=== PATIENT | female | born 1950 | race Caucasian/White ===

== ENCOUNTER 2017-07-05 23:06 | Inpatient (IN) | payer MEDICARE ==
[2017-07-05] MEDS ORDERED: Albuterol (2.5 MG) 0.5 % CONC 2.5 MG/0.5 ML NEB.SOLN (ICU and ED only) INH ONE (23:49)
[2017-07-05] MEDS ORDERED: Albuterol 2.5 MG/3 ML NEB.SOL* (0.083%) ONE (23:53)
[2017-07-06 00:17] LABS: PCO2 Arterial 44 mmHg (35-45)
[2017-07-06 00:29] LABS: Hematocrit 34 % (35-47); Hemoglobin 11.2 g/dl (12.0-16.0); Mean Corpuscular HGB Conc 33 g/dl (31-36); Mean Corpuscular Hemoglobin 29 pg (27-31); Mean Corpuscular Volume 88 fL (80-97); Mean Platelet Volume 8 um3 (7.4-10.4); Red Blood Count 3.89 10^6/ul (4.0-5.4); Red Cell Distribution Width 17 % (10.5-15); White Blood Count 14.5 10^3/ul (3.5-10.8)
[2017-07-06 00:39] LABS: ALT 9 U/L (7-52); Albumin 3.8 g/dL (3.2-5.2); Alkaline Phosphatase 83 U/L (34-104); BUN/Creatinine Ratio 15.7 (8-20); Blood Urea Nitrogen 22 mg/dL (6-24); CO2 Carbon Dioxide 27 mmol/L (22-32); Calcium 9.9 mg/dL (8.6-10.3); Chloride 100 mmol/L (101-111); EGFR African American 48.2 (>60); EGFR Non-African American 37.5 (>60); Globulin 3.6 g/dL (2-4); Glucose 243 mg/dL (70-100); Sodium 136 mmol/L (133-145); Total Protein 7.4 g/dL (6.4-8.9)
[2017-07-06 01:00] LABS: Anion Gap 9 mmol/L (2-11)
[2017-07-06] MEDS ORDERED: Albuterol 2.5 MG/3 ML NEB.SOL* (0.083%) INH PRN (03:06)
[2017-07-06] MEDS ORDERED: Ondansetron INJ* 2 MG/ML VIAL IV PRN (03:06)
[2017-07-06] MEDS ORDERED: CMCS: Melatonin (NF) 3 MG TAB PO PRN (03:06)
[2017-07-06] MEDS ORDERED: NS 0.9% 1000 ML* 1,000 ML IV SCH ×2 (03:15→03:56)
--- NOTE | 2017-07-06 03:32 | HP ---
H&P (Free Text) History and Physical: PCP: Charles Choi MD Cardiology: Gabbie Lopez MD Date/Time: 07/06/2017 021 CC: SOB HPI: Mrs Del Real is a 67YO morbidly obese white female HX CHF, AFIB, HTN, HLD, DM2, & COPD who presents with onset ~1 week ago of SOB, cough, & congestion for which she was seet at Urgent Care Friday and prescribed amoxicillin/clavulanate and has taken as prescribed. However, her SOB has persisted and progressed. She now gets SOB with mild exertion. She denies chest pain, N/V, F/C, sweats, palpitations, light-headedness, new/different swelling in the legs, focal W/N/T or other issues. PMedHx CHF AFIB COPD DM2 HTN HLD Ambulatory Orders Diltiazem HCl [Diltiazem HCl ER] 120 mg PO DAILY 11/14/13 Metoprolol Succinate [Metoprolol Succinate ER] 12.5 mg PO DAILY 11/14/13 Rivaroxaban TAB(*) [Xarelto(*)] 20 mg PO DAILY 11/14/13 Sitaglipt/Metform (NF) [Janumet (NF)] 1 tab PO BID 11/14/13 Canagliflozin (NF) [Invokana (NF)] 100 mg PO DAILY 07/06/17 Digoxin [Digitek] 0.125 mg PO DAILY 07/06/17 Exenatide [Bydureon] 2 mg SUBCUT WEEKLY 07/06/17 Furosemide TAB* [Lasix TAB*] 20 mg PO SEE INSTRUCTIONS 07/06/17 glipiZIDE TAB* [Glucotrol TAB*] 5 mg PO BID 07/06/17 Allergies No Known Allergies Allergy (Verified 11/14/13 14:56) PSurgHx tonsillectomy hysterectomy SocHx: quit smoking ~15years ago, 2 beers/day, denies recreational drugs; , lives alone; retired from accounting; full code status FamHx: Mother: in her 80s w/ CAD; passed in her sleep; Father: passed in his 60s 2nd leukemia ROS: as above, otherwise reviewed and all were negative vitals: Vital Signs Temp 38.0 C 07/05/17 23:11 Pulse 91 07/06/17 03:00 Resp 26 07/06/17 03:00 BP 130/71 07/06/17 03:00 Pulse Ox 96 07/06/17 03:00 Intake & Output 07/05/17 07/05/17 07/06/17 11:59 23:59 11:59 Weight 122.47 kg Constitutional: NAD, normally developed, morbidly obese white female HEENM: atraumatic; sclera/conjunctiva: anicteric/clear; hearing: clinically intact; oropharynx: clear, mucosa moist Neck: soft tissue: normal; thyroid: normal Pulmonary: clear to auscultation bilaterally, good aeration, no accessory muscle use CV: RR/RR, normal S1S2, no jugular venous distention, 2+ B DP/PT, no edema Abdominal: soft, non-distended, non-tender, no rebound/guarding/rigidity, normoactive bowel sounds, no hepatosplenomegaly or masses, no costovertebral angle tenderness Musculoskeletal: general: Integumental: L>R LE changes of chronic venous stasis w/o erythema/induration/ warmth Psychiatric orientation: AA&O to PPS affect: calm mood: cooperative eye contact: fair content: good memory: reliable responses: timely insight: fair Testing: Lab Results 07/05/17 07/05/17 07/05/17 Range/Units 23:40 23:40 23:40 WBC 14.5 H (3.5-10.8) 10^3/ul RBC 3.89 L (4.0-5.4) 10^6/ul Hgb 11.2 L (12.0-16.0) g/dl Hct 34 L (35-47) % MCV 88 (80-97) fL MCH 29 (27-31) pg MCHC 33 (31-36) g/dl RDW 17 H (10.5-15) % Plt Count 344 (150-450) 10^3/ul MPV 8 (7.4-10.4) um3 Neut % (Auto) 89.9 H (38-83) % Lymph % (Auto) 5.0 L (25-47) % [place] % (Auto) 3.4 (1-9) % Eos % (Auto) 1.0 (0-6) % Baso % (Auto) 0.7 (0-2) % Absolute Neuts (auto) 13.1 H (1.5-7.7) 10^3/ul Absolute Lymphs (auto) 0.7 L (1.0-4.8) 10^3/ul Absolute Monos (auto) 0.5 (0-0.8) 10^3/ul Absolute Eos (auto) 0.1 (0-0.6) 10^3/ul Absolute Basos (auto) 0.1 (0-0.2) 10^3/ul Absolute Nucleated RBC 0 10^3/ul Nucleated RBC % 0 ABG pH (7.35-7.45) ABG pCO2 (35-45) mmHg ABG pO2 (80-100) mmHg ABG HCO3 (19-31) mmol/L ABG O2 Saturation (95-98) % ABG Base Excess (-2.0-2.0) Sodium 136 (133-145) mmol/L Potassium TNP Chloride 100 L (101-111) mmol/L Carbon Dioxide 27 (22-32) mmol/L Anion Gap 9 (2-11) mmol/L BUN 22 (6-24) mg/dL Creatinine 1.40 H (0.51-0.95) mg/dL Est GFR ( Amer) 48.2 (>60) Est GFR (Non-Af Amer) 37.5 (>60) BUN/Creatinine Ratio 15.7 (8-20) Glucose 243 H (70-100) mg/dL Calcium 9.9 (8.6-10.3) mg/dL Total Bilirubin 0.50 (0.2-1.0) mg/dL AST TNP ALT 9 (7-52) U/L Alkaline Phosphatase 83 (34-104) U/L B-Natriuretic Peptide 76 ( - 100) pg/mL Total Protein 7.4 (6.4-8.9) g/dL Albumin 3.8 (3.2-5.2) g/dL Globulin 3.6 (2-4) g/dL Albumin/Globulin Ratio 1.1 (1-3) 07/06/17 Range/Units 00:06 WBC (3.5-10.8) 10^3/ul RBC (4.0-5.4) 10^6/ul Hgb (12.0-16.0) g/dl Hct (35-47) % MCV (80-97) fL MCH (27-31) pg MCHC (31-36) g/dl RDW (10.5-15) % Plt Count (150-450) 10^3/ul MPV (7.4-10.4) um3 Neut % (Auto) (38-83) % Lymph % (Auto) (25-47) % [place] % (Auto) (1-9) % Eos % (Auto) (0-6) % Baso % (Auto) (0-2) % Absolute Neuts (auto) (1.5-7.7) 10^3/ul Absolute Lymphs (auto) (1.0-4.8) 10^3/ul Absolute Monos (auto) (0-0.8) 10^3/ul Absolute Eos (auto) (0-0.6) 10^3/ul Absolute Basos (auto) (0-0.2) 10^3/ul Absolute Nucleated RBC 10^3/ul Nucleated RBC % ABG pH 7.40 (7.35-7.45) ABG pCO2 44 (35-45) mmHg ABG pO2 68 L (80-100) mmHg ABG HCO3 26.5 (19-31) mmol/L ABG O2 Saturation 96.5 (95-98) % ABG Base Excess 2.1 H (-2.0-2.0) Sodium (133-145) mmol/L Potassium Chloride (101-111) mmol/L Carbon Dioxide (22-32) mmol/L Anion Gap (2-11) mmol/L BUN (6-24) mg/dL Creatinine (0.51-0.95) mg/dL Est GFR ( Amer) (>60) Est GFR (Non-Af Amer) (>60) BUN/Creatinine Ratio (8-20) Glucose (70-100) mg/dL Calcium (8.6-10.3) mg/dL Total Bilirubin (0.2-1.0) mg/dL AST ALT (7-52) U/L Alkaline Phosphatase (34-104) U/L B-Natriuretic Peptide ( - 100) pg/mL Total Protein (6.4-8.9) g/dL Albumin (3.2-5.2) g/dL Globulin (2-4) g/dL Albumin/Globulin Ratio (1-3) ECG, personally reviewed: AFIB rate 106, no ischemia CXR, personally reviewed: small RLL infiltrate vs atelectasis Impression: 67F presenting with increasing SOB and RLL infiltrate s/p PO amoxicillin/clavulanate for sinusitis DIAGNOSIS & PLAN Primary RLL pneumonia : IVFs : IV azithromycin & ceftriaxone : supplemental oxygen : guaifenesin : incentinve spirometry : check S pneumo & Legionella antigens Secondary CHF : continue furosemide AFIB : continue rivaroxaban, metoprolol, diltiazem, & digoxin COPD : albuterol nebs PRN DM2 : check A1c : consistent carb diet : correctional insulin : continue sitagliptin/metformin, canagliflozin, & glipizide : hold exenatide HTN : continue furosemide, metoprolol, & diltiazem HLD : heart healthy diet Admission Rational: observation for initiation of ABX for RLL pneumonia DVTp: rivaroxaban Code Status: full HCP: Ramesh monae [phone]
[2017-07-06] MEDS ORDERED: Azithromycin IV(*) 500 MG in NS 0.9% 250 ML* 250 ML IVPB SCH (04:00)
[2017-07-06 04:32] LABS: Hematocrit 35 % (35-47); Hemoglobin 11.2 g/dl (12.0-16.0); Mean Corpuscular HGB Conc 32 g/dl (31-36); Mean Corpuscular Hemoglobin 28 pg (27-31); Mean Corpuscular Volume 87 fL (80-97); Mean Platelet Volume 8 um3 (7.4-10.4); Red Blood Count 3.97 10^6/ul (4.0-5.4); Red Cell Distribution Width 17 % (10.5-15); White Blood Count 12.9 10^3/ul (3.5-10.8)
[2017-07-06 05:00] LABS: BUN/Creatinine Ratio 17.1 (8-20); Calcium 9.8 mg/dL (8.6-10.3); EGFR Non-African American 43.6 (>60); Potassium 4.3 mmol/L (3.5-5.0)
[2017-07-06] MEDS ORDERED: cefTRIAXone VIAL(*) 1,000 MG in NS 0.9% 50 ML* 50 ML IVPB SCH (05:00)
[2017-07-06] MEDS: Omeprazole CAP* 20 MG PO SCH (05:52)
--- NOTE | 2017-07-06 08:35 | RAD ---
INDICATION: Cough. Bronchitis. COMPARISON: November 15, 2013 TECHNIQUE: PA and lateral dual-energy views were obtained. FINDINGS: Bones/Soft Tissues: There are no acute bony findings. Cardiomediastinal: The cardiomediastinal silhouette is normal. Lungs: There are no acute infiltrates. There are mild chronic interstitial changes. Pleura: There are no pleural effusions. Other: None IMPRESSION: Mild chronic interstitial changes. No acute infiltrates
[2017-07-06] MEDS: Furosemide TAB* 20 MG PO SCH (08:52)
[2017-07-06] MEDS: Digoxin TAB* 0.125 MG PO SCH (08:52)
[2017-07-06] MEDS: glipiZIDE TAB* 5 MG PO SCH ×2 (08:52→17:46)
[2017-07-06] MEDS: Metoprolol Succinate XL TAB* 25 MG PO SCH (08:53)
[2017-07-06] MEDS: guaiFENesin ER TAB 600 MG PO SCH ×2 (08:53→21:16)
[2017-07-06] MEDS: Docusate CAP* 100 MG PO SCH ×2 (08:54→21:17)
[2017-07-06] MEDS: Oseltamivir CAP* 30 MG CAP PO SCH ×2 (08:54→21:15)
[2017-07-06] MEDS: Diltiazem CD CAP* 120 MG PO SCH (08:54)
[2017-07-06] MEDS: Insulin LISPRO* 1 UNITS UNIT SUBCUT SCH ×4 (09:00→21:20)
[2017-07-06] MEDS: CANAGLIFLOZIN 100 MG PO SCH (09:00)
[2017-07-06] MEDS: Rivaroxaban TAB(*) 20 MG TAB PO SCH (12:33)
--- NOTE | 2017-07-06 15:20 | PN ---
Subjective Date of Service: 07/06/17 Interval History: Feels close to baseline cough is minimal no other complaints Objective Active Medications: Acetaminophen (Tylenol Tab*) 650 mg PO Q6H PRN PRN Reason: FEVER/PAIN Albuterol (Ventolin 2.5 Mg/3 Ml Neb.Nadia*) 2.5 mg INH Q2H PRN PRN Reason: SOB/WHEEZING Canagliflozin (Invokana (Nf)) 100 mg PO DAILY [facility] Last Admin: 07/06/17 09:00 Dose: Not Given Digoxin (Lanoxin Tab*) 0.125 mg PO DAILY [facility] Last Admin: 07/06/17 08:52 Dose: 0.125 mg Diltiazem HCl (Cardizem Cd Cap*) 120 mg PO DAILY [facility] Last Admin: 07/06/17 08:54 Dose: 120 mg Docusate Sodium (Colace Cap*) 200 mg PO BID [facility] Last Admin: 07/06/17 08:54 Dose: Not Given Furosemide (Lasix Tab*) 20 mg PO SuMoTuThFr@0900 [facility] Last Admin: 07/06/17 08:52 Dose: 20 mg Glipizide (Glucotrol Tab*) 5 mg PO BID AC [facility] Last Admin: 07/06/17 08:52 Dose: 5 mg Guaifenesin (Mucinex*) 1,200 mg PO BID [facility] Last Admin: 07/06/17 08:53 Dose: 1,200 mg Insulin Human Lispro (Humalog*) 0 units SUBCUT ACHS [facility] PRN Reason: Protocol Last Admin: 07/06/17 12:33 Dose: 3 units Melatonin (Melatonin (Nf)) 3 mg PO BEDTIME PRN; Protocol PRN Reason: Sleep Metoprolol Succinate (Toprol Xl Tab*) 12.5 mg PO DAILY [facility] Last Admin: 07/06/17 08:53 Dose: 12.5 mg Omeprazole (Prilosec Cap*) 20 mg PO DAILY@0600 [facility] Last Admin: 07/06/17 05:52 Dose: 20 mg Ondansetron HCl (Zofran Inj*) 4 mg IV Q6H PRN PRN Reason: NAUSEA Oseltamivir Phosphate (Tamiflu Cap*) 30 mg PO BID [facility] Stop: 07/10/17 21:01 Last Admin: 07/06/17 08:54 Dose: 30 mg Rivaroxaban (Xarelto (*)) 20 mg PO DAILY [facility] Last Admin: 07/06/17 12:33 Dose: 20 mg Vital Signs 07/06/17 07/06/17 07/06/17 02:30 03:00 04:08 Temperature 98.5 F Pulse Rate 96 91 96 Respiratory 19 26 18 Rate Blood Pressure 144/117 130/71 129/66 (mmHg) O2 Sat by Pulse 95 96 96 Oximetry 07/06/17 07/06/17 07:50 08:00 Temperature 98.4 F Pulse Rate 92 Respiratory 17 18 Rate Blood Pressure 122/72 (mmHg) O2 Sat by Pulse 93 Oximetry Oxygen Devices in Use Now: Nasal Cannula - 4L, High Flow Nasal Cannula Appearance: sitting in chair, NAD Eyes: No Scleral Icterus, PERRLA Ears/Nose/Mouth/Throat: Clear Oropharnyx, Mucous Membranes Moist Neck: NL Appearance and Movements; NL JVP, Trachea Midline Respiratory: Symmetrical Chest Expansion and Respiratory Effort, Clear to Auscultation Cardiovascular: NL Sounds; No Murmurs; No JVD, RRR Abdominal: NL Sounds; No Tenderness; No Distention Lymphatic: No Cervical Adenopathy, No Axillary Adenopathy Extremities: No Edema, No Clubbing, Cyanosis Skin: No Rash or Ulcers Neurological: Alert and Oriented x 3 Result Diagrams: 07/06/17 04:16 07/06/17 04:16 Microbiology and Other Data: Microbiology 07/06/17 04:45 Legionella Urinary Antigen - Final Urine Negative Legionella Streptococcus pneumoniae Ag Screen - Final Negative S. pneumo Antigen 07/06/17 03:15 Influenza Types A,B Antigen ([facility]) - Final Nasopharyngeal Specimen received for Influenza A/B Molecular testing Assess/Plan/Problems-Billing Assessment: 67 yo F p/w acute on chronic respiratory failure found with influenza A - Patient Problems (1) Influenza A Comment: Tamiflu (2) Acute respiratory failure with hypoxia Comment: desat to 82% on 3L ambulating to bathroom. Will remain hospitalized and continue to monitor for improvement. I do not think she has a bacterial PNA based on symptoms, clinical exam and CXR (3) Atrial fibrillation Comment: digoxin, cardizem, xarelto (4) Diabetes Comment: glipizide lispro SS (5) DVT prophylaxis Comment: xarelto
[2017-07-06] MEDS ORDERED: Fluconazole 100 MG TAB* TAB PO ONE (15:32)
[2017-07-06] MEDS ORDERED: Rivaroxaban TAB(*) 20 MG TAB PO SCH (17:00)
[2017-07-06] MEDS: Acetaminophen TAB* 325 MG PO PRN (21:16)
[2017-07-07] MEDS: Acetaminophen TAB* 325 MG PO PRN (05:34)
[2017-07-07] MEDS: Omeprazole CAP* 20 MG PO SCH (05:35)
[2017-07-07] MEDS: glipiZIDE TAB* 5 MG PO SCH ×2 (08:32→17:59)
[2017-07-07] MEDS: Oseltamivir CAP* 30 MG CAP PO SCH ×2 (08:32→23:33)
[2017-07-07] MEDS: Rivaroxaban TAB(*) 20 MG TAB PO SCH (08:32)
[2017-07-07] MEDS: Furosemide TAB* 20 MG PO SCH (08:32)
[2017-07-07] MEDS: Diltiazem CD CAP* 120 MG PO SCH (08:33)
[2017-07-07] MEDS: guaiFENesin ER TAB 600 MG PO SCH ×2 (08:33→23:24)
[2017-07-07] MEDS: Metoprolol Succinate XL TAB* 25 MG PO SCH (08:33)
[2017-07-07] MEDS: Docusate CAP* 100 MG PO SCH ×2 (08:33→23:25)
[2017-07-07] MEDS: CANAGLIFLOZIN 100 MG PO SCH (08:34)
[2017-07-07] MEDS: Insulin LISPRO* 1 UNITS UNIT SUBCUT SCH ×4 (08:34→23:25)
[2017-07-07] MEDS: Digoxin TAB* 0.125 MG PO SCH (08:36)
--- NOTE | 2017-07-07 16:22 | PN ---
Subjective Date of Service: 07/07/17 Interval History: cough continues Ambulated to door and became SOB on 3 L oxygen with desat to 85% afebrile No other complaints Objective Active Medications: Acetaminophen (Tylenol Tab*) 650 mg PO Q6H PRN PRN Reason: FEVER/PAIN Last Admin: 07/07/17 05:34 Dose: 650 mg Albuterol (Ventolin 2.5 Mg/3 Ml Neb.Nadia*) 2.5 mg INH Q2H PRN PRN Reason: SOB/WHEEZING Canagliflozin (Invokana (Nf)) 100 mg PO DAILY [facility] Last Admin: 07/07/17 08:34 Dose: Not Given Digoxin (Lanoxin Tab*) 0.125 mg PO DAILY [facility] Last Admin: 07/07/17 08:36 Dose: 0.125 mg Diltiazem HCl (Cardizem Cd Cap*) 120 mg PO DAILY [facility] Last Admin: 07/07/17 08:33 Dose: 120 mg Docusate Sodium (Colace Cap*) 200 mg PO BID [facility] Last Admin: 07/07/17 08:33 Dose: 200 mg Furosemide (Lasix Tab*) 20 mg PO SuMoTuThFr@0900 [facility] Last Admin: 07/07/17 08:32 Dose: 20 mg Glipizide (Glucotrol Tab*) 5 mg PO BID AC [facility] Last Admin: 07/07/17 08:32 Dose: 5 mg Guaifenesin (Mucinex*) 1,200 mg PO BID [facility] Last Admin: 07/07/17 08:33 Dose: 1,200 mg Insulin Human Lispro (Humalog*) 0 units SUBCUT ACHS [facility] PRN Reason: Protocol Last Admin: 07/07/17 12:39 Dose: 3 units Melatonin (Melatonin (Nf)) 3 mg PO BEDTIME PRN; Protocol PRN Reason: Sleep Metoprolol Succinate (Toprol Xl Tab*) 12.5 mg PO DAILY [facility] Last Admin: 07/07/17 08:33 Dose: 12.5 mg Omeprazole (Prilosec Cap*) 20 mg PO DAILY@0600 [facility] Last Admin: 07/07/17 05:35 Dose: 20 mg Ondansetron HCl (Zofran Inj*) 4 mg IV Q6H PRN PRN Reason: NAUSEA Oseltamivir Phosphate (Tamiflu Cap*) 30 mg PO BID [facility] Stop: 07/10/17 21:01 Last Admin: 07/07/17 08:32 Dose: 30 mg Rivaroxaban (Xarelto (*)) 20 mg PO DAILY [facility] Last Admin: 07/07/17 08:32 Dose: 20 mg Vital Signs 07/06/17 07/06/17 07/06/17 19:50 19:52 20:00 Temperature 99.0 F Pulse Rate 92 Respiratory 20 18 Rate Blood Pressure 124/60 (mmHg) O2 Sat by Pulse 96 96 Oximetry 07/06/17 07/07/17 07/07/17 23:39 05:35 07:48 Temperature 97.8 F 98.1 F 97.4 F Pulse Rate 76 74 85 Respiratory 16 20 18 Rate Blood Pressure 119/54 117/67 122/78 (mmHg) O2 Sat by Pulse 97 97 98 Oximetry 07/07/17 07/07/17 07/07/17 07:55 08:36 10:35 Temperature Pulse Rate 82 90 Respiratory 18 16 Rate Blood Pressure (mmHg) O2 Sat by Pulse 97 Oximetry 07/07/17 07/07/17 14:59 15:50 Temperature 98.6 F Pulse Rate 84 Respiratory 18 Rate Blood Pressure 136/68 (mmHg) O2 Sat by Pulse 90 97 Oximetry Oxygen Devices in Use Now: Nasal Cannula Appearance: NAD Eyes: No Scleral Icterus, PERRLA Ears/Nose/Mouth/Throat: Clear Oropharnyx, Mucous Membranes Moist Neck: NL Appearance and Movements; NL JVP, Trachea Midline Respiratory: Symmetrical Chest Expansion and Respiratory Effort, - - rales right base Cardiovascular: RRR Abdominal: NL Sounds; No Tenderness; No Distention, No Hepatosplenomegaly Lymphatic: No Cervical Adenopathy Skin: No Rash or Ulcers Neurological: Alert and Oriented x 3 Result Diagrams: 07/06/17 04:16 07/06/17 04:16 Microbiology and Other Data: Microbiology 07/06/17 04:45 Legionella Urinary Antigen - Final Urine Negative Legionella Streptococcus pneumoniae Ag Screen - Final Negative S. pneumo Antigen 07/06/17 03:15 Influenza Types A,B Antigen ([facility]) - Final Nasopharyngeal Specimen received for Influenza A/B Molecular testing Assess/Plan/Problems-Billing Assessment: 67 yo F p/w acute on chronic respiratory failure found with influenza A - Patient Problems (1) Influenza A Comment: Tamiflu Ambulate Incentive spirometer (2) Acute respiratory failure with hypoxia Comment: desat to 85% on 3L ambulating to bathroom. Will remain hospitalized and continue to monitor for improvement. I do not think she has a bacterial PNA based on symptoms, clinical exam and CXR Continue ambulation and incentive spirometer (3) Atrial fibrillation Comment: digoxin, cardizem, xarelto (4) Diabetes Comment: hba1c 7.7% glipizide lispro SS (5) DVT prophylaxis Comment: mannyto
[2017-07-07] MEDS: Saline NASAL SPRAY 0.65%* BTL BOTH NARES PRN (23:23)
[2017-07-07] MEDS: Amoxicillin/Clavulanate TAB* 875 MG PO SCH (23:26)
[2017-07-08] MEDS: Saline NASAL SPRAY 0.65%* BTL BOTH NARES PRN ×2 (04:41→10:43)
[2017-07-08] MEDS: Omeprazole CAP* 20 MG PO SCH (06:23)
[2017-07-08] MEDS: Rivaroxaban TAB(*) 20 MG TAB PO SCH (08:13)
[2017-07-08] MEDS: Metoprolol Succinate XL TAB* 25 MG PO SCH (08:13)
[2017-07-08] MEDS: Amoxicillin/Clavulanate TAB* 875 MG PO SCH (08:15)
[2017-07-08] MEDS: Docusate CAP* 100 MG PO SCH (08:16)
[2017-07-08] MEDS: guaiFENesin ER TAB 600 MG PO SCH (08:16)
[2017-07-08] MEDS: glipiZIDE TAB* 5 MG PO SCH ×2 (08:16→17:04)
[2017-07-08] MEDS: Oseltamivir CAP* 30 MG CAP PO SCH (08:16)
[2017-07-08] MEDS: Furosemide TAB* 20 MG PO SCH (08:16)
[2017-07-08] MEDS: Diltiazem CD CAP* 120 MG PO SCH (08:16)
[2017-07-08] MEDS: Digoxin TAB* 0.125 MG PO SCH (08:16)
[2017-07-08] MEDS: CANAGLIFLOZIN 100 MG PO SCH (08:17)
[2017-07-08] MEDS: Insulin LISPRO* 1 UNITS UNIT SUBCUT SCH ×3 (08:19→17:04)
[2017-07-08 14:43] VITALS: BP 116/82
--- NOTE | 2017-07-09 07:43 | DS ---
CC: Dr. Choi* DISCHARGE SUMMARY: DATE OF ADMISSION: 07/06/17 DATE OF DISCHARGE: 07/08/17 PRIMARY CARE PHYSICIAN: Dr. Choi. PRIMARY DIAGNOSIS: Hypoxic respiratory failure secondary to influenza A. SECONDARY DIAGNOSES: Include: 1. Chronic obstructive pulmonary disease. 2. Chronic respiratory failure requiring oxygen at night. 3. History of congestive heart failure compensated. 4. Type 2 diabetes. 5. Hypertension. 6. Hyperlipidemia. MEDICATIONS ON DISCHARGE: Include: 1. Glipizide 5 mg twice daily. 2. Lasix 20 mg as needed. 3. Invokana 100 mg daily. 4. Bydureon 2 mg subcutaneously weekly. 5. Digoxin 0.125 mg daily. 6. Metoprolol succinate 12.5 mg daily. 7. Diltiazem 120 mg daily. 8. Janumet one tablet twice daily. 9. Rivaroxaban 20 mg daily. 10. Prednisone 50 mg daily for 5 days. 11. Tamiflu 30 mg twice daily for 5 additional days. IMAGING PERFORMED DURING HOSPITAL STAY: Pertinent microbiology influenza A positive. Pertinent imaging, chest x-ray impression: Mild chronic interstitial changes, no acute infiltrate. HISTORY OF PRESENT ILLNESS AND HOSPITAL COURSE: This is a 67-year-old female with past medical history as outlined in the history of present illness, on the day of admission presented to the hospital about a week of increasing shortness of breath, cough and congestion. She was seen at urgent care and was diagnosed with a sinus infection, started on Augmentin, however not improved. In the emergency room, she was noted to have influenza A with hypoxic respiratory failure, requiring up to 5 L of oxygen. For several days we attempted to ambulate Ms. Del Real and discharge her; however, she was desaturating to low 80s with up to 4 or 5 L. For this reason, she was kept in the hospital and with continued monitoring and treatment. On the day of discharge, she was able to ambulate with 4 L desaturating only to 90% oxygen and saturating well at 2 L at rest. She was advised to maintain 4 L at all times upon discharge. She was also given a 5-day steroid course to hasten her recovery. I did not suspect a infection. Her antibiotics stopped after the day of discharge. She continued to be afebrile with improving respiratory status. At followup please; 1. Evaluate for continued respiratory function improvement and titrate off oxygen as able. This may involve ambulating the patient with oxygen to identify her oxygen needs with ambulation. 2. No other specific labs or vitals that need follow-up. Reason to return to the hospital included, but not limited to recurrent or worsening symptoms including increasing shortness of breath, chest pain, lightheadedness, loss of consciousness, near loss of consciousness, fevers, chills, night sweats inability to obtain or tolerate medications were discussed with the patient, she acknowledged understanding. Greater than 60 minutes was spent in the discharge of this patient, greater than half was spent [id number] with the patient. [id number]/[facility] #: [id number] MARIBEL
== END 2017-07-08 17:20 | disposition home or self-care (01) | DRG 193 ==
LOC: ED 23:06 → MED 07-06 02:12
PROVIDERS: ADMIT Hospitalist; ATTEND Internal Medicine
DX: J10.1 Influenza due to other identified influenza virus with other respiratory manifestations (principal); J96.01 Acute respiratory failure with hypoxia; Z68.42 Body mass index [BMI] 45.0-49.9, adult; J96.10 Chronic respiratory failure, unspecified whether with hypoxia or hypercapnia; I11.0 Hypertensive heart disease with heart failure; I50.9 Heart failure, unspecified; I48.91 Unspecified atrial fibrillation; E66.01 Morbid (severe) obesity due to excess calories; J44.9 Chronic obstructive pulmonary disease, unspecified; E11.9 Type 2 diabetes mellitus without complications; E78.5 Hyperlipidemia, unspecified; Z79.84 Long term (current) use of oral hypoglycemic drugs; Z99.81 Dependence on supplemental oxygen; Z79.899 Other long term (current) drug therapy; Z87.891 Personal history of nicotine dependence; Z82.49 Family history of ischemic heart disease and other diseases of the circulatory system; Z80.6 Family history of leukemia
CPT/HCPCS: 36415; 36600; 71020; 80048; 80053; 82803; 83036; 83880; 85025; 87040; 87070; 87205; 87502; 87899; 93005; 94640; 94760; A9270-GY; J0456; J0696

== ENCOUNTER 2018-10-19 09:10 | Emergency (ER) | payer MEDICARE ==
--- NOTE | 2018-10-19 09:22 | ED ---
Shortness of Breath - HPI Summary HPI Summary: Patient is a 68 y/o F presenting to ED with complaints of SOB for the past few days. Triage nurse Mya reports that the patient was 86% o2 in triage. Patient wears o2 at home at night. These past few days, she states that she has been around 90% o2 sat while sitting, but notes that recently her o2 sat drops to around 80% with exertion. She states that she is somewhat hoarse and has a tickle in her throat with slight cough. No chest pain, tightness, pressure is reported. She notes that she sleeps on "quite a few" pillows but states that this is due to the fact that she watches TV at night. She denies fever, chills, diaphoresis, recent weight gain and BLE edema. Patient is on a water pill x4 times a week. Patient is followed by Dr. Lopez and Dr. Choi. PMHx of COPD , CHF, afib, no Hx of MS. No PSHx of cardiac surgery. No FMHx of blood cots. Patient is a former smoker, noting she quit "years ago". In room, pulse 95, o2 97 on 2L, BP 178/111. Erythema of eyes, sore throat, cough, abdominal pain, vomiting, nausea, dysuria , hematuria, myalgia, rash and dizziness are not reported. On triage, pain is rated 0/10, nothing is noted to aggravate/alleviate Sx. Home medications and allergies are reviewed. - History of Current Complaint Time Seen by Provider: 10/19/18 09:13 Hx Obtained From: Patient Onset/Duration: Lasting Days, Still Present Timing: Constant Current Severity: None Dyspnea At: Exertion Aggrevating Factors: Movement - exertion Alleviating Factors: Nothing Associated Signs & Symptoms: Cough (Nonproductive) - Allergy/Home Medications Allergies/Adverse Reactions: Allergies Allergy/AdvReac Type Severity Reaction Status Date / Time potassium Allergy Rash And Verified 10/19/18 09:18 Itching Home Medications: Home Medications Apixaban* [Eliquis*] 5 mg PO BID 10/19/18 [History Confirmed 10/19/18] Travis/Mag/B Comp/Vit D3/Hrb61 1 tab PO WEEKLY 10/19/18 [History Confirmed 10/19/18 ] Chlorthalidone TAB* [Hygroton TAB*] 25 mg PO DAILY 10/19/18 [History Confirmed 10/19/18] Dapagliflozin 10 mg Tab (Nf) [Farxiga] 10 mg PO DAILY 10/19/18 [History Confirmed 10/19/18] Iron 65 mg PO DAILY 10/19/18 [History Confirmed 10/19/18] Lisinopril TAB* [Prinivil TAB*] 10 mg PO DAILY 10/19/18 [History Confirmed 10/19] Magnesium Oxide [Magnesium] 250 mg PO DAILY 10/19/18 [History Confirmed 10/19/18 ] Metoprolol Succinate XL TAB* [Toprol XL TAB*] 12.5 mg PO DAILY 10/19/18 [ History Confirmed 10/19/18] Simvastatin 10 mg PO DAILY 10/19/18 [History Confirmed 10/19/18] PMH/Surg Hx/FS Hx/Imm Hx Endocrine/Hematology History: Reports: Hx Diabetes Cardiovascular History: Reports: Hx Atrial Fibrillation, Hx Congestive Heart Failure, Hx Hypercholesterolemia, Hx Hypertension Denies: Hx Myocardial Infarction Respiratory History: Reports: Hx Asthma, Hx Chronic Obstructive Pulmonary Disease (COPD), Hx Pneumonia Musculoskeletal History: Reports: Hx Arthritis Sensory History: Reports: Hx Contacts or Glasses, Hx Vision Problem Denies: Hx Eye Injury, Hx Eye Prosthesis, Hx Glaucoma, Hx Legally Blind, Hx Macular Degeneration, Hx Deafness, Hx Hearing Aid, Hx Hearing Problem, Other Sensory Impairments Opthamlomology History: Reports: Hx Contacts or Glasses, Hx Vision Problem Denies: Hx Eye Injury, Hx Eye Prosthesis, Hx Glaucoma, Hx Legally Blind, Hx Macular Degeneration, Other Sensory Impairments - Surgical History Surgery Procedure, Year, and Place: HYSTERECTOMY Hx Anesthesia Reactions: No - Family History Known Family History: Positive: Cardiac Disease Negative: Blood Disorder - no FMHx of blood clots - Social History Alcohol Use: Rare Substance Use Type: Reports: None Smoking Status (MU): Former Smoker Review of Systems Constitutional: Other - PATIENT NOTES TICKLE IN THROAT, HOARSE VOICE, DENIES COLD SX AND RECENT WEIGHT GAIN Negative: Fever, Chills, Skin Diaphoresis Negative: Erythema Negative: Sore Throat Negative: Chest Pain Positive: Shortness Of Breath, Cough Negative: Abdominal Pain, Vomiting, Nausea Negative: dysuria, hematuria Negative: Myalgia, Edema Negative: Rash Neurological: Other - NEGATIVE - DIZZINESS All Other Systems Reviewed And Are Negative: Yes Physical Exam - Summary Physical Exam Summary: Constitutional: Well-developed, Well-nourished, Alert. (-) Distressed Skin: Warm, Dry HENT: Normocephalic; Atraumatic Eyes: Conjunctiva normal Neck: Musculoskeletal ROM normal neck. (-) JVD, (-) Stridor, (-) Tracheal deviation Cardio: Rhythm regular, rate normal, Heart sounds normal; Intact distal pulses; The pedal pulses are 2+ and symmetric. Radial pulses are 2+ and symmetric. (-) Murmur Pulmonary/Chest wall: Effort normal. (-) Respiratory distress, (+) Wheezes at left lower lung, (-) Rales Abd: Soft, (-) epigastric tenderness, (-) Distension, (-) Guarding, (-) Rebound Musculoskeletal: (-) Edema Lymph: (-) Cervical adenopathy Neuro: Alert, Oriented x3 Psych: Mood and affect Normal Triage Information Reviewed: Yes Vital Signs On Initial Exam: Initial Vitals Temp Pulse Resp BP Pulse Ox 98.0 F 106 22 178/111 94 10/19/18 09:15 10/19/18 09:15 10/19/18 09:15 10/19/18 09:15 10/19/18 09:15 Vital Signs Reviewed: Yes Diagnostics - Laboratory Result Diagrams: 10/19/18 09:40 10/19/18 09:40 Lab Statement: Any lab studies that have been ordered have been reviewed, and results considered in the medical decision making process. - Radiology chest x-ray Radiology Interpretation Completed By: Radiologist Summary of Radiographic Findings: CXR IMPRESSION: 1. THERE HAS BEEN INTERVAL DEVELOPMENT OF A 9.2 CM MASS OF THE RIGHT MIDLUNG FIELD. RECOMMEND FURTHER EVALUATION WITH CONTRAST ENHANCED CT OF THE CHEST. 2. CARDIOMEGALY. THIS REPORT WAS REVIEWED BY ED PHYSICIAN. - CT ct chest CT Interpretation Completed By: Radiologist Summary of CT Findings: IMPRESSION: 1. THERE HAS BEEN INTERVAL DEVELOPMENT OF A 7.5 CM MASS OF THE SUPERIOR SEGMENT OF THE. LEFT LOWER LOBE CORRESPONDING TO THE CHEST RADIOGRAPH ABNORMALITY. THE APPEARANCE IS. CONSISTENT WITH NEOPLASM, RECOMMEND CONSIDERATION OF FURTHER EVALUATION WITH TISSUE. SAMPLING. 2. RELATIVE ENLARGEMENT OF THE PULMONARY ARTERY COMPARED TO THE AORTA SUGGESTIVE OF. PULMONARY ARTERIAL HYPERTENSION. 3. ATHEROSCLEROSIS. THIS REPORT WAS REVIEWED BY ED PHYSICIAN. - EKG 0925 Cardiac Rate: Other Rate - afib with rate of 87 BPM EKG Rhythm: Atrial Fibrillation Summary of EKG Findings: EKG showed afib with rate of 87 BPM, TWI V6, no STEMI. Re-Evaluation - Re-Evaluation First Eval Re-Evaluation Time: 11:29 Comment: Informed patient about lung mass findings, CT Chest to be done. Second Eval Re-Evaluation Time: 12:59 Comment: Results of labs and tests were discussed with patient, she will be discharged to home and follow up with PCP within 3 days. Course/Dx - Course Course Of Treatment: Patient is a 68 y/o F presenting to ED with complaints of SOB for the past few days. Triage nurse Mya reports that the patient was 86% o2 in triage. Patient wears o2 at home at night. These past few days, she states that she has been around 90% o2 sat while sitting, but notes that recently her o2 sat drops to around 80% with exertion. She states that she is somewhat hoarse and has a tickle in her throat with slight cough. No chest pain , tightness, pressure is reported. She notes that she sleeps on "quite a few" pillows but states that this is due to the fact that she watches TV at night. She denies fever, chills, diaphoresis, recent weight gain and BLE edema. Patient is on a water pill x4 times a week. Patient is followed by Dr. Lopez and Dr. Choi. PMHx of COPD, CHF, afib, no Hx of MS. No PSHx of cardiac surgery. No FMHx of blood cots. Patient is a former smoker, noting she quit "years ago". In room, pulse 95, o2 97 on 2L, BP 178/111. On physical exam, left lower lobe wheezing is heard. EKG showed afib with rate of 87 BPM, TWI V6 , no STEMI. CXR IMPRESSION: 1. THERE HAS BEEN INTERVAL DEVELOPMENT OF A 9.2 CM MASS OF THE RIGHT MIDLUNG FIELD. RECOMMEND FURTHER EVALUATION WITH CONTRAST ENHANCED CT OF THE CHEST. 2. CARDIOMEGALY. Labs showed WBC 12, Hgb 11.5, RDW 18, absolute neuts 11.7, absolute lymphs 0.7, D-dimer < 200, BUN 26, creatinine 1.36, glucose 189, lactic acid 1.8, AST 10, trop 0.01, BNP 130. UA showed 1+ protein, 1+ blood, 2+ WBC, trace RBC, present squamous epith cells, 3+ bacteria , 3+ glucose. During ED course, patient received deltasone 40 mg PO ONCE and Duoneb [address] CHEST IMPRESSION: 1. THERE HAS BEEN INTERVAL DEVELOPMENT OF A 7.5 CM MASS OF THE SUPERIOR SEGMENT OF THE. LEFT LOWER LOBE CORRESPONDING TO THE CHEST RADIOGRAPH ABNORMALITY. THE APPEARANCE IS. CONSISTENT WITH NEOPLASM, RECOMMEND CONSIDERATION OF FURTHER EVALUATION WITH TISSUE. SAMPLING. 2. RELATIVE ENLARGEMENT OF THE PULMONARY ARTERY COMPARED TO THE AORTA SUGGESTIVE OF. PULMONARY ARTERIAL HYPERTENSION. 3. ATHEROSCLEROSIS. Due to elevated WBC, will prescribe antibiotics. Results of labs and tests were discussed with patient, she will be discharged to home and follow up with PCP within 3 days. Patient was advised to wear her home o2 all the time. - Diagnoses Differential Diagnosis/HQI/PQRI: Positive: CHF, COPD Exacerbation, Pneumonia, Pulmonary Embolism Provider Diagnoses: Lung mass, Hypoxia, Cough Discharge - Sign-Out/Discharge Documenting (check all that apply): Patient Departure - discharge Patient Received Moderate/Deep Sedation with Procedure: No - NO PROCEDURES DONE - Discharge Plan Condition: Stable Disposition: HOME Prescriptions: Albuterol 2.5MG/3ML (0.083%)* [Ventolin 2.5 MG/3 ML NEB.ADIA*] 2.5 mg INH Q4H PRN #60 neb.adia PRN Reason: Shortness Of Breath Levofloxacin TAB* [Levaquin TAB*] 750 mg PO DAILY #7 tab predniSONE TAB* [Deltasone TAB*] 50 mg PO DAILY #4 tab Patient Education Materials: Lung Cancer (DC), Hypoxia (ED), Acute Cough (ED) Referrals: Cristiano Choi MD [Primary Care Provider] - 3 Days Additional Instructions: WEAR YOUR OXYGEN AT HOME ALL THE TIME. RETURN TO EMERGENCY DEPARTMENT WITH ANY NEW OR WORSENING SYMPTOMS. FOLLOW UP WITH PRIMARY CARE PHYSICIAN WITHIN 3 DAYS. - Billing Disposition and Condition Condition: STABLE Disposition: Home - Attestation Statements Document Initiated by Scribe: Yes Documenting Scribe: RICHARD BATISTA Provider For Whom Scribe is Documenting (Include Credential): SRINIVAS SWENSON MD Scribe Attestation: RICHARD Bell , scribed for SRINIVAS SWENSON MD on 10/19/18 at 1849. Scribe Documentation Reviewed: Yes Provider Attestation: The documentation as recorded by the scribe, RICHARD BATISTA accurately reflects the service I personally performed and the decisions made by me, SRINIVAS SWENSON MD Status of Scribe Document: Viewed
[2018-10-19] MEDS ORDERED: Albuterol/Ipratropium NEB.SOL* Albuterol 2.5 MG/Ipratropium 0.5 MG 3 ML INH ONE (09:34)
[2018-10-19] MEDS ORDERED: Albuterol/Ipratropium NEB.SOL* Albuterol 2.5 MG/Ipratropium 0.5 MG 3 ML ONE (09:35)
[2018-10-19 09:52] LABS: ABS Basophils 0.1 10^3/ul (0-0.2); ABS Eosinophils 0.1 10^3/ul (0-0.6); ABS Lymphocytes 0.7 10^3/ul (1.0-4.8); ABS Monocytes 0.3 10^3/ul (0-0.8); ABS Neutrophils 11.7 10^3/ul (1.5-7.7); ABS Nucleated RBC 0 10^3/ul; Eosinophil % 1.1 %; Hematocrit 36 % (35-47); Hemoglobin 11.5 g/dl (12.0-16.0); Lymphocyte % 5.1 %; Mean Corpuscular HGB Conc 32 g/dl (31-36); Mean Corpuscular Hemoglobin 27 pg (27-31); Mean Corpuscular Volume 85 fL (80-97); Mean Platelet Volume 7.5 fL (7.4-10.4); Nucleated Red Blood Cells % 0; Platelet Count 415 10^3/ul (150-450); Red Blood Count 4.21 10^6/ul (4.00-5.40); Red Cell Distribution Width 18 % (10.5-15)
[2018-10-19 10:24] LABS: Albumin 4.1 g/dL (3.2-5.2); Albumin/Globulin Ratio 1.2 (1-3); BUN/Creatinine Ratio 19.1 (8-20); Calcium 9.7 mg/dL (8.6-10.3); EGFR African American 46.8 (>60); EGFR Non-African American 38.7 (>60); Globulin 3.5 g/dL (2-4); Total Bilirubin 0.7 mg/dL (0.2-1.0); Total Protein 7.6 g/dL (6.4-8.9); Troponin I 0.01 ng/mL (<0.04)
[2018-10-19] MEDS ORDERED: predniSONE TAB* 20 MG PO ONE (11:35)
[2018-10-19] MEDS ORDERED: Iodixanol* (CONTRAST) 320 MG/ML 100 ML SDV IV ONE (11:38)
[2018-10-19 11:59] LABS: Urine Appearance Clear; Urine Bacteria 3+ (Absent); Urine Bilirubin Negative (Negative); Urine Blood 1+ (Negative); Urine Color Straw; Urine Glucose 3+(>=500 mg/dL) (Negative); Urine Ketones Negative (Negative); Urine Nitrite Negative (Negative); Urine Protein 1+(30 mg/dL) (Negative); Urine Red Blood Cell Trace(0-2/hpf) (Absent); Urine Specific Gravity 1.013 (1.010-1.030); Urine Squamous Epithelial Cell Present (Absent); Urine Urobilinogen Negative (Negative); Urine White Blood Cell 2+(11-20/hpf) (Absent)
[2018-10-19 13:42] VITALS: BP 133/86
== END 2018-10-19 13:41 | disposition home or self-care (01) ==
LOC: ED 09:10
DX: R91.8 Other nonspecific abnormal finding of lung field (principal); R09.02 Hypoxemia; R05 Cough; R06.02 Shortness of breath; E11.9 Type 2 diabetes mellitus without complications; I48.91 Unspecified atrial fibrillation; I50.9 Heart failure, unspecified; I10 Essential (primary) hypertension; J44.9 Chronic obstructive pulmonary disease, unspecified; Z87.891 Personal history of nicotine dependence
CPT/HCPCS: 36415; 71045; 71260; 80053; 81003; 81015; 83605; 83880; 84484; 85025; 85379; 87040; 87077; 87086; 87186; 93005; 99283; A9270-GY; J7512; Q9967

== ENCOUNTER → 2018-11-04 11:17 | Day surgery (SDC) | payer MEDICARE ==
[~2018-11-04 11:17] MED LIST: Benzocaine/Butamben/Tetracain (CETACAINE - SINGLE USE) 5 gm TOPICAL ONE; Buffered Lidocaine 1% SYRIN* 1 ML/SYRINGE INTRADERM ONE; Dexamethasone IV* 4 MG/ML 1 ML (4 MG) IV SLOW PU ONE; Dexamethasone IV* 4 MG/ML 1 ML (4 MG) ONE; DiMENhydriNATE IV* 50 MG/ML VIAL IV PUSH PRN; Famotidine IV* 10 MG/ML 2 ML (20 mg) IV ONE; Famotidine IV* 10 MG/ML 2 ML (20 mg) ONE; Glycopyrrolate IV* 0.2 MG/ML 1 ML VIAL ONE; KETAMINE HCL* 50 MG/ML 10 ML VIAL ONE; Lactated Ringers 1000 ML Bag* 1,000 ML IV SCH; Levalbuterol 0.63MG/3ML NEB* UNIT OF USE INH ONE; Lidocaine 1% INJ* 10 MG/ML 30 ML SDV ONE; Lidocaine 2% PF * 5 ML VIAL ONE; Lidocaine 2% PF* 10 ML AMP ONE; Midazolam* 1 MG/ML 5 ML VIAL (5 MG) ONE; Naloxone* 0.4 MG/ML 1 ML VIAL IV PRN; Ondansetron ODT TAB* 4 MG ONE; Ondansetron TAB* 4 MG PO ONE; PROCHLORPERAZINE INJ 5 MG/ML 2 ML VIAL IV PRN; PROCHLORPERAZINE INJ 5 MG/ML 2 ML VIAL ONE; Phenylephrine INJ* 10 MG/ML 1 ML VIAL (10 MG) ONE; Propofol* 10 MG/ML 20 ML BTL ONE; fentaNYL* 50 MCG/ML 2 ML VIAL (100 MCG VIAL) IV PRN; fentaNYL* 50 MCG/ML 2 ML VIAL (100 MCG VIAL) ONE
--- NOTE | 2018-11-04 15:12 | PRO ---
BRONCHOSCOPY REPORT: DATE OF PROCEDURE: 11/04/18 PROCEDURE PERFORMED: Bronchoscopy with endobronchial ultrasound-guided fine needle aspiration from mediastinal hilar nodes, lung mass and endobronchial biopsy. PREPROCEDURAL DIAGNOSIS: Lung mass. ANESTHESIA: General anesthesia. ANESTHESIOLOGIST: Dr. Bauer. DESCRIPTION OF PROCEDURE: The patient recently was being treated for pneumonia. CT showed lung mass on the left side. Informed consent was obtained from the patient prior to the procedure after all the risks and benefits were thoroughly explained including the risk of pneumothorax. Appropriate time-out was agreed on by attending staff prior to the procedure. A flexible Olympus bronchoscope was inserted through ET tube for airway inspection. ET tube positioning confirmed to be 2.5 cm above the level of yenny. Bronchoscope was then advanced into the right bronchial tree, which was inspected. Thick white secretions were noted and were suctioned out. Bronchoscope was then advanced into the left bronchial tree, which was inspected. No endobronchial lesions noted. There was evidence of endobronchial lesion, mucus plugging versus endobronchial lesion unclear. Four sets of biopsies were obtained endobronchially of that lesion. Thick secretions were again noted and were suctioned. Bronchoscope was then withdrawn and EBUS bronchoscope was inserted. R10 node was minimally enlarged and was sampled with 2 passes. No lymphatic tissue was seen on rapid on-site evaluation. Station 7 was then accessed also with 2 passes. Rapid on-site evaluation revealed lymphatic tissue with no malignant cells. R4 was accessed with 2 passes. Rapid on-site evaluation revealed lymphatic tissue, no malignant cells. L4 was then accessed with 3 passes. Rapid on-site evaluation revealed lymphatic tissue, no malignant cells were noted. Lung mass was then sampled with 3 passes also. Rapid on-site evaluation revealed malignant cells suggestive of possible squamous. Rest of the specimen was placed in formalin. Washings were also obtained from the left side and were sent to Micro. Bronchoscope was then withdrawn. The patient tolerated the procedure well. The patient was extubated and seen in Recovery in optimal condition. [id number]/[facility] #: [id number] [facility]US[facility]
[2018-11-04 15:45] VITALS: BP 131/72
== END | disposition home or self-care (01) ==
LOC: OR 11:17
PROVIDERS: ATTEND Internal Medicine
DX: C34.92 Malignant neoplasm of unspecified part of left bronchus or lung (principal); I48.91 Unspecified atrial fibrillation; I10 Essential (primary) hypertension; J44.9 Chronic obstructive pulmonary disease, unspecified; E11.9 Type 2 diabetes mellitus without complications; Z79.84 Long term (current) use of oral hypoglycemic drugs; Z79.01 Long term (current) use of anticoagulants; G47.33 Obstructive sleep apnea (adult) (pediatric); Z87.891 Personal history of nicotine dependence
CPT/HCPCS: 81445; 87070; 87073; 87077; 87102; 87116; 87205; 87206; 88172; 88173; 88177; 88305; 88342; 88360; A9270-GY; J0780; J1100; J2001; J2250; J2704; J3010

== ENCOUNTER → 2018-12-23 07:42 | Day surgery (SDC) | payer MEDICARE ==
[~2018-12-23 07:42] MED LIST changes: +Acetaminophen IV 1GM/100ML * 1,000 MG/100 ML VIAL IVPB ONE; -Benzocaine/Butamben/Tetracain (CETACAINE - SINGLE USE) 5 gm TOPICAL ONE; -Dexamethasone IV* 4 MG/ML 1 ML (4 MG) IV SLOW PU ONE; -DiMENhydriNATE IV* 50 MG/ML VIAL IV PUSH PRN; -Glycopyrrolate IV* 0.2 MG/ML 1 ML VIAL ONE; +Ketorolac INJ* 30 MG/ML 1 ML VIAL IV PRN; +Levalbuterol 0.63MG/3ML NEB* UNIT OF USE INH PRN; +Lidocain 1% EPI 1:100,000 * 30 ML MDV ONE; -Lidocaine 2% PF* 10 ML AMP ONE; +Ondansetron INJ* 2 MG/ML VIAL IV PRN; +Ondansetron INJ* 2 MG/ML VIAL ONE; -Ondansetron ODT TAB* 4 MG ONE; -Ondansetron TAB* 4 MG PO ONE; -PROCHLORPERAZINE INJ 5 MG/ML 2 ML VIAL IV PRN; -PROCHLORPERAZINE INJ 5 MG/ML 2 ML VIAL ONE; -Phenylephrine INJ* 10 MG/ML 1 ML VIAL (10 MG) ONE; +ceFAZolin 2 GM PREMIX in ORs 2 GM/50 ML BAG IVPB ONE
--- NOTE | 2018-12-23 10:22 | BRIEFOPN ---
Brief Operative Note - Surgery Procedures: Procedures Pre-OP Diagnoses: lung CA Post-op Diagnosis: same Procedure: Insertion of powerport Surgeon: Michele Asst: none Anethesia: local, MAC EBL: minimal IVF: minimal Specimen: none Drains: none 8Fr single lumen power port via R SCV
[2018-12-23 11:02] VITALS: BP 113/68
--- NOTE | 2018-12-23 12:57 | OP ---
CC: Dr. Aamir Lopez; [facility]; [facility] * DATE OF OPERATION: 12/23/18 - SDS DATE OF : 50 SURGEON: Benito Bautista MD INCIDENT RESPONSE ENGINEER: None. ANESTHESIOLOGIST: Dr. Beard. ANESTHESIA: Local MAC. PRE-OP DIAGNOSIS: Lung cancer. POST-OP DIAGNOSIS: Lung cancer. OPERATIVE PROCEDURE: Placement of PowerPort. ESTIMATED BLOOD LOSS: Minimal blood loss. FLUIDS: No crystalloid fluid given. DRAINS: 8-Sinhala PowerPort tubing inserted via the right subclavian vein. COMPLICATIONS: None. DESCRIPTION OF PROCEDURE: The patient was identified in the preoperative area, marked, consent was signed. She was taken to the operating room, placed on the operating table in the supine position. Gentle sedation was given. The patient 's right upper chest and neck were prepped and draped in standard surgical fashion and time-out was performed. After injection of lidocaine infraclavicularly, the subclavian vein was accessed and a wire inserted under fluoroscopy that ended up in the superior vena cava. Next, an incision inferior to this was carried out, a pocket was made for the Power-Port. The wire was then drawn through this incision and the vein was then dilated under fluoroscopy with the given dilator and split-away catheter. Once this was in, we then placed our 8-Sinhala tubing through and removed the split-away catheter and cut the tubing to size under fluoroscopy; it was approximately 18 cm. We then attached this to the pre-flushed PowerPort and attached the hub and placed this into the pocket, sutured it laterally and medially with a 0 Prolene suture. Wound was then irrigated. The port was accessed. Good aspiration of blood was encountered and it was flushed with heparinized saline. The wound was then irrigated and reapproximated in a standard fashion. The patient tolerated the procedure well, was awoken up, and transferred to PACU in stable condition. No need for x-ray postoperatively. [id number]/[facility] #: [id number] [facility]
== END | disposition home or self-care (01) ==
LOC: OR 07:42
PROVIDERS: ATTEND Surgery
DX: C34.32 Malignant neoplasm of lower lobe, left bronchus or lung (principal); E11.9 Type 2 diabetes mellitus without complications; Z79.84 Long term (current) use of oral hypoglycemic drugs; I48.91 Unspecified atrial fibrillation; Z79.01 Long term (current) use of anticoagulants; J44.9 Chronic obstructive pulmonary disease, unspecified; I10 Essential (primary) hypertension; R09.02 Hypoxemia
CPT/HCPCS: 76000; C1788; J0690; J1100; J1642; J2250; J2405; J2704; J3010

== ENCOUNTER 2019-04-23 15:21 | Inpatient (IN) | payer MEDICARE ==
[2019-04-23] MEDS ORDERED: Dextrose 50% VIAL 50 ml IV PUSH PRN (16:29)
[2019-04-23] MEDS ORDERED: Albuterol 2.5 MG/3 ML NEB.SOL* (0.083%) INH PRN (16:32)
[2019-04-23] MEDS ORDERED: TRIMETH IVPB SCH ×2 (19:00→22:43)
[2019-04-23] MEDS ORDERED: D5W IVPB SCH ×2 (19:00→22:43)
[2019-04-23] MEDS ORDERED: SULFAMETHOXAZOLE IVPB SCH ×2 (19:00→22:43)
[2019-04-23] MEDS: Mometasone/Formoter 100/5 MDI INH SCH (19:37)
[2019-04-23] MEDS: methylPREDNISolone 125 MG* 2 ML VIAL IV SCH (19:46)
[2019-04-23] MEDS: Lisinopril TAB* 10 MG PO SCH (19:47)
[2019-04-23] MEDS: Insulin LISPRO* 1 UNITS UNIT SUBCUT SCH ×2 (19:47→23:14)
[2019-04-23] MEDS: Ferrous Sulfate TAB* 325 MG PO SCH (19:49)
[2019-04-23 20:36] LABS: Urine Appearance Clear; Urine Bacteria Absent (Absent); Urine Bilirubin Negative (Negative); Urine Blood 1+ (Negative); Urine Color Straw; Urine Glucose Negative (Negative); Urine Ketones Trace (Negative); Urine Nitrite Negative (Negative); Urine Protein 2+(100 mg/dL) (Negative); Urine Red Blood Cell 3+(>10/hpf) (Absent); Urine Specific Gravity 1.018 (1.010-1.030); Urine Squamous Epithelial Cell Present (Absent); Urine Urobilinogen Negative (Negative); Urine White Blood Cell 1+(6-10/hpf) (Absent)
[2019-04-23] MEDS: Digoxin TAB* 0.125 MG PO SCH (20:54)
[2019-04-23] MEDS: Enoxaparin(*) 150 MG/ML 1 ML SYRINGE SUBCUT SCH (20:55)
[2019-04-23] MEDS ORDERED: METFORM PO SCH (21:00)
[2019-04-23] MEDS ORDERED: SITAGLIP PO SCH (21:00)
[2019-04-23] MEDS: Nystatin TOP POWDER* 15 GM BTL TOPICAL SCH (23:15)
[2019-04-24] MEDS: TRIMETH IVPB SCH ×3 (04:18→20:02)
[2019-04-24] MEDS: SULFAMETHOXAZOLE IVPB SCH ×3 (04:18→20:02)
[2019-04-24] MEDS: D5W IVPB SCH ×3 (04:18→20:02)
[2019-04-24 04:46] LABS: ABS Monocytes 0.2 10^3/ul (0-0.8); ABS Neutrophils 12.8 10^3/ul (1.5-7.7); Eosinophil % 0.1 %; Hematocrit 26 % (35-47); Hemoglobin 8.2 g/dL (12.0-16.0); Lymphocyte % 0.3 %; Mean Corpuscular HGB Conc 32 g/dL (31-36); Mean Corpuscular Hemoglobin 31 pg (27-31); Mean Corpuscular Volume 96 fL (80-97); Mean Platelet Volume 7.4 fL (7.4-10.4); Platelet Count 197 10^3/uL (150-450); Red Blood Count 2.68 10^6 /uL (3.70-4.87); Red Cell Distribution Width 18 % (10-15); White Blood Count 13.1 10^3/uL (3.5-10.8)
[2019-04-24 04:57] LABS: Albumin/Globulin Ratio 1.2 (1-3); BUN/Creatinine Ratio 21.3 (8-20); Calcium 8.7 mg/dL (8.6-10.3); EGFR African American 86.1 (>60); EGFR Non-African American 71.1 (>60); Globulin 2.5 g/dL (2-4); Potassium 4.4 mmol/L (3.5-5.0); Total Bilirubin 0.6 mg/dL (0.2-1.0); Total Protein 5.5 g/dL (6.4-8.9)
[2019-04-24] MEDS: Mometasone/Formoter 100/5 MDI INH SCH ×2 (07:41→19:16)
[2019-04-24] MEDS: Enoxaparin(*) 150 MG/ML 1 ML SYRINGE SUBCUT SCH ×3 (08:09→21:49)
[2019-04-24] MEDS: Insulin LISPRO* 1 UNITS UNIT SUBCUT SCH ×4 (08:51→21:48)
[2019-04-24] MEDS ORDERED: glyBURIDE TAB* 5 MG PO SCH (09:00)
[2019-04-24] MEDS: Metoprolol Succinate XL TAB* 25 MG PO SCH (09:36)
[2019-04-24] MEDS: Ferrous Sulfate TAB* 325 MG PO SCH (09:37)
[2019-04-24] MEDS: Diltiazem CD CAP* 120 MG PO SCH (09:37)
[2019-04-24] MEDS: Furosemide TAB* 20 MG PO SCH (09:38)
[2019-04-24] MEDS: Diltiazem CD CAP* 180 MG PO SCH (09:39)
[2019-04-24] MEDS: methylPREDNISolone 125 MG* 2 ML VIAL IV SCH (09:50)
[2019-04-24] MEDS: Nystatin TOP POWDER* 15 GM BTL TOPICAL SCH ×2 (09:52→21:51)
[2019-04-24] MEDS: Saline NASAL SPRAY 0.65%* BTL BOTH NARES PRN ×2 (12:57→18:03)
[2019-04-24] MEDS: Lisinopril TAB* 10 MG PO SCH (17:53)
[2019-04-24 21:31] LABS: BUN/Creatinine Ratio 17.7 (8-20); Calcium 8.2 mg/dL (8.6-10.3); EGFR African American 51.9 (>60); EGFR Non-African American 42.9 (>60); Potassium 4.5 mmol/L (3.5-5.0)
--- NOTE | 2019-04-24 21:43 | CONS ---
PULMONARY CONSULTATION REPORT: DATE OF CONSULTATION: 04/24/19 CONSULTATION REQUESTED BY: BRITTANY Cross; Dr. Guido. REASON FOR CONSULTATION: Evaluation of abnormal CT chest. 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 The patient has been having progressively worsening dyspnea and hypoxemia recently. She was recently treated with prednisone during her chemotherapy sessions. She was also treated recently with a 2-week course of Levaquin. She presented for evaluation of worsening shortness of breath, chest pressure, and decreased exercise tolerance. The patient reported significant dyspnea even with minimal exertion. She also has reported significant hypoxemia even with minimal exertion. Denied fevers, cough. Denies weight loss or loss of appetite. Denies hemoptysis. The patient was admitted for further evaluation. The patient had CT scan of the chest performed recently on . I personally reviewed the images and with the patient today - No evidence of pulmonary embolism noted. The patient with improvement in left lung airspace opacity/consolidation compared to the prior scan a couple of weeks ago. The patient with, however, progression of ground-glass opacification on the right side, some with evidence of crazy paving. The patient with no interval change in the left lower lobe mass. She had slight worsening of left- sided pleural effusion. The patient also continues to have mediastinal adenopathy, with no interval change. The patient was initiated on Bactrim and prednisone for suspected PCP pneumonia. She had elevated white count at 13.1 with a left shift. LDH is within normal limits at 126. PAST MEDICAL HISTORY: 1. Recently diagnosed squamous cell cancer, treated with chemotherapy. 2. Atrial fibrillation, on anticoagulation and rate control. 3. Bilateral lower extremity lymphedema. 4. COPD. 5. Diastolic congestive heart failure. 6. Diabetes type 2. 7. Hypertension. 8. Obesity. 9. Osteoarthritis of the knees. 10. Sleep apnea, on oxygen at night. PAST SURGICAL HISTORY: Hysterectomy. MEDICATIONS AT HOME: 1. Acetaminophen. 2. Albuterol. 3. Aspirin. 4. Atorvastatin. 5. Bydureon. 6. Calcium/magnesium. 7. Cartia. 8. Chlorthalidone. 9. Digoxin. 10. Eliquis. 11. Furosemide. 12. Glyburide. 13. Iron. 14. Janumet. 15. Lisinopril. 16. Metoprolol. 17. Symbicort. FAMILY HISTORY: Mother has heart disease. Father of leukemia at age 60. SOCIAL HISTORY: She lives alone at home with her son's support. She is a retired accountant certified public. She is a former smoker with 60 to 80-hdfa-hdxa smoking, stopped in 2002. No alcohol abuse. REVIEW OF SYSTEMS: The patient reports shortness of breath, fatigue. Review of systems otherwise is negative. PHYSICAL EXAM: Vital Signs: Temperature 98.6, pulse 74 beats per minute, respiratory rate 28 per minute, O2 sat 97% on 6 L, blood pressure 102/56. HEENT : Pupils are equal, reactive to light. Mucous membranes are moist. Lungs: Diminished air entry bilaterally. No wheeze. Cardiovascular: S1 and S2 present. Abdomen: Obese, bowel sounds present, nontender, nondistended. Extremities: Normal range of motion, chronic lymphedema changes. Neuro: Alert , awake, oriented x3. No focal deficits. DIAGNOSTIC STUDIES/LAB DATA: WBC count 13.1, hemoglobin 8.2, hematocrit 26, platelet count 197. Sodium 138, potassium 4.4, chloride 102, bicarb 32, BUN 17 , creatinine 0.8. CT of the chest as described above. IMPRESSION AND RECOMMENDATIONS: 69-year-old female with squamous cell cancer, received chemotherapy, recently treated for pneumonia, with ongoing symptoms with worsening shortness of breath and hypoxemic respiratory failure. The patient admitted for suspected Pneumocystis pneumonia. The patient is not able to produce any mucus. CTA showed improvement on the left side; however, with progression in the right lung with airspace opacity with crazy paving. No signs of heart failure at this time. I do not suspect ground-glass opacity secondary to heart failure. She does have chronic lower extremity edema that seems to have been stable. She does not have acute COPD exacerbation. Lymphangitic spread of cancer is also in the differential. However, it will not improve on the left side where her primary cancer is. Toxicity secondary to chemo is also in the differential. However, her creatinine is normal. She does not have elevated eosinophil count. She is started on treatment for presumed Pneumocystis carinii pneumonia. Bronchoscopy could not be performed immediately. She is also started on Solu-Medrol while being treated for Pneumocystis carinii pneumonia. Continue to titrate FiO2 down as tolerated. Thank you for allowing me to participate in the care of your patient. I will follow up with you. [id number]/[facility] #: [id number] [facility]
[2019-04-25] MEDS: TRIMETH IVPB SCH ×3 (04:05→21:14)
[2019-04-25] MEDS: SULFAMETHOXAZOLE IVPB SCH ×3 (04:05→21:14)
[2019-04-25] MEDS: D5W IVPB SCH ×3 (04:05→21:14)
[2019-04-25] MEDS: Mometasone/Formoter 100/5 MDI INH SCH ×2 (07:37→20:40)
[2019-04-25] MEDS: Diltiazem CD CAP* 120 MG PO SCH (09:18)
[2019-04-25] MEDS: Ferrous Sulfate TAB* 325 MG PO SCH (09:18)
[2019-04-25] MEDS: Diltiazem CD CAP* 180 MG PO SCH (09:18)
[2019-04-25] MEDS: methylPREDNISolone 125 MG* 2 ML VIAL IV SCH (09:19)
[2019-04-25] MEDS: Metoprolol Succinate XL TAB* 25 MG PO SCH (09:19)
[2019-04-25] MEDS: Furosemide TAB* 20 MG PO SCH (09:19)
[2019-04-25] MEDS: Enoxaparin(*) 150 MG/ML 1 ML SYRINGE SUBCUT SCH ×2 (09:20→21:13)
[2019-04-25] MEDS: glyBURIDE TAB* 5 MG PO SCH (09:45)
[2019-04-25] MEDS: Insulin LISPRO* 1 UNITS UNIT SUBCUT SCH ×4 (09:45→21:14)
[2019-04-25] MEDS: LORazepam TAB(*) 0.5 MG PO PRN (11:11)
[2019-04-25] MEDS: Nystatin TOP POWDER* 15 GM BTL TOPICAL SCH ×2 (12:24→21:15)
[2019-04-25 13:10] LABS: ABS Eosinophils 0.2 10^3/ul (0-0.6); ABS Lymphocytes 0.1 10^3/ul (1.0-4.8); ABS Monocytes 0.3 10^3/ul (0-0.8); ABS Neutrophils 14.9 10^3/ul (1.5-7.7); Eosinophil % 1.1 %; Hematocrit 25 % (35-47); Hemoglobin 8.1 g/dL (12.0-16.0); Lymphocyte % 0.4 %; Mean Corpuscular HGB Conc 32 g/dL (31-36); Mean Corpuscular Hemoglobin 31 pg (27-31); Mean Corpuscular Volume 95 fL (80-97); Mean Platelet Volume 7.4 fL (7.4-10.4); Platelet Count 231 10^3/uL (150-450); Red Blood Count 2.63 10^6 /uL (3.70-4.87); Red Cell Distribution Width 18 % (10-15); White Blood Count 15.4 10^3/uL (3.5-10.8)
[2019-04-25] MEDS: Lisinopril TAB* 10 MG PO SCH (17:42)
[2019-04-26] MEDS: D5W IVPB SCH ×3 (04:03→21:25)
[2019-04-26] MEDS: TRIMETH IVPB SCH ×3 (04:03→21:25)
[2019-04-26] MEDS: SULFAMETHOXAZOLE IVPB SCH ×3 (04:03→21:25)
[2019-04-26] MEDS: LORazepam TAB(*) 0.5 MG PO PRN (06:04)
[2019-04-26] MEDS: Mometasone/Formoter 100/5 MDI INH SCH ×2 (07:10→19:53)
[2019-04-26] MEDS: Furosemide TAB* 20 MG PO SCH (08:07)
[2019-04-26] MEDS: Diltiazem CD CAP* 180 MG PO SCH (08:07)
[2019-04-26] MEDS: Insulin LISPRO* 1 UNITS UNIT SUBCUT SCH ×4 (08:07→21:54)
[2019-04-26] MEDS: Diltiazem CD CAP* 120 MG PO SCH (08:07)
[2019-04-26] MEDS: methylPREDNISolone 125 MG* 2 ML VIAL IV SCH (08:08)
[2019-04-26] MEDS: Metoprolol Succinate XL TAB* 25 MG PO SCH (08:08)
[2019-04-26] MEDS: Ferrous Sulfate TAB* 325 MG PO SCH (08:10)
[2019-04-26] MEDS: Enoxaparin(*) 150 MG/ML 1 ML SYRINGE SUBCUT SCH ×2 (08:10→21:54)
[2019-04-26] MEDS: glyBURIDE TAB* 5 MG PO SCH ×2 (08:10→18:09)
[2019-04-26] MEDS: Nystatin TOP POWDER* 15 GM BTL TOPICAL SCH ×2 (08:11→21:55)
[2019-04-26] MEDS: Docusate LIQ* 100 MG/10 ML UDC PO SCH (12:22)
[2019-04-26] MEDS: Senna TAB 8.6 mg* TAB PO SCH (12:22)
[2019-04-26] MEDS: Lisinopril TAB* 10 MG PO SCH (18:08)
[2019-04-26] MEDS: Digoxin TAB* 0.125 MG PO SCH (18:37)
[2019-04-27] MEDS: SULFAMETHOXAZOLE IVPB SCH ×4 (05:37→21:42)
[2019-04-27] MEDS: D5W IVPB SCH ×4 (05:37→21:42)
[2019-04-27] MEDS: TRIMETH IVPB SCH ×4 (05:37→21:42)
[2019-04-27] MEDS: LORazepam TAB(*) 0.5 MG PO PRN (05:46)
[2019-04-27] MEDS: Insulin LISPRO* 1 UNITS UNIT SUBCUT SCH ×4 (08:54→20:55)
[2019-04-27] MEDS: Enoxaparin(*) 150 MG/ML 1 ML SYRINGE SUBCUT SCH ×2 (08:56→20:58)
[2019-04-27] MEDS: Diltiazem CD CAP* 180 MG PO SCH (08:57)
[2019-04-27] MEDS: Docusate LIQ* 100 MG/10 ML UDC PO SCH (08:57)
[2019-04-27] MEDS: Senna TAB 8.6 mg* TAB PO SCH (08:57)
[2019-04-27] MEDS: Ferrous Sulfate TAB* 325 MG PO SCH (08:58)
[2019-04-27] MEDS: Furosemide TAB* 20 MG PO SCH (08:58)
[2019-04-27] MEDS: methylPREDNISolone 125 MG* 2 ML VIAL IV SCH (08:59)
[2019-04-27] MEDS: Metoprolol Succinate XL TAB* 25 MG PO SCH (09:00)
[2019-04-27] MEDS: Nystatin TOP POWDER* 15 GM BTL TOPICAL SCH ×2 (09:01→20:59)
[2019-04-27] MEDS: Diltiazem CD CAP* 120 MG PO SCH (09:05)
[2019-04-27] MEDS: Mometasone/Formoter 100/5 MDI INH SCH ×2 (09:06→19:36)
--- NOTE | 2019-04-27 10:19 | PN ---
Progress Note - Progress Note Date of Service: 04/27/19 SOAP: Subjective: []Admitted 04/23/19 with progressive SOB and hypoxia concerning for PCP PNA. Had been on steroids d/t concern for RT induced pneumonitis and recent Levaquin d/t concern for PNA on imaging 03/30. Feels incredibly weak and gets SOB with minimal exertion. Still not coughing a lot. Doesn't feel like she has gotten any better, or any worse. Feels fine at rest, "But I can barely stand." Barnett placed on admission d/t difficulty with transfers. No BM in several days, passing gas and hasn't been eating a lot. Frustrated, "I don't know how much more of this I can take." PMH: A.Fib, Diastolic CHF, HTN, COPD, DM II, Obesity, bilat. LE lymphedema, OA, sleep apnea Medications: Acetaminophen (Tylenol Tab*) 650 mg PO Q4H PRN PRN Reason: mild pain/fever Albuterol (Ventolin 2.5 Mg/3 Ml Neb.Nadia*) 2.5 mg INH Q4H PRN PRN Reason: SHORTNESS OF BREATH Last Admin: 04/24/19 18:10 Dose: 2.5 mg Dextrose (Dextrose 50% Vial 50 Ml*) 25 ml IV PUSH .FOR FS < 60 - SS PRN PRN Reason: FS < 60 Digoxin (Lanoxin Tab*) 0.125 mg PO MoTuWeThFr [facility] Last Admin: 04/26/19 18:37 Dose: 0.125 mg Diltiazem HCl (Cardizem Cd Cap*) 120 mg PO QAM [facility] Last Admin: 04/27/19 09:05 Dose: 120 mg Diltiazem HCl (Cardizem Cd Cap*) 180 mg PO QAM [facility] Last Admin: 04/27/19 08:57 Dose: 180 mg Docusate Sodium (Colace Liq*) 50 mg PO DAILY [facility] Last Admin: 04/27/19 08:57 Dose: 50 mg Enoxaparin Sodium (Lovenox(*)) 120 mg SUBCUT 0900,2100 [facility] Last Admin: 04/27/19 08:56 Dose: 120 mg Ferrous Sulfate (Ferrous Sulfate Tab*) 325 mg PO QAM [facility] Last Admin: 04/27/19 08:58 Dose: 325 mg Furosemide (Lasix Tab*) 20 mg PO DAILY [facility] Last Admin: 04/27/19 08:58 Dose: 20 mg Glyburide (Diabeta Tab*) 10 mg PO BID WITH MEALS [facility] Last Admin: 04/26/19 18:09 Dose: 10 mg Heparin Sodium (Porcine) (Heparin Flush Port (Ivad)) 5 ml FLUSH DAILY [facility]; Protocol Last Admin: 04/26/19 08:09 Dose: 5 ml Trimethoprim/Sulfamethoxazole (500 mg/ Dextrose) 531.25 mls @ 265.625 mls/hr IVPB Q8H [facility] Last Admin: 04/27/19 05:37 Dose: 265.625 mls/hr Insulin Human Lispro (Humalog*) 0 units SUBCUT ACHS [facility]; Protocol Last Admin: 04/27/19 08:54 Dose: Not Given Lisinopril (Prinivil Tab*) 10 mg PO QPM [facility] Last Admin: 04/26/19 18:08 Dose: Not Given Lorazepam (Ativan Tab(*)) 0.5 mg PO Q6H PRN PRN Reason: ANXIETY Last Admin: 04/27/19 05:46 Dose: 0.5 mg Methylprednisolone Sodium Succinate (Solu-Medrol 125mg *) 60 mg IV DAILY [facility] Last Admin: 04/27/19 08:59 Dose: 60 mg Metoprolol Succinate (Toprol Xl Tab*) 12.5 mg PO QAM [facility] Last Admin: 04/27/19 09:00 Dose: 12.5 mg Mometasone Furoate/Formoterol Fumar (Dulera 100/5 Mdi*) 2 puff INH BID [facility] Last Admin: 04/27/19 09:06 Dose: 2 puff Nystatin (Nystatin Top Powder*) 1 applic TOPICAL BID [facility] Last Admin: 04/27/19 09:01 Dose: 1 applic Senna (Senokot 8.6 Mg Tab*) 1 tab PO DAILY [facility] Last Admin: 04/27/19 08:57 Dose: 1 tab Sodium Chloride (Sodium Chloride 0.65% Nasal [place]*) 1 spray BOTH NARES Q4H PRN PRN Reason: dryness Last Admin: 04/24/19 18:03 Dose: 1 spray Objective: [] Vital Signs Temp Pulse Resp BP Pulse Ox 98.2 F 100 16 118/59 97 04/27/19 07:15 09/03/19 09:10 04/27/19 09:10 04/27/19 07:15 04/27/19 09:10 A&Ox3, EOMI, neuro grossly non-focal HRI, A.Fib on tele rate 80s LS dim. bilat. Obese, +BS, abd. soft and on-tender Bilat. Lymphedema, erythema stable Barnett draining clear yellow urine Laboratory Results - last 24 hr 04/26/19 04/26/19 04/26/19 11:43 17:36 21:39 POC Glucose (mg/dL) 155 H 264 H 248 [address] Personal review of [address] from admission 04/23 with RUL patchy infiltrates and persistent left lobe changes consistent with RT, appears to have improvement of pneumonitis @ like infilitrates in JÚNIOR following steroids. Assessment: []69 yo female with stage IIIA squamous cell lung cancer s/p definitive combined modality therapy admitted with progressive SOB and hypoxia concerning for PCP PNA on imiaging with no improvement since admission 04/23 on Bactrim and steroids. I find her clinical picture more concerning for a bacterial infection and have recommended addition of Azithromycin with consideration for bronchoscopy tomorrow. Plan: []1. SOB, hypoxia, and infiltrates RUL: lack of clinical improvement on Bactrim seems to make PCP less likely - Appreciate Pulm. input, agree lymphangetic spread seems unlikely with improvement in JÚNI[place] and new RUL patchy infiltrates, consider bronch tomorrow depending on ID input - No clear evidence of medication induced toxicity d/t distint RUL infiltrate rather than diffuse - Add Azithromycin as above for atypical coverage - Appreciate ID input, recommendations pending 2. Hyperglycemia: 2/2 steroids and known DMII - cont. sliding scale insulin 3. Leukocytosis: likely r/t steroids with no elevation in monos, though could be reactive to infection - addition of Azithromycin as above 4. A.Fib: rate controlled - anticoagulation with Lovenox d/t possible bronch 5. Barnett: appropriate for current acute condition, however plan to remove immediately once starts moving 6. Weakness: deconditioning may be significant - hold off on PT d/t persistent SOB and hypoxia requiring 5 lpm via NC - will require rehab once improving 7. Lung Cancer: therapy on hold d/t acute condition
[2019-04-27] MEDS ORDERED: Azithromycin 500 mg/250 ml NS 500 MG/250 ML BAG IVPB ONE (11:00)
[2019-04-27] MEDS: glyBURIDE TAB* 5 MG PO SCH ×2 (11:00→17:14)
[2019-04-27 12:20] LABS: ABS Eosinophils 0.4 10^3/ul (0-0.6); ABS Lymphocytes 0.1 10^3/ul (1.0-4.8); ABS Monocytes 0.6 10^3/ul (0-0.8); ABS Neutrophils 13.8 10^3/ul (1.5-7.7); Eosinophil % 2.4 %; Hematocrit 25 % (35-47); Hemoglobin 8.3 g/dL (12.0-16.0); Lymphocyte % 0.8 %; Mean Corpuscular HGB Conc 33 g/dL (31-36); Mean Corpuscular Hemoglobin 31 pg (27-31); Mean Corpuscular Volume 94 fL (80-97); Mean Platelet Volume 7.6 fL (7.4-10.4); Nucleated Red Blood Cells % 0.1; Platelet Count 247 10^3/uL (150-450); Red Blood Count 2.67 10^6 /uL (3.70-4.87); Red Cell Distribution Width 19 % (10-15); White Blood Count 14.9 10^3/uL (3.5-10.8)
--- NOTE | 2019-04-27 12:52 | CONS ---
CC: Dr. Gilson Seo* CONSULTATION REPORT: DATE OF ADMISSION: 04/23/19 DATE OF CONSULTATION: 04/27/19 PRIMARY CARE PROVIDER: Dr. Cristiano Choi. PROVIDER REQUESTING CONSULTATION: Dr. Loy Guido. CONSULTING SERVICE: Infectious Disease. PROVIDER: Vielka Lowe NP ATTENDING PROVIDER: Dr. Gilson Seo* (dictated by Vielka Lowe NP). REASON FOR CONSULTATION: Possible Pneumocystis pneumonia. IMPRESSION: 1. Shortness of breath, hypoxia, and right upper lobe infiltrates. The patient has not been improving on Bactrim and steroids for possible Pneumocystis pneumonia. Differential includes: viral pneumonia, post chemo and radiation pneumonitis, aspiration pneumonia, and Pneumocystis pneumonia. No fever or cough. LDH 126 on 04/23/19. Leukocytosis with WBC 15.4. 2. Leukocytosis. Suspect secondary to steroids versus continued infection. 3. Left lung squamous cell cancer, status post chemotherapy and radiation. Last radiation on 02/08/19 and last chemotherapy on 02/01/19. 4. Diabetes mellitus type 2. 5. Diastolic congestive heart failure. 6. Obesity. PLAN/RECOMMENDATIONS: Continue steroids and Bactrim for now to cover possible Pneumocystis pneumonia. Agree with adding Azithromycin for atypical pneumonia coverage. HISTORY OF PRESENT ILLNESS: Ms. Del Real is a 69-year-old female with past medical history significant for left lung squamous cell cancer, receiving chemo and radiation, who last received treatment in January 2019; atrial fibrillation; bilateral lower extremity lymphedema; COPD; diastolic CHF; diabetes mellitus type 2; hypertension; obesity; osteoarthritis; and sleep apnea who has had 2 months of shortness of breath with exertion. She was treated with Levaquin 10 days outpatient, reports having pain in her legs with this, was also found to have hypoxemia. She was treated with prednisone for possible radiation-induced pneumonitis and a 10 day course of Levaquin. She presented for evaluation of continued shortness of breath, chest pressure, and dyspnea with exertion that she reported occurring with even minimal exertion. She denied any fevers, cough , weight loss, loss of appetite, hemoptysis. She had an outpatient CT scan on 04/23/19 showing no pulmonary embolus, no aortic dissection, left lower lobe mass appearing similar to that on previous exam with increasing left pleural effusion, and areas of airspace disease throughout the lung enriquez, worse on the right than the left, consistent with progressive pneumonia. She was admitted to the hospital for further treatment with IV antibiotics. While in the hospital she was seen in consultation by Dr. Nelson for a possible Bronch. She was also initiated on Bactrim and prednisone for suspected Pneumocystis pneumonia. On admission, she was noted to have an elevated white count with left shift and an LDH of 126. She continues to deny fevers, chills, cough, nausea, vomiting, diarrhea, urinary symptoms, or recent travel during her hospitalization. She states that she has shortness of breath, but this seems to be at her baseline, but she has not done anything exertional to know if this worsens her breathing. She does have chronic leg and knee pain at baseline that is at her baseline. PAST MEDICAL HISTORY: 1. Left lung squamous cell cancer, status post chemoradiation. 2. Atrial fibrillation. 3. Bilateral lower extremity lymphedema. 4. COPD. 5. Diastolic CHF. 6. Diabetes mellitus type 2. 7. Hypertension. 8. Obesity. 9. Osteoarthritis. 10. Sleep apnea. PAST SURGICAL HISTORY: Status post hysterectomy. MEDICATIONS: Home Medications: 1. Chlorthalidone 25 mg by mouth every other day. 2. Aspirin 325 mg by mouth daily. 3. Apixaban 5 mg by mouth twice daily. 6. Albuterol 2.5 mg/3mL 2.5 mg inhalation every 4 hours as needed for shortness of breath or wheeze. 7. Digoxin 0.125 mg by mouth daily on Friday through Friday, does not take on Friday and Friday. 8. Symbicort 80/4.5 one puff inhalation twice daily. 9. Atorvastatin 20 mg by mouth daily. 10. Iron 65 mg by mouth every morning. 11. Furosemide 20 mg by mouth 5 days a week, does not take on Friday and Friday. 12. Bydureon 2 mg subcutaneous weekly. 13. Janumet one tablet by mouth twice daily. 14. Metoprolol succinate XL 12.5 mg by mouth daily. 15. Lisinopril 10 mg by mouth every evening. 16. Diltiazem 300 mg by mouth every morning. 17. Glyburide 10 mg by mouth daily. Hospital Medications: 1. Acetaminophen 650 mg by mouth every 4 hours as needed for fever or pain. 2. Albuterol nebulizer 2.5 mg inhalation every 4 hours as needed for shortness of breath or wheeze. 3. Dextrose 25 mL IV push for glucose less than 60 as needed. 4. Digoxin 0.125 mg Friday, Friday, Friday, , Friday. 5. Diltiazem 300 mg by mouth daily. 6. Colace 500 mg by mouth daily. 7. Lovenox 120 mg subcutaneous twice daily. 8. Ferrous sulfate 325 mg by mouth every morning. 9. Furosemide 20 mg by mouth daily. 10. Glyburide 10 mg by mouth twice daily. 11. Heparin 5 mL flush daily. 12. Lispro insulin sliding scale subcutaneous with meals and at bedtime. 13. Lisinopril 10 mg by mouth every evening. 14. Lorazepam 0.5 mg by mouth every 6 hours as needed for anxiety. 15. Solu-Medrol 60 mg IV daily. 16. Metoprolol succinate 12.5 mg by mouth every evening. 17. Dulera 100/5 MDI 2 puffs inhalation twice daily. 18. Nystatin topical twice daily. 19. Senna 1 tablet by mouth daily. 20. Sodium chloride nasal spray 1 spray to both nares every 4 hours as needed for congestion. 21. Bactrim 500 mg IV every 8 hours. ALLERGIES: POTASSIUM and LATEX both cause rash and itching. FAMILY HISTORY: Denies family history of recurrent or resistant infections. Mother with a history of heart disease. Paternal grandfather with a history of diabetes. Father passed at age 60 from leukemia. SOCIAL HISTORY: Denies tobacco, alcohol, recreational drug use. She is a former smoker, quitting in 2002. Prior to that, she had a 60 to [id number] smoking history. REVIEW OF SYSTEMS: I performed a 10-point review of systems. All the pertinent positives and negatives are mentioned in the history of present illness. The remaining review of systems are negative. PHYSICAL EXAM: Vital Signs: Temperature 98.2, heart rate 73, respiratory rate 22, O2 sat 99% on 6 L via nasal cannula, blood pressure 118/59. General Appearance: She is in no acute distress, lying in bed. Head: Normocephalic, atraumatic. Extraocular movements intact. No subconjunctival hemorrhage. Moist mucous membranes. Neck: No lymphadenopathy. Neurological: Alert and oriented x4. Cranial nerves II through XII are grossly intact. Cardiovascular: Regular rate and rhythm. No murmurs, rubs, or gallops heard. Respiratory: Lung sounds are diminished bilateral. No wheeze, rhonchi, or crackles. Abdomen : Bowel sounds present. Abdomen soft, large, nontender, nondistended. Extremities: Chronic lymphedemic changes. Musculoskeletal: No clubbing or cyanosis noted. Exhibits good strength in all extremities. Psychological: Calm and cooperative. Skin: No rashes or abnormalities. Seems she does have dry skin with slight erythema at the bilateral lower extremities with chronic skin changes consistent with chronic lymphedema. DIAGNOSTIC STUDIES/LABORATORY DATA: BMP from 04/24/19: Sodium 132, potassium 4.5, chloride 96, CO2 of 29, BUN 22, creatinine 1.24, glucose 352. CBC from 09/12: White blood cell count 15.4, hemoglobin 8.1, hematocrit 25, platelet count 231. Please see impression and recommendations outlined above, recommendations have been discussed with Kari Mejia NP. Thank you for asking us to see Ms. Del Real in consultation. Case has been discussed with my attending, Dr. Gilson Seo, who agrees with the plan of care. Reviewed by BETZY DESOUZA-Heri 04/28/19 1513 [id number]/[facility] #: [id number] MARIBEL
[2019-04-27] MEDS: Lisinopril TAB* 10 MG PO SCH (17:14)
[2019-04-27] MEDS: Digoxin TAB* 0.125 MG PO SCH (17:38)
[2019-04-27] MEDS ORDERED: Ondansetron INJ* 2 MG/ML VIAL IV PRN (23:03)
[2019-04-28] MEDS: Calcium Carbonate CHEW TAB* 500 MG (TUMS) PO PRN (01:50)
[2019-04-28] MEDS: LORazepam TAB(*) 0.5 MG PO PRN (04:46)
[2019-04-28] MEDS: SULFAMETHOXAZOLE IVPB SCH ×3 (06:16→15:48)
[2019-04-28] MEDS: D5W IVPB SCH ×3 (06:16→15:48)
[2019-04-28] MEDS: TRIMETH IVPB SCH ×3 (06:16→15:48)
[2019-04-28 06:45] LABS: ABS Basophils 0.1 10^3/ul (0-0.2); ABS Eosinophils 0.7 10^3/ul (0-0.6); ABS Lymphocytes 0.3 10^3/ul (1.0-4.8); ABS Monocytes 0.7 10^3/ul (0-0.8); ABS Neutrophils 12.8 10^3/ul (1.5-7.7); Eosinophil % 4.9 %; Hematocrit 27 % (35-47); Hemoglobin 8.6 g/dL (12.0-16.0); Lymphocyte % 1.7 %; Mean Corpuscular HGB Conc 32 g/dL (31-36); Mean Corpuscular Hemoglobin 30 pg (27-31); Mean Corpuscular Volume 94 fL (80-97); Mean Platelet Volume 7.5 fL (7.4-10.4); Nucleated Red Blood Cells % 0.1; Platelet Count 276 10^3/uL (150-450); Red Blood Count 2.82 10^6 /uL (3.70-4.87); Red Cell Distribution Width 19 % (10-15); White Blood Count 14.5 10^3/uL (3.5-10.8)
[2019-04-28 06:58] LABS: Albumin 3.3 g/dL (3.2-5.2); Albumin/Globulin Ratio 1.4 (1-3); BUN/Creatinine Ratio 24.7 (8-20); Calcium 8.2 mg/dL (8.6-10.3); EGFR African American 37.1 (>60); EGFR Non-African American 30.6 (>60); Globulin 2.3 g/dL (2-4); Total Bilirubin 0.2 mg/dL (0.2-1.0); Total Protein 5.6 g/dL (6.4-8.9)
[2019-04-28 06:59] LABS: Potassium 5.3 mmol/L (3.5-5.0)
[2019-04-28] MEDS: Mometasone/Formoter 100/5 MDI INH SCH ×2 (07:24→19:37)
[2019-04-28] MEDS: Insulin LISPRO* 1 UNITS UNIT SUBCUT SCH ×4 (07:25→22:01)
[2019-04-28] MEDS: glyBURIDE TAB* 5 MG PO SCH ×2 (08:19→15:32)
[2019-04-28] MEDS: Nystatin TOP POWDER* 15 GM BTL TOPICAL SCH ×2 (08:22→22:02)
[2019-04-28] MEDS: Diltiazem CD CAP* 180 MG PO SCH (08:24)
[2019-04-28] MEDS: methylPREDNISolone 125 MG* 2 ML VIAL IV SCH (08:24)
[2019-04-28] MEDS: Furosemide TAB* 20 MG PO SCH (08:24)
[2019-04-28] MEDS: Docusate LIQ* 100 MG/10 ML UDC PO SCH (08:24)
[2019-04-28] MEDS: Ferrous Sulfate TAB* 325 MG PO SCH (08:24)
[2019-04-28] MEDS: Senna TAB 8.6 mg* TAB PO SCH (08:24)
[2019-04-28] MEDS: Diltiazem CD CAP* 120 MG PO SCH (08:24)
[2019-04-28] MEDS: Enoxaparin(*) 150 MG/ML 1 ML SYRINGE SUBCUT SCH ×2 (08:24→22:00)
[2019-04-28] MEDS: Metoprolol Succinate XL TAB* 25 MG PO SCH (09:49)
--- NOTE | 2019-04-28 09:53 | PN ---
Progress Note - Progress Note Date of Service: 04/28/19 SOAP: Subjective: []Exhausted this AM and states she didn't sleep at all last night. Tried getting up independently from chair to bed and knocked over bedside table , "I just had to get to bed." Did not fall. Feels like her breathing has improved, "but I'm not walking around." C/o nausea this AM. No emesis. Medications: Acetaminophen (Tylenol Tab*) 650 mg PO Q4H PRN PRN Reason: mild pain/fever Albuterol (Ventolin 2.5 Mg/3 Ml Neb.Nadia*) 2.5 mg INH Q4H PRN PRN Reason: SHORTNESS OF BREATH Last Admin: 04/24/19 18:10 Dose: 2.5 mg Calcium Carbonate (Tums*) 500 mg PO Q4H PRN PRN Reason: ACID REFLUX Last Admin: 04/28/19 01:50 Dose: 500 mg Dextrose (Dextrose 50% Vial 50 Ml*) 25 ml IV PUSH .FOR FS < 60 - SS PRN PRN Reason: FS < 60 Digoxin (Lanoxin Tab*) 0.125 mg PO MoTuWeThFr [facility] Last Admin: 04/27/19 17:38 Dose: 0.125 mg Diltiazem HCl (Cardizem Cd Cap*) 120 mg PO QAM [facility] Last Admin: 04/28/19 08:24 Dose: 120 mg Diltiazem HCl (Cardizem Cd Cap*) 180 mg PO QAM [facility] Last Admin: 04/28/19 08:24 Dose: 180 mg Docusate Sodium (Colace Liq*) 50 mg PO DAILY [facility] Last Admin: 04/28/19 08:24 Dose: 50 mg Enoxaparin Sodium (Lovenox(*)) 120 mg SUBCUT 0900,2100 [facility] Last Admin: 04/28/19 08:24 Dose: 120 mg Ferrous Sulfate (Ferrous Sulfate Tab*) 325 mg PO QAM [facility] Last Admin: 04/28/19 08:24 Dose: 325 mg Furosemide (Lasix Tab*) 20 mg PO DAILY [facility] Last Admin: 04/28/19 08:24 Dose: 20 mg Glyburide (Diabeta Tab*) 10 mg PO BID WITH MEALS [facility] Last Admin: 04/28/19 08:19 Dose: Not Given Heparin Sodium (Porcine) (Heparin Flush Port (Ivad)) 5 ml FLUSH DAILY [facility]; Protocol Last Admin: 04/28/19 08:24 Dose: 5 ml Azithromycin 250 mg/ Sodium (Chloride) 250 mls @ 250 mls/hr IVPB Q24H [facility] Trimethoprim/Sulfamethoxazole (500 mg/ Dextrose) 531.25 mls @ 265.625 mls/hr IVPB Q8H [facility] Last Admin: 04/28/19 06:16 Dose: 265.625 mls/hr Insulin Human Lispro (Humalog*) 0 units SUBCUT ACHS [facility]; Protocol Last Admin: 04/28/19 07:25 Dose: Not Given Lisinopril (Prinivil Tab*) 10 mg PO QPM [facility] Last Admin: 04/27/19 17:14 Dose: Not Given Lorazepam (Ativan Tab(*)) 0.5 mg PO Q6H PRN PRN Reason: ANXIETY Last Admin: 04/28/19 04:46 Dose: 0.5 mg Methylprednisolone Sodium Succinate (Solu-Medrol 125mg *) 60 mg IV DAILY [facility] Last Admin: 04/28/19 08:24 Dose: 60 mg Metoprolol Succinate (Toprol Xl Tab*) 12.5 mg PO QAM [facility] Last Admin: 04/27/19 09:00 Dose: 12.5 mg Mometasone Furoate/Formoterol Fumar (Dulera 100/5 Mdi*) 2 puff INH BID [facility] Last Admin: 04/28/19 07:24 Dose: 2 puff Nystatin (Nystatin Top Powder*) 1 applic TOPICAL BID [facility] Last Admin: 04/28/19 08:22 Dose: 1 applic Ondansetron HCl (Zofran Inj*) 4 mg IV Q6H PRN PRN Reason: NAUSEA/VOMITING Last Admin: 04/28/19 01:49 Dose: 4 mg Senna (Senokot 8.6 Mg Tab*) 1 tab PO DAILY [facility] Last Admin: 04/28/19 08:24 Dose: 1 tab Sodium Chloride (Sodium Chloride 0.65% Nasal [place]*) 1 spray BOTH NARES Q4H PRN PRN Reason: dryness Last Admin: 04/24/19 18:03 Dose: 1 spray Objective: [] Vital Signs Temp Pulse Resp BP Pulse Ox 97.2 F 72 18 98/51 99 04/28/19 07:15 04/28/19 07:25 04/28/19 07:25 04/28/19 07:15 04/28/19 07:25 A&Ox3, EOMI, neuro grossly non-focal HRI, A.fib on tele LS clear bilat. with improved airflow +BS, obese Barnett draining clear. yellow urine Laboratory Results - last 24 hr 04/27/19 04/27/19 04/27/19 07:58 12:09 12:13 WBC 14.9 H RBC 2.67 L Hgb 8.3 L Hct 25 L MCV 94 MCH 31 MCHC 33 RDW 19 H Plt Count 247 MPV 7.6 Neut % (Auto) 92.5 Lymph % (Auto) 0.8 [place] % (Auto) 4.0 Eos % (Auto) 2.4 Baso % (Auto) 0.3 Absolute Neuts (auto) 13.8 H Absolute Lymphs (auto) 0.1 L Absolute Monos (auto) 0.6 Absolute Eos (auto) 0.4 Absolute Basos (auto) 0.0 Absolute Nucleated RBC 0.0 Nucleated RBC % 0.1 Sodium Potassium Chloride Carbon Dioxide Anion Gap BUN Creatinine Est GFR ( Amer) Est GFR (Non-Af Amer) BUN/Creatinine Ratio Glucose POC Glucose (mg/dL) 118 H 68 L Calcium Total Bilirubin AST ALT Alkaline Phosphatase B-Natriuretic Peptide Total Protein Albumin Globulin Albumin/Globulin Ratio 04/27/19 04/27/19 04/27/19 12:13 12:13 13:55 WBC RBC Hgb Hct MCV MCH MCHC RDW Plt Count MPV Neut % (Auto) Lymph % (Auto) [place] % (Auto) Eos % (Auto) Baso % (Auto) Absolute Neuts (auto) Absolute Lymphs (auto) Absolute Monos (auto) Absolute Eos (auto) Absolute Basos (auto) Absolute Nucleated RBC Nucleated RBC % Sodium Potassium Chloride Carbon Dioxide Anion Gap BUN Creatinine Est GFR ( Amer) Est GFR (Non-Af Amer) BUN/Creatinine Ratio Glucose POC Glucose (mg/dL) 72 158 H Calcium Total Bilirubin AST ALT Alkaline Phosphatase B-Natriuretic Peptide 206 H Total Protein Albumin Globulin Albumin/Globulin Ratio 04/27/19 04/27/19 04/28/19 16:52 20:43 06:10 WBC 14.5 H RBC 2.82 L Hgb 8.6 L Hct 27 L MCV 94 MCH 30 MCHC 32 RDW 19 H Plt Count 276 MPV 7.5 Neut % (Auto) 88.1 Lymph % (Auto) 1.7 [place] % (Auto) 4.9 Eos % (Auto) 4.9 Baso % (Auto) 0.4 Absolute Neuts (auto) 12.8 H Absolute Lymphs (auto) 0.3 L Absolute Monos (auto) 0.7 Absolute Eos (auto) 0.7 H Absolute Basos (auto) 0.1 Absolute Nucleated RBC 0.0 Nucleated RBC % 0.1 Sodium Potassium Chloride Carbon Dioxide Anion Gap BUN Creatinine Est GFR ( Amer) Est GFR (Non-Af Amer) BUN/Creatinine Ratio Glucose POC Glucose (mg/dL) 179 H 183 H Calcium Total Bilirubin AST ALT Alkaline Phosphatase B-Natriuretic Peptide Total Protein Albumin Globulin Albumin/Globulin Ratio 04/28/19 04/28/19 06:10 07:14 WBC RBC Hgb Hct MCV MCH MCHC RDW Plt Count MPV Neut % (Auto) Lymph % (Auto) [place] % (Auto) Eos % (Auto) Baso % (Auto) Absolute Neuts (auto) Absolute Lymphs (auto) Absolute Monos (auto) Absolute Eos (auto) Absolute Basos (auto) Absolute Nucleated RBC Nucleated RBC % Sodium 127 L Potassium 5.3 H Chloride 92 L Carbon Dioxide 30 Anion Gap 5 BUN 41 H Creatinine 1.66 H Est GFR ( Amer) 37.1 Est GFR (Non-Af Amer) 30.6 BUN/Creatinine Ratio 24.7 H Glucose 65 L POC Glucose (mg/dL) 98 Calcium 8.2 L Total Bilirubin 0.20 AST 14 ALT 18 Alkaline Phosphatase 52 B-Natriuretic Peptide Total Protein 5.6 L Albumin 3.3 Globulin 2.3 Albumin/Globulin Ratio 1.4 Assessment: []69 yo female with stage IIIA squamous cell lung cancer s/p definitive combined modality therapy admitted with progressive SOB and hypoxia concerning for PCP PNA on imaging initially with minimal improvement on Bactrim and steroids now with Plan: []1. SOB & hypoxia: subjective improvement this AM per pt. - start weaning O2 and work with PT to start ambulating so assess resp. status with exertion - cont. Bactrim, Azithromycin, and Steroids for now - repeat CT Chest without contrast tomorrow, I do not feel she needs a bronchoscopy at this point - mild elevation in BNP, check TTE to eval. EF as factor 2. Hyperglycemia: 2/2 steroids and known DMII - cont. sliding scale insulin 3. Leukocytosis: likely r/t steroids with no elevation in monos, though could be reactive to infection - follow 4. A.Fib: rate controlled - anticoagulation with Lovenox d/t possible bronch 5. Barnett: place to hypoxia with any movement - rise in Cr and increased fatigue today concerning for new UTI - urgent UA/CS, give 1 L NS over 2 hrs. and recheck labs 6. Weakness: de-conditioning may be significant - start PT/OT now, suspect rehab will be most beneficial on d/c 7. Lung Cancer: therapy on hold d/t acute condition Dispo: cont.'d inpt. care for IV abx., suspect need for rehab once more clinically stable
--- NOTE | 2019-04-28 10:53 | PN ---
Progress Note - Progress Note Date of Service: 04/28/19 SOAP: Subjective: CC: Pneumonia HPI: Ms. Del Real is a 69 yo female with PMH significant for obesity, DM2, lung cancer , D CHF, COPD, WANDER, osteoarthritis, HTN, A fib, and bilateral LE lymphedema. Denies fever, chills, shortness of breath at rest, diarrhea. She reports that yesterday she was constipated, but has moved her bowels, Overnight she developed nausea and vomiting and didn't sleep well. She states that she was able to get up to a chair this morning and wasn't short of breath. She has generalized weakness, and is planning on working with physical therapy later today. Objective: Vital Signs - 8 hr 04/28/19 04/28/19 04/28/19 03:24 04:46 07:15 Temperature 97.9 F 97.2 F Pulse Rate 86 69 Respiratory 18 20 18 Rate Blood Pressure 112/66 98/51 (mmHg) O2 Sat by Pulse 99 100 Oximetry 04/28/19 07:25 Temperature Pulse Rate 72 Respiratory 18 Rate Blood Pressure (mmHg) O2 Sat by Pulse 99 Oximetry Physical Exam: General: NAD, laying in bed Neurological: Alert and Oriented x3 HEENT: Moist MM, no thrush Cardiovascular: Heart rate regular, no murmur Respiratory: Lung sounds clear, bilateral ABD: Bowel sounds present; ABD soft, large, and non tender Skin: No rash. Bilateral LE with chronic lymphedema and mild erythema. Laboratory Results - last 24 hr 04/27/19 04/27/19 04/28/19 16:52 20:43 06:10 WBC 14.5 H RBC 2.82 L Hgb 8.6 L Hct 27 L MCV 94 MCH 30 MCHC 32 RDW 19 H Plt Count 276 MPV 7.5 Neut % (Auto) 88.1 Lymph % (Auto) 1.7 [place] % (Auto) 4.9 Eos % (Auto) 4.9 Baso % (Auto) 0.4 Absolute Neuts (auto) 12.8 H Absolute Lymphs (auto) 0.3 L Absolute Monos (auto) 0.7 Absolute Eos (auto) 0.7 H Absolute Basos (auto) 0.1 Absolute Nucleated RBC 0.0 Nucleated RBC % 0.1 04/28/19 04/28/19 06:10 07:14 Sodium 127 L Potassium 5.3 H Chloride 92 L Carbon Dioxide 30 Anion Gap 5 BUN 41 H Creatinine 1.66 H Est GFR ( Amer) 37.1 Est GFR (Non-Af Amer) 30.6 BUN/Creatinine Ratio 24.7 H Glucose 65 L POC Glucose (mg/dL) 98 Calcium 8.2 L Total Bilirubin 0.20 AST 14 ALT 18 Alkaline Phosphatase 52 B-Natriuretic Peptide Total Protein 5.6 L Albumin 3.3 Globulin 2.3 Albumin/Globulin Ratio 1.4 Microbiology 04/23/19 19:43 Urine Culture - Final Urine No Growth (<1,000 CFU/mL) Assessment: 1. Dyspnea and leukocytosis. Suspect this is secondary to right upper lobe PNA. O2 has been weaned from 8 L to 4 L. Afebrile. Leukocytosis is improving. Shortness of breath is improving. 2. Left lung cancer. S/P radiation and chemo, ast treatment in January 2019. 3. Acute on chronic CKD. Elevated creatinine and hyperkalemia. Baseline creatinine is difficult to determine, but appears to be near 1.1 with stage 3 CKD. Is on lisinopril and Bactrim, suspect secondary to medications. Consider holding Lisinopril while on Bactrim, BPs have been soft while in the hospital. 4. DM2. 5. CHF. 6. Morbid obesity. BMI 50.4 Plan: Continue Bactrim and Azithromycin for now. Further recommendations will be based on clinical course.
[2019-04-28] MEDS ORDERED: NS 0.9% 1000 ML** 1,000 ML IV SCH (11:15)
[2019-04-28] MEDS: Azithromycin IV(*) 250 MG in NS 0.9% 250 ML* 250 ML IVPB SCH (11:46)
[2019-04-28 13:54] LABS: Calcium 7.9 mg/dL (8.6-10.3); EGFR African American 35.6 (>60); EGFR Non-African American 29.4 (>60)
[2019-04-28 13:57] LABS: Potassium 5.8 mmol/L (3.5-5.0)
[2019-04-28] MEDS: Lisinopril TAB* 10 MG PO SCH (16:53)
[2019-04-28] MEDS: Digoxin TAB* 0.125 MG PO SCH (17:34)
[2019-04-28] MEDS: NS 0.9% 1000 ML** 1,000 ML IV SCH (17:59)
[2019-04-29] MEDS: NS 0.9% 1000 ML** 1,000 ML IV SCH (04:25)
[2019-04-29 06:11] LABS: ABS Eosinophils 0.1 10^3/ul (0-0.6); ABS Lymphocytes 0.2 10^3/ul (1.0-4.8); ABS Monocytes 0.4 10^3/ul (0-0.8); ABS Neutrophils 9.4 10^3/ul (1.5-7.7); Eosinophil % 0.7 %; Hematocrit 23 % (35-47); Hemoglobin 7.7 g/dL (12.0-16.0); Mean Corpuscular HGB Conc 33 g/dL (31-36); Mean Corpuscular Hemoglobin 31 pg (27-31); Mean Corpuscular Volume 94 fL (80-97); Mean Platelet Volume 7.4 fL (7.4-10.4); Nucleated Red Blood Cells % 0.1; Platelet Count 199 10^3/uL (150-450); Red Blood Count 2.49 10^6 /uL (3.70-4.87); Red Cell Distribution Width 18 % (10-15); White Blood Count 10.2 10^3/uL (3.5-10.8)
[2019-04-29 06:30] LABS: Albumin/Globulin Ratio 1.6 (1-3); BUN/Creatinine Ratio 27.2 (8-20); Calcium 7.9 mg/dL (8.6-10.3); EGFR African American 42.6 (>60); EGFR Non-African American 35.2 (>60); Globulin 1.9 g/dL (2-4); Total Bilirubin 0.3 mg/dL (0.2-1.0); Total Protein 4.9 g/dL (6.4-8.9)
[2019-04-29 06:34] LABS: Potassium 5.7 mmol/L (3.5-5.0)
[2019-04-29] MEDS: Mometasone/Formoter 100/5 MDI INH SCH ×2 (07:14→19:16)
--- NOTE | 2019-04-29 07:27 | PN ---
Progress Note - Progress Note Date of Service: 04/29/19 - Pulm f/u note Note: Pt seen and examined at bedside. Pt reports improvement in SOB. She has not gotten out of bed or ambulated enough to notice any SOB with exertion. She is frustrated that she is lying in bed and that nothing much is happening. She reports numbness in LLE when she stands, and feels that is limiting her from ambulating freely. Denies much cough Active Medications Generic Name Dose Route Start Last Admin Trade Name Freq PRN Reason Stop Dose Admin Acetaminophen 650 mg 04/23/19 16:08 Tylenol Tab* PO Q4H PRN mild pain/fever Albuterol 2.5 mg 04/23/19 16:32 04/24/19 18:10 Ventolin 2.5 Mg/3 Ml Neb.Nadia* INH 2.5 mg Q4H PRN Administration SHORTNESS OF BREATH Calcium Carbonate 500 mg 04/27/19 23:03 04/28/19 01:50 Tums* PO 500 mg Q4H PRN Administration ACID REFLUX Dextrose 25 ml 04/23/19 16:29 Dextrose 50% Vial 50 Ml* IV PUSH .FOR FS < 60 - SS PRN FS < 60 Digoxin 0.125 mg 04/23/19 18:30 04/28/19 17:34 Lanoxin Tab* PO 0.125 mg MoTuWeThFr PAUL Administration Diltiazem HCl 120 mg 04/24/19 09:00 04/28/19 08:24 Cardizem Cd Cap* PO 120 mg QAM PAUL Administration Diltiazem HCl 180 mg 04/24/19 09:00 04/28/19 08:24 Cardizem Cd Cap* PO 180 mg QAM PAUL Administration Docusate Sodium 50 mg 04/26/19 10:00 04/28/19 08:24 Colace Liq* PO 50 mg DAILY PAUL Administration Enoxaparin Sodium 120 mg 04/24/19 09:00 04/28/19 22:00 Lovenox(*) SUBCUT 120 mg 0900,2100 PAUL Administration Ferrous Sulfate 325 mg 04/23/19 19:00 04/28/19 08:24 Ferrous Sulfate Tab* PO 325 mg QAM PAUL Administration Heparin Sodium (Porcine) 5 ml 04/24/19 12:30 04/28/19 08:24 Heparin Flush Port (Ivad) FLUSH 5 ml DAILY PAUL Administration Protocol Azithromycin 250 mg/ Sodium 250 mls @ 250 mls/hr 04/28/19 11:00 04/28/19 11: 46 Chloride IVPB 250 mls/hr Q24H PAUL Administration Sodium Chloride 1,000 mls @ 100 mls/hr 04/28/19 17:15 04/29/19 04:25 Ns 0.9% 1000 Ml IV 100 mls/hr PER RATE PAUL Administration Insulin Human Lispro 0 units 04/23/19 16:30 04/28/19 22:01 Humalog* SUBCUT 4 unit ACHS PAUL Administration Protocol Lorazepam 0.5 mg 04/23/19 19:01 04/28/19 04:46 Ativan Tab(*) PO 0.5 mg Q6H PRN Administration ANXIETY Methylprednisolone Sodium Succinate 60 mg 04/23/19 18:30 04/28/19 08:24 Solu-Medrol 125mg * IV 60 mg DAILY PAUL Administration Metoprolol Succinate 12.5 mg 04/24/19 09:00 04/28/19 09:49 Toprol Xl Tab* PO Not Given QAM PAUL Mometasone Furoate/Formoterol Fumar 2 puff 04/23/19 21:00 04/29/19 07:14 Dulera 100/5 Mdi* INH 2 puff BID PAUL Administration Nystatin 1 applic 04/23/19 21:30 04/28/19 22:02 Nystatin Top Powder* TOPICAL 1 applic BID PAUL Administration Ondansetron HCl 4 mg 04/27/19 23:03 04/28/19 01:49 Zofran Inj* IV 4 mg Q6H PRN Administration NAUSEA/VOMITING Senna 1 tab 04/26/19 10:00 04/28/19 08:24 Senokot 8.6 Mg Tab* PO 1 tab DAILY PAUL Administration Sodium Chloride 1 spray 04/24/19 10:26 04/24/19 18:03 Sodium Chloride 0.65% Nasal [place]* BOTH NARES 1 spray Q4H PRN Administration dryness Vital Signs Temp Pulse Resp BP Pulse Ox 98.1 F 80 20 105/55 93 04/29/19 03:28 04/29/19 07:15 04/29/19 07:15 04/29/19 03:28 04/29/19 07:15 O/E: Morbidly obese f in NAD HEENT: PERRLA, no JVD Lungs: Dimnished air entry at bases, no wheeze CVS: S1, S2+ Abd: Obese, BS+ Ext :Chronic lymphadema changes Neuro: No focal deficits Laboratory Results - last 24 hr 04/28/19 04/28/19 04/28/19 07:14 11:58 13:21 WBC RBC Hgb Hct MCV MCH MCHC RDW Plt Count MPV Neut % (Auto) Lymph % (Auto) [place] % (Auto) Eos % (Auto) Baso % (Auto) Absolute Neuts (auto) Absolute Lymphs (auto) Absolute Monos (auto) Absolute Eos (auto) Absolute Basos (auto) Absolute Nucleated RBC Nucleated RBC % Sodium 124 L Potassium 5.8 H Chloride 91 L Carbon Dioxide 25 Anion Gap 8 BUN 43 H Creatinine 1.72 H Est GFR ( Amer) 35.6 Est GFR (Non-Af Amer) 29.4 BUN/Creatinine Ratio 25.0 H Glucose 109 H POC Glucose (mg/dL) 98 77 Calcium 7.9 L Total Bilirubin AST ALT Alkaline Phosphatase Total Protein Albumin Globulin Albumin/Globulin Ratio 04/28/19 04/28/19 04/29/19 17:12 21:30 05:35 WBC 10.2 RBC 2.49 L Hgb 7.7 L Hct 23 L MCV 94 MCH 31 MCHC 33 RDW 18 H Plt Count 199 MPV 7.4 Neut % (Auto) 92.8 Lymph % (Auto) 2.0 [place] % (Auto) 4.2 Eos % (Auto) 0.7 Baso % (Auto) 0.3 Absolute Neuts (auto) 9.4 H Absolute Lymphs (auto) 0.2 L Absolute Monos (auto) 0.4 Absolute Eos (auto) 0.1 Absolute Basos (auto) 0.0 Absolute Nucleated RBC 0.0 Nucleated RBC % 0.1 Sodium Potassium Chloride Carbon Dioxide Anion Gap BUN Creatinine Est GFR ( Amer) Est GFR (Non-Af Amer) BUN/Creatinine Ratio Glucose POC Glucose (mg/dL) 200 H 215 H Calcium Total Bilirubin AST ALT Alkaline Phosphatase Total Protein Albumin Globulin Albumin/Globulin Ratio 04/29/19 05:35 WBC RBC Hgb Hct MCV MCH MCHC RDW Plt Count MPV Neut % (Auto) Lymph % (Auto) [place] % (Auto) Eos % (Auto) Baso % (Auto) Absolute Neuts (auto) Absolute Lymphs (auto) Absolute Monos (auto) Absolute Eos (auto) Absolute Basos (auto) Absolute Nucleated RBC Nucleated RBC % Sodium 128 L Potassium 5.7 H Chloride 96 L Carbon Dioxide 28 Anion Gap 4 BUN 40 H Creatinine 1.47 H Est GFR ( Amer) 42.6 Est GFR (Non-Af Amer) 35.2 BUN/Creatinine Ratio 27.2 H Glucose 73 POC Glucose (mg/dL) Calcium 7.9 L Total Bilirubin 0.30 AST 11 L ALT 15 Alkaline Phosphatase 43 Total Protein 4.9 L Albumin 3.0 L Globulin 1.9 L Albumin/Globulin Ratio 1.6 I/R: 69 yo female with stage IIIA squamous cell lung cancer s/p definitive combined modality therapy admitted with progressive SOB and hypoxia, found to have air space opacities being treated for PCP PNA Clinically improving FiO2 requirements are improving c/w Bactrim and can start tapering prednisone Plan for rpt CT, might be early now to see significant change PT and possible rehab for few weeks given deconditioned state Suspect component of fluid overload, dose of Lasix to be considered prior to imaging OOB to chair D/c planning
[2019-04-29] MEDS: Insulin LISPRO* 1 UNITS UNIT SUBCUT SCH ×4 (08:48→20:56)
--- NOTE | 2019-04-29 10:08 | PN ---
Progress Note - Progress Note Date of Service: 04/29/19 SOAP: Subjective: []Bactrim held overnight with IV fluids given. Labs today improved. Feels very weak. Refused PT yesterday. O2 needs tapering down. Breathing feels better. Left leg fell asleep recently which is why she c/o numbness and "gave out" with transfer. Medications: Acetaminophen (Tylenol Tab*) 650 mg PO Q4H PRN PRN Reason: mild pain/fever Albuterol (Ventolin 2.5 Mg/3 Ml Neb.Nadia*) 2.5 mg INH Q4H PRN PRN Reason: SHORTNESS OF BREATH Last Admin: 04/24/19 18:10 Dose: 2.5 mg Apixaban (Eliquis*) 5 mg PO BID [facility] Calcium Carbonate (Tums*) 500 mg PO Q4H PRN PRN Reason: ACID REFLUX Last Admin: 04/28/19 01:50 Dose: 500 mg Dextrose (Dextrose 50% Vial 50 Ml*) 25 ml IV PUSH .FOR FS < 60 - SS PRN PRN Reason: FS < 60 Digoxin (Lanoxin Tab*) 0.125 mg PO MoTuWeThFr [facility] Last Admin: 04/28/19 17:34 Dose: 0.125 mg Diltiazem HCl (Cardizem Cd Cap*) 120 mg PO QAM [facility] Last Admin: 04/28/19 08:24 Dose: 120 mg Diltiazem HCl (Cardizem Cd Cap*) 180 mg PO QAM [facility] Last Admin: 04/28/19 08:24 Dose: 180 mg Docusate Sodium (Colace Liq*) 50 mg PO DAILY [facility] Last Admin: 04/28/19 08:24 Dose: 50 mg Ferrous Sulfate (Ferrous Sulfate Tab*) 325 mg PO QAM [facility] Last Admin: 04/28/19 08:24 Dose: 325 mg Heparin Sodium (Porcine) (Heparin Flush Port (Ivad)) 5 ml FLUSH DAILY [facility]; Protocol Last Admin: 04/28/19 08:24 Dose: 5 ml Azithromycin 250 mg/ Sodium (Chloride) 250 mls @ 250 mls/hr IVPB Q24H [facility] Stop: 05/01/19 14:00 Last Admin: 04/28/19 11:46 Dose: 250 mls/hr Sodium Chloride (Ns 0.9% 1000 Ml) 1,000 mls @ 100 mls/hr IV PER RATE [facility] Last Admin: 04/29/19 04:25 Dose: 100 mls/hr Insulin Human Lispro (Humalog*) 0 units SUBCUT ACHS [facility]; Protocol Last Admin: 04/29/19 08:48 Dose: Not Given Lorazepam (Ativan Tab(*)) 0.5 mg PO Q6H PRN PRN Reason: ANXIETY Last Admin: 04/28/19 04:46 Dose: 0.5 mg Metoprolol Succinate (Toprol Xl Tab*) 12.5 mg PO QAM [facility] Last Admin: 04/28/19 09:49 Dose: Not Given Mometasone Furoate/Formoterol Fumar (Dulera 100/5 Mdi*) 2 puff INH BID [facility] Last Admin: 04/29/19 07:14 Dose: 2 puff Nystatin (Nystatin Top Powder*) 1 applic TOPICAL BID [facility] Last Admin: 04/28/19 22:02 Dose: 1 applic Ondansetron HCl (Zofran Inj*) 4 mg IV Q6H PRN PRN Reason: NAUSEA/VOMITING Last Admin: 04/28/19 01:49 Dose: 4 mg Prednisone (Deltasone Tab*) 50 mg PO DAILY [facility] Senna (Senokot 8.6 Mg Tab*) 1 tab PO DAILY [facility] Last Admin: 04/28/19 08:24 Dose: 1 tab Sodium Chloride (Sodium Chloride 0.65% Nasal [place]*) 1 spray BOTH NARES Q4H PRN PRN Reason: dryness Last Admin: 04/24/19 18:03 Dose: 1 spray Objective: [] Vital Signs Temp Pulse Resp BP Pulse Ox 98 F 87 22 91/62 95 04/29/19 07:15 04/29/19 07:15 04/29/19 07:15 04/29/19 07:15 04/29/19 07:15 A&Ox3, EOMI, neuro grossly non-focal HRI, A.Fib on tele, rate controlled LS clear with dim. bases +BS, obese, soft and non-tender Bilat. PVD with 2+ edema Laboratory Results - last 24 hr 04/28/19 04/28/19 04/28/19 11:58 13:21 17:12 WBC RBC Hgb Hct MCV MCH MCHC RDW Plt Count MPV Neut % (Auto) Lymph % (Auto) [place] % (Auto) Eos % (Auto) Baso % (Auto) Absolute Neuts (auto) Absolute Lymphs (auto) Absolute Monos (auto) Absolute Eos (auto) Absolute Basos (auto) Absolute Nucleated RBC Nucleated RBC % Sodium 124 L Potassium 5.8 H Chloride 91 L Carbon Dioxide 25 Anion Gap 8 BUN 43 H Creatinine 1.72 H Est GFR ( Amer) 35.6 Est GFR (Non-Af Amer) 29.4 BUN/Creatinine Ratio 25.0 H Glucose 109 H POC Glucose (mg/dL) 77 200 H Calcium 7.9 L Total Bilirubin AST ALT Alkaline Phosphatase Total Protein Albumin Globulin Albumin/Globulin Ratio 04/28/19 04/29/19 04/29/19 21:30 05:35 05:35 WBC 10.2 RBC 2.49 L Hgb 7.7 L Hct 23 L MCV 94 MCH 31 MCHC 33 RDW 18 H Plt Count 199 MPV 7.4 Neut % (Auto) 92.8 Lymph % (Auto) 2.0 [place] % (Auto) 4.2 Eos % (Auto) 0.7 Baso % (Auto) 0.3 Absolute Neuts (auto) 9.4 H Absolute Lymphs (auto) 0.2 L Absolute Monos (auto) 0.4 Absolute Eos (auto) 0.1 Absolute Basos (auto) 0.0 Absolute Nucleated RBC 0.0 Nucleated RBC % 0.1 Sodium 128 L Potassium 5.7 H Chloride 96 L Carbon Dioxide 28 Anion Gap 4 BUN 40 H Creatinine 1.47 H Est GFR ( Amer) 42.6 Est GFR (Non-Af Amer) 35.2 BUN/Creatinine Ratio 27.2 H Glucose 73 POC Glucose (mg/dL) 215 H Calcium 7.9 L Total Bilirubin 0.30 AST 11 L ALT 15 Alkaline Phosphatase 43 Total Protein 4.9 L Albumin 3.0 L Globulin 1.9 L Albumin/Globulin Ratio 1.6 Assessment: []69 yo female with stage IIIA squamous cell lung cancer s/p definitive combined modality therapy admitted with progressive SOB and hypoxia initially with concern for PCP, however minimal improvement on Bactrim and review of imaging more concerning for a localized RUL pneumonia. Bactrim held last night d /t rising Cr and K+ with improvement in labs this morning and after discussion with ID plan to monitor off Bactrim d/t low suspicion for PCP. Case discussed with Dr. Nelson who is concerned PCP can not be ruled out ( bronch was not done d/t her initial stabilization) and would like to consider PO Bactrim. Plan: []1. SOB and hypoxia: suspect RUL pneumonia with low suspicion for PCP - cased discussed with ID at length: plan to hold Bactrim for next 24 hrs, if any recurrent SOB or hypoxia will resume despite prior elevation of Cr - cont. Azithromycin through 05/01 - start steroid taper, switch from solumedrol 50 mg IV to prednisone 50 mg PO - start increasing activity with PT, enc. leg pumps or standing q1-2 hrs with nursing - cont. O2 tapering 2. Hyperkalemia and ARF: improving today - d/c fluids - repeat labs in AM 3. A.Fib: resume eliquis and stop Lovenox - no need for bronch d/t improvement - recent EF 60% 4. Deconditioning: start increasing OOB activity - will need rehab on d/c
--- NOTE | 2019-04-29 10:22 | PN ---
Progress Note - Progress Note Date of Service: 04/29/19 SOAP: Subjective: cc: pneumonia HPI: 69 year old woman with hx lung cancer, xrt, chemotherapy now with shortness of breath and cough; overall feeling better. Decreased appetite, no abd pain or diarrhea. O2 requirement decreasing. Less short of breath walking around the room. Objective: Vital Signs Temp 36.6 C 04/29/19 07:15 Pulse 87 04/29/19 07:15 Resp 22 04/29/19 07:15 BP 91/62 04/29/19 07:15 Pulse Ox 95 04/29/19 07:15 Intake & Output 04/28/19 04/29/19 04/29/19 18:59 06:59 18:59 Intake Total 2253 2472 100 Output Total 575 300 Balance 1678 2172 100 Intake: IV Fluids 1005 1991 NS 1005 1991 IVPB 868 Antibiotic 818 Bactrim 50 Oral 380 480 100 Output: Urine 300 [place] 575 Other: Estimated Void Medium # Bowel Movements 0 0 # Voids 1 Gen:awake, no distress HEENT: no thrush Heart:RRR no murmur Lungs:decr BS BL, no wheeze Abd:+BS NTND soft Skin: no rash, forearm echymoses Laboratory Results - last 24 hr 04/28/19 04/28/19 04/28/19 11:58 13:21 17:12 WBC RBC Hgb Hct MCV MCH MCHC RDW Plt Count MPV Neut % (Auto) Lymph % (Auto) [place] % (Auto) Eos % (Auto) Baso % (Auto) Absolute Neuts (auto) Absolute Lymphs (auto) Absolute Monos (auto) Absolute Eos (auto) Absolute Basos (auto) Absolute Nucleated RBC Nucleated RBC % Sodium 124 L Potassium 5.8 H Chloride 91 L Carbon Dioxide 25 Anion Gap 8 BUN 43 H Creatinine 1.72 H Est GFR ( Amer) 35.6 Est GFR (Non-Af Amer) 29.4 BUN/Creatinine Ratio 25.0 H Glucose 109 H POC Glucose (mg/dL) 77 200 H Calcium 7.9 L Total Bilirubin AST ALT Alkaline Phosphatase Total Protein Albumin Globulin Albumin/Globulin Ratio 04/28/19 04/29/19 04/29/19 21:30 05:35 05:35 WBC 10.2 RBC 2.49 L Hgb 7.7 L Hct 23 L MCV 94 MCH 31 MCHC 33 RDW 18 H Plt Count 199 MPV 7.4 Neut % (Auto) 92.8 Lymph % (Auto) 2.0 [place] % (Auto) 4.2 Eos % (Auto) 0.7 Baso % (Auto) 0.3 Absolute Neuts (auto) 9.4 H Absolute Lymphs (auto) 0.2 L Absolute Monos (auto) 0.4 Absolute Eos (auto) 0.1 Absolute Basos (auto) 0.0 Absolute Nucleated RBC 0.0 Nucleated RBC % 0.1 Sodium 128 L Potassium 5.7 H Chloride 96 L Carbon Dioxide 28 Anion Gap 4 BUN 40 H Creatinine 1.47 H Est GFR ( Amer) 42.6 Est GFR (Non-Af Amer) 35.2 BUN/Creatinine Ratio 27.2 H Glucose 73 POC Glucose (mg/dL) 215 H Calcium 7.9 L Total Bilirubin 0.30 AST 11 L ALT 15 Alkaline Phosphatase 43 Total Protein 4.9 L Albumin 3.0 L Globulin 1.9 L Albumin/Globulin Ratio 1.6 04/29/19 07:30 WBC RBC Hgb Hct MCV MCH MCHC RDW Plt Count MPV Neut % (Auto) Lymph % (Auto) [place] % (Auto) Eos % (Auto) Baso % (Auto) Absolute Neuts (auto) Absolute Lymphs (auto) Absolute Monos (auto) Absolute Eos (auto) Absolute Basos (auto) Absolute Nucleated RBC Nucleated RBC % Sodium Potassium Chloride Carbon Dioxide Anion Gap BUN Creatinine Est GFR ( Amer) Est GFR (Non-Af Amer) BUN/Creatinine Ratio Glucose POC Glucose (mg/dL) 68 L Calcium Total Bilirubin AST ALT Alkaline Phosphatase Total Protein Albumin Globulin Albumin/Globulin Ratio Assessment: 1. Right sided pneumonia, improving; as it is a focal infiltrate I think it is unlikely she has Pneumocystis, more likely typical community acquired organisms , antibiotics day 7 2. Lung cancer, recent XRT and chemotherapy 3. morbid obesity 4. hyperkalemia due to bactrim and lisinopril 5. COPD 6. Diabetes Plan: 1. DC bactrim, continue azithromycin for 2 more days 35 minutes floor time >50% face to face in counseling regarding our plans for antibiotics and corticosteroids Discussed with Kari Mejia NP
[2019-04-29] MEDS: Azithromycin IV(*) 250 MG in NS 0.9% 250 ML* 250 ML IVPB SCH (10:41)
[2019-04-29] MEDS: Metoprolol Succinate XL TAB* 25 MG PO SCH (10:43)
[2019-04-29] MEDS: Docusate LIQ* 100 MG/10 ML UDC PO SCH (10:44)
[2019-04-29] MEDS: Diltiazem CD CAP* 180 MG PO SCH (10:45)
[2019-04-29] MEDS: Ferrous Sulfate TAB* 325 MG PO SCH (10:46)
[2019-04-29] MEDS: predniSONE TAB* 50 MG PO SCH (10:46)
[2019-04-29] MEDS: Senna TAB 8.6 mg* TAB PO SCH (10:46)
[2019-04-29] MEDS: Diltiazem CD CAP* 120 MG PO SCH (10:46)
[2019-04-29] MEDS: Apixaban* 5 MG TAB PO SCH ×2 (10:46→20:56)
[2019-04-29] MEDS: methylPREDNISolone 125 MG* 2 ML VIAL IV SCH (11:39)
[2019-04-29] MEDS: Enoxaparin(*) 150 MG/ML 1 ML SYRINGE SUBCUT SCH (11:39)
[2019-04-29] MEDS: Nystatin TOP POWDER* 15 GM BTL TOPICAL SCH ×2 (13:06→20:57)
[2019-04-29] MEDS: Digoxin TAB* 0.125 MG PO SCH (18:25)
[2019-04-30 06:11] LABS: ABS Eosinophils 0.2 10^3/ul (0-0.6); ABS Lymphocytes 0.4 10^3/ul (1.0-4.8); ABS Monocytes 0.6 10^3/ul (0-0.8); ABS Neutrophils 9.9 10^3/ul (1.5-7.7); Hematocrit 25 % (35-47); Hemoglobin 8.1 g/dL (12.0-16.0); Lymphocyte % 3.6 %; Mean Corpuscular HGB Conc 33 g/dL (31-36); Mean Corpuscular Hemoglobin 31 pg (27-31); Mean Corpuscular Volume 94 fL (80-97); Mean Platelet Volume 7.1 fL (7.4-10.4); Nucleated Red Blood Cells % 0.3; Platelet Count 251 10^3/uL (150-450); Red Blood Count 2.63 10^6 /uL (3.70-4.87); Red Cell Distribution Width 19 % (10-15); White Blood Count 11.1 10^3/uL (3.5-10.8)
[2019-04-30 06:21] LABS: Albumin 3.1 g/dL (3.2-5.2); Albumin/Globulin Ratio 1.6 (1-3); BUN/Creatinine Ratio 25.8 (8-20); Calcium 8.3 mg/dL (8.6-10.3); EGFR African American 48.3 (>60); EGFR Non-African American 39.9 (>60); Magnesium 2.1 mg/dL (1.9-2.7); Potassium 5.7 mmol/L (3.5-5.0); Total Bilirubin 0.4 mg/dL (0.2-1.0); Total Protein 5.1 g/dL (6.4-8.9)
[2019-04-30] MEDS: Mometasone/Formoter 100/5 MDI INH SCH ×2 (07:58→19:21)
[2019-04-30] MEDS: Docusate LIQ* 100 MG/10 ML UDC PO SCH (08:54)
[2019-04-30] MEDS: Metoprolol Succinate XL TAB* 25 MG PO SCH (08:54)
[2019-04-30] MEDS: Diltiazem CD CAP* 180 MG PO SCH (08:55)
[2019-04-30] MEDS: predniSONE TAB* 50 MG PO SCH (08:56)
[2019-04-30] MEDS: Diltiazem CD CAP* 120 MG PO SCH (08:56)
[2019-04-30] MEDS: Ferrous Sulfate TAB* 325 MG PO SCH (08:56)
[2019-04-30] MEDS: Apixaban* 5 MG TAB PO SCH ×2 (08:56→21:19)
[2019-04-30] MEDS: Senna TAB 8.6 mg* TAB PO SCH (08:56)
[2019-04-30] MEDS: Insulin LISPRO* 1 UNITS UNIT SUBCUT SCH ×4 (08:57→21:18)
--- NOTE | 2019-04-30 09:19 | PN ---
Progress Note - Progress Note Date of Service: 04/30/19 SOAP: Subjective: CC: Pneumonia HPI: Ms. Del Real is a 69 yo female with PMH significant for obesity, DM2, lung cancer , D CHF, COPD, WANDER, osteoarthritis, HTN, A fib, and bilateral LE lymphedema. Denies fever, chills, shortness of breath at rest, nausea, vomiting, or diarrhea. She reports decreased oxygen levels this AM when she got up to the chair, but didn't really feel SOB during that time. She continues to have generalized weakness. Objective: Vital Signs - 8 hr 04/30/19 04/30/19 04/30/19 03:16 07:15 07:59 Temperature 97.5 F 98.1 F Pulse Rate 68 85 85 Respiratory 20 20 20 Rate Blood Pressure 135/58 115/56 (mmHg) O2 Sat by Pulse 94 94 94 Oximetry Physical Exam: General: NAD, sitting up in a chair Neurological: Alert and Oriented x4 HEENT: Moist MM, no thrush Cardiovascular: Heart rate regular. Bilateral LE lymphedema Respiratory: Lung sounds clear bilateral, diminished in the bases Abdominal: Bowel sounds present; ABD soft, large, and non tender Skin: No rash. Bilateral LE chronic skin changes consistent with lymphedema Laboratory Results - last 24 hr 04/30/19 04/30/19 04/30/19 05:25 05:25 07:51 WBC 11.1 H RBC 2.63 L Hgb 8.1 L Hct 25 L MCV 94 MCH 31 MCHC 33 RDW 19 H Plt Count 251 MPV 7.1 L Neut % (Auto) 88.6 Lymph % (Auto) 3.6 [place] % (Auto) 5.5 Eos % (Auto) 2.0 Baso % (Auto) 0.3 Absolute Neuts (auto) 9.9 H Absolute Lymphs (auto) 0.4 L Absolute Monos (auto) 0.6 Absolute Eos (auto) 0.2 Absolute Basos (auto) 0.0 Absolute Nucleated RBC 0.0 Nucleated RBC % 0.3 Sodium 131 L Potassium 5.7 H Chloride 99 L Carbon Dioxide 29 Anion Gap 3 BUN 34 H Creatinine 1.32 H Est GFR ( Amer) 48.3 Est GFR (Non-Af Amer) 39.9 BUN/Creatinine Ratio 25.8 H Glucose 88 POC Glucose (mg/dL) 121 H Calcium 8.3 L Magnesium 2.1 Total Bilirubin 0.40 AST 11 L ALT 16 Alkaline Phosphatase 44 Total Protein 5.1 L Albumin 3.1 L Globulin 2.0 Albumin/Globulin Ratio 1.6 Microbiology 04/28/19 11:55 Urine Culture - Final Urine No Growth (<1,000 CFU/mL) 04/23/19 19:43 Urine Culture - Final Urine No Growth (<1,000 CFU/mL) Assessment: 1. Right upper lobe community acquired PNA. Received 5 days of IV Bactrim for possible pneumocystis PNA, there is a focal infiltrate seen on CT scan and this is not consistent with typical pneumocystis and felt to most likely be secondary to CAP. O2 continues to slowly be titrated down. Afebrile. Leukocytosis continues to improve. Shortness of breath is improving. 2. Left lung cancer. S/P radiation and chemo, last treatment in January 2019. 3. Acute on chronic CKD. Baseline creatinine is difficult to determine. Creatinine is trending down. 4. Hyperkalemia. Continues to have elevated K. Suspect secondary to the combination of Bactrim and Lisinopril she had been on. Recommend treating this, as it has been elevated for a few days now. 5. DM2. 6. CHF. 7. Morbid obesity. BMI 50.4 Plan: Continue Azithromycin and discontinue after 7 days of ABX, day 02/28.
[2019-04-30] MEDS ORDERED: Patiromer POWDER* 8.4 GM PAK PO ONE (10:45)
--- NOTE | 2019-04-30 11:07 | PN ---
Progress Note - Progress Note Date of Service: 04/30/19 SOAP: Subjective: [She had a "rough night", just couldn't get comfortable in bed. Doing ok from a respiratory perspective. No cough.] Objective: [ Vital Signs: Temp Pulse Resp BP Pulse Ox 98.1 F 85 18 115/56 94 04/30/19 07:15 04/30/19 07:59 04/30/19 08:00 04/30/19 07:15 04/30/19 07:59 Acetaminophen (Tylenol Tab*) 650 mg PO Q4H PRN PRN Reason: mild pain/fever Albuterol (Ventolin 2.5 Mg/3 Ml Neb.Nadia*) 2.5 mg INH Q4H PRN PRN Reason: SHORTNESS OF BREATH Last Admin: 04/24/19 18:10 Dose: 2.5 mg Apixaban (Eliquis*) 5 mg PO BID [facility] Last Admin: 04/30/19 08:56 Dose: 5 mg Calcium Carbonate (Tums*) 500 mg PO Q4H PRN PRN Reason: ACID REFLUX Last Admin: 04/28/19 01:50 Dose: 500 mg Dextrose (Dextrose 50% Vial 50 Ml*) 25 ml IV PUSH .FOR FS < 60 - SS PRN PRN Reason: FS < 60 Digoxin (Lanoxin Tab*) 0.125 mg PO MoTuWeThFr [facility] Last Admin: 04/29/19 18:25 Dose: 0.125 mg Diltiazem HCl (Cardizem Cd Cap*) 120 mg PO QAM [facility] Last Admin: 04/30/19 08:56 Dose: 120 mg Diltiazem HCl (Cardizem Cd Cap*) 180 mg PO QAM [facility] Last Admin: 04/30/19 08:55 Dose: 180 mg Docusate Sodium (Colace Liq*) 50 mg PO DAILY [facility] Last Admin: 04/30/19 08:54 Dose: 50 mg Ferrous Sulfate (Ferrous Sulfate Tab*) 325 mg PO QAM [facility] Last Admin: 04/30/19 08:56 Dose: 325 mg Heparin Sodium (Porcine) (Heparin Flush Port (Ivad)) 5 ml FLUSH DAILY [facility]; Protocol Last Admin: 04/30/19 09:14 Dose: Not Given Azithromycin 250 mg/ Sodium (Chloride) 250 mls @ 250 mls/hr IVPB Q24H [facility] Stop: 05/01/19 14:00 Last Admin: 04/29/19 10:41 Dose: 250 mls/hr Insulin Human Lispro (Humalog*) 0 units SUBCUT ACHS [facility]; Protocol Last Admin: 04/30/19 08:57 Dose: Not Given Lorazepam (Ativan Tab(*)) 0.5 mg PO Q6H PRN PRN Reason: ANXIETY Last Admin: 04/28/19 04:46 Dose: 0.5 mg Metoprolol Succinate (Toprol Xl Tab*) 12.5 mg PO QAM [facility] Last Admin: 04/30/19 08:54 Dose: 12.5 mg Mometasone Furoate/Formoterol Fumar (Dulera 100/5 Mdi*) 2 puff INH BID [facility] Last Admin: 04/30/19 07:58 Dose: 2 puff Nystatin (Nystatin Top Powder*) 1 applic TOPICAL BID [facility] Last Admin: 04/29/19 20:57 Dose: 1 applic Ondansetron HCl (Zofran Inj*) 4 mg IV Q6H PRN PRN Reason: NAUSEA/VOMITING Last Admin: 04/28/19 01:49 Dose: 4 mg Prednisone (Deltasone Tab*) 50 mg PO DAILY [facility] Last Admin: 04/30/19 08:56 Dose: 50 mg Senna (Senokot 8.6 Mg Tab*) 1 tab PO DAILY [facility] Last Admin: 04/30/19 08:56 Dose: 1 tab Sodium Chloride (Sodium Chloride 0.65% Nasal [place]*) 1 spray BOTH NARES Q4H PRN PRN Reason: dryness Last Admin: 04/24/19 18:03 Dose: 1 spray Laboratory Results - last 24 hr 04/29/19 04/29/19 04/29/19 12:26 16:58 20:31 WBC RBC Hgb Hct MCV MCH MCHC RDW Plt Count MPV Neut % (Auto) Lymph % (Auto) [place] % (Auto) Eos % (Auto) Baso % (Auto) Absolute Neuts (auto) Absolute Lymphs (auto) Absolute Monos (auto) Absolute Eos (auto) Absolute Basos (auto) Absolute Nucleated RBC Nucleated RBC % Sodium Potassium Chloride Carbon Dioxide Anion Gap BUN Creatinine Est GFR ( Amer) Est GFR (Non-Af Amer) BUN/Creatinine Ratio Glucose POC Glucose (mg/dL) 88 252 H 250 H Calcium Magnesium Total Bilirubin AST ALT Alkaline Phosphatase Total Protein Albumin Globulin Albumin/Globulin Ratio 04/30/19 04/30/19 04/30/19 05:25 05:25 07:51 WBC 11.1 H RBC 2.63 L Hgb 8.1 L Hct 25 L MCV 94 MCH 31 MCHC 33 RDW 19 H Plt Count 251 MPV 7.1 L Neut % (Auto) 88.6 Lymph % (Auto) 3.6 [place] % (Auto) 5.5 Eos % (Auto) 2.0 Baso % (Auto) 0.3 Absolute Neuts (auto) 9.9 H Absolute Lymphs (auto) 0.4 L Absolute Monos (auto) 0.6 Absolute Eos (auto) 0.2 Absolute Basos (auto) 0.0 Absolute Nucleated RBC 0.0 Nucleated RBC % 0.3 Sodium 131 L Potassium 5.7 H Chloride 99 L Carbon Dioxide 29 Anion Gap 3 BUN 34 H Creatinine 1.32 H Est GFR ( Amer) 48.3 Est GFR (Non-Af Amer) 39.9 BUN/Creatinine Ratio 25.8 H Glucose 88 POC Glucose (mg/dL) 121 H Calcium 8.3 L Magnesium 2.1 Total Bilirubin 0.40 AST 11 L ALT 16 Alkaline Phosphatase 44 Total Protein 5.1 L Albumin 3.1 L Globulin 2.0 Albumin/Globulin Ratio 1.6 Exam: Gen: Chronically ill appearing 69 yo female in NAD HEENT: MMM CV: RRR, no m/r/g Resp: crackle appreciated in JÚNIOR, posterior field Abd: soft, obese Ext: chronic venous stasis changes, nothing acute] [Assessment: []69 yo female with stage IIIA squamous cell lung cancer s/p definitive combined modality therapy admitted with progressive SOB and hypoxia initially with concern for PCP, however minimal improvement on Bactrim and review of imaging more concerning for a localized RUL pneumonia. Bactrim has now been stopped d/t rising Cr and K+. Pulmonology and ID differ on their level of concern for this acute illness representing PCP v CAP. Will plan to monitor off of Bactrim at this moment due to DELORES/hyperkalemia. Slowly improving clinically Plan: []1. SOB and hypoxia: PCP v CAP - Bactrim dc'd 04/29 - cont. Azithromycin through 05/01 - cont prednisone 50 mg daily, will taper slowly - titrate O2 to maintain O2 >92% - repeat CT tomorrow as a baseline comparison if symptoms again become worse 2. Hyperkalemia and ARF: - likely related to Bactrim/ACEI - both of which have been stopped - Cr improved today - give potassium binder today (patorimeter) - check renal/bladder US to ensure no hydronephrosis/retention 3. A.Fib: - cont eliquis - recent EF 60% 4. NSCLC - completed combined modality chemoRT - received one cycle of consolidating immunotherapy - on hold for now, will resume following dc from rehab Dispo: requires JUANA, CM/SW involved
[2019-04-30] MEDS: Azithromycin IV(*) 250 MG in NS 0.9% 250 ML* 250 ML IVPB SCH (11:13)
[2019-04-30] MEDS: Nystatin TOP POWDER* 15 GM BTL TOPICAL SCH ×2 (13:25→21:21)
[2019-04-30] MEDS: Acetaminophen TAB* 325 MG PO PRN (13:50)
[2019-04-30] MEDS: Digoxin TAB* 0.125 MG PO SCH (17:41)
[2019-04-30] MEDS: Calcium Carbonate CHEW TAB* 500 MG (TUMS) PO PRN (17:42)
[2019-05-01] MEDS: Calcium Carbonate CHEW TAB* 500 MG (TUMS) PO PRN ×4 (03:57→21:35)
[2019-05-01] MEDS: Acetaminophen TAB* 325 MG PO PRN (04:53)
[2019-05-01 05:22] LABS: Hematocrit 24 % (35-47); Hemoglobin 7.8 g/dL (12.0-16.0); Mean Corpuscular HGB Conc 33 g/dL (31-36); Mean Corpuscular Hemoglobin 31 pg (27-31); Mean Corpuscular Volume 95 fL (80-97); Mean Platelet Volume 6.7 fL (7.4-10.4); Platelet Count 270 10^3/uL (150-450); Red Blood Count 2.49 10^6 /uL (3.70-4.87); Red Cell Distribution Width 18 % (10-15); White Blood Count 14.8 10^3/uL (3.5-10.8)
[2019-05-01 05:38] LABS: BUN/Creatinine Ratio 24.4 (8-20); Calcium 8.7 mg/dL (8.6-10.3); EGFR African American 48.7 (>60); EGFR Non-African American 40.3 (>60)
[2019-05-01 05:39] LABS: Potassium 5.5 mmol/L (3.5-5.0)
[2019-05-01] MEDS: Docusate LIQ* 100 MG/10 ML UDC PO SCH (08:24)
[2019-05-01] MEDS: Ferrous Sulfate TAB* 325 MG PO SCH (08:25)
[2019-05-01] MEDS: Metoprolol Succinate XL TAB* 25 MG PO SCH (08:25)
[2019-05-01] MEDS: Apixaban* 5 MG TAB PO SCH ×2 (08:25→21:31)
[2019-05-01] MEDS: Senna TAB 8.6 mg* TAB PO SCH (08:25)
[2019-05-01] MEDS: predniSONE TAB* 50 MG PO SCH (08:25)
[2019-05-01] MEDS: Diltiazem CD CAP* 180 MG PO SCH (08:26)
[2019-05-01] MEDS: Diltiazem CD CAP* 120 MG PO SCH (08:26)
[2019-05-01] MEDS: Insulin LISPRO* 1 UNITS UNIT SUBCUT SCH ×4 (08:31→21:31)
[2019-05-01] MEDS: Mometasone/Formoter 100/5 MDI INH SCH ×2 (08:42→19:13)
[2019-05-01] MEDS: Nystatin TOP POWDER* 15 GM BTL TOPICAL SCH ×2 (09:19→21:31)
--- NOTE | 2019-05-01 10:48 | PN ---
Progress Note - Progress Note Date of Service: 05/01/19 SOAP: Subjective: [Doing ok today. Respiratory symptoms are stable. Feels very fatigued and weak though. She thought she "pulled something" in her abd the night before last and it was quite uncomfortable yesterday afternoon and overnight last night. Slightly better this am. Some diarrhea yesterday.] Objective: [ Vital Signs: Temp Pulse Resp BP Pulse Ox 97.2 F 81 16 135/65 100 05/01/19 03:15 05/01/19 08:43 05/01/19 08:43 05/01/19 03:15 05/01/19 08:43 Acetaminophen (Tylenol Tab*) 650 mg PO Q4H PRN PRN Reason: mild pain/fever Last Admin: 05/01/19 04:53 Dose: 650 mg Albuterol (Ventolin 2.5 Mg/3 Ml Neb.Nadia*) 2.5 mg INH Q4H PRN PRN Reason: SHORTNESS OF BREATH Last Admin: 04/24/19 18:10 Dose: 2.5 mg Apixaban (Eliquis*) 5 mg PO BID [facility] Last Admin: 05/01/19 08:25 Dose: 5 mg Calcium Carbonate (Tums*) 500 mg PO Q4H PRN PRN Reason: ACID REFLUX Last Admin: 05/01/19 08:37 Dose: 500 mg Dextrose (Dextrose 50% Vial 50 Ml*) 25 ml IV PUSH .FOR FS < 60 - SS PRN PRN Reason: FS < 60 Digoxin (Lanoxin Tab*) 0.125 mg PO MoTuWeThFr [facility] Last Admin: 04/30/19 17:41 Dose: 0.125 mg Diltiazem HCl (Cardizem Cd Cap*) 120 mg PO QAM [facility] Last Admin: 05/01/19 08:26 Dose: 120 mg Diltiazem HCl (Cardizem Cd Cap*) 180 mg PO QAM [facility] Last Admin: 05/01/19 08:26 Dose: 180 mg Docusate Sodium (Colace Liq*) 50 mg PO DAILY [facility] Last Admin: 05/01/19 08:24 Dose: 50 mg Ferrous Sulfate (Ferrous Sulfate Tab*) 325 mg PO QAM [facility] Last Admin: 05/01/19 08:25 Dose: 325 mg Heparin Sodium (Porcine) (Heparin Flush Port (Ivad)) 5 ml FLUSH DAILY [facility]; Protocol Last Admin: 05/01/19 08:30 Dose: 5 ml Azithromycin 250 mg/ Sodium (Chloride) 250 mls @ 250 mls/hr IVPB Q24H [facility] Stop: 05/01/19 14:00 Last Admin: 04/30/19 11:13 Dose: 250 mls/hr Insulin Human Lispro (Humalog*) 0 units SUBCUT ACHS [facility]; Protocol Last Admin: 05/01/19 08:31 Dose: Not Given Lorazepam (Ativan Tab(*)) 0.5 mg PO Q6H PRN PRN Reason: ANXIETY Last Admin: 04/28/19 04:46 Dose: 0.5 mg Metoprolol Succinate (Toprol Xl Tab*) 12.5 mg PO QAM [facility] Last Admin: 05/01/19 08:25 Dose: 12.5 mg Mometasone Furoate/Formoterol Fumar (Dulera 100/5 Mdi*) 2 puff INH BID [facility] Last Admin: 05/01/19 08:42 Dose: 2 puff Nystatin (Nystatin Top Powder*) 1 applic TOPICAL BID [facility] Last Admin: 05/01/19 09:19 Dose: 1 applic Ondansetron HCl (Zofran Inj*) 4 mg IV Q6H PRN PRN Reason: NAUSEA/VOMITING Last Admin: 04/28/19 01:49 Dose: 4 mg Patiromer (Veltassa Powder*) 8.4 gm PO DAILY [facility] Stop: 05/01/19 11:01 Prednisone (Deltasone Tab*) 50 mg PO DAILY [facility] Last Admin: 05/01/19 08:25 Dose: 50 mg Senna (Senokot 8.6 Mg Tab*) 1 tab PO DAILY [facility] Last Admin: 05/01/19 08:25 Dose: 1 tab Sodium Chloride (Sodium Chloride 0.65% Nasal [place]*) 1 spray BOTH NARES Q4H PRN PRN Reason: dryness Last Admin: 04/24/19 18:03 Dose: 1 spray Laboratory Results - last 24 hr 04/30/19 04/30/19 04/30/19 13:18 16:51 20:56 WBC RBC Hgb Hct MCV MCH MCHC RDW Plt Count MPV Sodium Potassium Chloride Carbon Dioxide Anion Gap BUN Creatinine Est GFR ( Amer) Est GFR (Non-Af Amer) BUN/Creatinine Ratio Glucose POC Glucose (mg/dL) 275 H 269 H 245 H Calcium 05/01/19 05/01/19 05/01/19 05:15 05:15 07:21 WBC 14.8 H RBC 2.49 L Hgb 7.8 L Hct 24 L MCV 95 MCH 31 MCHC 33 RDW 18 H Plt Count 270 MPV 6.7 L Sodium 134 L Potassium 5.5 H Chloride 102 Carbon Dioxide 29 Anion Gap 3 BUN 32 H Creatinine 1.31 H Est GFR ( Amer) 48.7 Est GFR (Non-Af Amer) 40.3 BUN/Creatinine Ratio 24.4 H Glucose 102 H POC Glucose (mg/dL) 125 H Calcium 8.7 Exam: Gen: Chronically ill appearing 69 yo female in NAD HEENT: MMM CV: RRR, no m/r/g Resp: somewhat diminished in L lung base, otherwise CTA Abd: soft, obese, slightly hyperactive BS diffusely with TTP in LLQ Ext: chronic venous stasis changes, nothing acute] [Assessment: []69 yo female with stage IIIA squamous cell lung cancer s/p definitive combined modality therapy admitted with progressive SOB and hypoxia initially with concern for PCP, however minimal improvement on Bactrim and review of imaging more concerning for a localized RUL pneumonia. Bactrim has now been stopped d/t rising Cr and K+. Pulmonology and ID differ on their level of concern for this acute illness representing PCP v CAP. Will plan to monitor off of Bactrim at this moment due to DELORES/hyperkalemia. Slowly improving clinically. CT scan repeated today which shows marked improvement in RUL infiltrate with a persistent/slightly larger L pleural effusion which is likely peripneumonic. Plan: []1. PCP v CAP - Bactrim dc'd 04/29 after 7 days of therapy - cont. Azithromycin through today, then stop - cont prednisone 50 mg daily, will taper slowly - titrate O2 to maintain O2 >92% - repeat CT today shows marked improvement in infiltrate with a persistent, but relatively small L pleural effusion - recommended she use her incentive spirometer frequently 2. Hyperkalemia and ARF: - likely related to Bactrim/ACEI - both of which have been stopped - Cr stable to improved - K slightly improved today - repeat potassium binder today (patiromer) - renal/bladder US benign 3. Abd pain - TTP in the LLQ, afebrile - seems gas like - if no improvement tomorrow then will get CT A/P to eval further 4. A.Fib: - cont eliquis - recent EF 60% 5. NSCLC - completed combined modality chemoRT - received one cycle of consolidating immunotherapy - on hold for now, will resume following dc from rehab Dispo: requires JUANA, CM/SW involved, bed offer for [facility] Friday
[2019-05-01] MEDS ORDERED: Patiromer POWDER* 8.4 GM PAK PO ONE (11:00)
[2019-05-01] MEDS: Azithromycin IV(*) 250 MG in NS 0.9% 250 ML* 250 ML IVPB SCH (11:30)
[2019-05-02] MEDS: Calcium Carbonate CHEW TAB* 500 MG (TUMS) PO PRN ×2 (03:12→06:34)
[2019-05-02 05:40] LABS: ABS Basophils 0.1 10^3/ul (0-0.2); ABS Eosinophils 0.1 10^3/ul (0-0.6); ABS Lymphocytes 0.6 10^3/ul (1.0-4.8); ABS Monocytes 0.7 10^3/ul (0-0.8); ABS Neutrophils 12.4 10^3/ul (1.5-7.7); ABS Nucleated RBC 0.1 10^3/ul; Hematocrit 21 % (35-47); Hemoglobin 6.6 g/dL (12.0-16.0); Lymphocyte % 4.1 %; Mean Corpuscular HGB Conc 32 g/dL (31-36); Mean Corpuscular Hemoglobin 31 pg (27-31); Mean Corpuscular Volume 95 fL (80-97); Mean Platelet Volume 6.5 fL (7.4-10.4); Nucleated Red Blood Cells % 0.4; Platelet Count 242 10^3/uL (150-450); Red Blood Count 2.16 10^6 /uL (3.70-4.87); Red Cell Distribution Width 19 % (10-15); White Blood Count 13.9 10^3/uL (3.5-10.8)
[2019-05-02 05:54] LABS: BUN/Creatinine Ratio 22.5 (8-20); Calcium 8.7 mg/dL (8.6-10.3); EGFR African American 53.9 (>60); EGFR Non-African American 44.5 (>60)
[2019-05-02 05:57] LABS: Potassium 5.2 mmol/L (3.5-5.0)
[2019-05-02] MEDS: Acetaminophen TAB* 325 MG PO PRN (06:34)
[2019-05-02] MEDS ORDERED: Polyethylene Glycol 3350* 17 GM PACKET PO PRN (08:02)
[2019-05-02] MEDS: Mometasone/Formoter 100/5 MDI INH SCH ×2 (08:07→19:22)
[2019-05-02] MEDS ORDERED: Iodixanol* (CONTRAST) 320 MG/ML 100 ML SDV IV ONE (08:12)
[2019-05-02] MEDS: Docusate LIQ* 100 MG/10 ML UDC PO SCH (09:13)
[2019-05-02] MEDS: Diltiazem CD CAP* 180 MG PO SCH (09:15)
[2019-05-02] MEDS: Senna TAB 8.6 mg* TAB PO SCH (09:15)
[2019-05-02] MEDS: Metoprolol Succinate XL TAB* 25 MG PO SCH (09:15)
[2019-05-02] MEDS: Diltiazem CD CAP* 120 MG PO SCH (09:15)
[2019-05-02] MEDS: Ferrous Sulfate TAB* 325 MG PO SCH (09:15)
[2019-05-02] MEDS: predniSONE TAB* 50 MG PO SCH (09:15)
[2019-05-02] MEDS: Apixaban* 5 MG TAB PO SCH (09:16)
[2019-05-02] MEDS: Insulin LISPRO* 1 UNITS UNIT SUBCUT SCH ×4 (09:17→21:47)
[2019-05-02] MEDS: Nystatin TOP POWDER* 15 GM BTL TOPICAL SCH ×2 (09:22→21:49)
--- NOTE | 2019-05-02 10:29 | PN ---
Subjective Date of Service: 05/02/19 Interval History: Ms. Del Real reports that she is generally doing well although she continues to have pain in her right lower abdomen after straining to roll over in bed 3-4 days ago. She is also concerned because she has not had a bowel movement in three days and feels gassy. She denies other complaint including chest pain, SOB. Objective Active Medications: Acetaminophen (Tylenol Tab*) 650 mg PO Q4H PRN Albuterol (Ventolin 2.5 Mg/3 Ml Neb.Nadia*) 2.5 mg INH Q4H PRN Apixaban (Eliquis*) 5 mg PO BID [facility] Calcium Carbonate (Tums*) 500 mg PO Q4H PRN Dextrose (Dextrose 50% Vial 50 Ml*) 25 ml IV PUSH .FOR FS < 60 - SS PRN Digoxin (Lanoxin Tab*) 0.125 mg PO MoTuWeThFr [facility] Diltiazem HCl (Cardizem Cd Cap*) 120 mg PO QAM [facility] Diltiazem HCl (Cardizem Cd Cap*) 180 mg PO QAM [facility] Docusate Sodium (Colace Liq*) 50 mg PO DAILY [facility] Ferrous Sulfate (Ferrous Sulfate Tab*) 325 mg PO QAM [facility] Heparin Sodium (Porcine) (Heparin Flush Port (Ivad)) 5 ml FLUSH DAILY [facility]; Protocol Insulin Human Lispro (Humalog*) 0 units SUBCUT ACHS [facility]; Protocol Lorazepam (Ativan Tab(*)) 0.5 mg PO Q6H PRN Metoprolol Succinate (Toprol Xl Tab*) 12.5 mg PO QAM [facility] Mometasone Furoate/Formoterol Fumar (Dulera 100/5 Mdi*) 2 puff INH BID [facility] Nystatin (Nystatin Top Powder*) 1 applic TOPICAL BID [facility] Ondansetron HCl (Zofran Inj*) 4 mg IV Q6H PRN Polyethylene Glycol/Electrolytes (Miralax*) 17 gm PO DAILY [facility]N Prednisone (Deltasone Tab*) 50 mg PO DAILY [facility] Senna (Senokot 8.6 Mg Tab*) 1 tab PO DAILY [facility] Sodium Chloride (Sodium Chloride 0.65% Nasal [place]*) 1 spray BOTH NARES Q4H PRN Vital Signs: Temp Pulse Resp BP Pulse Ox 97.3 F 61 18 111/64 98 05/02/19 07:15 05/02/19 08:10 05/02/19 08:10 05/02/19 07:15 05/02/19 08:10 Oxygen Devices in Use Now: Nasal Cannula Appearance: Female sitting up in bed in NAD Eyes: No Scleral Icterus Ears/Nose/Mouth/Throat: Mucous Membranes Moist Respiratory: Symmetrical Chest Expansion and Respiratory Effort, Clear to Auscultation Cardiovascular: NL Sounds; No Murmurs; No JVD, No Edema - Abdominal: - - Soft, tenderness to palpation in the right lower quadrant Extremities: No Edema Skin: No Rash or Ulcers Neurological: Alert and Oriented x 3, NL Muscle Strength and Tone Nutrition: Taking PO's Result Diagrams: 05/02/19 05:27 05/02/19 05:27 Microbiology and Other Data: . Assess/Plan/Problems-Billing Assessment: Ms. Del Real is a 69 yo F with a PMH of squamous cell lung cancer on chemotherapy , afib, DM, COPD, diastolic CHF who was admitted on 04/23/19 with worsening hypoxia and pulmonary infiltrates with concern for pneumocysistis pneumonia. - Patient Problems (1) Acute respiratory failure with hypoxia Comment: - Improving, now on 2 L NC (2) Pneumonia Comment: - Improving - Suspected pneumocysitis pneumonia vs post chemo & radiation vs viral pneumonia vs CAP - ID and pulm consults appreciated - No real improvement on bactrim, stopped due to rising cr and K, completed course of azithromycin - CT from 05/01/19 shows marked improvement - Continue prednisone (3) Anemia Comment: - Slowly falling down, Hgb down to 6.6 - Found to have intramuscular hematoma at sign of abdominal strain noted 3-4 days ago - Plan for one unit PRBC, stop eliquis - Oncology updated (4) Abdominal pain Comment: - CT abd with finding of intramuscular hematoma as per above - Hold eliquis, give one unit of PRBC (5) Acute kidney failure Comment: - Creatinine stable - with hyperkalemia, K down to 5.2 after patiromer yesterday (6) Atrial fibrillation Comment: - Continue digoxin, cardizem, metoprolol - Hold apixiban (7) Diabetes Comment: - BGs 100-220s - Continue lispro SSI coverage - Hold glyburide and janumet (8) Lung cancer Comment: - Continue to follow with oncology (9) DVT prophylaxis Comment: - SCDs. (10) Full code status Comment: Status and Disposition: Inpatient, anticipate discharge to home when medically stable
[2019-05-02 17:12] LABS: Hematocrit 25 % (35-47)
[2019-05-03 05:05] LABS: ABS Basophils 0.1 10^3/ul (0-0.2); ABS Eosinophils 0.1 10^3/ul (0-0.6); ABS Lymphocytes 0.6 10^3/ul (1.0-4.8); ABS Monocytes 0.6 10^3/ul (0-0.8); ABS Nucleated RBC 0.2 10^3/ul; Eosinophil % 0.9 %; Hematocrit 23 % (35-47); Hemoglobin 7.7 g/dL (12.0-16.0); Lymphocyte % 4.7 %; Mean Corpuscular HGB Conc 33 g/dL (31-36); Mean Corpuscular Hemoglobin 32 pg (27-31); Mean Corpuscular Volume 95 fL (80-97); Mean Platelet Volume 6.5 fL (7.4-10.4); Nucleated Red Blood Cells % 1.1; Platelet Count 249 10^3/uL (150-450); Red Blood Count 2.44 10^6 /uL (3.70-4.87); Red Cell Distribution Width 18 % (10-15); White Blood Count 13.6 10^3/uL (3.5-10.8)
[2019-05-03 05:21] LABS: BUN/Creatinine Ratio 23.9 (8-20); Calcium 8.5 mg/dL (8.6-10.3); EGFR African American 60.2 (>60); EGFR Non-African American 49.8 (>60); Potassium 4.7 mmol/L (3.5-5.0)
[2019-05-03] MEDS: Mometasone/Formoter 100/5 MDI INH SCH (07:24)
[2019-05-03] MEDS: Insulin LISPRO* 1 UNITS UNIT SUBCUT SCH ×2 (08:29→12:21)
--- NOTE | 2019-05-03 09:43 | PN ---
Progress Note - Progress Note Date of Service: 05/03/19 SOAP: Subjective: []Feeling well today, no abdominal pain. Breathing better then had been for several months. Had had slow progression of hypoxia. Feel better now then had felt since therapy. Normal bowl movements. No in pain. Planning discharge to [facility]. Acetaminophen (Tylenol Tab*) 650 mg PO Q4H PRN PRN Reason: mild pain/fever Last Admin: 05/02/19 06:34 Dose: 650 mg Albuterol (Ventolin 2.5 Mg/3 Ml Neb.Nadia*) 2.5 mg INH Q4H PRN PRN Reason: SHORTNESS OF BREATH Last Admin: 04/24/19 18:10 Dose: 2.5 mg Calcium Carbonate (Tums*) 500 mg PO Q4H PRN PRN Reason: ACID REFLUX Last Admin: 05/02/19 06:34 Dose: 500 mg Dextrose (Dextrose 50% Vial 50 Ml*) 25 ml IV PUSH .FOR FS < 60 - SS PRN PRN Reason: FS < 60 Digoxin (Lanoxin Tab*) 0.125 mg PO MoTuWeThFr [facility] Last Admin: 04/30/19 17:41 Dose: 0.125 mg Diltiazem HCl (Cardizem Cd Cap*) 120 mg PO QAM [facility] Last Admin: 05/02/19 09:15 Dose: 120 mg Diltiazem HCl (Cardizem Cd Cap*) 180 mg PO QAM [facility] Last Admin: 05/02/19 09:15 Dose: 180 mg Docusate Sodium (Colace Liq*) 50 mg PO DAILY [facility] Last Admin: 05/02/19 09:13 Dose: 50 mg Ferrous Sulfate (Ferrous Sulfate Tab*) 325 mg PO QAM [facility] Last Admin: 05/02/19 09:15 Dose: 325 mg Heparin Sodium (Porcine) (Heparin Flush Port (Ivad)) 5 ml FLUSH DAILY [facility]; Protocol Last Admin: 05/03/19 04:50 Dose: 5 ml Insulin Human Lispro (Humalog*) 0 units SUBCUT ACHS [facility]; Protocol Last Admin: 05/03/19 08:29 Dose: Not Given Lorazepam (Ativan Tab(*)) 0.5 mg PO Q6H PRN PRN Reason: ANXIETY Last Admin: 04/28/19 04:46 Dose: 0.5 mg Metoprolol Succinate (Toprol Xl Tab*) 12.5 mg PO QAM [facility] Last Admin: 05/02/19 09:15 Dose: 12.5 mg Mometasone Furoate/Formoterol Fumar (Dulera 100/5 Mdi*) 2 puff INH BID [facility] Last Admin: 05/03/19 07:24 Dose: 2 puff Nystatin (Nystatin Top Powder*) 1 applic TOPICAL BID [facility] Last Admin: 05/02/19 21:49 Dose: 1 applic Ondansetron HCl (Zofran Inj*) 4 mg IV Q6H PRN PRN Reason: NAUSEA/VOMITING Last Admin: 04/28/19 01:49 Dose: 4 mg Polyethylene Glycol/Electrolytes (Miralax*) 17 gm PO DAILY PRN PRN Reason: CONSTIPATION Last Admin: 05/02/19 10:06 Dose: 17 gm Prednisone (Deltasone Tab*) 50 mg PO DAILY [facility] Last Admin: 05/02/19 09:15 Dose: 50 mg Senna (Senokot 8.6 Mg Tab*) 1 tab PO DAILY [facility] Last Admin: 05/02/19 09:15 Dose: 1 tab Sodium Chloride (Sodium Chloride 0.65% Nasal [place]*) 1 spray BOTH NARES Q4H PRN PRN Reason: dryness Last Admin: 04/24/19 18:03 Dose: 1 spray Objective: [] Vital Signs Temp Pulse Resp BP Pulse Ox 97.6 F 95 16 106/77 100 05/03/19 07:34 05/03/19 07:34 05/03/19 08:35 05/03/19 07:34 05/03/19 07:34 Exam: Gen: Chronically ill appearing 69 yo female in NAD HEENT: MMM, pale CV: Irregular, 70s Resp: somewhat diminished in L lung base, otherwise CTA Abd: soft, obese, +BS and non tender Ext: chronic venous stasis changes, nothing acute] [Assessment: []69 yo female with stage IIIA squamous cell lung cancer s/p definitive combined modality therapy admitted with progressive SOB and hypoxia with history concern for PCP. CT showed RUL pneumonia and resolution of prior LLL infiltrate. Bactrim x 7 days, stopped d/t rising Cr and K+. Paleontology and ID differ on their level of concern for this acute illness representing PCP v CAP, Rx Azithromycin to cover atypicals. Improved subjectively and by CT scan. Course over weekend complicated by spontaneous RTP hematoma. Plan: []1. PCP v CAP. Remains unclear, improvement for either/both antibiotics. - Bactrim dc'd 04/29 after 7 days of therapy - Azithromycin completed - Now off Oxygen - Taper Prednisone by 10 mg q 4 days. - Call for recurrent SOB 2. Hyperkalemia and ARF. Now improved. - re-check one week. 3. Hematoma - Stable today, hold eliquis. - Re-start on follow up if stable. 4. A.Fib: - cont dig, metoprolol - recent EF 60% 5. NSCLC - completed combined modality chemoRT - received one cycle of consolidating immunotherapy - on hold for now, will resume following dc from rehab 7. Anemia - Check B12 and MMA now - B12 IM before discharge - Re-check Iron on follow up - Hold PO iron today for constipation. 6. Disp. [facility] today.
[2019-05-03] MEDS: Docusate LIQ* 100 MG/10 ML UDC PO SCH (10:03)
[2019-05-03] MEDS: Diltiazem CD CAP* 180 MG PO SCH (10:04)
[2019-05-03] MEDS: predniSONE TAB* 50 MG PO SCH (10:04)
[2019-05-03] MEDS: Metoprolol Succinate XL TAB* 25 MG PO SCH (10:04)
[2019-05-03] MEDS: Senna TAB 8.6 mg* TAB PO SCH (10:04)
[2019-05-03] MEDS: Diltiazem CD CAP* 120 MG PO SCH (10:04)
[2019-05-03] MEDS: Nystatin TOP POWDER* 15 GM BTL TOPICAL SCH (10:04)
[2019-05-03] MEDS: Ferrous Sulfate TAB* 325 MG PO SCH (10:04)
[2019-05-03] MEDS ORDERED: Cyanocobalamin INJ * 1,000 MCG/ML VIAL 1 ML VIAL IM ONE (10:11)
--- NOTE | 2019-05-03 10:16 | PN ---
Progress Note - Progress Note Date of Service: 05/03/19 SOAP: Subjective: CC: Pneumonia HPI: Ms. Del Real is a 69 yo female with PMH significant for obesity, DM2, lung cancer , D CHF, COPD, WANDER, osteoarthritis, HTN, A fib, and bilateral LE lymphedema. Denies fever, chills, shortness of breath, nausea, vomiting, or diarrhea. She reports decreased oxygen levels this AM when she walked into the [place], but didn' t have SOB during that time and her oxygen level quickly recovered without rest. She continues to have generalized weakness. Reports an occasional cough. The ABD pain that she was having last week has resolved. She reports that overall she is feeling much better then last week. Objective: Vital Signs - 8 hr 05/03/19 05/03/19 05/03/19 03:15 07:34 08:35 Temperature 98.0 F 97.6 F Pulse Rate 89 95 Respiratory 18 24 16 Rate Blood Pressure 131/76 106/77 (mmHg) O2 Sat by Pulse 99 100 Oximetry Physical Exam: General: NAD, sitting up in a chair Neurological: Alert and Oriented x4 HEENT: Moist MM, no thrush Cardiovascular: Heart rate regular Respirator: Lung sound clear, diminished in left base Abdominal: Bowel sounds present; ABD soft, non tender and large Skin: No rash Laboratory Results - last 24 hr 05/02/19 05/02/19 05/03/19 16:29 21:33 04:50 Sodium 134 L Potassium 4.7 Chloride 103 Carbon Dioxide 29 Anion Gap 2 BUN 26 H Creatinine 1.09 H Est GFR ( Amer) 60.2 Est GFR (Non-Af Amer) 49.8 BUN/Creatinine Ratio 23.9 H Glucose 106 H POC Glucose (mg/dL) 350 H 275 H Calcium 8.5 L 05/03/19 05/03/19 04:50 08:20 WBC 13.6 H RBC 2.44 L Hgb 7.7 L Hct 23 L MCV 95 MCH 32 H MCHC 33 RDW 18 H Plt Count 249 MPV 6.5 L Neut % (Auto) 88.6 Lymph % (Auto) 4.7 [place] % (Auto) 4.8 Eos % (Auto) 0.9 Baso % (Auto) 1.0 Absolute Neuts (auto) 12.0 H Absolute Lymphs (auto) 0.6 L Absolute Monos (auto) 0.6 Absolute Eos (auto) 0.1 Absolute Basos (auto) 0.1 Absolute Nucleated RBC 0.2 Nucleated RBC % 1.1 POC Glucose (mg/dL) 124 H Microbiology 05/02/19 13:45 Stool Occult Blood ([facility]) - Final Stool 04/28/19 11:55 Urine Culture - Final Urine No Growth (<1,000 CFU/mL) 04/23/19 19:43 Urine Culture - Final Urine No Growth (<1,000 CFU/mL) Assessment: 1. Right upper lobe community acquired PNA. Received 5 days of IV Bactrim for possible pneumocystis PNA, there is a focal infiltrate seen on CT scan and this is not consistent with typical pneumocystis and felt to most likely be secondary to CAP. Has been weaned off O2 for a day. Afebrile. Leukocytosis continues to improve. Shortness of breath has resolved. Completed course of azithromycin on Friday. 2. Left lung cancer. S/P radiation and chemo, last treatment in January 2019. 3. Acute on chronic CKD. Baseline creatinine is difficult to determine. Creatinine continues to trend down. 4. Hyperkalemia. Resolved 5. Anemia. Received 1 unit PRBCs. 6. DM2. 7. Morbid obesity. BMI 50.4 Plan: Completed course of Azithromycin.
--- NOTE | 2019-05-03 11:51 | DS ---
DISCHARGE SUMMARY: DATE OF ADMISSION: 04/23/19 DATE OF DISCHARGE: 05/03/19 DISCHARGE DIAGNOSES: 1. Pneumonia, community-acquired versus Pneumocystis pneumonia. 2. Retroperitoneal hematoma. 3. Chronic obstructive pulmonary disease. 4. Diabetes. 5. Lung cancer. 6. Acute renal failure. HOSPITAL COURSE: A 69-year-old female with sudden onset of progressive shortness of breath after treatment for her early stage non-small cell lung cancer, chemotherapy and radiation. On presentation, she had a CT scan showing a right upper lobe infiltrate, new from prior studies, left lobe infiltrate that had been seen previously resolved. Given her history, there was a suspicion for PCP pneumonia, she placed on high-dose Bactrim. She received it for 7 days before developing acute renal failure and Bactrim was stopped. The evaluation with ID and felt infiltrate most consistent with community-acquired pneumonia, treated with a course of azithromycin. By 05/02/19, symptoms markedly improved and CT scan showed resolution of her prior infiltrate. Course was subsequently complicated by a retroperitoneal hematoma, likely caused from supratherapeutic levels of Eliquis during period of the renal failure. Eliquis was held and her hemoglobin has been stable over the past few days. She also has an underlying anemia that had been attributed to iron deficiency and low B12. She has been on supplements for both prior to the hospitalization. Today, breathing is much better, energy is improved, strength is improved. Plan will be discharge to [facility] with followup on 05/12/19 in clinic. 1. Discharge with physical therapy to [facility]. Lung cancer therapy on hold until she is able to go home. 2. Hematoma. We will hold Eliquis and recheck CBC on 05/12/19. 3. AFib. Continued rate control. 4. Acute renal failure, followup recheck on the 05/12/19. 5. Shortness of breath. Completed antibiotics. Taper prednisone 10 mg q.4 days until done. DISCHARGE MEDICATIONS: 1. Ventolin 2.5/3 mL q.4 p.r.n. 2. Symbicort 80/4.5 b.i.d. 3. Digoxin 0.125 mg daily. 4. Diltiazem 300 mg p.o. q.a.m. 5. Metoprolol-XL 12.5 mg p.o. q.a.m. 6. Aspirin 325 a day. 7. Lisinopril 20 mg a day. 8. Calcium D3 one tab p.o. daily. 9. Chlorthalidone 25 mg daily. 10. Bydureon pen 2 mg/0.65 mL weekly. 11. Lasix 20 mg daily. 12. Glyburide 5 mg daily. 13. Lisinopril 10 mg daily. 14. Prednisone 40 mg p.o. daily for 4 days and taper by mg q.4 days. 15. Senna 1 per day. 16. Vitamin B12 of 1000 mcg p.o. daily. FOLLOWUP: Follow up on the 05/12/19. We do have a B12 and methylmalonic acid that are pending from today. [id number]/[facility] #: [id number] [facility]ITALJed
[2019-05-03 16:46] VITALS: BP 120/59
--- NOTE | 2019-05-31 08:52 | DS ---
- Discharge Summary ADDENDUM DISCHARGE SUMMARY 05/03/19 CONDITION STABLE.
== END 2019-05-03 17:00 | DRG 193 ==
LOC: MED 17:21
PROVIDERS: ADMIT Internal Medicine Hematology & Oncology; ATTEND Internal Medicine Hematology & Oncology
PROC: 30233N1 Transfusion of Nonautologous Red Blood Cells into Peripheral Vein, Percutaneous Approach (ICD-10-PCS; principal; 2019-04-27)
DX: J18.1 Lobar pneumonia, unspecified organism (principal); J96.01 Acute respiratory failure with hypoxia; K66.1 Hemoperitoneum; C34.32 Malignant neoplasm of lower lobe, left bronchus or lung; J44.0 Chronic obstructive pulmonary disease with (acute) lower respiratory infection; Z68.43 Body mass index [BMI] 50.0-59.9, adult; N17.9 Acute kidney failure, unspecified; E87.1 Hypo-osmolality and hyponatremia; I50.32 Chronic diastolic (congestive) heart failure; I13.0 Hypertensive heart and chronic kidney disease with heart failure and stage 1 through stage 4 chronic kidney disease, or unspecified chronic kidney disease; I48.91 Unspecified atrial fibrillation; N18.9 Chronic kidney disease, unspecified; E66.01 Morbid (severe) obesity due to excess calories; E11.22 Type 2 diabetes mellitus with diabetic chronic kidney disease; G47.33 Obstructive sleep apnea (adult) (pediatric); I89.0 Lymphedema, not elsewhere classified; M17.0 Bilateral primary osteoarthritis of knee; E11.65 Type 2 diabetes mellitus with hyperglycemia; T38.0X5A Adverse effect of glucocorticoids and synthetic analogues, initial encounter; R79.1 Abnormal coagulation profile; D50.9 Iron deficiency anemia, unspecified; E87.5 Hyperkalemia; Z87.891 Personal history of nicotine dependence; Z90.710 Acquired absence of both cervix and uterus; Y92.9 Unspecified place or not applicable; Z79.82 Long term (current) use of aspirin; Z79.84 Long term (current) use of oral hypoglycemic drugs
CPT/HCPCS: 36415; 36591; 71250; 71275; 74177; 76770; 80048; 80053; 81003; 81015; 82272; 82607; 83615; 83735; 83880; 83921; 85014; 85018; 85025; 85027; 86850; 86900; 86901; 86922; 87086; 94640; 99215; 99222; 99232; 99233; 99239; A9270-GY; G0463; G8978-GP-CJ; G8978-GP-CK; G8979-GP-CI; G8987-GO-CL; G8988-GO-CI; J0456; J1642; J1650; J2405; J2930; J3420; J7512; P9040; Q9967

== ENCOUNTER 2019-05-24 02:43 | Inpatient (IN) | payer MEDICARE ==
--- OUTSIDE RECORDS SUMMARY | 2019-05-24 02:55 | XMS REPORT | Continuity of Care Document ---
:1950 External Reference #:[id number] Author Name Taz Osborne Care Team Providers Name Role Phone Cristiano Choi MD - Family Medicine Care Team Information Tracer Lathe Set Up Operator Nikita Keen MD - Hematology Care Team Information Tracer Lathe Set Up Operator [phone] Problems Active Problems Provider Date Atrial fibrillation Aamir Lopez M.D. Onset: 09/16/2013 Left heart failure Aamir Lopez M.D. Onset: 09/16/2013 Dyspnea Aamir Lopez M.D. Onset: 09/16/2013 Type 2 diabetes mellitus Aamir Lopez M.D. Onset: 09/16/2013 Congestive heart failure BRITTANY Diaz Onset: 11/25/2013 Malignant essential hypertension BRITTANY Diaz Onset: 12/30/2013 Palpitations BRITTANY Diaz Onset: 12/30/2013 Essential hypertension Aamir Lopez M.D. Onset: 2014 Obstructive sleep apnea syndrome Aamir Lopez M.D. Onset: 06/01/2014 Anemia Aamir Lopez M.D. Onset: 06/01/2014 Chronic atrial fibrillation BRITTANY Diaz Onset: 01/24/2016 Social History Type Date Description Comments Sex Unknown Tobacco Use Start: Unknown End: Former Cigarette Smoker Unknown Smoking Status Reviewed: 12/03/18 Former Cigarette Smoker ETOH Use Denies alcohol use Tobacco Use Start: Unknown End: Patient is a former smoker Unknown Recreational Drug Use Denies Drug Use Exercise Type/Frequency Exercises sporadically Allergies, Adverse Reactions, Alerts Active Allergies Reaction Severity Comments Date Potassium Chloride rash Moderate 11/25/2013 Inactive Allergies NKDA 09/10/2013 Medications Active Medications SIG Qnty Indications Ordering Date Provider Iron otc 1 PO qd. I48.2 Aamir Carine 10/09/2017 40mg Tablets Ayush Lopez Atorvastatin Calcium take 1 tablet 90tabs Aamir Carine 10/09/2017 20mg each evening Ayush Lopez Tablets Eliquis 1 by mouth twice 180tabs Aamir Carine 06/16/2017 5mg Tablets a day Ayush Lopez Digoxin 1 by mouth 5 90tabs Hayley Landeros, 09/23/2016 125mcg Tablets days a week N.P. Chlorthalidone 1/2 tab by mouth 30tabs Hayley Landeros, 12/21/2015 25mg 4x/week N.P. Tablets Furosemide 1 tablet 5 times [facility] 20mg Tablets a week. Ayush Lopez Cartia XT take 1 tab by 90caps Aamir Carine 12/30/2013 300mg Caps ER mouth daily Ayush Lopez 24HR Metoprolol Succinate 1/2 by mouth 45tabs Aamir Carine 09/27/2013 ER every day Ayush Lopez 25mg Tablets ER 24HR Janumet XR 1 po bid 60tabs Other Ordering 09/01/2013 50-1000mg Provider Tablets ER 24HR Oxygen 2 l nc at hs 1units Unknown Misc Albuterol Sulfate 1 vial q 4hrs Unknown prn for wheezing (2.5mg/3ML) 0.083% (rare use) Nebulizer Glyburide 1 tablet daily Unknown 5mg Lisinopril 1/2 by mouth I10 Unknown 20mg Tablets every day Bydureon inject 2 mg sc Unknown 2mg Pen weekly Symbicort 2 puff twice a Unknown 80-4.5mcg/Act day Aerosol Yetrrfv-Mzc-Egin 1 Tab by mouth Unknown Tablet daily Farxiga 1 by mouth every Unknown 10mg Tablets day Medications Administered in Office Medication SIG Qnty Indications Ordering Provider Date Inj, Regadenoson, 0.1 MG Jose D. Brand, M.D. 09/16/2013 Injection Technetium TC 99M Tetrofosmin, Jose Sultana M.D. 09/16/2013 Per Unit Dose Up To 40 Millicuries Injection Immunizations Description No Information Available Vital Signs Date Vital Result Comment 05/05/2019 9:01am Heart Rate 76 /min BP Systolic 132 mmHg BP Diastolic 85 mmHg Respiratory Rate 20 /min Body Temperature 98.9 F Pain Level 0 O2 % BldC Oximetry 95 % 12/03/2018 10:02am Height 61 inches 5'1" Weight 255.00 lb Heart Rate 62 /min BP Systolic 118 mmHg BP Diastolic 80 mmHg Respiratory Rate 18 /min Body Temperature 97.4 F BMI (Body Mass Index) 48.2 kg/m2 Results Test Date Facility Test Result H/L Range Note Order [facility] E[facility]ocardiogram <pending> [address] [facility] [address] [place] [address] [phone] Comp Metabolic [facility] Sodium 135 mmol/L Normal 135-145 Panel [address] [place], [place] [id number] [phone] Potassium 4.5 mmol/L Normal 3.5-5.0 Chloride 102 mmol/L Normal 101-111 Co2 Carbon Dioxide 22 mmol/L Normal 22-32 Anion Gap 11 mmol/L Normal 2-11 Glucose 174 mg/dL High 70-100 Blood Urea Nitrogen 41 mg/dL High 6-24 Creatinine 1.62 mg/dL High 0.51-0.95 BUN/Creatinine Ratio 25.3 High 8-20 Calcium 8.8 mg/dL Normal 8.6-10.3 Total Protein 6.3 g/dL Low 6.4-8.9 Albumin 3.6 g/dL Normal 3.2-5.2 Globulin 2.7 g/dL Normal 2-4 Albumin/Globulin Ratio 1.3 Normal 1-3 Total Bilirubin 0.40 mg/dL Normal 0.2-1.0 Alkaline Phosphatase 53 U/L Normal 34-104 Alt 17 U/L Normal 7-52 Ast 12 U/L Low 13-39 Egfr Non- 31.5 >60 Egfr 38.1 >60 1 CBC Auto 02/03/2019 [facility] White Blood 4.0 10^3/uL Normal 3.5-10.[address] [place] [address] [phone] Red Blood Count 3.33 10^6/uL Low 3.70-4.87 Hemoglobin 9.7 g/dL Low 12.0-16.0 Hematocrit 30 % Low 35-47 Mean Corpuscular Volume 89 fL Normal 80-97 Mean Corpuscular Hemoglobin 29 pg Normal 27-31 Mean Corpuscular HGB Conc 33 g/dL Normal 31-36 Red Cell Distribution Width 24 % High 10-15 Platelet Count 151 10^3/uL Normal 150-450 Mean Platelet Volume 7.7 fL Normal 7.4-10.4 Abs Neutrophils 3.7 10^3/uL Normal 1.5-7.7 Abs Lymphocytes 0.1 10^3/uL Low 1.0-4.8 Abs Monocytes 0.1 10^3/uL Normal 0-0.8 Abs Eosinophils 0.1 10^3/uL Normal 0-0.6 Abs Basophils 0.0 10^3/uL Normal 0-0.2 Abs Nucleated RBC 0.0 10^3/uL Granulocyte % 92.7 % Lymphocyte % 1.6 % Monocyte % 2.2 % Eosinophil % 3.2 % Basophil % 0.3 % Nucleated Red Blood Cells % 0.1 Comp Metabolic 02/01/2019 [facility] Sodium 135 mmol/L Normal 135-[address] [place] [address] [phone] Potassium 4.1 mmol/L Normal 3.5-5.0 Chloride 101 mmol/L Normal 101-111 Co2 Carbon Dioxide 25 mmol/L Normal 22-32 Anion Gap 9 mmol/L Normal 2-11 Glucose 92 mg/dL Normal 70-100 Blood Urea Nitrogen 26 mg/dL High 6-24 Creatinine 1.70 mg/dL High 0.51-0.95 BUN/Creatinine Ratio 15.3 Normal 8-20 Calcium 8.8 mg/dL Normal 8.6-10.3 Total Protein 5.7 g/dL Low 6.4-8.9 Albumin 3.3 g/dL Normal 3.2-5.2 Globulin 2.4 g/dL Normal 2-4 Albumin/Globulin Ratio 1.4 Normal 1-3 Total Bilirubin 0.40 mg/dL Normal 0.2-1.0 Alkaline Phosphatase 45 U/L Normal 34-104 Alt 9 U/L Normal 7-52 Ast 9 U/L Low 13-39 Egfr Non- 29.8 >60 Egfr 36.1 >60 2 CBC Auto 02/01/2019 [facility] White Blood 4.1 10^3/uL Normal 3.5-10.[address] [place] [address] [phone] Red Blood Count 3.24 10^6/uL Low 3.70-4.87 Hemoglobin 9.3 g/dL Low 12.0-16.0 Hematocrit 29 % Low 35-47 Mean Corpuscular Volume 89 fL Normal 80-97 Mean Corpuscular Hemoglobin 29 pg Normal 27-31 Mean Corpuscular HGB Conc 32 g/dL Normal 31-36 Red Cell Distribution Width 21 % High 10-15 Platelet Count 126 10^3/uL Low 150-450 Mean Platelet Volume 7.3 fL Low 7.4-10.4 Abs Neutrophils 3.8 10^3/uL Normal 1.5-7.7 Abs Lymphocytes 0.1 10^3/uL Low 1.0-4.8 Abs Monocytes 0.1 10^3/uL Normal 0-0.8 Abs Eosinophils 0.1 10^3/uL Normal 0-0.6 Abs Basophils 0.1 10^3/uL Normal 0-0.2 Abs Nucleated RBC 0.0 10^3/uL Granulocyte % 92.4 % Lymphocyte % 1.4 % Monocyte % 3.3 % Eosinophil % 1.5 % Basophil % 1.4 % Nucleated Red Blood Cells % 0.0 Iron & Iron Binding 01/25/2019 [facility] Iron 70 g/dL Normal 50-[address] [place] [address] [phone] Unsaturated Iron Binding < 320 g/dL Total Iron Binding Capacity 335 g/dL Normal 250-450 Transferrin 239 mg/dL Normal 203-362 % Iron Saturation 21 % Normal 15-55 CBC Auto 01/25/2019 [facility] White Blood 6.8 10^3/uL Normal 3.5-10.[address] [place] [address] [phone] Red Blood Count 3.63 10^6/uL Low 3.70-4.87 Hemoglobin 10.4 g/dL Low 12.0-16.0 Hematocrit 32 % Low 35-47 Mean Corpuscular Volume 87 fL Normal 80-97 Mean Corpuscular Hemoglobin 29 pg Normal 27-31 Mean Corpuscular HGB Conc 33 g/dL Normal 31-36 Red Cell Distribution Width 20 % High 10.5-15 Platelet Count 160 10^3/uL Normal 150-450 Mean Platelet Volume 6.9 fL Low 7.4-10.4 Abs Neutrophils 6.3 10^3/uL Normal 1.5-7.7 Abs Lymphocytes 0.2 10^3/uL Low 1.0-4.8 Abs Monocytes 0.2 10^3/uL Normal 0-0.8 Abs Eosinophils 0.0 10^3/uL Normal 0-0.6 Abs Basophils 0.1 10^3/uL Normal 0-0.2 Abs Nucleated RBC 0.0 10^3/uL Granulocyte % 92.0 % Lymphocyte % 3.6 % Monocyte % 2.9 % Eosinophil % 0.7 % Basophil % 0.8 % Nucleated Red Blood Cells % 0.0 Comp Metabolic 01/25/2019 [facility] Sodium 140 mmol/L Normal 135-145 Panel [address] [place] [address] [phone] Potassium 3.7 mmol/L Normal 3.5-5.0 Chloride 103 mmol/L Normal 101-111 Co2 Carbon Dioxide 30 mmol/L Normal 22-32 Anion Gap 7 mmol/L Normal 2-11 Glucose 127 mg/dL High 70-100 Blood Urea Nitrogen 22 mg/dL Normal 6-24 Creatinine 1.12 mg/dL High 0.51-0.95 BUN/Creatinine Ratio 19.6 Normal 8-20 Calcium 9.4 mg/dL Normal 8.6-10.3 Total Protein 6.2 g/dL Low 6.4-8.9 Albumin 3.5 g/dL Normal 3.2-5.2 Globulin 2.7 g/dL Normal 2-4 Albumin/Globulin Ratio 1.3 Normal 1-3 Total Bilirubin 0.40 mg/dL Normal 0.2-1.0 Alkaline Phosphatase 49 U/L Normal 34-104 Alt 9 U/L Normal 7-52 Ast 9 U/L Low 13-39 Egfr Non- 48.2 >60 Egfr 58.4 >60 3 Laboratory test 01/19/2019 [facility] Vitamin B12 98 pg/mL Low 180-914 4 finding [address] [place] [address] [phone] Iron & Iron 01/19/2019 [facility] Iron 46 g/dL Low 50-212 Binding Capacity [address] [place] [address] [phone] Unsaturated Iron Binding < 343 g/dL Total Iron Binding Capacity 358 g/dL Normal 250-450 Transferrin 256 mg/dL Normal 203-362 % Iron Saturation 13 % Low 15-55 CBC Auto 01/19/2019 [facility] White Blood 6.6 10^3/uL Normal 3.5-10.8 Diff [address] [facility] [place] [address] [phone] Red Blood Count 3.87 10^6/uL Normal 3.70-4.87 Hemoglobin 10.9 g/dL Low 12.0-16.0 Hematocrit 34 % Low 35-47 Mean Corpuscular Volume 87 fL Normal 80-97 Mean Corpuscular Hemoglobin 28 pg Normal 27-31 Mean Corpuscular HGB Conc 33 g/dL Normal 31-36 Red Cell Distribution Width 19 % High 10.5-15 Platelet Count 250 10^3/uL Normal 150-450 Mean Platelet Volume 6.9 fL Low 7.4-10.4 Abs Neutrophils 5.7 10^3/uL Normal 1.5-7.7 Abs Lymphocytes 0.3 10^3/uL Low 1.0-4.8 Abs Monocytes 0.4 10^3/uL Normal 0-0.8 Abs Eosinophils 0.1 10^3/uL Normal 0-0.6 Abs Basophils 0.1 10^3/uL Normal 0-0.2 Abs Nucleated RBC 0.0 10^3/uL Granulocyte % 87.1 % Lymphocyte % 5.0 % Monocyte % 5.6 % Eosinophil % 1.2 % Basophil % 1.1 % Nucleated Red Blood Cells % 0.0 Comp Metabolic 01/19/2019 [facility] Sodium 139 mmol/L Normal 135-145 Panel [address] [place] [address] [phone] Potassium 3.9 mmol/L Normal 3.5-5.0 Chloride 103 mmol/L Normal 101-111 Co2 Carbon Dioxide 29 mmol/L Normal 22-32 Anion Gap 7 mmol/L Normal 2-11 Glucose 89 mg/dL Normal 70-100 Blood Urea Nitrogen 23 mg/dL Normal 6-24 Creatinine 1.10 mg/dL High 0.51-0.95 BUN/Creatinine Ratio 20.9 High 8-20 Calcium 9.3 mg/dL Normal 8.6-10.3 Total Protein 6.9 g/dL Normal 6.4-8.9 Albumin 3.8 g/dL Normal 3.2-5.2 Globulin 3.1 g/dL Normal 2-4 Albumin/Globulin Ratio 1.2 Normal 1-3 Total Bilirubin 0.40 mg/dL Normal 0.2-1.0 Alkaline Phosphatase 59 U/L Normal 34-104 Alt 11 U/L Normal 7-52 Ast 12 U/L Low 13-39 Egfr Non- 49.2 >60 Egfr 59.6 >60 5 Retic Count 01/19/2019 [facility] Retic Count 1.6 % High 0.5- 1.[address] [place] [address] [phone] Corrected Retic Count 1.2 % Normal 0.5-1.5 Maturation Factor Retic 1.5 Retic Index 0.80 Mean Retic Volume 134.8 Immature Retic Fraction 0.47 RBC Retic Count 3.87 10^6/uL Normal 3.70-4.87 Hematocrit for Retic CNT 34 % Low 35-47 CBC Auto 01/11/2019 [facility] White Blood 6.8 10^3/uL Normal 3.5-10.[address] [place] [address] [phone] Red Blood Count 3.73 10^6/uL Normal 3.70-4.87 Hemoglobin 10.2 g/dL Low 12.0-16.0 Hematocrit 32 % Low 35-47 Mean Corpuscular Volume 86 fL Normal 80-97 Mean Corpuscular Hemoglobin 28 pg Normal 27-31 Mean Corpuscular HGB Conc 32 g/dL Normal 31-36 Red Cell Distribution Width 18 % High 10.5-15 Platelet Count 257 10^3/uL Normal 150-450 Mean Platelet Volume 7.7 fL Normal 7.4-10.4 Abs Neutrophils 6.0 10^3/uL Normal 1.5-7.7 Abs Lymphocytes 0.3 10^3/uL Low 1.0-4.8 Abs Monocytes 0.3 10^3/uL Normal 0-0.8 Abs Eosinophils 0.1 10^3/uL Normal 0-0.6 Abs Basophils 0.1 10^3/uL Normal 0-0.2 Abs Nucleated RBC 0.0 10^3/uL Granulocyte % 87.6 % Lymphocyte % 4.8 % Monocyte % 4.7 % Eosinophil % 1.9 % Basophil % 1.0 % Nucleated Red Blood Cells % 0.0 Comp Metabolic 01/11/2019 [facility] Sodium 137 mmol/L Normal 135-145 Panel [address] [place] [address] [phone] Potassium 3.5 mmol/L Normal 3.5-5.0 Chloride 100 mmol/L Low 101-111 Co2 Carbon Dioxide 29 mmol/L Normal 22-32 Anion Gap 8 mmol/L Normal 2-11 Glucose 122 mg/dL High 70-100 Blood Urea Nitrogen 23 mg/dL Normal 6-24 Creatinine 1.13 mg/dL High 0.51-0.95 BUN/Creatinine Ratio 20.4 High 8-20 Calcium 9.6 mg/dL Normal 8.6-10.3 Total Protein 6.3 g/dL Low 6.4-8.9 Albumin 3.5 g/dL Normal 3.2-5.2 Globulin 2.8 g/dL Normal 2-4 Albumin/Globulin Ratio 1.3 Normal 1-3 Total Bilirubin 0.60 mg/dL Normal 0.2-1.0 Alkaline Phosphatase 52 U/L Normal 34-104 Alt 9 U/L Normal 7-52 Ast 11 U/L Low 13-39 Egfr Non- 47.7 >60 Egfr 57.8 >60 6 Retic Count 2019 [facility] Retic Count 1.6 % High 0.5- 1.5 [address] [place] [address] [phone] Corrected Retic Count 1.2 % Normal 0.5-1.5 Maturation Factor Retic 1.5 Retic Index 0.80 Mean Retic Volume 127.4 Immature Retic Fraction 0.37 RBC Retic Count 3.95 10^6/uL Normal 3.70-4.87 Hematocrit for Retic CNT 34 % Low 35-47 Iron & Iron Binding 2019 [facility] Iron 45 g/dL Low 50-212 Capacity [address] [place] [address] [phone] Unsaturated Iron Binding < 363 g/dL Total Iron Binding Capacity 378 g/dL Normal 250-450 Transferrin 270 mg/dL Normal 203-362 % Iron Saturation 12 % Low 15-55 Laboratory test 2019 [facility] Ferritin 91.7 ng/mL Normal 11-[address] [place] [address] [phone] Vitamin B12 Binding Capacity 2276 pg/mL 800-2600 7 Comp Metabolic 01/04/2019 [facility] Sodium 140 mmol/L Normal 135-[address] [place] [address] [phone] Potassium 4.0 mmol/L Normal 3.5-5.0 Chloride 102 mmol/L Normal 101-111 Co2 Carbon Dioxide 30 mmol/L Normal 22-32 Anion Gap 8 mmol/L Normal 2-11 Glucose 140 mg/dL High 70-100 Blood Urea Nitrogen 33 mg/dL High 6-24 Creatinine 1.22 mg/dL High 0.51-0.95 BUN/Creatinine Ratio 27.0 High 8-20 Calcium 10.2 mg/dL Normal 8.6-10.3 Total Protein 6.5 g/dL Normal 6.4-8.9 Albumin 3.5 g/dL Normal 3.2-5.2 Globulin 3.0 g/dL Normal 2-4 Albumin/Globulin Ratio 1.2 Normal 1-3 Total Bilirubin 0.40 mg/dL Normal 0.2-1.0 Alkaline Phosphatase 53 U/L Normal 34-104 Alt 9 U/L Normal 7-52 Ast 11 U/L Low 13-39 Egfr Non- 43.8 >60 Egfr 53.0 >60 8 CBC Auto 01/04/2019 [facility] White Blood 9.8 10^3/uL Normal 3.5-10.[address] [place] [address] [phone] Red Blood Count 3.84 10^6/uL Normal 3.70-4.87 Hemoglobin 10.5 g/dL Low 12.0-16.0 Hematocrit 33 % Low 35-47 Mean Corpuscular Volume 85 fL Normal 80-97 Mean Corpuscular Hemoglobin 27 pg Normal 27-31 Mean Corpuscular HGB Conc 32 g/dL Normal 31-36 Red Cell Distribution Width 18 % High 10.5-15 Platelet Count 322 10^3/uL Normal 150-450 Mean Platelet Volume 7.6 fL Normal 7.4-10.4 Abs Neutrophils 8.6 10^3/uL High 1.5-7.7 Abs Lymphocytes 0.5 10^3/uL Low 1.0-4.8 Abs Monocytes 0.3 10^3/uL Normal 0-0.8 Abs Eosinophils 0.2 10^3/uL Normal 0-0.6 Abs Basophils 0.1 10^3/uL Normal 0-0.2 Abs Nucleated RBC 0.0 10^3/uL Granulocyte % 88.1 % Lymphocyte % 5.5 % Monocyte % 3.3 % Eosinophil % 2.0 % Basophil % 1.1 % Nucleated Red Blood Cells % 0.0 CBC Auto 12/28/2018 [facility] White Blood 14.3 10^3/uL High 3.5-10.[address] [place] [address] [phone] Red Blood Count 4.34 10^6/uL Normal 3.70-4.87 Hemoglobin 11.7 g/dL Low 12.0-16.0 Hematocrit 37 % Normal 35-47 Mean Corpuscular Volume 85 fL Normal 80-97 Mean Corpuscular Hemoglobin 27 pg Normal 27-31 Mean Corpuscular HGB Conc 32 g/dL Normal 31-36 Red Cell Distribution Width 18 % High 10.5-15 Platelet Count 402 10^3/uL Normal 150-450 Mean Platelet Volume 7.5 fL Normal 7.4-10.4 Abs Neutrophils 12.6 10^3/uL High 1.5-7.7 Abs Lymphocytes 1.0 10^3/uL Normal 1.0-4.8 Abs Monocytes 0.5 10^3/uL Normal 0-0.8 Abs Eosinophils 0.1 10^3/uL Normal 0-0.6 Abs Basophils 0.1 10^3/uL Normal 0-0.2 Abs Nucleated RBC 0.0 10^3/uL Granulocyte % 88.0 % Lymphocyte % 6.9 % Monocyte % 3.6 % Eosinophil % 1.0 % Basophil % 0.5 % Nucleated Red Blood Cells % 0.0 Comp Metabolic 12/28/2018 [facility] Sodium 138 mmol/L Normal 135-[address] [place] [address] [phone] Potassium 3.8 mmol/L Normal 3.5-5.0 Chloride 99 mmol/L Low 101-111 Co2 Carbon Dioxide 28 mmol/L Normal 22-32 Anion Gap 11 mmol/L Normal 2-11 Glucose 176 mg/dL High 70-100 Blood Urea Nitrogen 21 mg/dL Normal 6-24 Creatinine 1.05 mg/dL High 0.51-0.95 BUN/Creatinine Ratio 20.0 Normal 8-20 Calcium 10.5 mg/dL High 8.6-10.3 Total Protein 7.2 g/dL Normal 6.4-8.9 Albumin 3.9 g/dL Normal 3.2-5.2 Globulin 3.3 g/dL Normal 2-4 Albumin/Globulin Ratio 1.2 Normal 1-3 Total Bilirubin 0.50 mg/dL Normal 0.2-1.0 Alkaline Phosphatase 63 U/L Normal 34-104 Alt 7 U/L Normal 7-52 Ast 9 U/L Low 13-39 Egfr Non- 52.1 >60 Egfr 63.1 >60 9 Liver 12/28/2018 [facility] Direct 0.10 Normal 0.03-0.[address] Bilirubin mg/[place] [address] [phone] Indirect Bilirubin 0.4 mg/dL Normal 0.3-1.0 Laboratory test 12/23/2018 [facility] Point of Care 179 mg/dL High 70-100 [address] [place] [address] [phone] Laboratory test 12/16/2018 [facility] Creatine 41 U/L Normal 10-[address] Kinase(CK) [place] [address] [phone] Digoxin 0.7 ng/ml Low 0.8-2.0 CBC Auto 12/16/2018 [facility] White Blood 11.7 10^3/uL High 3.5-10.[address] [place] [address] [phone] Red Blood Count 4.18 10^6/uL Normal 3.70-4.87 Hemoglobin 11.4 g/dL Low 12.0-16.0 Hematocrit 36 % Normal 33-41 Mean Corpuscular Volume 85 fL Normal 80-97 Mean Corpuscular Hemoglobin 27 pg Normal 27-31 Mean Corpuscular HGB Conc 32 g/dL Normal 31-36 Red Cell Distribution Width 18 % High 10.5-15 Platelet Count 379 10^3/uL Normal 150-450 Mean Platelet Volume 7.9 fL Normal 7.4-10.4 Abs Neutrophils 10.1 10^3/uL High 1.5-7.7 Abs Lymphocytes 0.9 10^3/uL Low 1.0-4.8 Abs Monocytes 0.4 10^3/uL Normal 0-0.8 Abs Eosinophils 0.2 10^3/uL Normal 0-0.6 Abs Basophils 0.1 10^3/uL Normal 0-0.2 Abs Nucleated RBC 0 10^3/uL Granulocyte % 86.3 % Lymphocyte % 7.6 % Monocyte % 3.6 % Eosinophil % 1.6 % Basophil % 0.9 % Nucleated Red Blood Cells % 0.1 Comp Metabolic 12/16/2018 [facility] Sodium 140 mmol/L Normal 135-145 Panel [address] [place] [address] [phone] Potassium 4.7 mmol/L Normal 3.5-5.0 Chloride 100 mmol/L Low 101-111 Co2 Carbon Dioxide 30 mmol/L Normal 22-32 Anion Gap 10 mmol/L Normal 2-11 Glucose 170 mg/dL High 70-100 Blood Urea Nitrogen 18 mg/dL Normal 6-24 Creatinine 1.15 mg/dL High 0.51-0.95 BUN/Creatinine Ratio 15.7 Normal 8-20 Calcium 9.8 mg/dL Normal 8.6-10.3 Total Protein 6.8 g/dL Normal 6.4-8.9 Albumin 3.8 g/dL Normal 3.2-5.2 Globulin 3.0 g/dL Normal 2-4 Albumin/Globulin Ratio 1.3 Normal 1-3 Total Bilirubin 0.50 mg/dL Normal 0.2-1.0 Alkaline Phosphatase 69 U/L Normal 34-104 Alt 7 U/L Normal 7-52 Ast 10 U/L Low 13-39 Egfr Non- 46.9 >60 Egfr 56.8 >60 11 Lipid Profile 12/16/2018 [facility] Triglycerides 189 mg/dL 12 (Trig/Chol/HDL) [address] [place] [address] [phone] Cholesterol 119 mg/dL 13 HDL Cholesterol 44.7 mg/dL 14 LDL Cholesterol 37 mg/dL 15 Laboratory test 11/17/2018 [facility] Point of Care 153 mg/dL High 70-100 [address] Glucose [place] [id number] [phone] 1 Because ethnic data is not always readily available, this report includes an eGFR for both -Americans and non- Americans. The National Kidney Disease Education Program (NKDEP) does not endorse the use of the MDRD equation for patients that are not between the ages of 18 and 70, are , have extremes of body size, muscle mass, or nutritional status, or are non- or non-. According to the National Kidney Foundation, irrespective of diagnosis, the stage of the disease is based on the level of kidney function: Stage Description GFR(mL/min/1.73 m(2)) 1 Kidney damage with normal or decreased GFR 90 2 Kidney damage with mild decrease in GFR 60-89 3 Moderate decrease in GFR 30-59 4 Severe decrease in GFR 15-29 5 Kidney failure <15 (or dialysis) 2 Because ethnic data is not always readily available, this report includes an eGFR for both -Americans and non- Americans. The National Kidney Disease Education Program (NKDEP) does not endorse the use of the MDRD equation for patients that are not between the ages of 18 and 70, are , have extremes of body size, muscle mass, or nutritional status, or are non- or non-. According to the National Kidney Foundation, irrespective of diagnosis, the stage of the disease is based on the level of kidney function: Stage Description GFR(mL/min/1.73 m(2)) 1 Kidney damage with normal or decreased GFR 90 2 Kidney damage with mild decrease in GFR 60-89 3 Moderate decrease in GFR 30-59 4 Severe decrease in GFR 15-29 5 Kidney failure <15 (or dialysis) 3 Because ethnic data is not always readily available, this report includes an eGFR for both -Americans and non- Americans. The National Kidney Disease Education Program (NKDEP) does not endorse the use of the MDRD equation for patients that are not between the ages of 18 and 70, are , have extremes of body size, muscle mass, or nutritional status, or are non- or non-. According to the National Kidney Foundation, irrespective of diagnosis, the stage of the disease is based on the level of kidney function: Stage Description GFR(mL/min/1.73 m(2)) 1 Kidney damage with normal or decreased GFR 90 2 Kidney damage with mild decrease in GFR 60-89 3 Moderate decrease in GFR 30-59 4 Severe decrease in GFR 15-29 5 Kidney failure <15 (or dialysis) 4 Normal Range 180 to 914 Indeterminate Range 145 to 180 Deficient Range <145 5 Because ethnic data is not always readily available, this report includes an eGFR for both -Americans and non- Americans. The National Kidney Disease Education Program (NKDEP) does not endorse the use of the MDRD equation for patients that are not between the ages of 18 and 70, are , have extremes of body size, muscle mass, or nutritional status, or are non- or non-. According to the National Kidney Foundation, irrespective of diagnosis, the stage of the disease is based on the level of kidney function: Stage Description GFR(mL/min/1.73 m(2)) 1 Kidney damage with normal or decreased GFR 90 2 Kidney damage with mild decrease in GFR 60-89 3 Moderate decrease in GFR 30-59 4 Severe decrease in GFR 15-29 5 Kidney failure <15 (or dialysis) 6 Because ethnic data is not always readily available, this report includes an eGFR for both -Americans and non- Americans. The National Kidney Disease Education Program (NKDEP) does not endorse the use of the MDRD equation for patients that are not between the ages of 18 and 70, are , have extremes of body size, muscle mass, or nutritional status, or are non- or non-. According to the National Kidney Foundation, irrespective of diagnosis, the stage of the disease is based on the level of kidney function: Stage Description GFR(mL/min/1.73 m(2)) 1 Kidney damage with normal or decreased GFR 90 2 Kidney damage with mild decrease in GFR 60-89 3 Moderate decrease in GFR 30-59 4 Severe decrease in GFR 15-29 5 Kidney failure <15 (or dialysis) 7 INTERPRETIVE INFORMATION: Vitamin B12 Binding Capacity This assay measures the unsaturated binding capacity of serum for Vitamin B12. Performed by [employer], [address] [place] [address] [email or web address], Orlando Agarwal MD - Lab. Director Test Performed by: [facility] [address] [place] [address] 8 Because ethnic data is not always readily available, this report includes an eGFR for both -Americans and non- Americans. The National Kidney Disease Education Program (NKDEP) does not endorse the use of the MDRD equation for patients that are not between the ages of 18 and 70, are , have extremes of body size, muscle mass, or nutritional status, or are non- or non-. According to the National Kidney Foundation, irrespective of diagnosis, the stage of the disease is based on the level of kidney function: Stage Description GFR(mL/min/1.73 m(2)) 1 Kidney damage with normal or decreased GFR 90 2 Kidney damage with mild decrease in GFR 60-89 3 Moderate decrease in GFR 30-59 4 Severe decrease in GFR 15-29 5 Kidney failure <15 (or dialysis) 9 Because ethnic data is not always readily available, this report includes an eGFR for both -Americans and non- Americans. The National Kidney Disease Education Program (NKDEP) does not endorse the use of the MDRD equation for patients that are not between the ages of 18 and 70, are , have extremes of body size, muscle mass, or nutritional status, or are non- or non-. According to the National Kidney Foundation, irrespective of diagnosis, the stage of the disease is based on the level of kidney function: Stage Description GFR(mL/min/1.73 m(2)) 1 Kidney damage with normal or decreased GFR 90 2 Kidney damage with mild decrease in GFR 60-89 3 Moderate decrease in GFR 30-59 4 Severe decrease in GFR 15-29 5 Kidney failure <15 (or dialysis) 10 Human Resources Coordinator: [id number] 11 Because ethnic data is not always readily available, this report includes an eGFR for both -Americans and non- Americans. The National Kidney Disease Education Program (NKDEP) does not endorse the use of the MDRD equation for patients that are not between the ages of 18 and 70, are , have extremes of body size, muscle mass, or nutritional status, or are non- or non-. According to the National Kidney Foundation, irrespective of diagnosis, the stage of the disease is based on the level of kidney function: Stage Description GFR(mL/min/1.73 m(2)) 1 Kidney damage with normal or decreased GFR 90 2 Kidney damage with mild decrease in GFR 60-89 3 Moderate decrease in GFR 30-59 4 Severe decrease in GFR 15-29 5 Kidney failure <15 (or dialysis) 12 Desirable: <150 Borderline High: 150-199 High: 200-499 Very High: >500 13 Desirable: <200 Borderline High: 200-239 High: >239 14 Low: <40 Desirable: 40-60 High: >60 15 Desirable: <100 Near Optimal: 100-129 Borderline High: 130-159 High: 160-189 Very High: >189 16 Human Resources Coordinator: [id number] Procedures Date Code Description Status 04/16/2019 42971 ECHO Transthoracic, Real-Time 2D With Doppler And Color Completed Flow 04/16/2019 51829 ECHO Transthoracic, Real-Time 2D With Doppler And Color Completed Flow 12/23/2018 14809 Fluoroscopic Guidance For Cent Completed 12/23/2018 68908 Insertion Tunneled Cent Venous Cathr W Subcut Port 5 Yrs Completed Or Oldr 12/09/2018 40051 Diffusing Capacity Completed 12/09/2018 32251 Plethysmography Determination Lung Volumes & Per Airway Completed Resist 12/09/2018 16379 Spirometry Incl Graphic Record Completed Medical Devices Description No Information Available Encounters Type Date Location Provider Dx Diagnosis Office Visit 05/02/2019 [facility] Kathryn Rinaldi, J96.01 Acute respiratory 9:54a Assoc,pc N.P. failure with Hospitalists hypoxia J18.9 Pneumonia, unspecified organism D64.9 Anemia, unspecified E11.9 Type 2 diabetes mellitus without complications Office Visit 04/30/2019 [facility] Vielka Avalos J18.1 Lobar pneumonia, 12:49p For Infectious Lowe, WEB SITE ADMINISTRATOR unspecified Diseases organism C34.90 Malignant neoplasm of unsp part of unsp bronchus or lung E87.5 Hyperkalemia E11.22 Type 2 diabetes mellitus w diabetic chronic kidney disease N18.3 Chronic kidney disease, stage 3 (moderate) N17.9 Acute kidney failure, unspecified Office Visit 04/29/2019 12:47p [facility] For Gilson Walter J18.9 Pneumonia, Infectious Ayush Mak unspecified Diseases organism C34.90 Malignant neoplasm of unsp part of unsp bronchus or lung E87.5 Hyperkalemia Office Visit 04/28/2019 [facility] Vielka Avalos J18.1 Lobar pneumonia, 12:46p For Infectious PIERCE Lowe unspecified Diseases organism C34.90 Malignant neoplasm of unsp part of unsp bronchus or lung E11.22 Type 2 diabetes mellitus w diabetic chronic kidney disease N18.3 Chronic kidney disease, stage 3 (moderate) N17.9 Acute kidney failure, unspecified Office Visit 04/27/2019 12:44p [facility] Vielka Avalos R06.02 Shortness of For Infectious PIEREC Lowe breath Diseases R09.02 Hypoxemia R91.8 Other nonspecific abnormal finding of lung field D72.829 Elevated white blood cell count, unspecified C34.90 Malignant neoplasm of unsp part of unsp bronchus or lung Office Visit 04/24/2019 12:31p Pulmonology And Natalie J18.1 Lobar pneumonia, [facility] unspecified [facility] organism C34.90 Malignant neoplasm of unsp part of unsp bronchus or lung J96.91 Respiratory failure, unspecified with hypoxia Office Visit 12/15/2018 10:40a [facility] Nikita Keen, C34.32 [facility] ADE [place] neoplasm of [place] lower lobe, left bronchus or lung Z87.891 Personal history of nicotine dependence Office Visit 12/03/2018 10:00a Surgical Benito Perez C34.32 [facility] MD Michele, neoplasm of FACS lower lobe, left bronchus or lung Office Visit 11/10/2018 10:15a Pulmonology And Natalie C34.90 [facility] neoplasm of unsp Fuel Operator part of unsp bronchus or lung J98.4 Other disorders of lung J44.9 Chronic obstructive pulmonary disease, unspecified Assessments Date Code Description Provider 05/05/2019 J18.1 Lobar pneumonia, unspecified organism BRITTAYN Recinos 05/05/2019 C34.90 Malignant neoplasm of unspecified BRITTANY Recinos part of unspecified bronchus or lung 05/05/2019 E11.22 Type 2 diabetes mellitus with BRITTANY Recinos diabetic chronic kidney disease 05/05/2019 N18.3 Chronic kidney disease, stage 3 BRITTANY Recinos (moderate) 05/05/2019 R06.02 Shortness of breath BRITTANY Recinos 05/02/2019 J96.01 Acute respiratory failure with Kathryn Gentry, N.P. hypoxia 05/02/2019 J18.9 Pneumonia, unspecified organism Kathryn Gentry, N.P. 05/02/2019 D64.9 Anemia, unspecified Kathryn Gentry, N.P. 05/02/2019 E11.9 Type 2 diabetes mellitus without Kathryn Gentry, N.P. complications 04/30/2019 J18.1 Lobar pneumonia, unspecified organism Vielka Lowe, WEB SITE ADMINISTRATOR 04/30/2019 C34.90 Malignant neoplasm of unspecified Vielkaramandeep Lowe , WEB SITE ADMINISTRATOR part of unspecified bronchus or lung 04/30/2019 E87.5 Hyperkalemia Vielka Lowe, WEB SITE ADMINISTRATOR 04/30/2019 E11.22 Type 2 diabetes mellitus with Vielkaramandeep Lowe, WEB SITE ADMINISTRATOR diabetic chronic kidney disease 04/30/2019 N18.3 Chronic kidney disease, stage 3 Vielkaramandeep Lowe, WEB SITE ADMINISTRATOR (moderate) 04/30/2019 N17.9 Acute kidney failure, unspecified Vielka Robbie Lowe , WEB SITE ADMINISTRATOR 04/29/2019 J18.9 Pneumonia, unspecified organism Gilson Mak M.D. 04/29/2019 C34.90 Malignant neoplasm of unspecified Gilson Mak M.D. part of unspecified bronchus or lung 04/29/2019 E87.5 Hyperkalemia Gilson Mak M.D. 04/28/2019 J18.1 Lobar pneumonia, unspecified organism Vielka Lowe, WEB SITE ADMINISTRATOR 04/28/2019 C34.90 Malignant neoplasm of unspecified Vielka Robbie Lowe , WEB SITE ADMINISTRATOR part of unspecified bronchus or lung 04/28/2019 E11.22 Type 2 diabetes mellitus with Vielka Robbie Lowe, WEB SITE ADMINISTRATOR diabetic chronic kidney disease 04/28/2019 N18.3 Chronic kidney disease, stage 3 Vielka Lowe, WEB SITE ADMINISTRATOR (moderate) 04/28/2019 N17.9 Acute kidney failure, unspecified Vielka Lowe , WEB SITE ADMINISTRATOR 04/27/2019 R06.02 Shortness of breath Vielka Lowe, WEB SITE ADMINISTRATOR 04/27/2019 R09.02 Hypoxemia Vielka Lowe, WEB SITE ADMINISTRATOR 04/27/2019 R91.8 Other nonspecific abnormal finding of Veilka Lowe, WEB SITE ADMINISTRATOR lung field 04/27/2019 D72.829 Elevated white blood cell count, Vielka Lowe , WEB SITE ADMINISTRATOR unspecified 04/27/2019 C34.90 Malignant neoplasm of unspecified Vielka Lowe , WEB SITE ADMINISTRATOR part of unspecified bronchus or lung 04/24/2019 J18.1 Lobar pneumonia, unspecified organism Natalie Nelson MD 04/24/2019 C34.90 Malignant neoplasm of unspecified Natalie Nelson MD part of unspecified bronchus or lung 04/24/2019 J96.91 Respiratory failure, unspecified with Natalie Nelson MD hypoxia 04/16/2019 I34.0 Nonrheumatic mitral (valve) Aamir Lopez M.D. 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 left bronchus or lung 12/15/2018 Z87.891 Personal history of nicotine Nikita Keen M.D. 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
--- OUTSIDE RECORDS SUMMARY | 2019-05-24 02:55 | XMS REPORT | Continuity of Care Document ---
:1950 External Reference #:[id number] Author Name Aamir Lopez M.D. (transmitted by agent of provider Margo Murrell ) Address [address] [place] [id number] Care Team Providers Name Role Phone Cristiano Choi MD - Family Medicine Care Team Information Environmental Project Manager Nikita Keen MD - Hematology Care Team Information Environmental Project Manager [phone] Problems Active Problems Provider Date Atrial fibrillation [...] Former Cigarette Smoker Unknown Smoking Status Reviewed: 05/11/19 Former Cigarette Smoker ETOH Use Denies alcohol use Tobacco Use Start: Unknown End: Patient is a former Unknown smoker Recreational Drug Use Denies Drug Use Exercise Type/Frequency Exercises sporadically PT in the home started summer Allergies, Adverse Reactions, Alerts Active Allergies Reaction Severity Comments Date Potassium Chloride rash Moderate 11/25/2013 Inactive Allergies NKDA 09/10/2013 Medications Active Medications SIG Qnty Indications Ordering Date Provider Atorvastatin Calcium take 1 tablet each 90tabs Aamir Carine 10/09/2017 evening Ayush Lopez 20mg Tablets Eliquis 1 by mouth twice a 180tabs Aamir Carine 06/16/2017 5mg Tablets day(Pt was taken Ayush Lopez off this in hospital around 05/01/19, awaiting instructions to re start) Digoxin 1 by mouth 5 days a 90tabs Hayley Landeros, 09/23/2016 125mcg Tablets week N.P. Chlorthalidone 1/2 tab by mouth 30tabs Hayley Landeros, 12/21/2015 25mg 4x/week N.P. Tablets Furosemide 1 tablet 5 times a 90tabs R06.02 Aamir Carine 02/01/2014 20mg Tablets week. Ayush Lopez Cartia XT take 1 tab by mouth 90caps Aamir Carine 12/30/2013 300mg Caps ER daily Ayush Lopez 24HR Metoprolol Succinate 1/2 by mouth every 45tabs Aamir Carine 09/27/2013 ER day Ayush Lopez 25mg Tablets ER 24HR Janumet XR 1 po bid 60tabs Other Ordering 09/01/2013 50-1000mg Provider Tablets ER 24HR Oxygen 2 l nc at hs 1units Unknown Misc Albuterol Sulfate 1 vial q 4hrs prn Unknown for wheezing (rare (2.5mg/3ML) 0.083% use) Nebulizer Glyburide 1 tablet daily Unknown 5mg Lisinopril 1/2 by mouth every I10 Unknown 20mg Tablets day Bydureon inject 2 mg sc Unknown 2mg Pen weekly Symbicort 2 puff twice a day Unknown 80-4.5mcg/Act Aerosol Kwqpmkh-Bky-Jarb 1 Tab by mouth Unknown daily Tablet Medications Administered in Office Medication SIG Qnty Indications Ordering Provider Date Inj, Regadenoson, 0.1 MG Jose Sultana M.D. 09/16/2013 Injection Technetium TC 99M Tetrofosmin, Jose Sultana M.D. 09/16/2013 Per Unit Dose Up To 40 Millicuries Injection Immunizations Description No Information Available Vital Signs Date Vital Result Comment 05/11/2019 8:26am Height 60 inches 5'0" Weight 235.25 lb with shoes/purse Heart Rate 70 /min left radial reg BP Systolic Sitting 120 mmHg ure reg cuff BP Diastolic Sitting 62 mmHg ure reg cuff BMI (Body Mass Index) 45.9 kg/m2 Ejection Fraction 60%-65% echo 04/16/19 05/05/2019 9:01am Heart Rate 76 /min BP Systolic 132 mmHg BP Diastolic 85 mmHg Respiratory Rate 20 /min Body Temperature 98.9 F Pain Level 0 O2 % BldC Oximetry 95 % Results Test Date Facility Test Result H/L Range Note Order [facility] Echocardiogram <pending> [address] [place] [address] [phone] Comp Metabolic [facility] Sodium 135 mmol/L Normal 135-145 Panel [address] [place] [address] [phone] Potassium 4.5 mmol/L Normal 3.5-5.0 Chloride 102 [...] Egfr 38.1 >60 1 CBC Auto 02/03/2019 [facility] White Blood 4.0 10^3/uL Normal 3.5-10.[address] [place] [address] [phone] Red Blood Count 3.33 10^6/uL Low 3.70-4.87 [...] Blood Cells % 0.1 Comp Metabolic 02/01/2019 [facility] Sodium 135 mmol/L Normal 135-[address] [place] [address] [phone] Potassium 4.1 mmol/L Normal 3.5-5.0 Chloride 101 [...] Egfr 36.1 >60 2 CBC Auto 02/01/2019 [facility] White Blood 4.1 10^3/uL Normal 3.5-10.[address] [place] [address] [phone] Red Blood Count 3.24 10^6/uL Low 3.70-4.87 [...] Red Blood Cells % 0.0 CBC Auto 01/25/2019 [facility] White Blood 6.8 10^3/uL Normal 3.5-10.[address] [place] [address] [phone] Red Blood Count 3.63 10^6/uL Low 3.70-4.87 [...] Blood Cells % 0.0 Comp Metabolic 01/25/2019 [facility] Sodium 140 mmol/L Normal 135-[address] [place] [address] [phone] Potassium 3.7 mmol/L Normal 3.5-5.0 Chloride 103 [...] Non- 48.2 >60 Egfr 58.4 >60 3 Iron & Iron Binding 01/25/2019 [facility] Iron 70 g/dL Normal 50-212 Capacity [address] [place] [address] [phone] Unsaturated Iron Binding < 320 g/dL Total Iron Binding Capacity 335 g/dL Normal 250-450 Transferrin 239 mg/dL Normal 203-362 % Iron Saturation 21 % Normal 15-55 CBC Auto 01/19/2019 [facility] White Blood 6.6 10^3/uL Normal 3.5-10.[address] [place] [address] [phone] Red Blood Count 3.87 10^6/uL Normal 3.70-4.87 [...] % Nucleated Red Blood Cells % 0.0 Laboratory test 01/19/2019 [facility] Vitamin B12 98 pg/mL Low 180-[address] [place] [address] [phone] Retic Count 01/19/2019 [facility] Retic Count 1.6 % High 0.5- 1.[address] [place] [address] [phone] Corrected Retic Count 1.2 % Normal 0.5-1.5 Maturation Factor Retic 1.5 Retic Index 0.80 Mean Retic Volume 134.8 Immature Retic Fraction 0.47 RBC Retic Count 3.87 10^6/uL Normal 3.70-4.87 Hematocrit for Retic CNT 34 % Low 35-47 Comp Metabolic 01/19/2019 [facility] Sodium 139 mmol/L Normal 135-[address] [place] [address] [phone] Potassium 3.9 mmol/L Normal 3.5-5.0 Chloride 103 [...] Non- 49.2 >60 Egfr 59.6 >60 5 Iron & Iron Binding 01/19/2019 [facility] Iron 46 g/dL Low 50-[address] [place] [address] [phone] Unsaturated Iron Binding < 343 g/dL Total Iron Binding Capacity 358 g/dL Normal 250-450 Transferrin 256 mg/dL Normal 203-362 % Iron Saturation 13 % Low 15-55 CBC Auto 01/11/2019 [facility] White Blood 6.8 10^3/uL Normal 3.5-10.[address] [place] [address] [phone] Red Blood Count 3.73 10^6/uL Normal 3.70-4.87 [...] Blood Cells % 0.0 Comp Metabolic 01/11/2019 [facility] Sodium 137 mmol/L Normal 135-145 Panel [address] [place] [address] [phone] Potassium 3.5 mmol/L Normal 3.5-5.0 Chloride 100 [...] Non- 47.7 >60 Egfr 57.8 >60 6 Iron & Iron Binding 2019 [facility] Iron 45 g/dL Low 50-212 Capacity [address] [place] [address] [phone] Unsaturated Iron Binding < 363 g/dL Total Iron Binding Capacity 378 g/dL Normal 250-450 Transferrin 270 mg/dL Normal 203-362 % Iron Saturation 12 % Low 15-55 Laboratory test 2019 [facility] Ferritin 91.7 ng/mL Normal 11-307 finding [address] [place] [address] [phone] Vitamin B12 Binding Capacity 2276 pg/mL 800-2600 7 Retic Count 2019 [facility] Retic Count 1.6 % High 0.5- 1.[address] [place] [address] [phone] Corrected Retic Count 1.2 % Normal 0.5-1.5 Maturation Factor Retic 1.5 Retic Index 0.80 Mean Retic Volume 127.4 Immature Retic Fraction 0.37 RBC Retic Count 3.95 10^6/uL Normal 3.70-4.87 Hematocrit for Retic CNT 34 % Low 35-47 CBC Auto 01/04/2019 [facility] White Blood 9.8 10^3/uL Normal 3.5-10.[address] [place] [address] [phone] Red Blood Count 3.84 10^6/uL Normal 3.70-4.87 [...] Red Blood Cells % 0.0 Comp Metabolic 01/04/2019 [facility] Sodium 140 mmol/L Normal 135-[address] [place] [address] [phone] Potassium 4.0 mmol/L Normal 3.5-5.0 Chloride 102 [...] >60 Egfr 53.0 >60 8 CBC Auto 12/28/2018 [facility] White Blood 14.3 10^3/uL High 3.5-10.[address] [place] [phone] Red Blood Count 4.34 10^6/uL Normal 3.70-4.87 [...] Blood Cells % 0.0 Comp Metabolic 12/28/2018 [facility] Sodium 138 mmol/L Normal 135-[address] [place] [address] [phone] Potassium 3.8 mmol/L Normal 3.5-5.0 Chloride 99 [...] >60 Egfr 63.1 >60 9 Liver 12/28/2018 [facility] Direct 0.10 Normal 0.03-0.[address] Bilirubin mg/[place] [address] [phone] Indirect Bilirubin 0.4 mg/dL Normal 0.3-1.0 Laboratory test 12/23/2018 [facility] Point of 179 mg/dL High 70-100 [address] [place] [address] [phone] CBC Auto Diff 12/16/2018 [facility] White Blood 11.7 High 3.5- 10.[address] Count 10^3/[place] [address] [phone] Red Blood Count 4.18 10^6/uL Normal 3.70-4.87 [...] Blood Cells % 0.1 Comp Metabolic 12/16/2018 [facility] Sodium 140 mmol/L Normal 135-145 Panel [address] [place] [address] [phone] Potassium 4.7 mmol/L Normal 3.5-5.0 Chloride 100 [...] Egfr 56.8 >60 11 Lipid Profile 12/16/2018 [facility] Triglycerides 189 mg/dL 12 (Trig/Chol/HDL) [address] [place] [address] [phone] Cholesterol 119 mg/dL 13 HDL Cholesterol 44.7 mg/dL 14 LDL Cholesterol 37 mg/dL 15 Laboratory test 12/16/2018 [facility] Creatine 41 U/L Normal 10-[address] Kinase(CK) [place] [address] [phone] Digoxin 0.7 ng/ml Low 0.8-2.0 Laboratory test 11/17/2018 [facility] Point of Care 153 mg/dL High 70-100 [address] [place] [address] [phone] 1 Because ethnic data is not always [...] of serum for Vitamin B12. Performed by [facility], [address] [place] [address] [email or web address], Orlando Agarwal MD - Lab. Director Test Performed by: [facility] [address] [place] [address] 8 Because ethnic data is not always [...] 5 Kidney failure <15 (or dialysis) 10 Resort Housekeeper: [id number] 11 Because ethnic data is not always [...] 130-159 High: 160-189 Very High: >189 16 Resort Housekeeper: [id number] Procedures Date Code Description Status 05/11/2019 12871 EKG Tracing & Interpretation Completed 04/16/2019 58491 ECHO Transthoracic, Real-Time 2D With Doppler And Color Completed Flow 04/16/2019 80965 ECHO Transthoracic, Real-Time 2D With Doppler And Color Completed Flow 12/23/2018 70629 Fluoroscopic Guidance For Cent Completed 12/23/2018 36482 Insertion Tunneled Cent Venous Cathr W Subcut Port 5 Yrs Completed Or Oldr 12/09/2018 66914 Diffusing Capacity Completed 12/09/2018 06742 Plethysmography Determination Lung Volumes & Per Airway Completed Resist 12/09/2018 89531 Spirometry Incl Graphic Record Completed Medical Devices Description No Information Available Encounters Type Date Location Provider Dx Diagnosis Office Visit 05/02/2019 [facility] Gabbie Campos96.01 Acute respiratory 9:54a Assoc,pc N.P. failure with Hospitalists hypoxia J18.9 Pneumonia, unspecified organism D64.9 Anemia, unspecified E11.9 Type 2 diabetes mellitus without complications Office Visit 04/30/2019 [facility] Vielka Avalos J18.1 Lobar pneumonia, 12:49p For Infectious PIERCE Lowe unspecified Diseases organism C34.90 Malignant neoplasm of unsp part of unsp bronchus or lung E87.5 Hyperkalemia E11.22 Type 2 diabetes mellitus w diabetic chronic kidney disease N18.3 Chronic kidney disease, stage 3 (moderate) N17.9 Acute kidney failure, unspecified Office Visit 04/29/2019 12:47p [facility] Hermelindo Walter J18.9 Pneumonia, Infectious Ayush Mak unspecified Diseases organism C34.90 Malignant neoplasm of unsp part of unsp bronchus or lung E87.5 Hyperkalemia Office Visit 04/28/2019 [facility] Vielka Avalos J18.1 Lobar pneumonia, 12:46p For Infectious Chrissy [employer]INCIPAL unspecified Diseases organism C34.90 Malignant neoplasm of unsp part of unsp bronchus or lung E11.22 Type 2 diabetes mellitus w diabetic chronic kidney disease N18.3 Chronic kidney disease, stage 3 (moderate) N17.9 Acute kidney failure, unspecified Office Visit 04/27/2019 12:44p [facility] Vielka Avalos R06.02 Shortness of For Infectious PIERCE Lowe breath Diseases R09.02 Hypoxemia R91.8 Other nonspecific abnormal finding of lung field D72.829 Elevated white blood cell count, unspecified C34.90 Malignant neoplasm of unsp part of unsp bronchus or lung Office Visit 04/24/2019 12:31p Pulmonology And Natalie J18.1 Lobar pneumonia, [facility] unspecified [facility] organism C34.90 Malignant neoplasm of unsp part of unsp bronchus or lung J96.91 Respiratory failure, unspecified with hypoxia Office Visit 12/15/2018 10:40a [facility] Nikita Keen, C34.32 [facility] AT M.D. neoplasm of [place] lower lobe, left bronchus or lung Z87.891 Personal history of nicotine dependence Office Visit 12/03/2018 10:00a Surgical Benito Perez C34.32 [facility] MD Michele, neoplasm of FACS lower lobe, left bronchus or lung Office Visit 11/10/2018 10:15a Pulmonology And Natalie C34.90 [facility] neoplasm of unsp Materials Management Supervisor part of unsp bronchus or lung J98.4 Other disorders of lung J44.9 Chronic obstructive pulmonary disease, unspecified Assessments Date Code Description Provider 05/11/2019 N18.3 Chronic kidney disease, stage 3 Aamir Lopez M.D. (moderate) 05/11/2019 E11.9 Type 2 diabetes mellitus without Aamir Lopez M.D. complications 05/11/2019 I34.0 Nonrheumatic mitral (valve) Aamir Lopez M.D. insufficiency 05/11/2019 E78.5 Hyperlipidemia Aamir Lopez M.D. 05/11/2019 I48.2 Chronic atrial fibrillation Aamir Lopez M.D. 05/11/2019 R09.02 Hypoxemia Aamir Lopez M.D. 05/11/2019 D64.9 Anemia Aamir Lopez M.D. 05/05/2019 J18.1 Lobar pneumonia, unspecified organism BRITTANY Recinos 05/05/2019 C34.90 Malignant neoplasm of unspecified BRITTANY Recinos part of unspecified bronchus or lung 05/05/2019 E11.22 Type 2 diabetes mellitus with BRITTANY Recinos diabetic chronic kidney disease 05/05/2019 N18.3 Chronic kidney disease, stage 3 BRITTANY Recinos (moderate) 05/05/2019 R06.02 Shortness of breath BRITTANY Recinos 05/02/2019 J96.01 Acute respiratory failure with Kathryn Gentry, N.P. hypoxia 05/02/2019 J18.9 Pneumonia, unspecified organism Kathryn Rinaldi, N.P. 05/02/2019 D64.9 Anemia, unspecified Kathryn Rinaldi, N.P. 05/02/2019 E11.9 Type 2 diabetes mellitus without Kathryn Rinaldi, N.P. complications 04/30/2019 J18.1 Lobar pneumonia, unspecified organism Vielka Lowe, SEC[employer] PRINCIPAL 04/30/2019 C34.90 Malignant neoplasm of unspecified Vielka Lowe NP part of unspecified bronchus or lung 04/30/2019 E87.5 Hyperkalemia Vielka Lowe, SEC[employer]INCIPAL 04/30/2019 E11.22 Type 2 diabetes mellitus with Vielka Lowe, SEC[employer]INCIPAL diabetic chronic kidney disease 04/30/2019 N18.3 Chronic kidney disease, stage 3 Vielka Lowe, SEC[employer] PRINCIPAL (moderate) 04/30/2019 N17.9 Acute kidney failure, unspecified Vielka Lowe , [employer]INCIPAL 04/29/2019 J18.9 Pneumonia, unspecified organism Gilson Mak M.D. 04/29/2019 C34.90 Malignant neoplasm of unspecified Gilson Mak M.D. part of unspecified bronchus or lung 04/29/2019 E87.5 Hyperkalemia Gilson Mak M.D. 04/28/2019 J18.1 Lobar pneumonia, unspecified organism Vielka Lowe, SEC[employer]INCIPAL 04/28/2019 C34.90 Malignant neoplasm of unspecified Vielka Lowe , [employer]INCIPAL part of unspecified bronchus or lung 04/28/2019 E11.22 Type 2 diabetes mellitus with Vielka Lowe, SEC[employer]INCIPAL diabetic chronic kidney disease 04/28/2019 N18.3 Chronic kidney disease, stage 3 Vielka Lowe, [employer]INCIPAL (moderate) 04/28/2019 N17.9 Acute kidney failure, unspecified Vielka Lowe , [employer]INCIPAL 04/27/2019 R06.02 Shortness of breath Vielka Jimenesgerasaycarrol Lowe, SEC[employer] PRINCIPAL 04/27/2019 R09.02 Hypoxemia Vielka Avalos Lowe, SEC[employer]INCIPAL 04/27/2019 R91.8 Other nonspecific abnormal finding of Vielka Lowe, SEC[employer]INCIPAL lung field 04/27/2019 D72.829 Elevated white blood cell count, Vielka Lowe , [employer]INCIPAL unspecified 04/27/2019 C34.90 Malignant neoplasm of unspecified Vielka Avalos Lowe , [employer]INCIPAL part of unspecified bronchus or lung 04/24/2019 J18.1 Lobar pneumonia, unspecified organism Natalie Nelson MD 04/24/2019 C34.90 Malignant neoplasm of unspecified Natalie Nelson MD part of unspecified bronchus or lung 04/24/2019 J96.91 Respiratory failure, unspecified with Natalie Nelson MD hypoxia 04/16/2019 I34.0 Nonrheumatic mitral (valve) Aamir Lopez M.D. insufficiency 04/16/2019 I34.0 Nonrheumatic mitral (valve) [facility] insufficiency 04/16/2019 J44.9 Chronic obstructive pulmonary [facility] Schedule disease, unspecified 04/16/2019 I27.20 Pulmonary hypertension [facility] Schedule 12/23/2018 C34.32 Malignant neoplasm of [...] Nelson MD disease, unspecified Plan of Treatment 05/11/2019 - Aamir Lopez M.D.N18.3 Chronic kidney disease, stage 3 ( moderate)E11.9 Type 2 diabetes mellitus without kmqoxptdzjsgxY05.0 Nonrheumatic mitral (valve) pzcnplbdvecoyE90.5 MwlbbumtuxpkvkQ56.2 Chronic atrial fibrillationFollow up:ov 10 mR09.02 HypoxemiaNew Orders:Overnight Oximetry, Scheduled: 05/15/19D64.9 Anemia Functional Status Description No Information Available Mental Status Description No Information Available Referrals Refer to Reason for Referral Status Appt Date Nikita Keen MD Closed [address] [place] [address] [phone]
[2019-05-24 04:14] LABS: INR 2.02 (0.82-1.09)
[2019-05-24] MEDS ORDERED: NS 0.9% 1000 ML** 1,000 ML IV ONE ×2 (04:15→09:35)
--- NOTE | 2019-05-24 04:27 | ED ---
Shortness of Breath - HPI Summary HPI Summary: This patient is a 69 year old F whx lung cancer, afib on eliquis (last dose 7 PM ), recent abdominal wall hematoma who is presenting to [facility] with a chief complaint of SOB since yesterday. Patient reports increasing shortness of breath and fatigue for 1 day. Patient denies bloody bowel movements. Patient has abdominal pain. She states she feels overall fatigued. Recent admission requiring transfusion and c/b by abdominal hematoma. - History of Current Complaint Chief Complaint: EDShortnessOfBreath Time Seen by Provider: 05/24/19 02:54 Hx Obtained From: Patient Onset/Duration: Sudden Onset, Lasting Days - 1, Still Present Timing: Constant Current Severity: Mild Dyspnea At: Other - walking Aggravating Factors: Nothing Alleviating Factors: Nothing Associated Signs & Symptoms: Negative - Allergy/Home Medications Allergies/Adverse Reactions: Allergies Allergy/AdvReac Type Severity Reaction Status Date / Time potassium Allergy Severe Rash And Verified 05/24/19 03:15 Itching latex Allergy Mild Rash And Verified 05/24/19 03:15 Itching PMH/Surg Hx/FS Hx/Imm Hx Previously Healthy: No Endocrine/Hematology History: Reports: Hx Diabetes - On multiple medications Denies: Hx Thyroid Disease Cardiovascular History: Reports: Hx Atrial Fibrillation, Hx Congestive Heart Failure - Left heart failure, Hx Hypercholesterolemia, Hx Hypertension, Other Cardiovascular Problems/Disorders - Atrial fibrillation, elevated cholesterol Denies: Hx Myocardial Infarction, Hx Pacemaker/ICD Respiratory History: Reports: Hx Asthma, Hx Chronic Obstructive Pulmonary Disease (COPD), Hx Pneumonia, Hx Sleep Apnea - not tested but told she drops her oxygen levels at night, Other Respiratory Problems/Disorders - Hx pneumonia and respiratory failure, O2 nasal cannula-hypoxia at night GI History: Denies: Other GI Disorders History: Denies: Hx Dialysis, Hx Renal Disease, Other Problems/Disorders Musculoskeletal History: Reports: Hx Arthritis - Achey knees with walking. Has a walker, Other Musculoskeletal History - Poor balance, uses a walker to walk, or wheelchair when out Sensory History: Reports: Hx Contacts or Glasses - Glasses, Hx Vision Problem Denies: Hx Eye Injury, Hx Eye Prosthesis, Hx Glaucoma, Hx Legally Blind, Hx Macular Degeneration, Hx Deafness, Hx Hearing Aid, Hx Hearing Problem, Other Sensory Impairments Opthamlomology History: Reports: Hx Contacts or Glasses - Glasses, Hx Vision Problem Denies: Hx Eye Injury, Hx Eye Prosthesis, Hx Glaucoma, Hx Legally Blind, Hx Macular Degeneration, Other Sensory Impairments Neurological History: Reports: Other Neuro Impairments/Disorders - Claustrophobia Psychiatric History: Denies: Hx Panic Disorder - Cancer History Cancer Type, Location and Year: lung CA Hx Chemotherapy: No - Malignant tumor left bronchus - Surgical History Surgical History: Yes Surgery Procedure, Year, and Place: HYSTERECTOMY [facility]. EBUS 2019. POWER PORT Hx Anesthesia Reactions: No Infectious Disease History: No Infectious Disease History: Denies: Traveled Outside the [place] in Last 30 Days - Family History Known Family History: Positive: Cardiac Disease Negative: Blood Disorder - no FMHx of blood clots - Social History Alcohol Use: None Substance Use Type: Reports: None Smoking Status (MU): Former Smoker Type: Cigarettes Amount Used/How Often: 1.5 PPD for 40 years Have You Smoked in the Last Year: No Review of Systems Positive: Shortness Of Breath Negative: Abdominal Pain Genitourinary: Other - positive - blood coming out of her bottom All Other Systems Reviewed And Are Negative: Yes Physical Exam - Summary Physical Exam Summary: Constitutional: elderly female, ill appearing Skin: Warm, Dry. Pale conjunctiva. Crusting lesion to the left breast. HENT: Normocephalic; Atraumatic Eyes: Conjunctiva normal Neck: Musculoskeletal ROM normal neck. (-) JVD, (-) Stridor, (-) Nuchal rigidity Cardio: Irregularly irregular, Heart sounds normal; Intact distal pulses; Radial pulses are 2+ and symmetric. (-) Murmur Pulmonary/Chest wall: Effort normal. Right chest port. (-) Respiratory distress , (-) Wheezes, (-) Rales Abd: Soft, (-) tenderness, (-) Distension, (-) Guarding, (-) Rebound. Bright red blood per rectum, blood clots in stool Musculoskeletal: (-) Edema Lymph: (-) Cervical adenopathy Neuro: Alert, Oriented x3 Psych: Mood and affect Normal Triage Information Reviewed: Yes Vital Signs On Initial Exam: Initial Vitals Temp Pulse Resp BP Pulse Ox 96.8 F 81 31 97/58 100 05/24/19 02:46 05/24/19 02:46 05/24/19 02:46 05/24/19 02:46 05/24/19 02:46 Vital Signs Reviewed: Yes Diagnostics - Vital Signs Vital Signs Temp Pulse Resp BP Pulse Ox 05/24/19 02:53 86 24 97/58 100 05/24/19 02:52 83 30 86 05/24/19 02:46 96.8 F 81 31 97/58 100 - Laboratory Lab Results: Lab Results 05/24/19 Range/Units 03:50 INR (Anticoag Therapy) 2.02 H (0.82-1.09) Result Diagrams: 05/24/19 03:50 05/24/19 03:50 Lab Statement: Any lab studies that have been ordered have been reviewed, and results considered in the medical decision making process. - Radiology CXR Radiology Interpretation Completed By: ED Physician Summary of Radiographic Findings: Impression: no acute process. - EKG 0320 Cardiac Rate: NL - 78 BPM EKG Rhythm: Atrial Fibrillation Summary of EKG Findings: EKG at 0320 shows 78 BPM, a-fib, no STEMI Re-Evaluation - Re-Evaluation First Eval Re-Evaluation Time: 05:06 Comment: Hemoglobin is 5.8 so pt will get transfused and admitted Second Eval Change: Worse - Blood pressure 70/30, second IV established. Plan for admission to the ICU, discussed with Dr. Stahl who accepts. Will consult GI w updates. Considering anticoagulation reversal. Dr. Lopez aware of patient and will monitor BP until she is able to go to ICU. Course/Dx - Course Course Of Treatment: 69-year-old female with history of lung cancer, afib on eliquis, recent transfusion 2/2 anemia presents with fatigue and shortness of breath. Physical examination elderly female, pale conjunctiva. Lungs clear bilaterally. Bright red blood per rectum. Suspect that shortness of breath secondary to anemia. Well check labs including a type and screen, given 1 L of fluids for blood pressure in the 80s and plan for admission - Diagnoses Provider Diagnoses: Anemia, Rectal bleeding - Physician Notifications Discussed Care of Patient With: Danna Bowers Time Discussed With Above Provider: 06:08 Instructed by Provider To: Other - Dr. Bowers agrees to admit pt. On re eval at 7:08, patient BP soft w multiple bloody BMs, will admit to ICU. - Critical Care Time Critical Care Time: 30-74 min - 30 minutes for hemodynamic instability Discharge ED - Sign-Out/Discharge Documenting (check all that apply): Patient Departure - admit Patient Received Moderate/Deep Sedation with Procedure: No - Discharge Plan Condition: Guarded Disposition: ADMITTED TO [facility] Referrals: Cristiano Choi MD [Primary Care Provider] - - Billing Disposition and Condition Condition: GUARDED Disposition: Admitted to [facility] - Attestation Statements Document Initiated by Shivani: Yes Documenting Scribe: Estuardo Grigsby Provider For Whom Shivani is Documenting (Include Credential): Dr. Suad Michel MD Scribe Attestation: Estuardo Bell scribed for Dr. Suad Michel MD on 05/24/19 at 0743. Scribe Documentation Reviewed: Yes Provider Attestation: The documentation as recorded by the Estuardo osei accurately reflects the service I personally performed and the decisions made by me, Dr. Suad Michel MD Status of Scribe Document: Viewed
[2019-05-24 04:31] LABS: Albumin 2.8 g/dL (3.2-5.2); Albumin/Globulin Ratio 1.6 (1-3); BUN/Creatinine Ratio 43.7 (8-20); Calcium 9.1 mg/dL (8.6-10.3); EGFR African American 36.8 (>60); EGFR Non-African American 30.4 (>60); Globulin 1.7 g/dL (2-4); Potassium 4.7 mmol/L (3.5-5.0); Total Bilirubin 0.7 mg/dL (0.2-1.0); Total Protein 4.5 g/dL (6.4-8.9)
[2019-05-24 05:04] LABS: ABS Basophils 0.1 10^3/ul (0-0.2); ABS Lymphocytes 0.5 10^3/ul (1.0-4.8); ABS Monocytes 0.4 10^3/ul (0-0.8); ABS Neutrophils 9.6 10^3/ul (1.5-7.7); ABS Nucleated RBC 0.1 10^3/ul; Eosinophil % 0.1 %; Hematocrit 17 % (35-47); Hemoglobin 5.8 g/dL (12.0-16.0); Lymphocyte % 4.5 %; Mean Corpuscular HGB Conc 33 g/dL (31-36); Mean Corpuscular Hemoglobin 33 pg (27-31); Mean Corpuscular Volume 100 fL (80-97); Mean Platelet Volume 7.6 fL (7.4-10.4); Nucleated Red Blood Cells % 0.4; Platelet Count 184 10^3/uL (150-450); Red Blood Count 1.74 10^6 /uL (3.70-4.87); Red Cell Distribution Width 21 % (10-15); White Blood Count 10.6 10^3/uL (3.5-10.8)
--- NOTE | 2019-05-24 07:50 | PN ---
Progress Note - Progress Note Date of Service: 05/24/19 SOAP: Subjective: Patient well known to our service. 69 yo F w PMH of T4N0 SCC of the lung sp carbo/taxol/RT, and most recently durvalumab (04/15 and 05/20), on eliquis for afib, presenting with SOB and louis melena, and found to have a Hb of 5.8 and is hypotensive. She was recently in the hospital at the end of March/ beginning of April with PNA. She had an acute drop in her Hb at that time and was found to have a large (14cm) abdominal wall hematoma in the setting of eliquis usage and acute renal failure. Her eliquis was stopped and she stabilized. She resumed her eliquis on Friday of last week. She had her second dose of durvalumab on 05/20. Yesterday at 5 pm she developed crampy diarrhea. She did not look at the color of the stool. She became progressively more SOB and so came into the ER because she could not get back and forth to the bathroom. In the ER she has had 5 bowel movements with pasty, frankly bloody stools. Her Hb is 5.8. Her last eliquis was at 7 pm last night. She is in acute renal failure with a Bun/Creatinine of 73/1.67. she is hypotensive in the 70-90 range systolic. She has received 1L NS bolus and is getting her first unit of blood. Objective: Vital Signs Temp Pulse Resp BP Pulse Ox 96.8 F 81 20 93/55 100 05/24/19 02:46 05/24/19 05:00 05/24/19 05:00 05/24/19 04:53 05/24/19 05:00 lying flat, uncomfortable appearing op moist CTA anteriorly tachycardic (110s) obese, soft, nt large ecchymoses lower panus no le edema port accessed clean pasty dark brown stool with louis clots of blood mixed in A+O x 3 Laboratory Results - last 24 hr 05/24/19 05/24/19 05/24/19 03:50 03:50 03:50 WBC 10.6 RBC 1.74 L Hgb 5.8 L* Hct 17 L MCV 100 H MCH 33 H MCHC 33 RDW 21 H Plt Count 184 MPV 7.6 Neut % (Auto) 90.7 Lymph % (Auto) 4.5 [place] % (Auto) 4.2 Eos % (Auto) 0.1 Baso % (Auto) 0.5 Absolute Neuts (auto) 9.6 H Absolute Lymphs (auto) 0.5 L Absolute Monos (auto) 0.4 Absolute Eos (auto) 0.0 Absolute Basos (auto) 0.1 Absolute Nucleated RBC 0.1 Nucleated RBC % 0.4 INR (Anticoag Therapy) 2.02 H Sodium 138 Potassium 4.7 Chloride 102 Carbon Dioxide 26 Anion Gap 10 BUN 73 H Creatinine 1.67 H Est GFR ( Amer) 36.8 Est GFR (Non-Af Amer) 30.4 BUN/Creatinine Ratio 43.7 H Glucose 239 H Calcium 9.1 Total Bilirubin 0.70 AST 10 L ALT 9 Alkaline Phosphatase 37 Total Protein 4.5 L Albumin 2.8 L Globulin 1.7 L Albumin/Globulin Ratio 1.6 Blood Type Antibody Screen Crossmatch Home Medications Medication Instructions Recorded Confirmed Type Sitaglipt/Metform (NF) 1 tab PO BID 11/14/13 05/24/19 History [Janumet (NF)] dilTIAZem HCl [Diltiazem 12Hr ER] 300 mg PO QAM 11/14/13 05/24/19 History Digoxin [Digitek] 0.125 mg PO SEE INSTRUCTIONS 07/06/17 05/24/19 History Exenatide Microspheres [Bydureon 2 mg SUBCUT WEEKLY 07/06/17 05/24/19 History Pen] Furosemide TAB* [Lasix TAB*] 20 mg PO SEE INSTRUCTIONS 07/06/17 05/24/19 History Albuterol 2.5MG/3ML (0.083%)* 2.5 mg INH Q4H PRN #60 neb.adia 10/19/18 05/24/19 Rx [Ventolin 2.5 MG/3 ML NEB.ADIA*] Lisinopril TAB* [Prinivil TAB 10 10 mg PO QPM 10/19/18 05/24/19 History MG*] Metoprolol Succinate XL TAB* 12.5 mg PO QAM 10/19/18 05/24/19 History [Toprol XL TAB*] Aspirin TAB* [Aspirin 325 MG TAB*] 325 mg PO DAILY 04/23/19 05/24/19 History Atorvastatin* [Lipitor 20 MG*] 20 mg PO DAILY 04/23/19 05/24/19 History Budesonide/Formote 80/4.5(NF) 1 puff INH BID 04/23/19 05/24/19 History [Symbicort 80/4.5 (NF)] Chlorthalidone TAB* 25 mg PO EVERY OTHER DAY 04/23/19 05/24/19 History glyBURIDE TAB* [Diabeta TAB*] 5 mg PO DAILY 04/23/19 05/24/19 History Cyanocobalamin (Vitamin B-12) 1,000 mcg PO DAILY 30 Days #30 05/03/19 05/24/19 Rx [B-12] tablet Assessment: 69 yo F w T4N0 SCC of the lung sp 2 doses of durvalumab, most recently 05/20, afib on eliquis, presenting with SOB and diarrhea since yesterday, found to be profoundly anemic and hypotensive with louis melena and clots of blood. Plan: Admit to ICU/traffic worker service I would like to give Andexxa but unfortunately there is no nursing support for this and so we will give a dose of kaycentra (50u/kg) stat now -start PPI drip -GI consult paged, though apparently not available until 8 am -2 U PRBC -NPO -will start steroids in case there is a component of immunotherapy related colitis (solumedrol 100 mg IV daily or 135mg PO prednisone when taking PO) until scope performed to delineate cause Afib: hold PO meds, hypotensive hold ASA and eliquis DM: NPO insulin sliding scale hold oral meds ARF: likely prerenal azotemia getting fluids and blood SOB: likely related to profound anemia, but w recent PNA and ?inflitrate on CXR will get chest CT No DVT prophylaxis given GI bleed full code
[2019-05-24] MEDS ORDERED: Pantoprazole IV* 40 MG IV ONE (07:55)
[2019-05-24] MEDS ORDERED: Pantoprazole* 80 mg IN NS 80 MG/250 ML BAG IV ONE (07:55)
[2019-05-24] MEDS ORDERED: methylPREDNISolone 125 MG* 2 ML VIAL IV ONE (08:17)
--- NOTE | 2019-05-24 08:20 | ED ---
Progress - Progress Note Progress Note: Care of patient assumed by Dr. Lopez from Dr. Michel at 0700 05/24/19 shift change. 0730 - Patient is hypotensive. BP 76/40 noted on vitals. Patient has been having diarrhea and is with bright red blood per rectum. Patient states that she has been SOB and having abdominal pain. Abdominal pain is characterized as "trapped gas". She endorses Hx of PNA and states that she has previously received immunology treatments. Patient is on furosemide, which she takes 5 days a week, as well as Eliquis. Patient took her meds last night. Chest pain and Hx of fluid on lungs are denied. Patient is anemic. Additional units of blood ordered. While ordering k-centra, patient's weight had to be adjusted in computer system. It is reported that Dr. Stahl, ICU, will not be on unit until 0930 today, . Patient's status was discussed with Dr. Stahl at 0809. Dr. Stahl is aware of critical nature of the patient. Patient to be admitted by Dr. Stahl 0845 - Peripheral IV has been initiated by vascular access team. Patient has systolic BP of 96. Endoscopy team at bedside. 0926 - Systolic BP in 120s, endoscopy in progress. 0928 - Dr. Stahl in ED, patient's case was discussed. Patient to be admitted to ICU by Dr. Stahl. Re-Evaluation - Re-Evaluation First Eval Re-Evaluation Time: 07:30 Change: Worse Comment: Blood pressure 76/40, second IV established. Plan for admission to the ICU, discussed with Dr. Stahl who accepts. Will consult GI w updates. Considering anticoagulation reversal. Dr. Lopez aware of patient and will monitor BP until she is able to go to ICU. Second Eval Re-Evaluation Time: 08:45 Change: Improved Comment: 0845 - Peripheral IV has been initiated by vascular access team. Patient has systolic BP of 96. Endoscopy team at bedside. Third Eval Re-Evaluation Time: 09:26 Change: Improved Comment: Systolic BP is 120s, endoscopy in progress. Course/Dx - Course Course Of Treatment: Care of patient assumed by Dr. Lopez from Dr. Michel at 0700 05/24/19 shift change. 0730 - Patient is hypotensive. BP 76/40 noted on vitals. Patient has been having diarrhea and is with bright red blood per rectum. Patient states that she has been SOB and having abdominal pain. Abdominal pain is characterized as "trapped gas". She endorses Hx of PNA and states that she has previously received immunology treatments. Patient is on furosemide, which she takes 5 days a week, as well as Eliquis. Patient took her meds last night. Chest pain and Hx of fluid on lungs are denied. Patient is anemic. Additional units of blood ordered. While ordering k-centra, patient's weight had to be adjusted in computer system. During ED course, patient received fluids, protonix, solu-medrol as well. It is reported that Dr. Stahl, ICU, will not be on unit until 929 today, 05/24/19. Patient's status was discussed with Dr. Stahl at 0809. Dr. Stahl is aware of critical nature of the patient. 925 - Systolic BP in 120s, endoscopy in progress. 927 - Dr. Stahl in ED, patient's case was discussed. Patient to be admitted to ICU by Dr. Stahl. Endoscopy will be completed, report pending at time of admission to ICU. - Diagnoses Provider Diagnoses: Acute GI bleeding, Hypovolemic shock - Provider Notifications Discussed Care Of Patient With: Mil Stahl Time Discussed With Above Provider: 08:09 Instructed by Provider To: Other - It is reported that Dr. Stahl, ICU, will not be on unit until 929 today, 05/24/19. Patient's status was discussed with Dr. Stahl at 0809. Dr. Stahl is aware of critical nature of the patient. 927 - Dr. Stahl in ED, patient's case was discussed. Patient to be admitted to ICU by Dr. Stahl. - Critical Care Time Critical Care Time: 30-74 min - 60 minutes of CCT Discharge ED - Sign-Out/Discharge Documenting (check all that apply): Patient Departure - admit All imaging exams completed and their final reports reviewed: Yes Patient Received Moderate/Deep Sedation with Procedure: No - Discharge Plan Condition: Guarded Disposition: ADMITTED TO [facility] - Attestation Statements Document Initiated by Scribe: Yes Documenting Scribe: RICHARD BATISTA Provider For Whom Scribe is Documenting (Include Credential): SRINIVAS LOPEZ MD Scribe Attestation: IRICHARD, scribed for SRINIVAS LOPEZ MD on 05/24/19 at 1322. Status of Scribe Document: Ready
[2019-05-24] MEDS ORDERED: Midazolam* 1 MG/ML 10 ML VIAL (10 MG) ONE (08:35)
[2019-05-24] MEDS ORDERED: fentaNYL* 50 MCG/ML 2 ML VIAL (100 MCG VIAL) ONE (08:35)
[2019-05-24] MEDS ORDERED: NS 0.9% 500 ML* 500 ML IV ONE (09:35)
[2019-05-24] MEDS ORDERED: Albuterol 2.5 MG/3 ML NEB.SOL* (0.083%) INH PRN (09:45)
[2019-05-24] MEDS: NS 0.9% 1000 ML** 1,000 ML IV SCH ×3 (10:02→19:52)
[2019-05-24] MEDS: Insulin LISPRO* 1 UNITS UNIT SUBCUT SCH ×4 (11:41→22:01)
--- NOTE | 2019-05-24 13:38 | HP ---
ADMISSION HISTORY AND PHYSICAL: DATE OF ADMISSION: 05/24/19 HISTORY OF PRESENT ILLNESS: The patient is a 69-year-old female with known lung cancer, maintained o n Eliquis for atrial fibrillation, who presented to the emergency department with diarrhea and genera lized complaints. She was found to have acute blood loss anemia and, in fact, hemorrhagic shock. jem underwent urgent endoscopy in the emergency department. She has been started on a PPI drip. She r eceived 4-factor prothrombin complex concentrate for reversal of her novel anticoagulant and has sinc e received 3 units of packed red blood cells and 2 L of crystalloid. I have now brought her up to [facility] ICU. She is on 150 cc an hour of normal saline. She has no particular complaints and is resting a t this time with improved hemodynamics. She had had a systolic blood pressure as low as 60 in the em ergency department. She is now in the 90s to 100s. PAST MEDICAL HISTORY: Significant for squamous cell lung cancer, treated with carbo/Taxol and x-ray therapy. Most recently, has been started on immunotherapy, has received [address] Macho henning, this could be a source of colitis and Dr. Bowers did give her a solid dose of Solu-Medrol to c over for that entity. Other past medical history is significant for atrial fibrillation; on anticoagu lation, historical EF of 55%. She has a history of COPD, diastolic heart failure, type 2 diabetes, h ypertension, obesity, osteoarthritis, and sleep apnea. PAST SURGICAL HISTORY: Remarkable for hysterectomy. MEDICATIONS: Her medication list at home included: 1. Tylenol. 2. Albuterol. 3. Aspirin. 4. Atorvastatin. 5. Bydureon. 6. Calcium. 7. Magnesium. 8. Zinc. 9. Cartia XT 300 mg. 10. Chlorthalidone 25 mg. 11. Digoxin 125 mcg. 12. Eliquis 5 mg twice a day. 13. Lasix. 14. Glyburide. 15. Iron. 16. Janumet XR . 17. Lisinopril 10 mg daily. 18. Metoprolol 12.5 mg daily. 19. Symbicort 80/4.5 two puffs b.i.d. ALLERGIES: She has recorded allergy to POTASSIUM CHLORIDE EXTENDED RELEASE. FAMILY HISTORY: Remarkable for heart disease in her mother and leukemia in her father. SOCIAL HISTORY: She is , lives alone. She is a retired temporary staff accountant. Former smoker, 60 to 80 pack-years, having quit 15 years ago. Nondrinker. REVIEW OF SYSTEMS: As detailed in HPI. Additionally, denies anginal equivalents of shortness of des ath, chest pain, or arm radiation. Denies focal motor weakness, visual change, headache, or neck sti ffness. PHYSICAL EXAMINATION GENERAL: She is a well-developed, obese female, in no acute distress at this time. HEENT: She is normocephalic, atraumatic. Pupils are equal and reactive to light. NECK: Supple, nontender, without JVD. LUNGS: Decreased entry at the bases. HEART: She has S1 and S2, regular. ABDOMEN: Soft, obese, nontender. She has a large ecchymotic area on the lower pannus, which was rec ognized on a prior admission as a hematoma. Reportedly, this is stable. EXTREMITIES: She has no edema. NEUROLOGIC: She is grossly neurologically intact. SKIN: She has some scattered small ecchymotic areas consistent with friable skin in a patient on ant icoagulation. DIAGNOSTIC STUDIES/LAB DATA: Laboratory evaluations revealing a hemoglobin of 5.8 even prior to any crystalloid resuscitation, platelet count of 184, and a white count of 10.6. Serum sodium 138, pota ssium 4.7, chloride 102, bicarb 26, BUN and creatinine are 73/1.7 with a glucose of 239. LFTs are gr ossly normal. Her INR notably is 2.02, on Eliquis. She had a CT of the chest, abdomen, and pelvis: Findings include stable hematoma of the right rectus abdominis measuring 10 cm transversely, felt to be similar in size and appearance to 05/02/19 CT sca n. Stable left lower lobe lung mass, small left pleural effusion, atherosclerosis, cholelithiasis, f at-containing umbilical hernia, and diverticulosis. ASSESSMENT AND PLAN: This is a 69-year-old female with advanced lung cancer, undergoing immunotherap y, on Eliquis for atrial fibrillation, who presents with apparent gastrointestinal bleed. It seems a s though her anticoagulation got ahead of her. She has a measurable INR at 2.02. This suggests to [place] that the renal failure may actually have begun before the bleeding and perhaps she has had decrease d clearance of her Eliquis ultimately resulting in over-anticoagulation as demonstrated by her INR. She has received Kcentra, which most assuredly has corrected this. She has now stabilized hemodynami armando. I have her on crystalloid at 150 cc an hour after her 3 units of packed red blood cells. I a m giving her a little while to equilibrate. We will repeat labs in another hour and a half including a lactate. We will see based on those when repeats need to be performed and if she needs further tr ansfusion at that time. She is on a Protonix drip per GI. I have not yet seen the formal findings o f her EGD. I am told an ulcer was seen. I have held all of her home p.o. medications, especially th ose with hemodynamic consequences. I have held all of her diabetic medications and placed her on ins ulin. I have written for her chronic obstructive pulmonary disease inhalers, and based upon GI findi ngs and the liberalization of her diet, we will start to get her back on some of her p.o.'s, likely a s soon as tomorrow. TIME SPENT: The aggregate time providing critical care as well as personally interpreting multiple l aboratory evaluations, imaging studies, reviewing the medical records, and discussing the case with o ther physicians including Dr. Bowers; ED attending, Dr. Lopez; and ED attending, Dr. Michel, has thus far exceeded 60 minutes. [id number]/[facility] #: [id number]
[2019-05-24 14:33] LABS: Hematocrit 26 % (35-47); Hemoglobin 8.9 g/dL (12.0-16.0); Mean Corpuscular HGB Conc 35 g/dL (31-36); Mean Corpuscular Hemoglobin 32 pg (27-31); Mean Corpuscular Volume 92 fL (80-97); Mean Platelet Volume 7.4 fL (7.4-10.4); Platelet Count 131 10^3/uL (150-450); Red Blood Count 2.78 10^6 /uL (3.70-4.87); Red Cell Distribution Width 17 % (10-15); White Blood Count 10.6 10^3/uL (3.5-10.8)
--- NOTE | 2019-05-24 15:20 | CONS ---
CC: Dr. Bowers * CONSULTATION REPORT: DATE OF CONSULT: 05/24/19 LOCATION: Emergency room, room 8. REQUESTING PHYSICIAN: Dr. Lopez. INDICATION: Anemia, melena, hemorrhage of rectum and anus. NARRATIVE: Ms. Del Real is a very pleasant 69-year-old female who has a history of lung cancer. She also is on Eliquis for atrial fibrillation. She states that for the past week or so, she has been having diarrhea. For the past few days, it has been very dark. She is also describing a left upper quadrant pain for the past 2 weeks that she has mentioned to her physician. She states that it is located underneath her left breast. It feels like a dull ache that can sometimes be sharp. She does take 1 baby aspirin every day. She is also on the Eliquis. She denies any other nonsteroidals. She states that she resumed her Eliquis about a week ago after it was held, I believe secondary to an abdominal wall hematoma. She has been feeling more short of breath and fatigued. This morning, she noted that her stools had bright red blood in them. She then presented to the emergency room. Upon presentation, she was hypotensive and her hemoglobin was found to be 5.8 and I was called for an evaluation. The patient is pale. She does complain of the left- sided abdominal pain. She again denies any GI bleeding in the past. PAST MEDICAL HISTORY: Significant for lung cancer, status post radiation and chemotherapy; atrial fibrillation; COPD; type 2 diabetes; hypertension; obesity ; and obstructive sleep apnea. PAST SURGICAL HISTORY: Includes a hysterectomy. MEDICATIONS UPON ADMISSION: Include: 1. Albuterol. 2. Aspirin 81 mg. 3. Atorvastatin. 4. Bydureon. 5. Calcium. 6. Magnesium. 7. Zinc. 8. Digoxin. 9. Eliquis 5 mg twice a day. 10. Lasix. 11. Glyburide. 12. Janumet. 13. Lisinopril. 14. Metoprolol 12.5 mg. 15. Symbicort. ALLERGIES: POTASSIUM. FAMILY HISTORY: Positive for coronary artery disease. SOCIAL HISTORY: She quit smoking many years ago. Denies any alcohol use. REVIEW OF SYSTEMS: Twelve systems were reviewed. Other than that mentioned in the HPI were unremarkable. PHYSICAL EXAMINATION: Blood pressure 95/61, pulse 98, respiratory rate 22, O2 sat is 100%, temperature 96.8. General: Chronically ill-appearing female, lying flat in bed, alert, oriented, pleasant, fluent, pale. HEENT: Mucous membranes are dry. Conjunctivae are pale. Neck is supple. Trachea is midline. Head is normocephalic, atraumatic. Heart: Irregular rate and rhythm. Lungs: Clear to auscultation. Abdomen: Positive bowel sounds, soft, nontender, nondistended. Slight left upper quadrant tenderness. No rebound, no guarding. Skin is warm and dry, slightly cool to the touch. DIAGNOSTIC STUDIES/LAB DATA: Labs of note, white count of 10.6, hemoglobin 5.8 , platelets of 184. INR is 2.02. Chemistries showed BUN of 73, creatinine of 1.67, bilirubin is 0.7. ASSESSMENT AND PLAN: This is a pleasant 69-year-old female who presents with anemia, melena, and bright red blood per rectum. She is hypotensive. She is on an aspirin and Eliquis. She has been having diarrhea for the past few days. Possibilities would include upper gastrointestinal source versus lower gastrointestinal source. Upper could be peptic ulcer disease related to her NSAID use. Could also be erosive esophagitis, could be Dieulafoy's. Additionally, she could have a lower source such as diverticular bleeding, a polyp, a malignancy. The patient tells me she has never had a colonoscopy. Her Eliquis is being reversed. She has been started on fluids and blood products. She has 2 large-bore IVs, and I will make arrangements for an urgent endoscopy in the emergency room. This was discussed with the patient. She is understanding and agreeable to proceed. [id number]/[facility] #: [id number] [facility]
--- NOTE | 2019-05-24 16:52 | PRO ---
DATE OF PROCEDURE: 05/24/19 PROCEDURE: EGD in the emergency room, an emergency procedure. INDICATION: Hypotension, melena, bright red blood per rectum. MEDICATIONS GIVEN: 7 mg IV Versed. No fentanyl. DESCRIPTION OF PROCEDURE: After the EGD procedure including the risks, benefits , and alternatives, not limited to perforation, surgery, and/or were explained to the patient, written consent was then obtained, IV medication was given, and a bite-block was placed between the teeth. An Olympus gastroscope was then inserted into the patient's mouth, advanced down the esophagus, into the stomach, into the distal duodenum. In the esophagus, at the GE junction, the Z-line was intact. No erosive esophagitis, stricture, or ring was seen. Scope was advanced into the stomach. Retroflexed view confirmed patulous GE junction. She does have a large hiatal hernia. Forward view revealed wisps of acid hematin. Scope was advanced through the widely patent pylorus. Unfortunately, she does have a large hiatal hernia, made it little difficult to advance the scope through the pylorus and into the duodenal bulb. Immediately upon entering the duodenal bulb, there was fresh blood. I did wash and suction as best I could. There was an approximately 5 mm ulcer that was clean-based except for the bottom aspect, which did have a protuberant red spot/vessel that was oozing. After washing and suctioning, it eventually did stop. At that point, I then cleared the rest of the duodenum. I did see 2 smaller erosions/ ulcers; however, nothing seemed to be actively bleeding elsewhere. I then attempted to place 2 clips over the blood vessel in the base of the ulcer. It was a fairly deep ulcer, ulcerating crater. Unfortunately, the first clip I could not reach all the way across from one heaped-up edge of the ulcer to the other and it did not deploy successfully and sloughed off. I then reattempted with another clip; however, given the angulation and the width of the ulcer, I unfortunately was not able to grab purely ulcer tissue and was afraid that I was going to damon the blood vessel. I terminated the application of the second clip and then used a BICAP cautery probe to apply 2 short bursts of cautery to the blood vessel. No active bleeding was seen. Hemostasis seemed to occur adequately. I then washed and suctioned for a few minutes. No active bleeding was seen. The scope was then withdrawn from the patient. She tolerated the procedure well and is going to be admitted to the intensive care unit. IMPRESSION: 1. Complete upper endoscopy into the distal duodenum with BICAP cauterization for cessation of bleeding. 2. Duodenal ulcer, likely secondary to her aspirin use contributed bleeding from the Eliquis. 3. BICAP cauterization of the ulcerated area and blood vessel, 30% to 40% rebleed risk. 4. She should remain on her IV PPI for at least 3 to 5 days with close monitoring in the ICU. This was communicated with her oncologist. [id number]/[facility] #: [id number] MARIBEL
[2019-05-24] MEDS: Pantoprazole* 80 mg IN NS 80 MG/250 ML BAG IV SCH ×2 (18:22→19:51)
[2019-05-24] MEDS: Mometasone/Formoter 100/5 MDI INH SCH (19:34)
[2019-05-24] MEDS ORDERED: Melatonin 3 MG TAB PO PRN (20:20)
[2019-05-24] MEDS: Insulin GLARGINE(*) 1 UNITS UNIT SUBCUT SCH (22:01)
[2019-05-25] MEDS: Insulin LISPRO* 1 UNITS UNIT SUBCUT SCH ×6 (01:35→20:17)
[2019-05-25] MEDS: Pantoprazole* 80 mg IN NS 80 MG/250 ML BAG IV SCH ×4 (04:29→17:29)
[2019-05-25 05:27] LABS: Hematocrit 22 % (35-47); Hemoglobin 7.5 g/dL (12.0-16.0); Mean Corpuscular HGB Conc 34 g/dL (31-36); Mean Corpuscular Hemoglobin 32 pg (27-31); Mean Corpuscular Volume 93 fL (80-97); Mean Platelet Volume 7.3 fL (7.4-10.4); Platelet Count 125 10^3/uL (150-450); Red Blood Count 2.37 10^6 /uL (3.70-4.87); Red Cell Distribution Width 18 % (10-15); White Blood Count 8.6 10^3/uL (3.5-10.8)
[2019-05-25 05:46] LABS: Albumin 2.5 g/dL (3.2-5.2); Albumin/Globulin Ratio 1.6 (1-3); BUN/Creatinine Ratio 54.5 (8-20); Calcium 7.6 mg/dL (8.6-10.3); EGFR African American 58.4 (>60); EGFR Non-African American 48.2 (>60); Globulin 1.6 g/dL (2-4); Magnesium 1.5 mg/dL (1.9-2.7); Phosphorus 3.5 mg/dL (2.5-5.0); Potassium 3.9 mmol/L (3.5-5.0); Total Bilirubin 0.7 mg/dL (0.2-1.0); Total Protein 4.1 g/dL (6.4-8.9)
[2019-05-25] MEDS: NS 0.9% 1000 ML** 1,000 ML IV SCH (06:07)
[2019-05-25] MEDS: Mometasone/Formoter 100/5 MDI INH SCH ×2 (09:24→19:12)
[2019-05-25] MEDS ORDERED: Acetaminophen TAB* 325 MG PO PRN ×2 (09:32→09:39)
--- NOTE | 2019-05-25 09:42 | PN ---
Progress Note - Progress Note Date of Service: 05/25/19 SOAP: Subjective: [Diane reports that she is feeling much better today. No additional BMs overnight or this am. She continues to complain of L sided flank pain and can' t find a way to get comfortable this morning. No nausea. ] Objective: [ Vital Signs: Temp Pulse Resp BP Pulse Ox 97.7 F 80 17 127/73 99 05/25/19 08:00 05/25/19 09:01 05/25/19 09:01 05/25/19 09:01 05/25/19 09:01 Acetaminophen (Tylenol Tab*) 650 mg PO Q6H PRN PRN Reason: PAIN - MILD Albuterol (Ventolin 2.5 Mg/3 Ml Neb.Nadia*) 2.5 mg INH Q4H PRN PRN Reason: SHORTNESS OF BREATH Pantoprazole Sodium (Protonix Iv Bag*) 80 mg in 250 mls @ 25 mls/hr IV Q10H PAUL ; Protocol Last Admin: 05/25/19 06:07 Dose: 25 mls/hr Sodium Chloride (Ns 0.9% 1000 Ml) 1,000 mls @ 75 mls/hr IV PER RATE PAUL Last Admin: 05/25/19 06:07 Dose: 75 mls/hr Insulin Glargine (Lantus(*)) 12 units 0.12 units/kg (12 units) SUBCUT 2100 PAUL Last Admin: 05/24/19 22:01 Dose: 12 units Insulin Human Lispro (Humalog*) 0 units SUBCUT Q4HR PAUL; Protocol Last Admin: 05/25/19 09:04 Dose: Not Given Melatonin (Melatonin) 3 mg PO BEDTIME PRN PRN Reason: SLEEP Last Admin: 05/24/19 22:01 Dose: 3 mg Mometasone Furoate/Formoterol Fumar (Dulera 100/5 Mdi*) 1 puff INH BID PAUL Last Admin: 05/25/19 09:24 Dose: 1 puff Simethicone (Mylicon Tab*) 80 mg PO Q6H PRN PRN Reason: gas pain Tramadol HCl (Ultram*) 50 mg PO Q8H PRN PRN Reason: PAIN - MODERATE Laboratory Results - last 24 hr 05/24/19 05/24/19 05/24/19 03:50 11:22 14:16 WBC RBC Hgb Hct MCV MCH MCHC RDW Plt Count MPV Sodium Potassium Chloride Carbon Dioxide Anion Gap BUN Creatinine Est GFR ( Amer) Est GFR (Non-Af Amer) BUN/Creatinine Ratio Glucose POC Glucose (mg/dL) 174 H 210 H Hemoglobin A1c Lactic Acid Calcium Ionized Calcium Phosphorus Magnesium Total Bilirubin AST ALT Alkaline Phosphatase Total Protein Albumin Globulin Albumin/Globulin Ratio Blood Type A Negative Antibody Screen Negative Crossmatch See Detail 05/24/19 05/24/19 05/24/19 14:21 14:21 14:21 WBC 10.6 RBC 2.78 L Hgb 8.9 L Hct 26 L MCV 92 MCH 32 H MCHC 35 RDW 17 H Plt Count 131 L MPV 7.4 Sodium Potassium Chloride Carbon Dioxide Anion Gap BUN Creatinine Est GFR ( Amer) Est GFR (Non-Af Amer) BUN/Creatinine Ratio Glucose POC Glucose (mg/dL) Hemoglobin A1c 5.4 Lactic Acid Calcium Ionized Calcium 1.21 Phosphorus Magnesium Total Bilirubin AST ALT Alkaline Phosphatase Total Protein Albumin Globulin Albumin/Globulin Ratio Blood Type Antibody Screen Crossmatch 05/24/19 05/24/19 05/24/19 14:21 17:44 21:53 WBC RBC Hgb Hct MCV MCH MCHC RDW Plt Count MPV Sodium Potassium Chloride Carbon Dioxide Anion Gap BUN Creatinine Est GFR ( Amer) Est GFR (Non-Af Amer) BUN/Creatinine Ratio Glucose POC Glucose (mg/dL) 205 H 173 H Hemoglobin A1c Lactic Acid 1.1 Calcium Ionized Calcium Phosphorus Magnesium Total Bilirubin AST ALT Alkaline Phosphatase Total Protein Albumin Globulin Albumin/Globulin Ratio Blood Type Antibody Screen Crossmatch 05/25/19 05/25/19 05/25/19 01:15 05:17 05:18 WBC 8.6 RBC 2.37 L Hgb 7.5 L Hct 22 L MCV 93 MCH 32 H MCHC 34 RDW 18 H Plt Count 125 L MPV 7.3 L Sodium Potassium Chloride Carbon Dioxide Anion Gap BUN Creatinine Est GFR ( Amer) Est GFR (Non-Af Amer) BUN/Creatinine Ratio Glucose POC Glucose (mg/dL) 137 H 115 H Hemoglobin A1c Lactic Acid Calcium Ionized Calcium Phosphorus Magnesium Total Bilirubin AST ALT Alkaline Phosphatase Total Protein Albumin Globulin Albumin/Globulin Ratio Blood Type Antibody Screen Crossmatch 05/25/19 05/25/19 05/25/19 05:18 05:18 09:01 WBC RBC Hgb Hct MCV MCH MCHC RDW Plt Count MPV Sodium 142 Potassium 3.9 Chloride 112 H Carbon Dioxide 26 Anion Gap 4 BUN 61 H Creatinine 1.12 H Est GFR ( Amer) 58.4 Est GFR (Non-Af Amer) 48.2 BUN/Creatinine Ratio 54.5 H Glucose 108 H POC Glucose (mg/dL) 122 H Hemoglobin A1c Lactic Acid Calcium 7.6 L Ionized Calcium 1.12 L Phosphorus 3.5 Magnesium 1.5 L Total Bilirubin 0.70 AST 7 L ALT 7 Alkaline Phosphatase 32 L Total Protein 4.1 L Albumin 2.5 L Globulin 1.6 L Albumin/Globulin Ratio 1.6 Blood Type Antibody Screen Crossmatch Exam: Gen: chronically ill appearing 69 yo female in NAD HEENT: MMM CV: RRR, no m/r/g Resp: CTA, no w/c/r Abd: soft and nonTTP, unable to reproduce L flank pain Ext: chronic stasis changes, 1+ edema] Assessment: [This is a 69 yo female with h/o NSCLC recently hospitalized for PNA c/b abdominal wall hematoma who recently resumed Eliquis and presented with a GIB. She is now s/p cautery of a duodenal ulcer.] Plan: [1. GIB secondary to duodenal ulcer - drop in Hgb overnight, but no additional stools - cont protonix drip - transfuse 1 additional unit of PRBCs - advance to clear liquids, but closely monitor for re-bleeding 2. NSCLC - plan to resume durvalumab following dc 3. Afib - rate controlled - eliquis held 4. Abd wall hematoma - stable 5. DM - manage with basal/bolus insulin during acute stay and transition back to oral regimen has she resumes her usual oral intake ]
--- NOTE | 2019-05-25 09:48 | PN ---
Date of Service: 05/25/19 Critical Care Services: Slept well. Mild gas pain. Feels well overall. "much better" Vital Signs: Temp Pulse Resp BP SpO2 FiO2 36.5 C 80 17 127/73 99 05/25/19 08:00 05/25/19 09:01 05/25/19 09:01 05/25/19 09:01 05/25/19 09:01 Physical Exam: Gen: awake and alert resting comfortably apart from some gas pain HEENT: NCAT, PERRL Lungs: clear Cardiac: S1S2 irregular Abdomen: soft, NT, ND, +BS Extremities: no edema Neuro: A&O, grossly non-focal Fluid Balance (Past 24 Hours): I= O= Net Intake & Output 05/23/19 05/24/19 05/25/19 05/26/19 06:59 06:59 06:59 06:59 Intake Total 1000 3615.3 0 Output Total 545 0 Balance 1000 3070.3 0 Weight 56.699 kg 105.7 kg Intake: IV Fluids 1000 2839 NS (0.9%) 2839 Medicated IV 476.3 pantoprazole 476.3 Oral 0 0 Packed Cells 300 Output: Urine 545 0 Other: Estimated Void Large Date of Last Bowel 05/24/2019 05/24/2019 Movement # Bowel Movements 2 # Voids 1 Labs: Laboratory Results - last 24 hr 05/24/19 05/24/19 05/24/19 03:50 11:22 14:16 WBC RBC Hgb Hct MCV MCH MCHC RDW Plt Count MPV Sodium Potassium Chloride Carbon Dioxide Anion Gap BUN Creatinine Est GFR ( Amer) Est GFR (Non-Af Amer) BUN/Creatinine Ratio Glucose POC Glucose (mg/dL) 174 H 210 H Hemoglobin A1c Lactic Acid Calcium Ionized Calcium Phosphorus Magnesium Total Bilirubin AST ALT Alkaline Phosphatase Total Protein Albumin Globulin Albumin/Globulin Ratio Blood Type A Negative Antibody Screen Negative Crossmatch See Detail 05/24/19 05/24/19 05/24/19 14:21 14:21 14:21 WBC 10.6 RBC 2.78 L Hgb 8.9 L Hct 26 L MCV 92 MCH 32 H MCHC 35 RDW 17 H Plt Count 131 L MPV 7.4 Sodium Potassium Chloride Carbon Dioxide Anion Gap BUN Creatinine Est GFR ( Amer) Est GFR (Non-Af Amer) BUN/Creatinine Ratio Glucose POC Glucose (mg/dL) Hemoglobin A1c 5.4 Lactic Acid Calcium Ionized Calcium 1.21 Phosphorus Magnesium Total Bilirubin AST ALT Alkaline Phosphatase Total Protein Albumin Globulin Albumin/Globulin Ratio Blood Type Antibody Screen Crossmatch 05/24/19 05/24/19 05/24/19 14:21 17:44 21:53 WBC RBC Hgb Hct MCV MCH MCHC RDW Plt Count MPV Sodium Potassium Chloride Carbon Dioxide Anion Gap BUN Creatinine Est GFR ( Amer) Est GFR (Non-Af Amer) BUN/Creatinine Ratio Glucose POC Glucose (mg/dL) 205 H 173 H Hemoglobin A1c Lactic Acid 1.1 Calcium Ionized Calcium Phosphorus Magnesium Total Bilirubin AST ALT Alkaline Phosphatase Total Protein Albumin Globulin Albumin/Globulin Ratio Blood Type Antibody Screen Crossmatch 05/25/19 05/25/19 05/25/19 01:15 05:17 05:18 WBC 8.6 RBC 2.37 L Hgb 7.5 L Hct 22 L MCV 93 MCH 32 H MCHC 34 RDW 18 H Plt Count 125 L MPV 7.3 L Sodium Potassium Chloride Carbon Dioxide Anion Gap BUN Creatinine Est GFR ( Amer) Est GFR (Non-Af Amer) BUN/Creatinine Ratio Glucose POC Glucose (mg/dL) 137 H 115 H Hemoglobin A1c Lactic Acid Calcium Ionized Calcium Phosphorus Magnesium Total Bilirubin AST ALT Alkaline Phosphatase Total Protein Albumin Globulin Albumin/Globulin Ratio Blood Type Antibody Screen Crossmatch 05/25/19 05/25/19 05/25/19 05:18 05:18 09:01 WBC RBC Hgb Hct MCV MCH MCHC RDW Plt Count MPV Sodium 142 Potassium 3.9 Chloride 112 H Carbon Dioxide 26 Anion Gap 4 BUN 61 H Creatinine 1.12 H Est GFR ( Amer) 58.4 Est GFR (Non-Af Amer) 48.2 BUN/Creatinine Ratio 54.5 H Glucose 108 H POC Glucose (mg/dL) 122 H Hemoglobin A1c Lactic Acid Calcium 7.6 L Ionized Calcium 1.12 L Phosphorus 3.5 Magnesium 1.5 L Total Bilirubin 0.70 AST 7 L ALT 7 Alkaline Phosphatase 32 L Total Protein 4.1 L Albumin 2.5 L Globulin 1.6 L Albumin/Globulin Ratio 1.6 Blood Type Antibody Screen Crossmatch Nutrition: Starting clears Impression: 69 y/o female with lung CA and afib on Eliquis has GI hemorrhage and undergoes cautery of a DU during EGD. Now stable 24hrs later. Plan: GI Hemorrhage - apparent DU s/p cautery during EGD. Plan is PPI gtt 3-5 days. Now day #2. Holding Eliquis and ASA. Acute Bloodloss Anemia - hemodynamically stable, stable intravascular volume and clinically euvolemic. Oncology requesting another unit PRBC which has been written. Diabetes - A1C at 5.4 very impressive. On insulin mgmt here, reasonable control with Lantus 12 units last PM and SSIC. Afib - restarted Digoxin and Lopressor. Diltiazem still on hold. HTN - INGRID on hold. Dyslipidemia - statin restarted. OOB. Transfer to floor. D/W Oncology
[2019-05-25] MEDS: Metoprolol Succinate XL TAB* 25 MG PO SCH (10:07)
[2019-05-25] MEDS: Atorvastatin* 20 MG TAB PO SCH (10:09)
[2019-05-25] MEDS: Simethicone TAB* 80 MG TAB.CHEW PO PRN ×2 (10:09→17:39)
[2019-05-25] MEDS: Digoxin TAB* 0.125 MG PO SCH (10:56)
[2019-05-25] MEDS ORDERED: Magnesium Sulfate 4 GM IV IVPB ONE (11:00)
[2019-05-25] MEDS: traMADol TAB* 50 MG PO PRN (14:13)
[2019-05-25 15:39] LABS: Hematocrit 26 % (35-47); Hemoglobin 8.9 g/dL (12.0-16.0)
[2019-05-25] MEDS: Insulin GLARGINE(*) 1 UNITS UNIT SUBCUT SCH (21:29)
[2019-05-25 21:58] LABS: Hematocrit 26 % (35-47); Hemoglobin 8.6 g/dL (12.0-16.0)
[2019-05-26] MEDS: Pantoprazole* 80 mg IN NS 80 MG/250 ML BAG IV SCH ×3 (02:56→20:17)
[2019-05-26] MEDS: traMADol TAB* 50 MG PO PRN ×2 (04:59→13:48)
[2019-05-26 06:10] LABS: ABS Eosinophils 0.1 10^3/ul (0-0.6); ABS Lymphocytes 0.4 10^3/ul (1.0-4.8); ABS Monocytes 0.3 10^3/ul (0-0.8); ABS Neutrophils 6.6 10^3/ul (1.5-7.7); ABS Nucleated RBC 0.1 10^3/ul; Eosinophil % 1.4 %; Hematocrit 24 % (35-47); Lymphocyte % 5.2 %; Mean Corpuscular HGB Conc 34 g/dL (31-36); Mean Corpuscular Hemoglobin 32 pg (27-31); Mean Corpuscular Volume 93 fL (80-97); Mean Platelet Volume 7.5 fL (7.4-10.4); Nucleated Red Blood Cells % 0.7; Platelet Count 125 10^3/uL (150-450); Red Blood Count 2.54 10^6 /uL (3.70-4.87); Red Cell Distribution Width 17 % (10-15); White Blood Count 7.5 10^3/uL (3.5-10.8)
[2019-05-26 06:28] LABS: Albumin 2.7 g/dL (3.2-5.2); Albumin/Globulin Ratio 1.8 (1-3); BUN/Creatinine Ratio 51.6 (8-20); Calcium 7.5 mg/dL (8.6-10.3); EGFR African American 72.3 (>60); EGFR Non-African American 59.8 (>60); Globulin 1.5 g/dL (2-4); Potassium 3.5 mmol/L (3.5-5.0); Total Bilirubin 0.8 mg/dL (0.2-1.0); Total Protein 4.2 g/dL (6.4-8.9)
[2019-05-26] MEDS: Insulin LISPRO* 1 UNITS UNIT SUBCUT SCH ×4 (08:19→21:26)
[2019-05-26] MEDS: Metoprolol Succinate XL TAB* 25 MG PO SCH (09:16)
[2019-05-26] MEDS: Atorvastatin* 20 MG TAB PO SCH (09:16)
[2019-05-26] MEDS: Digoxin TAB* 0.125 MG PO SCH (09:16)
[2019-05-26] MEDS: Mometasone/Formoter 100/5 MDI INH SCH ×2 (09:30→19:40)
[2019-05-26] MEDS: Simethicone TAB* 80 MG TAB.CHEW PO PRN ×2 (10:21→23:35)
--- NOTE | 2019-05-26 10:29 | PN ---
Progress Note - Progress Note Date of Service: 05/26/19 SOAP: Subjective: [Feeling good today. Continues to have some discomfort in the LUQ, no CT correlate. Better with tramadol/gasX.] Objective: [ Vital Signs: Temp Pulse Resp BP Pulse Ox 97.4 F 85 16 99/52 98 05/26/19 07:15 05/26/19 09:33 05/26/19 09:33 05/26/19 07:15 05/26/19 09:33 Acetaminophen (Tylenol Tab*) 650 mg PO Q6H PRN PRN Reason: PAIN - MILD Last Admin: 05/25/19 10:08 Dose: 650 mg Albuterol (Ventolin 2.5 Mg/3 Ml Neb.Nadia*) 2.5 mg INH Q4H PRN PRN Reason: SHORTNESS OF BREATH Atorvastatin Calcium (Lipitor*) 20 mg PO DAILY [facility] Last Admin: 05/26/19 09:16 Dose: 20 mg Digoxin (Lanoxin Tab*) 0.125 mg PO [id number]@0900 [facility] Last Admin: 05/26/19 09:16 Dose: 0.125 mg Pantoprazole Sodium (Protonix Iv Bag*) 80 mg in 250 mls @ 25 mls/hr IV Q10H [facility] ; Protocol Last Admin: 05/26/19 02:56 Dose: 25 mls/hr Insulin Glargine (Lantus(*)) 12 units 0.12 units/kg (12 units) SUBCUT 2100 [facility] Last Admin: 05/25/19 21:29 Dose: 12 units Insulin Human Lispro (Humalog*) 0 units SUBCUT ACHS [facility]; Protocol Last Admin: 05/26/19 08:19 Dose: Not Given Melatonin (Melatonin) 3 mg PO BEDTIME PRN PRN Reason: SLEEP Last Admin: 05/24/19 22:01 Dose: 3 mg Metoprolol Succinate (Toprol Xl Tab*) 12.5 mg PO QAM [facility] Last Admin: 05/26/19 09:16 Dose: 12.5 mg Mometasone Furoate/Formoterol Fumar (Dulera 100/5 Mdi*) 1 puff INH BID [facility] Last Admin: 05/26/19 09:30 Dose: 1 puff Simethicone (Mylicon Tab*) 80 mg PO Q6H PRN PRN Reason: gas pain Last Admin: 05/26/19 10:21 Dose: 80 mg Tramadol HCl (Ultram*) 50 mg PO Q8H PRN PRN Reason: PAIN - MODERATE Last Admin: 05/26/19 04:59 Dose: 50 mg Laboratory Results - last 24 hr 05/24/19 05/25/19 05/25/19 03:50 10:57 15:30 WBC RBC Hgb 8.9 L Hct 26 L MCV MCH MCHC RDW Plt Count MPV Neut % (Auto) Lymph % (Auto) [place] % (Auto) Eos % (Auto) Baso % (Auto) Absolute Neuts (auto) Absolute Lymphs (auto) Absolute Monos (auto) Absolute Eos (auto) Absolute Basos (auto) Absolute Nucleated RBC Nucleated RBC % Sodium Potassium Chloride Carbon Dioxide Anion Gap BUN Creatinine Est GFR ( Amer) Est GFR (Non-Af Amer) BUN/Creatinine Ratio Glucose POC Glucose (mg/dL) 111 H Calcium Total Bilirubin AST ALT Alkaline Phosphatase Total Protein Albumin Globulin Albumin/Globulin Ratio Blood Type A Negative Antibody Screen Negative Crossmatch See Detail 05/25/19 05/25/19 05/25/19 17:27 20:09 21:47 WBC RBC Hgb 8.6 L Hct 26 L MCV MCH MCHC RDW Plt Count MPV Neut % (Auto) Lymph % (Auto) [place] % (Auto) Eos % (Auto) Baso % (Auto) Absolute Neuts (auto) Absolute Lymphs (auto) Absolute Monos (auto) Absolute Eos (auto) Absolute Basos (auto) Absolute Nucleated RBC Nucleated RBC % Sodium Potassium Chloride Carbon Dioxide Anion Gap BUN Creatinine Est GFR ( Amer) Est GFR (Non-Af Amer) BUN/Creatinine Ratio Glucose POC Glucose (mg/dL) 132 H 111 H Calcium Total Bilirubin AST ALT Alkaline Phosphatase Total Protein Albumin Globulin Albumin/Globulin Ratio Blood Type Antibody Screen Crossmatch 05/26/19 05/26/19 05/26/19 06:01 06:01 08:09 WBC 7.5 RBC 2.54 L Hgb 8.0 L Hct 24 L MCV 93 MCH 32 H MCHC 34 RDW 17 H Plt Count 125 L MPV 7.5 Neut % (Auto) 88.4 Lymph % (Auto) 5.2 [place] % (Auto) 4.6 Eos % (Auto) 1.4 Baso % (Auto) 0.4 Absolute Neuts (auto) 6.6 Absolute Lymphs (auto) 0.4 L Absolute Monos (auto) 0.3 Absolute Eos (auto) 0.1 Absolute Basos (auto) 0.0 Absolute Nucleated RBC 0.1 Nucleated RBC % 0.7 Sodium 142 Potassium 3.5 Chloride 112 H Carbon Dioxide 26 Anion Gap 4 BUN 48 H Creatinine 0.93 Est GFR ( Amer) 72.3 Est GFR (Non-Af Amer) 59.8 BUN/Creatinine Ratio 51.6 H Glucose 87 POC Glucose (mg/dL) 98 Calcium 7.5 L Total Bilirubin 0.80 AST 8 L ALT 8 Alkaline Phosphatase 32 L Total Protein 4.2 L Albumin 2.7 L Globulin 1.5 L Albumin/Globulin Ratio 1.8 Blood Type Antibody Screen Crossmatch Exam: Gen: chronically ill appearing 69 yo female in NAD HEENT: MMM CV: RRR, no m/r/g Resp: CTA, no w/c/r Abd: soft and nonTTP, unable to reproduce L flank pain Ext: chronic stasis changes, 1+ edema] Assessment: [This is a 69 yo female with h/o NSCLC recently hospitalized for PNA c/b abdominal wall hematoma who recently resumed Eliquis and presented with a GIB. She is now s/p cautery of a duodenal ulcer and dose of Kadcyla at admission.] Plan: [1. Hemorrhagic shock secondary to GIB due to a duodenal ulcer - Hgb remains relatively stable after additional transfusion yesterday - cont protonix drip - advance diet today 2. NSCLC - plan to resume durvalumab following dc 3. Afib - rate controlled - eliquis held 4. Abd wall hematoma - stable 5. DM - manage with basal/bolus insulin during acute stay and transition back to oral regimen has she resumes her usual oral intake] Dispo: anticipate dc home tomorrow if Hgb remains stable after advancing diet
[2019-05-26] MEDS: Insulin GLARGINE(*) 1 UNITS UNIT SUBCUT SCH (21:26)
[2019-05-27] MEDS: Pantoprazole* 80 mg IN NS 80 MG/250 ML BAG IV SCH ×2 (00:40→20:51)
[2019-05-27 06:02] LABS: Hematocrit 23 % (35-47); Hemoglobin 7.9 g/dL (12.0-16.0); Mean Corpuscular HGB Conc 35 g/dL (31-36); Mean Corpuscular Hemoglobin 33 pg (27-31); Mean Corpuscular Volume 93 fL (80-97); Mean Platelet Volume 7.4 fL (7.4-10.4); Platelet Count 115 10^3/uL (150-450); Red Cell Distribution Width 17 % (10-15); White Blood Count 7.3 10^3/uL (3.5-10.8)
[2019-05-27 06:19] LABS: BUN/Creatinine Ratio 37.4 (8-20); Calcium 7.2 mg/dL (8.6-10.3); EGFR African American 74.2 (>60); EGFR Non-African American 61.3 (>60); Potassium 3.4 mmol/L (3.5-5.0)
[2019-05-27] MEDS: Mometasone/Formoter 100/5 MDI INH SCH (07:45)
[2019-05-27] MEDS: Insulin LISPRO* 1 UNITS UNIT SUBCUT SCH ×2 (07:47→20:51)
[2019-05-27] MEDS: Atorvastatin* 20 MG TAB PO SCH (08:02)
[2019-05-27] MEDS: Metoprolol Succinate XL TAB* 25 MG PO SCH (08:02)
[2019-05-27] MEDS: Digoxin TAB* 0.125 MG PO SCH (08:02)
[2019-05-27] MEDS: Simethicone TAB* 80 MG TAB.CHEW PO PRN (08:03)
[2019-05-27] MEDS: traMADol TAB* 50 MG PO PRN (08:09)
--- NOTE | 2019-05-27 11:47 | DS ---
CC: Dr. Choi; Dr. Byrne * DISCHARGE SUMMARY: DATE OF ADMISSION: 05/24/19 DATE OF DISCHARGE: 05/27/19 PRIMARY CARE PROVIDER: Dr. Choi. PRIMARY ONCOLOGIST AND ATTENDING PHYSICIAN: Dr. Nikita Keen.* (DICTATED BY BRITTANY PRICE) CONSULTING ECONOMICS TEACHER: Dr. Byrne. DISCHARGING PROVIDER: BRITTANY Price PRIMARY DISCHARGE DIAGNOSES: 1. Hemorrhagic shock secondary to gastrointestinal bleed as a result of duodenal ulcer that was cauterized at admission. 2. Non-small cell lung cancer - currently receiving adjuvant immunotherapy with durvalumab. 3. Atrial fibrillation, previously anticoagulated with Eliquis, which has since been held. 4. Recent abdominal wall hematoma, which appeared stable on imaging and not complicating this hospitalization. 5. Ekf-owoxumn-xevuskpuc diabetes without changes. DISCHARGE MEDICATIONS: 1. Atorvastatin 20 mg p.o. daily. 2. Symbicort 1 puff inhaled twice daily. 3. Chlorthalidone 25 mg p.o. every other day. 4. Digoxin 0.125 mg p.o. Friday through Friday. 5. Diltiazem 300 mg p.o. daily. 6. Bydureon pen 2 mg subcu weekly. 7. Lasix 20 mg p.o. 5 days a week. 8. Glyburide 5 mg p.o. daily. 9. Lisinopril 10 mg p.o. daily. 10. Metoprolol succinate 12.5 mg p.o. daily. 11. Janumet one tablet p.o. twice daily. 12. Albuterol inhaled q.4 hours as needed for shortness of breath. 13. Vitamin B12 1000 mcg p.o. daily. 14. Protonix 40 mg p.o. twice daily. 15. Ultram 50 mg p.o. q.8 hours as needed for pain. HOSPITAL IMAGIN. CT chest, abdomen, and pelvis shows a hematoma of the right rectus abdominis measuring up to 10 cm transversely, which is similar in size when compared to 05/02/19. There was a stable left lower lobe lung mass, a left pleural effusion, cholelithiasis, and a fat containing umbilical hernia. 2. Chest x-ray 05/24/19 shows left lung mass and a small left pleural effusion. HOSPITAL COURSE: This is a 69-year-old female with non-small cell lung cancer, anticoagulated with Eliquis for atrial fibrillation, who was hospitalized last month with severe pneumonia, complicated by an abdominal wall hematoma that occurred somewhat spontaneously. Her Eliquis had been held for a period of time surrounding the hematoma and resumed shortly before hospitalization. The patient presented to the emergency department with complaints of of shortness of breath. She was found to be hypotensive and initial hemoglobin of 5.8 g/dL. The patient received Kadcyla in hopes of reversing anticoagulation effects of Eliquis and initially received 3 units of packed red blood cells. She underwent upper endoscopy by Dr. Byrne and was found to have a bleeding duodenal ulcer, which was cauterized at that time. The patient's blood pressure remained stable and hemoglobin was relatively stable throughout the remainder of her hospitalization. She was treated with a Protonix drip, ultimately required 1 additional unit of packed red blood cells for a total of 4 units and was able to advance her diet without increase in abdominal pain, nausea, or vomiting. She initially had multiple bloody bowel movements, which subsequently stopped and has had no bowel movement for approximately 48 hours prior to discharge. There was initial concern with her bloody bowel movements along with complaints of abdominal pain may have been a result of colitis secondary to durvalumab. There is no radiographic evidence of colitis and certainly her bleeding duodenal ulcer would explain the GI bleed. There appears to be no complications related to her immunotherapy contributing to this hospitalization. DISPOSITION AND FOLLOWUP PLAN: The patient is being discharged to home in stable condition, where she lives independently and has support from her son locally. Her Eliquis has been discontinued and recommend holding her aspirin for the time being as well. She has followup with Dr. Keen on Friday, . Plans will be to continue with her adjuvant immunotherapy. We will reconsider resuming her aspirin at that time and discuss the risk and benefits of resuming anticoagulation in the setting of two recent significant bleeding complications including a life-threatening GI bleed. The patient is being discharged with twice daily dosing of Protonix, which should be continued for the next several weeks. BRITTANY PRICE [id number]/[facility] #: [id number] MARIBEL
[2019-05-27 20:58] VITALS: BP 117/75
== END 2019-05-27 12:05 | disposition home or self-care (01) | DRG 377 ==
LOC: ED 02:43 → ICU 09:40 → MED 05-25 16:14
PROVIDERS: ADMIT Internal Medicine Critical Care Medicine; ATTEND Internal Medicine Hematology & Oncology
PROC: 0W3P8ZZ Control Bleeding in Gastrointestinal Tract, Via Natural or Artificial Opening Endoscopic (ICD-10-PCS; principal; 2019-05-24)
PROC: 30283B1 Transfusion of Nonautologous 4-Factor Prothrombin Complex Concentrate into Vein, Percutaneous Approach (ICD-10-PCS; 2019-05-24)
PROC: 30233N1 Transfusion of Nonautologous Red Blood Cells into Peripheral Vein, Percutaneous Approach (ICD-10-PCS; 2019-05-24)
DX: K26.4 Chronic or unspecified duodenal ulcer with hemorrhage (principal); R57.8 Other shock; I50.1 Left ventricular failure, unspecified; C34.02 Malignant neoplasm of left main bronchus; D62 Acute posthemorrhagic anemia; Z68.42 Body mass index [BMI] 45.0-49.9, adult; J90 Pleural effusion, not elsewhere classified; I50.32 Chronic diastolic (congestive) heart failure; N17.9 Acute kidney failure, unspecified; E11.9 Type 2 diabetes mellitus without complications; I48.91 Unspecified atrial fibrillation; I50.9 Heart failure, unspecified; E78.00 Pure hypercholesterolemia, unspecified; I11.0 Hypertensive heart disease with heart failure; J44.9 Chronic obstructive pulmonary disease, unspecified; F40.240 Claustrophobia; M17.0 Bilateral primary osteoarthritis of knee; E66.9 Obesity, unspecified; K80.20 Calculus of gallbladder without cholecystitis without obstruction; K42.9 Umbilical hernia without obstruction or gangrene; E78.5 Hyperlipidemia, unspecified; S30.1XXA Contusion of abdominal wall, initial encounter; X58.XXXA Exposure to other specified factors, initial encounter; K44.9 Diaphragmatic hernia without obstruction or gangrene; K57.90 Diverticulosis of intestine, part unspecified, without perforation or abscess without bleeding; G47.33 Obstructive sleep apnea (adult) (pediatric); Z90.710 Acquired absence of both cervix and uterus; Z88.8 Allergy status to other drugs, medicaments and biological substances; Z91.040 Latex allergy status; Z87.891 Personal history of nicotine dependence; Z80.6 Family history of leukemia; Y92.9 Unspecified place or not applicable; Z79.84 Long term (current) use of oral hypoglycemic drugs; Z79.51 Long term (current) use of inhaled steroids
CPT/HCPCS: 36415; 71046; 71250; 74176; 80048; 80053; 82270; 82330; 83036; 83605; 83735; 84100; 85014; 85018; 85025; 85027; 85610; 86850; 86900; 86901; 86922; 87641; 93005; 94640; 96374; 99156; 99157; 99232; 99233; 99239; 99285; A9270-GY; C9132; G8978-GP-CH; G8979-GP-CH; G8980-GP-CH; J2250; J2930; J3010; J3475; P9040

== ENCOUNTER 2019-08-23 03:27 | Inpatient (IN) | payer MEDICARE ==
--- NOTE | 2019-08-23 03:41 | ED ---
Shortness of Breath - HPI Summary HPI Summary: The patient is a 69 y/o F arriving by ambulance to [facility] with a chief complaint of SOB and hypoxia this morning. She reports that she has been dyspneic for the last three months and has continued to worsen, but the specialists (Dr. Keen, Dr. Nelson, Dr. Lopez) she sees have not been able to give her a confirmed reason as to why this is happening. She states that she woke up this morning and was unable to breath with O2 sat in the 50s%. She denies CP or cough. Not currently in pain. She is on 4L O2 at home. She notes recent CXR a week ago and failed pulmonary function testing. Patient has a port. PMHx: DM, atrial fibrillation, CHF, HLD, HTN, asthma, COPD, lung cancer left lobe (in remission) , PNA, sleep apnea. Former smoker, no EtOH, no substance use. Medications reviewed. Allergies noted. - History of Current Complaint Time Seen by Provider: 08/23/19 03:31 Hx Obtained From: Patient Onset/Duration: Lasting Minutes, Resolved Current Severity: None Dyspnea At: Exertion Aggravating Factors: Other - exertion Alleviating Factors: Other - rest Associated Signs & Symptoms: Negative - Allergy/Home Medications Allergies/Adverse Reactions: Allergies Allergy/AdvReac Type Severity Reaction Status Date / Time potassium Allergy Severe Rash And Verified 08/23/19 03:32 Itching latex Allergy Mild Rash And Verified 08/23/19 03:32 Itching Home Medications: Home Medications Acetaminophen [Acetaminophen Extra Strength] 1,000 mg PO DAILY 08/23/19 [ History Confirmed 08/23/19] Albuterol 2.5MG/3ML (0.083%)* [Ventolin 2.5 MG/3 ML NEB.ADIA*] 2.5 mg INH Q4H PRN 08/23/19 [History Confirmed 08/23/19] Furosemide TAB* [Lasix TAB*] 40 mg PO DAILY 08/23/19 [History Confirmed 08/23/19 ] Iron Polysaccharide Complex [Ferrex 150] 150 mg PO DAILY 08/23/19 [History Confirmed 08/23/19] PMH/Surg Hx/FS Hx/Imm Hx Endocrine/Hematology History: Reports: Hx Anticoagulant Therapy, Hx Diabetes - On multiple medications, Hx Anemia, Hx Unexplained Bleeding Denies: Hx Thyroid Disease Cardiovascular History: Reports: Hx Atrial Fibrillation, Hx Congestive Heart Failure, Hx Hypercholesterolemia, Hx Hypertension, Other Cardiovascular Problems /Disorders - Atrial fibrillation, elevated cholesterol Denies: Hx Aneurysm, Hx Angina, Hx Coronary Artery Disease, Hx Deep Vein Thrombosis, Hx Myocardial Infarction, Hx Pacemaker/ICD Respiratory History: Reports: Hx Asthma, Hx Chronic Obstructive Pulmonary Disease (COPD), Hx Lung Cancer, Hx Pneumonia, Hx Sleep Apnea - not tested but told she drops her oxygen levels at night Comment Only: Other Respiratory Problems/Disorders - HX LUNG CANCER CHEMO DONE 02-10 GI History: Denies: Other GI Disorders History: Denies: Hx Dialysis, Hx Renal Disease, Other Problems/Disorders Musculoskeletal History: Reports: Hx Arthritis - Achey knees with walking. Has a walker, Other Musculoskeletal History - Poor balance, uses a walker to walk, or wheelchair when out Sensory History: Reports: Hx Contacts or Glasses - not with patient at this time , Hx Vision Problem Denies: Hx Eye Injury, Hx Eye Prosthesis, Hx Glaucoma, Hx Legally Blind, Hx Macular Degeneration, Hx Deafness, Hx Hearing Aid, Hx Hearing Problem, Other Sensory Impairments Opthamlomology History: Reports: Hx Contacts or Glasses - not with patient at this time, Hx Vision Problem Denies: Hx Eye Injury, Hx Eye Prosthesis, Hx Glaucoma, Hx Legally Blind, Hx Macular Degeneration, Other Sensory Impairments Neurological History: Reports: Other Neuro Impairments/Disorders - Claustrophobia Denies: Hx Dementia, Hx Headaches, Hx Migraine, Hx Seizures, Hx Transient Ischemic Attacks (TIA) Psychiatric History: Denies: Hx Panic Disorder - Cancer History Cancer Type, Location and Year: lung CA Hx Chemotherapy: No - Malignant tumor left bronchus - Surgical History Surgery Procedure, Year, and Place: HYSTERECTOMY [facility]. EBUS 2019. POWER PORT Hx Anesthesia Reactions: No Infectious Disease History: No Infectious Disease History: Denies: Traveled Outside the [place] in Last 30 Days - Family History Known Family History: Positive: Cardiac Disease Negative: Blood Disorder - no FMHx of blood clots - Social History Alcohol Use: None Hx Substance Use: No Substance Use Type: Reports: None Hx Tobacco Use: Yes Smoking Status (MU): Former Smoker Type: Cigarettes Amount Used/How Often: 1.5 PPD for 40 years Have You Smoked in the Last Year: No Review of Systems Negative: Chest Pain Positive: Shortness Of Breath - with exertion. Negative: Cough All Other Systems Reviewed And Are Negative: Yes Physical Exam - Summary Physical Exam Summary: Appearance: Well-appearing, Well-nourished, lying in bed comfortably Skin: Warm, dry, no obvious rash Eyes: sclera anicteric, no conjunctival pallor ENT: mucous membranes moist, pharynx appears normal Neck: Supple, nontender Respiratory: No signs of respiratory distress, Left lung has findings of fairly large pleural effusion with bronchial breath sounds and dullness to percussion about hallway up Cardiovascular: Normal S1, S2. No murmurs. Normal distal pulses in tibial and radial bilaterally. Abdomen: Soft, nontender, normal active bowel sounds present Musculoskeletal: Normal, Strength/ROM Intact Neurological: A&Ox3, awake and alert, mentation is normal, speech is fluent and appropriate Psychiatric: affect is normal, does not appear anxious or depressed Triage Information Reviewed: Yes Vital Signs On Initial Exam: Initial Vitals Temp Pulse Resp BP Pulse Ox 97.6 F 84 25 119/89 95 08/23/19 03:30 08/23/19 03:30 08/23/19 03:30 08/23/19 03:30 08/23/19 03:30 Vital Signs Reviewed: Yes Procedures - Sedation Patient Received Moderate/Deep Sedation with Procedure: No Diagnostics - Vital Signs Vital Signs Temp Pulse Resp BP Pulse Ox 08/23/19 03:30 97.6 F 84 25 119/89 95 - Laboratory Result Diagrams: 08/24/19 04:31 08/24/19 04:31 Lab Statement: Any lab studies that have been ordered have been reviewed, and results considered in the medical decision making process. - Radiology CXR Radiology Interpretation Completed By: ED Physician Summary of Radiographic Findings: Large left pleural effusion. Somewhat worse than 08/11/19. ED physician has reviewed and interpreted this imaging report. Pending official read. - EKG 0354 Cardiac Rate: Other Rate - 82 bpm EKG Rhythm: Atrial Fibrillation Summary of EKG Findings: Atrial fibrillation at 82 bpm. Nonspecific T abnormalities in lateral leads. Otherwise normal. No STEMI. ED physician has reviewed and interpreted this EKG. Re-Evaluation - Re-Evaluation First Eval Re-Evaluation Time: 06:30 Comment: Discusseds results and plan. Course/Dx - Course Course Of Treatment: 69 y/o F who has history of lung cancer in remission arriving by ambulance with SOB over the last three months and worsening this morning with dyspnea on exertion and hypoxia. Physical exam reveals left lung has findings of fairly large pleural effusion with bronchial breath sounds and dullness to percussion about hallway up. Blood work obtained and reveals RBCs of 3.39, hemoglobin of 10.4, hematocrit of 32, RDW of 18 absolute lymphocytes of 0.2, carbon dioxide of 37, creatinine of 1.00, glucose of 106, and AST of 10. First troponin of 0.01. EKG at 0354 reveals atrial fibrillation at 82 bpm, nonspecific T abnormalities in lateral leads, otherwise normal. Chest x-ray, per my interpretation, reveals a large left pleural effusion, somewhat worse than 08/11/19. Dr. Bowers from oncology agrees with therapeutic thoracentesis by radiology in morning, and if she feels better, she can go home. The patient is a sign-out from Dr. Srikanth Wallis MD, to Dr. Ramesh Mendoza MD, at change of shift at 0700 on 08/23/2019, pending therapeutic thoracentesis by radiology, re-eval, and disposition. Dx dyspnea, pleural effusion. - Diagnoses Provider Diagnoses: Shortness of breath, Pleural effusion, left, Hypoxia - Physician Notifications Discussed Care of Patient With: Danna Bowers - oncology Time Discussed With Above Provider: 04:45 Instructed by Provider To: Other - I discussed the patient's case with Dr. Bowers, and she agrees with therapeutic thoracentesis by radiology in morning; if she feels better, she can go home. Discharge ED - Sign-Out/Discharge Documenting (check all that apply): Sign-Out Patient Signing out patient TO: Ramesh Mendoza - Patient is a sign-out to Dr. Ramesh Mendoza MD, at 0700 on 08/23/2019, pending therapeutic thoracentesis by radiology, re-eval, and disposition. - Discharge Plan Condition: Stable Disposition: ADMITTED TO [facility] - Billing Disposition and Condition Condition: STABLE Disposition: Admitted to [facility] - Attestation Statements Document Initiated by Scribe: Yes Documenting Scribe: Mago Aquino Provider For Whom Scribe is Documenting (Include Credential): Dr. Srikanth Wallis MD Scribe Attestation: IMago, scribed for Dr. Srikanth Wallis MD on 08/24/19 at 1050. Scribe Documentation Reviewed: Yes Provider Attestation: The documentation as recorded by the scribe, Mago Aquino accurately reflects the service I personally performed and the decisions made by me, Dr. Srikanth Wallis MD Status of Shivani Document: Viewed
--- OUTSIDE RECORDS SUMMARY | 2019-08-23 04:05 | XMS REPORT | Continuity of Care Document ---
:1950 External Reference #:[id number] Author Name Hayley Landeros N.P. (transmitted by agent of provider Courtney Talbert) Address [address] [place] [id number] Care Team Providers Name Role Phone Cristiano Choi MD - Family Medicine Care Team Information Contract Preparer Nikita Keen MD - Hematology Care Team Information Contract Preparer Problems Active Problems Provider Date Atrial fibrillation [...] N.P. Chlorthalidone 1/2 tab by mouth 30tabs Aamir Carine 12/21/2015 25mg 4x/week Ayush Lopez Tablets Furosemide 1 tablet 5 times a [facility] Table[facility] week. Ayush Lopez Cartia [...] puff twice a day Unknown 80-4.5mcg/Act Aerosol [id number] 1 Tab by mouth Unknown daily Tablet [...] % BldC Oximetry 95 % Results Test Acquired Date Facility Test Result H/L Range Note Vitamin B12 05/12/[address] [facility] Folic Acid 10.36 ng/mL > 3.[address] (Folate) [place] [address] [phone] Lipid Profile 05/12/[address] [facility] Triglycerides 141 mg/dL 1 (Trig/Chol/HD [address] [place]) [place] [address] [phone] Cholesterol 135 mg/dL 2 HDL Cholesterol 67.9 mg/dL 3 LDL Cholesterol 39 mg/dL 4 Laboratory test 05/12/[address] [facility] Creatine 34 U/L Normal 10-[address] Kinase(CK) [place] [address] [phone] Digoxin 1.2 ng/ml Normal 0.8-2.0 CBC Auto 05/12/[address] [facility] White Blood 13.3 10^3/uL High 3.5-10.[address] [place] [address] [phone] Red Blood Count 2.83 10^6/uL Low 3.70-4.87 Hemoglobin 8.9 g/dL Low 12.0-16.0 Hematocrit 28 % Low 35-47 Mean Corpuscular Volume 97 fL Normal 80-97 Mean Corpuscular Hemoglobin 32 pg High 27-31 Mean Corpuscular HGB Conc 33 g/dL Normal 31-36 Red Cell Distribution Width 19 % High 10-15 Platelet Count 197 10^3/uL Normal 150-450 Mean Platelet Volume 7.4 fL Normal 7.4-10.4 Abs Neutrophils 13.0 10^3/uL High 1.5-7.7 Abs Lymphocytes 0.1 10^3/uL Low 1.0-4.8 Abs Monocytes 0.2 10^3/uL Normal 0-0.8 Abs Eosinophils 0.0 10^3/uL Normal 0-0.6 Abs Basophils 0.0 10^3/uL Normal 0-0.2 Abs Nucleated RBC 0.0 10^3/uL Granulocyte % 97.5 % Lymphocyte % 0.9 % Monocyte % 1.2 % Eosinophil % 0.1 % Basophil % 0.3 % Nucleated Red Blood Cells % 0.1 Comp Metabolic 05/12/[address] [facility] Sodium 138 mmol/L Normal 135-[address] [place] [address] [phone] Potassium 3.7 mmol/L Normal 3.5-5.0 Chloride 101 mmol/L Normal 101-111 Co2 Carbon Dioxide 30 mmol/L Normal 22-32 Anion Gap 7 mmol/L Normal 2-11 Glucose 161 mg/dL High 70-100 Blood Urea Nitrogen 25 mg/dL High 6-24 Creatinine 1.01 mg/dL High 0.51-0.95 BUN/Creatinine Ratio 24.8 High 8-20 Calcium 10.3 mg/dL Normal 8.6-10.3 Total Protein 5.8 g/dL Low 6.4-8.9 Albumin 3.6 g/dL Normal 3.2-5.2 Globulin 2.2 g/dL Normal 2-4 Albumin/Globulin Ratio 1.6 Normal 1-3 Total Bilirubin 1.10 mg/dL High 0.2-1.0 Alkaline Phosphatase 52 U/L Normal 34-104 Alt 15 U/L Normal 7-52 Ast 12 U/L Low 13-39 Egfr Non- 54.3 >60 Egfr 65.8 >60 5 Iron & Iron Binding 05/12/[address] [facility] Iron 62 g/dL Normal 50-[address] [place] [address] [phone] Unsaturated Iron Binding < 341 g/dL Total Iron Binding Capacity 356 g/dL Normal 250-450 Transferrin 254 mg/dL Normal 203-362 % Iron Saturation 17 % Normal 15-55 Laboratory test 05/12/[address] [facility] Ferritin 72.0 ng/mL Normal 11-[address] [place] [address] [phone] Vitamin B12 > 1450 pg/mL High 180-914 6 Comp Metabolic 02/03/[address] [facility] Sodium 135 mmol/L Normal 135-[address] [place] [address] [phone] Potassium 4.5 mmol/L Normal 3.5-5.0 Chloride 102 [...] Egfr Non- 31.5 >60 Egfr 38.1 >60 7 CBC Auto 02/03/[address] [facility] White Blood 4.0 10^3/uL Normal 3.5-10.[address] [place] [address] [phone] Red Blood Count 3.33 10^6/uL Low 3.70-4.87 [...] Blood Cells % 0.1 Comp Metabolic 02/01/[address] [facility] Sodium 135 mmol/L Normal 135-[address] [place] [address] [phone] Potassium 4.1 mmol/L Normal 3.5-5.0 Chloride 101 [...] Egfr Non- 29.8 >60 Egfr 36.1 >60 8 CBC Auto 02/01/[address] [facility] White Blood 4.1 10^3/uL Normal 3.5-10.[address] [place] [address] [phone] Red Blood Count 3.24 10^6/uL Low 3.70-4.87 [...] % Nucleated Red Blood Cells % 0.0 1 Desirable: <150 Borderline High: 150-199 High: 200-499 Very High: >500 2 Desirable: <200 Borderline High: 200-239 High: >239 3 Low: <40 Desirable: 40-60 High: >60 4 Desirable: <100 Near Optimal: 100-129 Borderline High: 130-159 High: 160-189 Very High: >189 5 Because ethnic data is not always [...] 5 Kidney failure <15 (or dialysis) 6 Normal Range 180 to 914 Indeterminate Range 145 to 180 Deficient Range <145 7 Because ethnic data is not always readily [...] 15-29 5 Kidney failure <15 (or dialysis) 8 Because ethnic data is not always [...] 15-29 5 Kidney failure <15 (or dialysis) Procedures Date Code Description Status 05/11/2019 35892 EKG Tracing & Interpretation Completed 04/16/2019 43941 ECHO Transthoracic, Real-Time 2D With Doppler And Color Completed Flow 04/16/2019 38443 ECHO Transthoracic, Real-Time 2D With Doppler And Color Completed Flow Medical Devices Description No Information Available Encounters Type Date Location Provider Dx Diagnosis Office Visit 05/25/2019 [facility] Patricia Soto.2 Gastrointestinal 8:31a M.D. hemorrhage, unspecified C34.90 Malignant neoplasm of unsp part of unsp bronchus or lung I48.91 Unspecified atrial fibrillation Office 05/25/2019 [facility] Ibrahima Gomez.2 Gastrointestinal Visit 7:00a MD Jerson hemorrhage, unspecified Office 05/24/2019 [facility] Mil K92.2 Gastrointestinal Visit 8:31a saul Stahl M.D. unspecified N17.9 Acute kidney failure, unspecified C34.90 Malignant neoplasm of unsp part of unsp bronchus or lung I48.91 Unspecified atrial fibrillation Office Visit 05/11/2019 8:40a [facility] Aamir Truong N18.3 Chronic kidney Ayush Lopez disease, stage 3 (moderate) E11.9 Type 2 diabetes mellitus without complications I34.0 Nonrheumatic mitral (valve) insufficiency E78.5 Hyperlipidemia, unspecified I48.2 Chronic atrial fibrillation R09.02 Hypoxemia D64.9 Anemia, unspecified Office Visit 05/03/2019 [facility] Vielka Avalos J18.1 Lobar pneumonia, 9:33a For Infectious PIERCE Lowe unspecified Diseases organism C34.92 Malignant neoplasm of unsp part of left bronchus or lung N17.9 Acute kidney failure, unspecified N18.9 Chronic kidney disease, unspecified Office Visit 05/02/2019 9:54a [facility] Kathryn Rinaldi, J96.01 Acute respiratory Assoc,pc N.P. failure with Hospitalists hypoxia J18.9 Pneumonia, unspecified organism D64.9 Anemia, unspecified E11.9 Type 2 diabetes mellitus without complications Office Visit 04/30/2019 [facility] Vielka Avalos J18.1 Lobar pneumonia, 12:49p For Corine Lowe NP unspecified Diseases organism C34.90 Malignant neoplasm of unsp part of unsp bronchus or lung E87.5 Hyperkalemia E11.22 Type 2 diabetes mellitus w diabetic chronic kidney disease N18.3 Chronic kidney disease, stage 3 (moderate) N17.9 Acute kidney failure, unspecified Office Visit 04/29/2019 12:47p [facility] Hermelindo Cartwright18.9 Pneumonia, Infectious Ayush Mak unspecified Diseases organism C34.90 Malignant neoplasm of unsp part of unsp bronchus or lung E87.5 Hyperkalemia Office Visit 04/28/2019 [facility] Vielka Avalos J18.1 Lobar pneumonia, 12:46p For Infectious Lowe, [employer] unspecified Diseases organism C34.90 Malignant neoplasm of unsp part of unsp bronchus or lung E11.22 Type 2 diabetes mellitus w diabetic chronic kidney disease N18.3 Chronic kidney disease, stage 3 (moderate) N17.9 Acute kidney failure, unspecified Office Visit 04/27/2019 12:44p [facility] Vielka Avalos R06.02 Shortness of For Infectious Chrissy, [employer] breath Diseases R09.02 Hypoxemia R91.8 Other nonspecific abnormal finding of lung field D72.829 Elevated white blood cell count, unspecified C34.90 Malignant neoplasm of unsp part of unsp bronchus or lung Office Visit 04/24/2019 12:31p Pulmonology And Natalie J18.1 Lobar pneumonia, [facility] Leslie unspecified Kettle Room Helper organism C34.90 Malignant neoplasm of unsp part of unsp bronchus or lung J96.91 Respiratory failure, unspecified with hypoxia Assessments Date Code Description Provider 05/25/2019 K92.2 Gastrointestinal hemorrhage, Ibrahima Arthur MD unspecified 05/25/2019 K92.2 Gastrointestinal hemorrhage, Mil Stahl M.D. unspecified 05/25/2019 C34.90 Malignant neoplasm of unspecified Mil Stahl M.D. part of unspecified bronchus or lung 05/25/2019 I48.91 Unspecified atrial fibrillation Mil Stahl M.D. 05/24/2019 K92.2 Gastrointestinal hemorrhage, Mil Stahl M.D. unspecified 05/24/2019 N17.9 Acute kidney failure, unspecified Mil Stahl M.D. 05/24/2019 C34.90 Malignant neoplasm of unspecified Mil Stahl M.D. part of unspecified bronchus or lung 05/24/2019 I48.91 Unspecified atrial fibrillation Mil Stahl M.D. 05/11/2019 N18.3 Chronic kidney disease, stage 3 [...] Recinos 05/05/2019 C34.90 Malignant neoplasm of unspecified Magdalena Sukhdeepnessa PA part of unspecified bronchus or lung 05/05/2019 E11.22 Type 2 diabetes mellitus with BRITTANY Recinos diabetic chronic kidney disease 05/05/2019 N18.3 Chronic kidney disease, stage 3 BRITTANY Recinos (moderate) 05/05/2019 R06.02 Shortness of breath BRITTANY Recinos 05/03/2019 J18.1 Lobar pneumonia, unspecified organism Vielka Lowe, [employer] 05/03/2019 C34.92 Malignant neoplasm of unspecified Vielka Lowe , [employer] part of left bronchus or lung 05/03/2019 N17.9 Acute kidney failure, unspecified Vielkaramandeep Lowe , [employer] 05/03/2019 N18.9 Chronic kidney disease, unspecified Vielkaramandeep Lowe, [employer] 05/02/2019 J96.01 Acute respiratory failure with Kathryn Gentry, N.P. hypoxia 05/02/2019 J18.9 Pneumonia, unspecified organism Kathryn Rinaldi, N.P. 05/02/2019 D64.9 Anemia, unspecified Kathryn Rinaldi, N.P. 05/02/2019 E11.9 Type 2 diabetes mellitus without Kathryn Rinaldi, N.P. complications 04/30/2019 J18.1 Lobar pneumonia, unspecified organism Vielka Lowe, [employer] 04/30/2019 C34.90 Malignant neoplasm of unspecified Vielka Lowe , [employer] part of unspecified bronchus or lung 04/30/2019 E87.5 Hyperkalemia Vielka Lowe, [employer] 04/30/2019 E11.22 Type 2 diabetes mellitus with Vielka Lowe, [employer] diabetic chronic kidney disease 04/30/2019 N18.3 Chronic kidney disease, stage 3 Vielka Jimenesgerasaycarrol Lowe, [employer] (moderate) 04/30/2019 N17.9 Acute kidney failure, unspecified Vielkaramandeep Lowe , [employer] 04/29/2019 J18.9 Pneumonia, unspecified organism Gilson Mak M.D. 04/29/2019 C34.90 Malignant neoplasm of unspecified Gilson Mak M.D. part of unspecified bronchus or lung 04/29/2019 E87.5 Hyperkalemia Gilson Mak M.D. 04/28/2019 J18.1 Lobar pneumonia, unspecified organism Vielkaramandeep Alejandrodaodakota Lowe, [employer] 04/28/2019 C34.90 Malignant neoplasm of unspecified Vielka Lowe , [employer] part of unspecified bronchus or lung 04/28/2019 E11.22 Type 2 diabetes mellitus with Vielkaramandeep Lowe, [employer] diabetic chronic kidney disease 04/28/2019 N18.3 Chronic kidney disease, stage 3 Vielka Jimenesgerasaycarrol Lowe, [employer] (moderate) 04/28/2019 N17.9 Acute kidney failure, unspecified Vielkaramandeep Avalos Lowe , [employer] 04/27/2019 R06.02 Shortness of breath Vielkaramandeep Lowe, [employer] 04/27/2019 R09.02 Hypoxemia Vielkaramandeep Alejandrosaycarrol Lowe, [employer] 04/27/2019 R91.8 Other nonspecific abnormal finding of Vielka Jimenesquitaandreacarrol Lowe, [employer] lung field 04/27/2019 D72.829 Elevated white blood cell count, Vielka Benavidescarrol Lowe , [employer] unspecified 04/27/2019 C34.90 Malignant neoplasm of unspecified Vielka Jalilgeraeblack Lowe , [employer] part of unspecified bronchus or lung 04/24/2019 J18.1 Lobar pneumonia, unspecified organism Natalie Nelson MD 04/24/2019 C34.90 Malignant neoplasm of unspecified Natalie Nelson MD part of unspecified bronchus or lung 04/24/2019 J96.91 Respiratory failure, unspecified with Natalie Nelson MD hypoxia 04/16/2019 I34.0 Nonrheumatic mitral (valve) Aamir Lopez M.D. insufficiency 04/16/2019 I34.0 Nonrheumatic mitral (valve) [facility] insufficiency 04/16/2019 J44.9 Chronic obstructive pulmonary [facility] Schedule disease, unspecified 04/16/2019 I27.20 Pulmonary hypertension [facility] Schedule Plan of Treatment Future Appointment(s):08/05/2019 11:00 am - [facility]05/11/2019 - Aamir Lopez M.D.N18.3 Chronic kidney disease, stage 3 (moderate)E11.9 Type 2 diabetes mellitus without eewbthuggcqitE12.0 Nonrheumatic mitral (valve) naobehkfovjyfM24.5 JtheqpmxtbufcsC88.2 Chronic atrial fibrillationFollow up:ov 10 mR09.02 DnucoxmclU55.9 Anemia Functional Status Description No Information Available Mental Status Description No Information Available Referrals Description No Information Available
--- OUTSIDE RECORDS SUMMARY | 2019-08-23 04:05 | XMS REPORT | Continuity of Care Document ---
:1950 External Reference #:[id number] Author Name Hayley Landeros N.P. (transmitted by agent of provider Kari Rajan) Address [address] [place] [id number] Care Team Providers Name Role Phone Cristiano Choi MD - Family Medicine Care Team Information Back Hoe Machine Operator Nikita Keen MD - Hematology Care Team Information Back Hoe Machine Operator [phone] Problems Active Problems Provider Date Atrial fibrillation [...] Former Cigarette Smoker Unknown Smoking Status Reviewed: 07/29/19 Former Cigarette Smoker ETOH Use Denies alcohol use Tobacco Use Start: Unknown End: Patient is a former Unknown smoker Recreational Drug Use Denies Drug Use Exercise Type/Frequency Exercises sporadically PT in the home started summer Allergies, Adverse Reactions, Alerts Active Allergies Reaction Severity Comments Date Potassium Chloride rash Moderate 11/25/2013 Inactive Allergies NKDA 09/10/2013 Medications Active Medications SIG Qnty Indications Ordering Date Provider Lisinopril 1 by mouth every 90tabs R06.02 Hayley PritchardCarine Landeros, 07/29/2019 5mg Tablets day N.P. Chlorthalidone 1/2 tab by mouth 30tabs Aamir Truong 12/21/2015 25mg Tablets 4x/week Ayush Lopez Furosemide 2 tabs po qd 90tabs R06.02 Aamir Truong 02/01/2014 20mg Tablets Ayush Lopez Cartia XT take 1 tab by 90caps Aamir Truong 12/30/2013 300mg Caps ER mouth daily Ayush Lopez 24HR Metoprolol Succinate ER 1/2 by mouth 45tabs Aamir Truong 09/27/2013 every day Ayush Lopez 25mg Tablets ER 24HR Janumet XR 1 po bid 60tabs Other Ordering 09/01/2013 50-1000mg Provider Tablets ER 24HR Oxygen 2 l nc at hs 1units Unknown Misc Albuterol Sulfate 1 vial q 4hrs Unknown prn for wheezing (2.5mg/3ML) 0.083% (rare use) Nebulizer Glyburide 1 tablet daily Unknown 5mg Symbicort 2 puff twice a Unknown 80-4.5mcg/Act day Aerosol Pfofivy-Gen-Nuuc 1 Tab by mouth Unknown Tablet daily Vitamin B12 1 by mouth every Unknown 1000mcg Tablets day ER Magnesium 2 by mouth every Unknown 250mg Tablets day Omeprazole 2 by mouth every Unknown 40mg Capsules DR day Medications Administered in Office Medication SIG Qnty Indications Ordering Provider Date Inj, Regadenoson, 0.1 MG Jose Sultana M.D. 09/16/2013 Injection Technetium TC 99M Tetrofosmin, Jose Sultana M.D. 09/16/2013 Per Unit Dose Up To 40 Millicuries Injection Immunizations Description No Information Available Vital Signs Date Vital Result Comment 07/29/2019 1:49pm Height 60 inches 5'0" Heart Rate 64 /min BP Systolic Sitting 110 mmHg lue large cuff BP Diastolic Sitting 64 mmHg lue large cuff Respiratory Rate 22 /min Ejection Fraction scheduled9 05/11/2019 8:26am Height 60 inches 5'0" Weight 235.25 lb with shoes/purse Heart Rate 70 /min left radial reg BP Systolic Sitting 120 mmHg ure reg cuff BP Diastolic Sitting 62 mmHg ure reg cuff BMI (Body Mass Index) 45.9 kg/m2 Ejection Fraction 60%-65% echo 04/16/19 Results Test Acquired Date Facility Test Result H/L Range Note Vitamin B12 05/12/2019 [facility] Folic Acid 10.36 ng/mL > 3.[address] (Folate) [place] [address] [phone] Lipid Profile 05/12/2019 [facility] Triglycerides 141 mg/dL 1 (Trig/Chol/HD [address] L) [place], [place] [id number] [phone] Cholesterol 135 mg/dL 2 HDL Cholesterol 67.9 mg/dL 3 LDL Cholesterol 39 mg/dL 4 Laboratory test 05/12/2019 [facility] Creatine 34 U/L Normal 10-[address] Kinase(CK) [place], [place] [id number] [phone] Digoxin 1.2 ng/ml Normal 0.8-2.0 CBC Auto 05/12/2019 [facility] White Blood 13.3 10^3/uL High 3.5-10.[address] Count [place], [place] [id number] [phone] Red Blood Count 2.83 10^6/uL Low 3.70-4.87 [...] Blood Cells % 0.1 Comp Metabolic 05/12/2019 [facility] Sodium 138 mmol/L Normal 135-145 Panel [address] [place] [address] [phone] Potassium 3.7 mmol/L Normal 3.5-5.0 Chloride 101 [...] >60 5 Iron & Iron Binding 05/12/2019 [facility] Iron 62 g/dL Normal 50-212 Capacity [address] [place] [address] [phone] Unsaturated Iron Binding < 341 g/dL Total Iron Binding Capacity 356 g/dL Normal 250-450 Transferrin 254 mg/dL Normal 203-362 % Iron Saturation 17 % Normal 15-55 Laboratory test 05/12/2019 [facility] Ferritin 72.0 ng/mL Normal 11-307 finding [address] [place] [address] [phone] Vitamin B12 > 1450 pg/mL High 180-914 6 Comp Metabolic 02/03/2019 [facility] Sodium 135 mmol/L Normal 135-[address] [place] [address] [phone] Potassium 4.5 mmol/L Normal 3.5-5.0 Chloride 102 [...] Egfr 38.1 >60 7 CBC Auto 02/03/2019 [facility] White Blood 4.0 10^3/uL Normal 3.5-10.[address] [place] [address] [phone] Red Blood Count 3.33 10^6/uL Low 3.70-4.87 [...] Blood Cells % 0.1 Comp Metabolic 02/01/2019 [facility] Sodium 135 mmol/L Normal 135-[address] [place] [address] [phone] Potassium 4.1 mmol/L Normal 3.5-5.0 Chloride 101 [...] Egfr 36.1 >60 8 CBC Auto 02/01/2019 [facility] White Blood 4.1 10^3/uL Normal 3.5-10.[address] [place] [address] [phone] Red Blood Count 3.24 10^6/uL Low 3.70-4.87 [...] (or dialysis) Procedures Date Code Description Status 07/29/2019 51068 EKG Tracing & Interpretation Completed 05/11/2019 14012 EKG Tracing & Interpretation Completed 04/16/2019 10054 ECHO Transthoracic, Real-Time 2D With Doppler And Color Completed Flow 04/16/2019 64259 ECHO Transthoracic, Real-Time 2D With Doppler And Color Completed Flow Medical Devices Description No Information Available Encounters Type Date Location Provider Dx Diagnosis Office Visit 07/29/2019 [facility] Hayley Landeros, R06.02 Shortness of 2:00p Of [facility] N.P. breath E78.5 Hyperlipidemia, unspecified I34.0 Nonrheumatic mitral (valve) insufficiency J90 Pleural effusion, not elsewhere classified Office Visit 05/25/2019 [facility] Dora Soto92.2 Gastrointestinal 8:31a M.D. hemorrhage, unspecified C34.90 Malignant neoplasm of unsp part of unsp bronchus or lung I48.91 Unspecified atrial fibrillation Office 05/25/2019 [facility] Gastroenterology Ibrahima Gomez.2 Gastrointestinal Visit 7:00a MD Jerson hemorrhage, unspecified Office 05/24/2019 [facility] Mil K92.2 Gastrointestinal Visit 8:31a saul Stahl M.D. unspecified N17.9 Acute kidney failure, unspecified C34.90 Malignant neoplasm of unsp part of unsp bronchus or lung I48.91 Unspecified atrial fibrillation Office Visit 05/11/2019 8:40a [facility] Aamir Truong N18.3 Chronic kidney Ayush Lopez disease, stage 3 (moderate) E11.9 Type 2 diabetes mellitus without complications I34.0 Nonrheumatic mitral (valve) insufficiency E78.5 Hyperlipidemia, unspecified I48.2 Chronic atrial fibrillation R09.02 Hypoxemia D64.9 Anemia, unspecified Office Visit 05/03/2019 [facility] Vielka Avalos J18.1 Lobar pneumonia, 9:33a For Infectious PIERCE Lowe unspecified Diseases organism C34.92 Malignant neoplasm of unsp part of left bronchus or lung N17.9 Acute kidney failure, unspecified N18.9 Chronic kidney disease, unspecified Office Visit 05/02/2019 9:54a [facility] Kathryn Rinaldi, J96.01 Acute respiratory Assoc,pc N.P. failure with Hospitalists hypoxia J18.9 Pneumonia, unspecified organism D64.9 Anemia, unspecified E11.9 Type 2 diabetes mellitus without complications Office Visit 04/30/2019 [facility] Vielka Avalos J18.1 Lobar pneumonia, 12:49p For Infectious PIERCE Lowe unspecified Diseases organism C34.90 Malignant neoplasm of unsp part of unsp bronchus or lung E87.5 Hyperkalemia E11.22 Type 2 diabetes mellitus w diabetic chronic kidney disease N18.3 Chronic kidney disease, stage 3 (moderate) N17.9 Acute kidney failure, unspecified Office Visit 04/29/2019 12:47p [facility] Hermelindo Cartwright18.9 Pneumonia, Infectious Ayush Mak unspecified Diseases organism C34.90 Malignant neoplasm of unsp part of unsp bronchus or lung E87.5 Hyperkalemia Office Visit 04/28/2019 [facility] Vielka Avalos J18.1 Lobar pneumonia, 12:46p For Infectious Chrissy, ADVERTISING VICE PRESIDENT unspecified Diseases organism C34.90 Malignant neoplasm of unsp part of unsp bronchus or lung E11.22 Type 2 diabetes mellitus w diabetic chronic kidney disease N18.3 Chronic kidney disease, stage 3 (moderate) N17.9 Acute kidney failure, unspecified Office Visit 04/27/2019 12:44p [facility] R06.02 Shortness of For Infectious PIERCE Lowe breath Diseases R09.02 Hypoxemia R91.8 Other nonspecific abnormal finding of lung field D72.829 Elevated white blood cell count, unspecified C34.90 Malignant neoplasm of unsp part of unsp bronchus or lung Office Visit 04/24/2019 12:31p Pulmonology And Natalie J18.1 Lobar pneumonia, [facility] MD Leslie unspecified Jockey Agent organism C34.90 Malignant neoplasm of unsp part of unsp bronchus or lung J96.91 Respiratory failure, unspecified with hypoxia Assessments Date Code Description Provider 07/29/2019 R06.02 Shortness of breath Hayley Landeros, N.P. 07/29/2019 E78.5 Hyperlipidemia Hayley Landeros, N.P. 07/29/2019 I34.0 Nonrheumatic mitral (valve) Hayleysharron Landeros, N.P. insufficiency 07/29/2019 J90 Pleural effusion, not elsewhere Hayley Landeros, N.P. classified 05/25/2019 K92.2 Gastrointestinal hemorrhage, Ibrahima Arthur MD [...] J18.1 Lobar pneumonia, unspecified organism Vielka Lowe, ADVERTISING VICE PRESIDENT 05/03/2019 C34.92 Malignant neoplasm of unspecified Vielka Lowe , ADVERTISING VICE PRESIDENT part of left bronchus or lung 05/03/2019 N17.9 Acute kidney failure, unspecified Vielka Robbie Lowe , ADVERTISING VICE PRESIDENT 05/03/2019 N18.9 Chronic kidney disease, unspecified Vielka Robbie Lowe, ADVERTISING VICE PRESIDENT 05/02/2019 J96.01 Acute respiratory failure with Kathryn Rinaldi, N.P. hypoxia 05/02/2019 J18.9 Pneumonia, unspecified organism Kathryn Rinaldi, N.P. 05/02/2019 D64.9 Anemia, unspecified Kathryn Rinaldi, N.P. 05/02/2019 E11.9 Type 2 diabetes mellitus without Kathryn Rinaldi, N.P. complications 04/30/2019 J18.1 Lobar pneumonia, unspecified organism Vielka Lowe, ADVERTISING VICE PRESIDENT 04/30/2019 C34.90 Malignant neoplasm of unspecified Vielka Avalos Lowe , ADVERTISING VICE PRESIDENT part of unspecified bronchus or lung 04/30/2019 E87.5 Hyperkalemia Vielka Lowe, ADVERTISING VICE PRESIDENT 04/30/2019 E11.22 Type 2 diabetes mellitus with Vielka Jimenesgerasaycarrol Lowe, ADVERTISING VICE PRESIDENT diabetic chronic kidney disease 04/30/2019 N18.3 Chronic kidney disease, stage 3 Vielka Jimenesgerasaycarrol Lowe, ADVERTISING VICE PRESIDENT (moderate) 04/30/2019 N17.9 Acute kidney failure, unspecified Vielka Robbie Lowe , ADVERTISING VICE PRESIDENT 04/29/2019 J18.9 Pneumonia, unspecified organism Gilson Mak M.D. 04/29/2019 C34.90 Malignant neoplasm of unspecified Gilson Mak M.D. part of unspecified bronchus or lung 04/29/2019 E87.5 Hyperkalemia Gilson Mak M.D. 04/28/2019 J18.1 Lobar pneumonia, unspecified organism Vielka Lowe, ADVERTISING VICE PRESIDENT 04/28/2019 C34.90 Malignant neoplasm of unspecified Vielka Benavidescarrol Lowe , ADVERTISING VICE PRESIDENT part of unspecified bronchus or lung 04/28/2019 E11.22 Type 2 diabetes mellitus with Vielka Lowe, ADVERTISING VICE PRESIDENT diabetic chronic kidney disease 04/28/2019 N18.3 Chronic kidney disease, stage 3 Vielka Jimenesgerasaycarrol Lowe, ADVERTISING VICE PRESIDENT (moderate) 04/28/2019 N17.9 Acute kidney failure, unspecified Vielka Jimenesgerakeenan Lowe , ADVERTISING VICE PRESIDENT 04/27/2019 R06.02 Shortness of breath Vielkaramandeep Lowe, ADVERTISING VICE PRESIDENT 04/27/2019 R09.02 Hypoxemia Vielkaramandeep Lowe, ADVERTISING VICE PRESIDENT 04/27/2019 R91.8 Other nonspecific abnormal finding of Vielka Lowe, ADVERTISING VICE PRESIDENT lung field 04/27/2019 D72.829 Elevated white blood cell count, Vielka Jimenesester Lowe , ADVERTISING VICE PRESIDENT unspecified 04/27/2019 C34.90 Malignant neoplasm of unspecified Vielka Javonsayck Lowe , ADVERTISING VICE PRESIDENT part of unspecified bronchus or lung 04/24/2019 J18.1 Lobar pneumonia, unspecified organism Natalie Nelson MD 04/24/2019 C34.90 Malignant neoplasm of unspecified Natalie Nelson MD part of unspecified bronchus or lung 04/24/2019 J96.91 Respiratory failure, unspecified with Natalie Nelson MD hypoxia 04/16/2019 I34.0 Nonrheumatic mitral (valve) Aamir Lopez M.D. insufficiency 04/16/2019 I34.0 Nonrheumatic mitral (valve) [facility] Schedule insufficiency 04/16/2019 J44.9 Chronic obstructive pulmonary [facility] Schedule disease, unspecified 04/16/2019 I27.20 Pulmonary hypertension [facility] Schedule Plan of Treatment Future Appointment(s):08/24/2019 2:00 pm - Nurse Visit IC at [facility]08/23/2019 2:30 pm - Nurse Visit IC at [facility]2018 12:00 pm - Hayley Landeros N.P. at [facility]08/05/2019 11:30 am - Nurse Visit IC at [facility]08/05/2019 11:00 am - Traveling ECHO 2 at [facility]07/29/2019 - Hayley Landeros N.P.R06.02 Shortness of breathNew Medication:Lisinopril 5 mg - 1 by mouth every dayNew Xrays:Chest PA & Lat 2 VWS, Ordered: 07/29/19New Orders:Holter Monitor, Ordered: Follow up:[place] next week same day as echo for EKG and BP check OV after echo ( before 08/12) SFRecommendations:STOP Digoxin. Continue Lasix 40mg qD Decrease Lisinopril 5mg/ dayE78.5 QhnqpzxxkbiiigR56.0 Nonrheumatic mitral (valve) [id number] Pleural effusion, not elsewhere classified Functional Status Description No Information Available Mental Status Description No Information Available Referrals Description No Information Available
[2019-08-23 04:21] LABS: ABS Basophils 0.1 10^3/ul (0-0.2); ABS Eosinophils 0.1 10^3/ul (0-0.6); ABS Lymphocytes 0.2 10^3/ul (1.0-4.8); ABS Monocytes 0.4 10^3/ul (0-0.8); ABS Neutrophils 6.7 10^3/ul (1.5-7.7); Eosinophil % 1.8 %; Hematocrit 32 % (35-47); Hemoglobin 10.4 g/dL (12.0-16.0); Lymphocyte % 2.8 %; Mean Corpuscular HGB Conc 32 g/dL (31-36); Mean Corpuscular Hemoglobin 31 pg (27-31); Mean Corpuscular Volume 95 fL (80-97); Mean Platelet Volume 7.6 fL (7.4-10.4); Platelet Count 258 10^3/uL (150-450); Red Blood Count 3.39 10^6 /uL (3.70-4.87); Red Cell Distribution Width 18 % (10-15); White Blood Count 7.5 10^3/uL (3.5-10.8)
[2019-08-23 04:36] LABS: Albumin 3.5 g/dL (3.2-5.2); Albumin/Globulin Ratio 1.2 (1-3); Calcium 9.2 mg/dL (8.6-10.3); EGFR African American 66.5 (>60); Globulin 2.9 g/dL (2-4); Potassium 4.2 mmol/L (3.5-5.0); Total Bilirubin 0.3 mg/dL (0.2-1.0); Total Protein 6.4 g/dL (6.4-8.9)
[2019-08-23 04:38] LABS: Troponin I 0.01 ng/mL (<0.03)
[2019-08-23] MEDS ORDERED: Iodixanol* (CONTRAST) 320 MG/ML 100 ML SDV IV ONE (07:33)
--- NOTE | 2019-08-23 07:55 | ED ---
Progress - Progress Note Progress Note: Patient is a sign-out at 07:00 on 08/23/[address] Srikanth Wallis MD to Dr. Ramesh Mendoza MD at shift change, pending further workup and disposition. At 07:23, patient feels better and she no longer complains of shortness of breath at rest. She has an appointment with Dr. Keen at 11:30 on 08/23/19 for a history of lung cancer. She states she measured her oxygen levels at home on which was in the 50s so she went to [facility]. She denies taking blood thinners. At 08:20, Dr. Keen recommends a PE study, having the patient ambulate on O2 saturation, and then reassess. At 09:20, Dr. Keen agrees to admit the patient to [facility]. Patient will be admitted to [facility] with a diagnosis of left pleural effusion, shortness of breath, and hypoxia. - Results/Orders Results/Orders: Chest X-ray IMPRESSION: Cardiomegaly with left pleural effusion and interstitial edema. Reviewed by Dr. Mendoza. Interpreted by radiology. Chest/Thorax CTA IMPRESSION: 1. LIMITED STUDY, NO EVIDENCE FOR PULMONARY EMBOLISM. 2. SMALL RIGHT PLEURAL EFFUSION AND MODERATE TO LARGE LEFT PLEURAL EFFUSION, INCREASED IN SIZE. 3. FINDINGS SUGGESTIVE OF CONGESTIVE HEART FAILURE. 4. LEFT LOWER LOBE INFILTRATE WHICH HAS PROGRESSED SLIGHTLY FROM THE PRIOR CT STUDY OBSCURING THE PREVIOUSLY NOTED LEFT LOWER LOBE MASS. 5. ENLARGED MEDIASTINAL LYMPH NODES, UNCHANGED. Reviewed by Dr. Mendoza. Re-Evaluation - Re-Evaluation First Eval Re-Evaluation Time: 06:30 Change: Unchanged Comment: Discusseds results and plan. Second Eval Re-Evaluation Time: 07:23 Change: Improved Comment: At 07:23, patient feels better and she no longer complains of shortness of breath at rest. She has an appointment with Dr. Keen at 11:30 on for a history of lung cancer. She states she measured her oxygen levels at home on 08/22/19 which was in the 50s so she went to [facility]. She denies taking blood thinners. Course/Dx - Course Course Of Treatment: 69 y/o F who has history of lung cancer in remission arriving by ambulance with SOB over the last three months and worsening this morning with dyspnea on exertion and hypoxia. Physical exam reveals left lung has findings of fairly large pleural effusion with bronchial breath sounds and dullness to percussion about hallway up. Blood work obtained and reveals RBCs of 3.39, hemoglobin of 10.4, hematocrit of 32, RDW of 18 absolute lymphocytes of 0.2, carbon dioxide of 37, creatinine of 1.00, glucose of 106, and AST of 10. First troponin of 0.01. EKG at 0354 reveals atrial fibrillation at 82 bpm, nonspecific T abnormalities in lateral leads, otherwise normal. Chest x-ray, per my interpretation, reveals a large left pleural effusion, somewhat worse than 08/11/19. Dr. Bowers from oncology agrees with therapeutic thoracentesis by radiology in morning, and if she feels better, she can go home. The patient is a sign-out from Dr. Srikanth Wallis MD, to Dr. Ramesh Mendoza MD, at change of shift at 0700 on 08/23/2019, pending therapeutic thoracentesis by radiology, re-eval, and disposition. Dx dyspnea, pleural effusion. Patient sent in from Dr. Barrera. Patient had a CT performed which showed no evidence of PE. Patient desatted to 70% when she went to the commode. Given patient's desaturation, patient was admitted to Dr. Keen - Diagnoses Provider Diagnoses: Shortness of breath, Pleural effusion, left, Hypoxia - Provider Notifications Discussed Care Of Patient With: Nikita Keen - At 08:20, Dr. Keen recommends a PE study, having the patient ambulate on O2 saturation, and then reassess. At 09 :20, Dr. Keen agrees to admit the patient to [facility]. Time Discussed With Above Provider: 08:20 Instructed by Provider To: Other - I discussed the patient's case with Dr. Bowers, and she agrees with therapeutic thoracentesis by radiology in morning; if she feels better, she can go home. Discharge ED - Sign-Out/Discharge Documenting (check all that apply): Patient Departure - Admit - Discharge Plan Condition: Stable Disposition: ADMITTED TO [facility] - Billing Disposition and Condition Condition: STABLE Disposition: Admitted to [facility] - Attestation Statements Document Initiated by Scribe: Yes Documenting Scribe: Concepción Jacinto Provider For Whom Scribe is Documenting (Include Credential): Ramesh Mendoza MD Scribe Attestation: I, Concepción Jacinto, scribed for Ramesh Mendoza MD on 08/23/19 at 1856. Scribe Documentation Reviewed: Yes Provider Attestation: The documentation as recorded by the scribe, Concepción Jacinto accurately reflects the service I personally performed and the decisions made by me, Ramesh Mendoza MD Status of Scribe Document: Viewed
[2019-08-23] MEDS ORDERED: Albuterol/Ipratropium NEB.SOL* Albuterol 2.5 MG/Ipratropium 0.5 MG 3 ML INH PRN (10:42)
[2019-08-23] MEDS ORDERED: oxyCODONE/Acetamin 5/325 MG* TAB PO PRN (10:42)
[2019-08-23] MEDS ORDERED: Ondansetron INJ* 2 MG/ML VIAL IV PRN (10:42)
[2019-08-23] MEDS ORDERED: Dextrose 50% VIAL 50 ml IV PUSH PRN (10:46)
[2019-08-23] MEDS ORDERED: Furosemide IV* 10 MG/ML 2 ML VIAL (20 MG) IV ONE (10:50)
[2019-08-23] MEDS ORDERED: Magnesium Sulfate IV* 3 GM in NS 0.9% 100 ML* 100 ML IVPB ONE (11:00)
[2019-08-23 11:35] LABS: C Reactive Protein 12.14 mg/L (<8.01)
--- NOTE | 2019-08-23 12:26 | HP ---
HISTORY AND PHYSICAL: DATE OF ADMISSION: 08/23/19 REASON FOR ADMISSION: Acute shortness of breath. IDENTIFICATION: A 69-year-old female with a history of locally advanced non- small cell lung cancer, status post chemotherapy and radiation, now on immunotherapy. HISTORY OF PRESENT ILLNESS: She has had progressive shortness of breath over the past several months. Symptoms have been progressively worsening despite any intervention we have tried. She has a history of congestive heart failure and in June she had a BNP checked which was only mildly elevated, she went on Lasix. She had a CT scan showing a new large left-sided pleural effusion ipsilateral to her primary tumor. This has been drained twice. Both cytologies have been negative and it appears to be transudative. She was last seen in the office on 08/09/19, at which point we decided to recheck pulmonary function tests and restaging CT scan. The CT scan was negative except for the effusion and PFTs were just done on 08/16/19. Over the past 2 days, she has had progressive shortness of breath. It got to the point that she could not move. She even has some shortness of breath just moving around in the bed and this gives her anxiety. Last night, she went to get up and just walking around her bed her room air saturations went down to the 50s. That triggered an ambulance and coming to the emergency room. In the emergency room, she has also been hypoxic, was saturating in the 70s with minimal movement. She had a CTA that showed the effusion, no clear pulmonary embolus. She denies fevers, chills, night sweats, cough. She does have some swelling in her ankles that has increased recently. PAST MEDICAL HISTORY: 1. Atrial fibrillation, followed by Dr. Lopez. 2. Congestive heart failure. Last echocardiogram in 2013, EF 55%. 3. COPD. 4. Diabetes type 2. 5. Hypertension. 6. Obesity. 7. Osteoarthritis. 8. Sleep apnea. 9. Bilateral lower extremity edema. PAST SURGICAL HISTORY: Hysterectomy and lung biopsy. HOME MEDICATIONS: 1. Acetaminophen. 2. B12. 3. Cartia XT 300 mg q.24 hours. 4. Chlorthalidone 25 mg p.o. daily. 5. Ferrex 150 a day. 6. Lasix 20 to 40 mg per day. 7. Glyburide 5 mg daily. 8. Janumet XR mg b.i.d. 9. Lisinopril 10 mg a day. 10. Magnesium 500 b.i.d. 11. Metoprolol 12.5 mg daily. 12. Omeprazole 20 mg b.i.d. 13. Symbicort 2 puffs 80/4.5 b.i.d. ALLERGIES: POTASSIUM. FAMILY HISTORY: Noncontributory today, but there is coronary artery disease in the family. SOCIAL HISTORY: Lives alone. Son is primary support. She is a retired accountant property. She smoked for 40 years with 80-pack year history, but stopped in 2002. She does not drink alcohol. REVIEW OF SYSTEMS: She is fatigued, worn out. No fevers, chills, night sweats. HEENT: Dry mouth. Otherwise negative. Endocrine: Diabetes. Hemorrhagic/Lymphatic: She has had persistent anemia, on oral iron and has been improving. Respiratory: As above. Heart: AFib. No chest pain. GI: Eating. No diarrhea. : Negative. Musculoskeletal: Chronic osteoarthritis. She often uses a wheelchair at home. Skin: Negative. Neurologic: Negative. PHYSICAL EXAMINATION VITAL SIGNS: BP 133/88, pulse 86, respirations 25, O2 sat 99%. HEENT: Oral mucosa moist. No thrush. She has got edema in her face. NECK: No JVD. LUNGS: Decreased breath sounds bilaterally and bilateral wheezing. HEART: Irregular, 90s. S1, S2. ABDOMEN: Obese, nontender, nondistended. No hepatosplenomegaly and good bowel sounds. EXTREMITIES: +2 lower extremity edema. NEUROLOGIC: Grossly nonfocal. DIAGNOSTIC STUDIES/LAB DATA: Hemoglobin 10.4, MCV 95, white count 7.5, platelet count 258. Creatinine 1 consistent with baseline, BUN 19, glucose 106 , mag 1.7, potassium 4.2. Normal LFTs. Her last B12 was over 1450 in April. CTA shows the effusion, decreased aeration on the left. There seems to be edema on both sides. No new masses. No clear PE. ASSESSMENT AND PLAN: A 69-year-old female presents with shortness of breath over several months. She has been on immunotherapy with 3 doses of durvalumab, last given earlier this month. Differential diagnosis includes some progression of congestive heart failure in combination with chronic obstructive pulmonary disease and diminished lung function after treatment, however immune pneumonitis I think is most likely cause of her progressive symptoms. Vurrent hypoxia cannot be explained just by post treatment effect. Effusion is contributing subjectively but should not cause this level of hypoxia. No evidence of pneumonia, no evidence of pulmonary embolus. 1. Admit today. We will place on Solu-Medrol 125 IV q.8 for 24 hours, then decrease to 60 mg IV q.8. 2. Continue Prilosec. 3. Atrial fibrillation. Continue metoprolol and diltiazem. 4. Diabetes. We are going to continue glyburide, but hold the metformin. We will start on high dose of insulin sliding scale for BMI over 30. 5. Anemia. Stable, hold iron. No additional studies at this time. 6. FEN: Replete mag today, follow. 7. Check echocardiogram, PFTs reviewed. 8. CHF. Increase Lasix to 20 mg IV daily, check BNP. [id number]/[facility] #: [id number] [facility]
[2019-08-23] MEDS: Enoxaparin(*) 40 MG/0.4 ML SYR SUBCUT SCH (12:28)
[2019-08-23] MEDS: methylPREDNISolone 125 MG* 2 ML VIAL IV SCH ×2 (12:28→17:53)
[2019-08-23] MEDS: Insulin LISPRO* 1 UNITS UNIT SUBCUT SCH ×3 (12:28→20:55)
[2019-08-23] MEDS ORDERED: Furosemide IV* 10 MG/ML VIAL (40 MG) IV ONE (14:00)
[2019-08-23] MEDS: Lisinopril TAB* 5 MG PO SCH (16:56)
[2019-08-23] MEDS: Mometasone/Formoter 100/5 MDI INH SCH (20:14)
[2019-08-23] MEDS ORDERED: Zolpidem TAB* 5 MG PO SCH (21:00)
--- NOTE | 2019-08-23 21:38 | PN ---
Hospitalist Progress Note Date of Service: 08/23/19 CAT call for hypoxia with reported Sat's in 50-60s despite max nasal canula. Pt complaint of increased SOB about 15 minutes prior to the CAT call. Pt placed on face mask and transferring to ICU. No breath sounds appreciated on the left. Stat CXR demonstrated white out on left. Pt poorly responsive except to hard sternal rub -> opens eyes, localizes pain and grunts. ABG pending. Discussed with son Ramesh, confirming she is full code. Barnett to be placed. Pt with hx of NSCLC with left lower lung mass and pleural effusion L>R. CTA from prior today without e/o of PE. Pt on solumedrol 125mg q8 with history of COPD, remote 80 pack years on 4L at home at baseline. Will add CFTX. Sat's improved to 99% on vapotherm. Goal sat 88-92% given COPD history.
[2019-08-23] MEDS ORDERED: Furosemide IV* 10 MG/ML 10 ML VIAL (100 MG) IV ONE (22:51)
[2019-08-23 23:09] LABS: Magnesium 1.7 mg/dL (1.9-2.7)
[2019-08-23 23:11] LABS: ABS Lymphocytes 0.1 10^3/ul (1.0-4.8); Hematocrit 32 % (35-47); Mean Corpuscular HGB Conc 32 g/dL (31-36); Mean Corpuscular Hemoglobin 31 pg (27-31); Mean Corpuscular Volume 97 fL (80-97); Mean Platelet Volume 7.4 fL (7.4-10.4); Platelet Count 220 10^3/uL (150-450); Red Blood Count 3.25 10^6 /uL (3.70-4.87); Red Cell Distribution Width 19 % (10-15); White Blood Count 9.1 10^3/uL (3.5-10.8)
[2019-08-23] MEDS: cefTRIAXone(*) 1 GM in NS 0.9% 50 ML* 50 ML IVPB SCH (23:14)
[2019-08-23 23:29] LABS: Albumin 3.3 g/dL (3.2-5.2); Albumin/Globulin Ratio 1.2 (1-3); BUN/Creatinine Ratio 18.2 (8-20); Calcium 8.8 mg/dL (8.6-10.3); EGFR African American 59.6 (>60); EGFR Non-African American 49.2 (>60); Globulin 2.8 g/dL (2-4); Potassium 4.6 mmol/L (3.5-5.0); Total Bilirubin 0.4 mg/dL (0.2-1.0); Total Protein 6.1 g/dL (6.4-8.9)
[2019-08-23 23:52] LABS: Urine Bacteria 1+ (Absent); Urine Red Blood Cell Trace(0-2/hpf) (Absent); Urine Squamous Epithelial Cell Present (Absent); Urine White Blood Cell 3+(>20/hpf) (Absent)
[2019-08-24 00:04] LABS: Urine Appearance Cloudy; Urine Bilirubin Negative (Negative); Urine Blood 1+ (Negative); Urine Color Yellow; Urine Glucose Negative (Negative); Urine Ketones Negative (Negative); Urine Nitrite Positive (Negative); Urine Protein Negative (Negative); Urine Specific Gravity 1.016 (1.010-1.030); Urine Urobilinogen Negative (Negative)
[2019-08-24] MEDS: methylPREDNISolone 125 MG* 2 ML VIAL IV SCH ×3 (02:13→20:18)
[2019-08-24] MEDS: Acetaminophen TAB* 325 MG PO PRN (04:43)
[2019-08-24] MEDS: Diltiazem TAB* 60 MG PO SCH ×3 (04:43→18:22)
[2019-08-24 04:45] LABS: ABS Lymphocytes 0.1 10^3/ul (1.0-4.8); ABS Neutrophils 5.4 10^3/ul (1.5-7.7); Hematocrit 31 % (35-47); Hemoglobin 9.8 g/dL (12.0-16.0); Mean Corpuscular HGB Conc 32 g/dL (31-36); Mean Corpuscular Hemoglobin 30 pg (27-31); Mean Corpuscular Volume 95 fL (80-97); Mean Platelet Volume 7.6 fL (7.4-10.4); Nucleated Red Blood Cells % 0.1; Platelet Count 217 10^3/uL (150-450); Red Blood Count 3.24 10^6 /uL (3.70-4.87); Red Cell Distribution Width 19 % (10-15); White Blood Count 5.6 10^3/uL (3.5-10.8)
[2019-08-24 05:00] LABS: Albumin 3.2 g/dL (3.2-5.2); Albumin/Globulin Ratio 1.2 (1-3); Calcium 8.6 mg/dL (8.6-10.3); EGFR African American 66.5 (>60); Globulin 2.7 g/dL (2-4); Magnesium 1.9 mg/dL (1.9-2.7); Potassium 4.6 mmol/L (3.5-5.0); Total Bilirubin 0.4 mg/dL (0.2-1.0); Total Protein 5.9 g/dL (6.4-8.9)
[2019-08-24] MEDS ORDERED: Magnesium Sulfate 1 GM IV* 1 GM/100 ML BAG IV ONE (05:07)
[2019-08-24] MEDS ORDERED: Furosemide IV* 10 MG/ML VIAL (40 MG) IV ONE (06:00)
[2019-08-24] MEDS: Mometasone/Formoter 100/5 MDI INH SCH ×2 (07:22→20:29)
[2019-08-24] MEDS: Metoprolol Succinate XL TAB* 25 MG PO SCH (08:36)
[2019-08-24] MEDS: Cyanocobalamin TAB* 500 MCG PO SCH (08:37)
[2019-08-24] MEDS: glyBURIDE TAB* 5 MG PO SCH (08:37)
[2019-08-24] MEDS: Insulin LISPRO* 1 UNITS UNIT SUBCUT SCH ×4 (08:38→21:50)
[2019-08-24] MEDS: OMEPRAZOLE 20 MG PO SCH (08:42)
--- NOTE | 2019-08-24 08:42 | PN ---
Subjective Date of Service: 08/24/19 Interval History: Admitted yesterday for shortness of breath, transferred to the ICU for acute respiratory distress. This morning, reports trouble breathing, is on vapotherm No chest pain, no palpitations. Family History: Unchanged from Admission Social History: Unchanged from Admission Past Medical History: Unchanged from Admission Objective Active Medications: Acetaminophen (Tylenol Tab*) 650 mg PO Q4H PRN PRN Reason: PAIN - MILD Last Admin: 08/24/19 04:43 Dose: 650 mg Albuterol/Ipratropium (Duoneb (Albuterol 2.5 Mg/Ipratropium 0.5 Mg)) 1 neb INH RT.[id number] AWAKE PRN PRN Reason: sob/wheexing Cyanocobalamin (Vitamin B12 Tab*) 1,000 mcg PO DAILY [facility] Dextrose (Dextrose 50% Vial 50 Ml*) 25 ml IV PUSH .FOR FS < 60 - SS PRN PRN Reason: FS < 60 Diltiazem HCl (Cardizem Tab*) 60 mg PO Q6HR [facility] Last Admin: 08/24/19 04:43 Dose: 60 mg Enoxaparin Sodium (Lovenox(*)) 40 mg SUBCUT Q24H [facility] Last Admin: 08/23/19 12:28 Dose: 40 mg Glyburide (Diabeta Tab*) 5 mg PO DAILY WITH MEAL [facility] Ceftriaxone Sodium 1 gm/ (Sodium Chloride) 50 mls @ 100 mls/hr IVPB Q24H [facility] Last Admin: 08/23/19 23:14 Dose: 100 mls/hr Insulin Human Lispro (Humalog*) 0 units SUBCUT ACHS [facility]; Protocol Last Admin: 08/23/19 20:55 Dose: 6 unit Lisinopril (Prinivil Tab*) 5 mg PO QPM [facility] Last Admin: 08/23/19 16:56 Dose: 5 mg Methylprednisolone Sodium Succinate (Solu-Medrol 125mg *) 125 mg IV Q8H [facility] Last Admin: 08/24/19 02:13 Dose: 125 mg Metoprolol Succinate (Toprol Xl Tab*) 12.5 mg PO QAM [facility] Mometasone Furoate/Formoterol Fumar (Dulera 100/5 Mdi*) 2 puff INH BID [facility] Last Admin: 08/24/19 07:22 Dose: 2 puff Omeprazole (Prilosec Cap* (Nf)) 80 mg PO DAILY [facility] Ondansetron HCl (Zofran Inj*) 4 mg IV Q4H PRN PRN Reason: NAUSEA/VOMITING Oxycodone/Acetaminophen (Percocet 5/325 Tab*) 1 tab PO Q4H PRN PRN Reason: PAIN - MODERATE Zolpidem Tartrate (Ambien Tab*) 5 mg PO BEDTIME [facility] Last Admin: 08/23/19 20:55 Dose: 5 mg Vital Signs - 8 hr 08/24/19 08/24/19 08/24/19 00:45 01:00 01:16 Temperature 96.4 F 96.4 F 96.4 F Pulse Rate 92 97 108 Respiratory 20 17 21 Rate Blood Pressure 112/69 140/75 176/75 (mmHg) O2 Sat by Pulse 100 97 100 Oximetry 08/24/19 08/24/19 08/24/19 01:31 01:45 02:00 Temperature 96.6 F 97.0 F 97.5 F Pulse Rate 96 113 112 Respiratory 18 16 22 Rate Blood Pressure 135/111 155/125 (mmHg) O2 Sat by Pulse 99 97 98 Oximetry 08/24/19 08/24/19 08/24/19 02:01 02:03 02:05 Temperature 97.5 F 97.5 F 97.5 F Pulse Rate 110 112 124 Respiratory 27 27 29 Rate Blood Pressure 74/59 152/95 (mmHg) O2 Sat by Pulse 95 93 94 Oximetry 08/24/19 08/24/19 08/24/19 02:30 03:00 03:30 Temperature 98.2 F 98.4 F 98.8 F Pulse Rate 93 111 109 Respiratory 18 20 23 Rate Blood Pressure 134/87 131/70 131/83 (mmHg) O2 Sat by Pulse 100 100 96 Oximetry 08/24/19 08/24/19 08/24/19 03:52 04:00 04:01 Temperature 37.3 F 99.1 F 99.1 F Pulse Rate 121 117 Respiratory 30 22 31 Rate Blood Pressure 127/97 (mmHg) O2 Sat by Pulse 89 88 Oximetry 08/24/19 08/24/19 08/24/19 04:30 04:57 04:59 Temperature 99.3 F 99.1 F Pulse Rate 128 125 Respiratory 22 32 33 Rate Blood Pressure 136/100 145/87 (mmHg) O2 Sat by Pulse 100 98 Oximetry 08/24/19 08/24/19 08/24/19 05:01 05:05 05:31 Temperature 99.1 F 99.3 F 99.1 F Pulse Rate 117 126 103 Respiratory 33 37 23 Rate Blood Pressure 141/107 141/94 127/93 (mmHg) O2 Sat by Pulse 97 97 96 Oximetry 08/24/19 08/24/19 08/24/19 06:00 06:31 06:52 Temperature 99.1 F 99.0 F Pulse Rate 97 103 Respiratory 22 25 28 Rate Blood Pressure 122/89 143/81 (mmHg) O2 Sat by Pulse 97 96 Oximetry 08/24/19 08/24/19 08/24/19 07:00 07:01 07:26 Temperature 99.1 F 99.0 F Pulse Rate 114 105 93 Respiratory 27 35 27 Rate Blood Pressure 146/96 (mmHg) O2 Sat by Pulse 94 95 97 Oximetry Oxygen Devices in Use Now: High Flow Heated Nasal Cannula Appearance: She is lying in the bed, in no distress. on vapotherm Eyes: PERRLA Neck: Trachea Midline Respiratory: - - There is tachypnea, but no use of accessory muscles. No breath sounds at the left lung. Right lung- crackles heard. Cardiovascular: - - Regular tachycardia, no murmurs, 1+ edema bilateral lower extremities. Neurological: Alert and Oriented x 3, NL Muscle Strength and Tone Result Diagrams: 08/24/19 04:31 08/24/19 04:31 Microbiology and Other Data: Microbiology 08/23/19 21:41 Nasal Screen MRSA (PCR) - Final Nasal Mrsa Not Detected Assess/Plan/Problems-Billing Assessment: - Patient Problems (1) Acute respiratory failure with hypercapnia Current Visit: Yes Status: Acute Code(s): J96.02 - ACUTE RESPIRATORY FAILURE WITH HYPERCAPNIA SNOMED Code(s): 744430028 Comment: Due to pleural effusion, COPD and CHF. For u/s guided Left thoracenetesis. Continue supplemental O2, steroids, nebs. Lasix 20mg IV daily. (2) Pleural effusion Current Visit: Yes Status: Acute Code(s): J90 - PLEURAL EFFUSION, NOT ELSEWHERE CLASSIFIED SNOMED Code(s): 79485711 Comment: received lasix - which improved slighlty but still present with cxr reading moderate size left effusion. plan for U/S guided thoracenetesis today (3) DVT prophylaxis Current Visit: No Status: Acute Code(s): TDK2353 - SNOMED Code(s): 377121623 Comment: received lovenox yesterday d/w nurse to hold lovenox today due to thoracenetesis (4) Lung cancer Current Visit: No Status: Acute Code(s): C34.90 - MALIGNANT NEOPLASM OF UNSP PART OF UNSP BRONCHUS OR LUNG SNOMED Code(s): 888052520 Comment: s/p chemo getting immunotherapy (5) Diabetes Current Visit: No Status: Acute Code(s): E11.9 - TYPE 2 DIABETES MELLITUS WITHOUT COMPLICATIONS SNOMED Code(s): 06126891 Comment: continue glyburide, insulin sliding scale. monitor fingersticks. (6) Full code status Current Visit: No Status: Acute Code(s): Z78.9 - OTHER SPECIFIED HEALTH STATUS SNOMED Code(s): 816829824 Comment: Status and Disposition: ICU level of care.
[2019-08-24] MEDS ORDERED: Furosemide IV* 10 MG/ML 2 ML VIAL (20 MG) IV ONE (08:43)
[2019-08-24] MEDS ORDERED: Diltiazem CD CAP* 120 MG PO SCH (09:00)
[2019-08-24] MEDS ORDERED: Diltiazem CD CAP* 180 MG PO SCH (09:00)
[2019-08-24] MEDS: Enoxaparin(*) 40 MG/0.4 ML SYR SUBCUT SCH (09:06)
--- NOTE | 2019-08-24 12:05 | ECHO ---
*[facility]* [place] [address] Fax #: [phone] Transthoracic Echocardiogram Patient: Diane Del Real : 1950 Study Date: 08/24/2019 Age: 69 Gender: F HR: 111 bpm Height: 60 in /152.4 cm BSA: 2.02 m^2 Weight: 239.5 lb /108.9 kg BMI: 46.9 kg/m^2 *Central Sterilization Technician: Dora Alfonso *Referring Physician: * Nikita Keen *Reading Physician: * Lizbeth Morel MD Indications: Congestive Heart Failure. History: Atrial fibrillation. Congestive heart failure. Risk factors: Previous tobacco use. Hypertension. Diabetes mellitus. Dyslipidemia. Conclusions Summary: - Left ventricle: The cavity size is normal. Wall thickness is moderately increased. Systolic function is normal. The estimated ejection fraction is 55-60%. - Left atrium: The atrium is severely dilated. - Right atrium: The atrium is dilated. - Mitral valve: There is trace regurgitation. - Tricuspid valve: There is mild regurgitation. - Pericardium, extracardiac: There is a right pleural effusion and a left pleural effusion. - Pulmonary arteries: Systolic pressure is moderately increased, estimated to be 54 mm Hg. - C/t 11/15/2013, no overt significant changes. Study data: Transthoracic echocardiogram. Procedure: Transthoracic echocardiography was performed. Image quality was good. Complete 2D, spectral Doppler, and color flow Doppler. Location: ICU Patient status: Inpatient. Patient room number: 13. Findings Left ventricle: The cavity size is normal. Wall thickness is moderately increased. Systolic function is normal. The estimated ejection fraction is 55-60%. Wall motion is normal; there are no regional wall motion abnormalities. Left ventricular diastolic function parameters are indeterminate. Right ventricle: The cavity size is normal. Systolic function is normal. Left atrium: The atrium is severely dilated. Right atrium: The atrium is dilated. Atrial septum: No defect or patent foramen ovale is identified. Mitral valve: Appears calcified. The leaflets are mildly thickened. There is no evidence of stenosis. There is trace regurgitation. Aortic valve: The valve is probably trileaflet. The leaflets are mildly calcified. There is no evidence of stenosis. There is no significant regurgitation. Tricuspid valve: The leaflets are normal thickness. There is no evidence of stenosis. There is mild regurgitation. Pulmonic valve: The valve is structurally normal. There is no evidence of stenosis. There is trace regurgitation. Aorta: The aortic root appears normal. The aortic arch appears normal. Pericardium: There is no significant pericardial effusion. There is a right pleural effusion and a left pleural effusion. Pulmonary arteries: Systolic pressure is moderately increased, estimated to be 54 mm Hg. Systemic veins: Inferior vena cava: The vessel is normal in size. Pulmonary veins: Not well visualized. Measurements Left ventricle Value Ref Aortic valve Value Ref PAULO, LAX 4.8 cm 3.8 - Peak v, S 1.31 m/sec ----- 5.2 VTI, S 22.6 cm ----- ESD, LAX 3.0 cm 2.2 - Mean grad, S 4.0 mm Hg ----- 3.5 Peak grad, S 7.0 mm Hg ----- FS, LAX 37 % 45 JUD, VTI 2.53 cm^2 ----- PW, ED, LAX (H) 1.5 cm 0.6 - JUD, Vmax 2.25 cm^2 ----- 0.9 FS 37 % 45 Mitral valve Value Ref Mid-wall FS 12 % -------- Peak E 1.16 m/sec ----- PW, ED (H) 1.5 cm 0.6 - Peak A 0 m/sec ----- 0.9 Decel time 229 ms ----- PW/ID, ED 0.31 -------- Peak grad, D 5.4 mm Hg ----- E', lat ruby, TDI 11.8 cm/sec >=10.0 Peak E/A ratio 386.7 ----- E/e', lat ruby, TDI 10 -------- E', med ruby, TDI 7.0 cm/sec >=7.0 Pulmonic valve Value Ref E/e', med ruby, TDI 17 -------- Peak v, S 0.92 m/sec --- -- E', avg, TDI 9.4 cm/sec -------- Peak grad, S 3.0 mm Hg --- -- E/e', avg, TDI 12 <=14 Tricuspid valve Value Ref LVOT Value Ref TR peak v (H) 3.32 m/sec <=2.8 Diam, S 2.00 cm -------- Peak RV-RA grad, S 44 mm Hg ----- Area 3.1 cm^2 -------- Max TR thu 3.48 m/sec ----- Peak thu, S 0.94 m/sec -------- Mean grad, S 2 mm Hg -------- Aortic root Value Ref SV 57 ml -------- Root diam 3.3 cm <4.2 Ventricular septum Value Ref Ascending aorta Value Ref IVS, ED (H) 1.7 cm 0.6 - AAo AP diam, S 3.2 cm ----- 0.9 Aortic arch Value Ref Right ventricle Value Ref Arch diam 2.2 cm ----- PAULO, LAX 3.3 cm -------- PAULO minor ax, A4C 3.5 cm 1.9 - Decending aorta Value Ref mid 3.5 Neo peak thu 0.61 m/sec ----- Left atrium Value Ref Inferior vena cava Value Ref ML dim, A4C 5.4 cm -------- Diam 2.7 cm ----- SI dim, A4C 6.9 cm -------- Vol/bsa, ES, 1-p (H) 56 ml/m^2 11 - 40 A4C Vol/bsa, ES, A/L (H) 52 ml/m^2 16 - 34 Right atrium Value Ref SI dim, ES (H) 6.1 cm 3.4 - 5.3 ML dim, ES, A4C (H) 4.5 cm 2.6 - 4.4 SI dim, ES, A4C (H) 6.1 cm 3.4 - 5.3 Legend: (L) and (H) jenni values outside specified reference range. Prepared and electronically signed by Lizbeth Morel MD 08/24/2019 12:05
[2019-08-24] MEDS: Lisinopril TAB* 5 MG PO SCH (18:22)
[2019-08-24] MEDS: cefTRIAXone(*) 1 GM in NS 0.9% 50 ML* 50 ML IVPB SCH (21:50)
[2019-08-25] MEDS: Diltiazem TAB* 60 MG PO SCH ×5 (00:42→23:43)
[2019-08-25] MEDS: methylPREDNISolone 125 MG* 2 ML VIAL IV SCH ×3 (04:39→23:43)
[2019-08-25] MEDS: Acetaminophen TAB* 325 MG PO PRN (04:41)
[2019-08-25] MEDS: Mometasone/Formoter 100/5 MDI INH SCH ×2 (07:43→19:45)
[2019-08-25] MEDS ORDERED: Saline NASAL SPRAY 0.65%* BTL BOTH NARES PRN (08:03)
[2019-08-25] MEDS: OMEPRAZOLE 20 MG PO SCH (08:35)
[2019-08-25] MEDS: Insulin LISPRO* 1 UNITS UNIT SUBCUT SCH ×4 (08:35→21:49)
[2019-08-25] MEDS: Metoprolol Succinate XL TAB* 25 MG PO SCH (08:35)
[2019-08-25] MEDS: Furosemide IV* 10 MG/ML VIAL (40 MG) IV SCH (08:36)
[2019-08-25] MEDS: Cyanocobalamin TAB* 500 MCG PO SCH (08:36)
[2019-08-25] MEDS: glyBURIDE TAB* 5 MG PO SCH (08:37)
[2019-08-25 08:56] LABS: ABS Lymphocytes 0.1 10^3/ul (1.0-4.8); ABS Monocytes 0.1 10^3/ul (0-0.8); ABS Neutrophils 9.2 10^3/ul (1.5-7.7); Hematocrit 30 % (35-47); Hemoglobin 9.7 g/dL (12.0-16.0); Lymphocyte % 1.2 %; Mean Corpuscular HGB Conc 33 g/dL (31-36); Mean Corpuscular Hemoglobin 31 pg (27-31); Mean Corpuscular Volume 94 fL (80-97); Mean Platelet Volume 7.6 fL (7.4-10.4); Nucleated Red Blood Cells % 0.1; Platelet Count 225 10^3/uL (150-450); Red Blood Count 3.15 10^6 /uL (3.70-4.87); Red Cell Distribution Width 18 % (10-15); White Blood Count 9.4 10^3/uL (3.5-10.8)
[2019-08-25 09:10] LABS: BUN/Creatinine Ratio 25.4 (8-20); Calcium 8.6 mg/dL (8.6-10.3); EGFR African American 57.2 (>60); EGFR Non-African American 47.3 (>60); Magnesium 1.8 mg/dL (1.9-2.7); Phosphorus 2.9 mg/dL (2.5-5.0); Potassium 4.5 mmol/L (3.5-5.0)
[2019-08-25] MEDS: Enoxaparin(*) 40 MG/0.4 ML SYR SUBCUT SCH (11:40)
[2019-08-25] MEDS: Lisinopril TAB* 5 MG PO SCH (17:08)
[2019-08-25] MEDS: cefTRIAXone(*) 1 GM in NS 0.9% 50 ML* 50 ML IVPB SCH (21:49)
[2019-08-26] MEDS: Diltiazem TAB* 60 MG PO SCH ×4 (05:39→23:24)
[2019-08-26] MEDS: Mometasone/Formoter 100/5 MDI INH SCH ×2 (08:09→19:38)
[2019-08-26] MEDS: OMEPRAZOLE 20 MG PO SCH (08:36)
[2019-08-26] MEDS: Cyanocobalamin TAB* 500 MCG PO SCH (08:36)
[2019-08-26] MEDS: Metoprolol Succinate XL TAB* 25 MG PO SCH (08:36)
[2019-08-26] MEDS: glyBURIDE TAB* 5 MG PO SCH (08:36)
[2019-08-26] MEDS: Insulin LISPRO* 1 UNITS UNIT SUBCUT SCH ×4 (08:36→21:42)
[2019-08-26] MEDS: Furosemide IV* 10 MG/ML VIAL (40 MG) IV SCH (08:37)
--- NOTE | 2019-08-26 11:15 | PN ---
Progress Note - Progress Note Date of Service: 08/26/19 SOAP: Subjective: []Feeling better day by day. Per PT de-SAT to ~69% with ambulation ~10 ft and recovered quickly with inc. in O2 to 6L. Diane denies dizziness, chest pain and pressure with this. "I mean I feel short of breath, but not that heaviness I was having." No major complaints today. Apparently her son may be installing a chair lift to get in the house. She is motivated to get home. Medications: Acetaminophen (Tylenol Tab*) 650 mg PO Q4H PRN PRN Reason: PAIN - MILD Last Admin: 08/25/19 04:41 Dose: 650 mg Albuterol/Ipratropium (Duoneb (Albuterol 2.5 Mg/Ipratropium 0.5 Mg)) 1 neb INH [id number] AWAKE PRN PRN Reason: sob/wheexing Cyanocobalamin (Vitamin B12 Tab*) 1,000 mcg PO DAILY [facility] Last Admin: 08/26/19 08:36 Dose: 1,000 mcg Dextrose (Dextrose 50% Vial 50 Ml*) 25 ml IV PUSH .FOR FS < 60 - SS PRN PRN Reason: FS < 60 Diltiazem HCl (Cardizem Tab*) 60 mg PO Q6HR [facility] Last Admin: 08/26/19 05:39 Dose: 60 mg Enoxaparin Sodium (Lovenox(*)) 40 mg SUBCUT Q24H [facility] Last Admin: 08/25/19 11:40 Dose: Not Given Furosemide (Lasix Iv*) 40 mg IV DAILY [facility] Last Admin: 08/26/19 08:37 Dose: 40 mg Glyburide (Diabeta Tab*) 5 mg PO DAILY WITH MEAL [facility] Last Admin: 08/26/19 08:36 Dose: 5 mg Heparin Sodium (Porcine) (Heparin Flush Port (Ivad)) 5 ml FLUSH BID [facility]; Protocol Last Admin: 08/26/19 08:37 Dose: 5 ml Ceftriaxone Sodium 1 gm/ (Sodium Chloride) 50 mls @ 100 mls/hr IVPB Q24H [facility] Last Admin: 08/25/19 21:49 Dose: 100 mls/hr Insulin Human Lispro (Humalog*) 0 units SUBCUT ACHS [facility]; Protocol Last Admin: 08/26/19 08:36 Dose: 6 unit Lisinopril (Prinivil Tab*) 5 mg PO QPM [facility] Last Admin: 08/25/19 17:08 Dose: 5 mg Methylprednisolone Sodium Succinate (Solu-Medrol 125mg *) 60 mg IV Q12H [facility] Last Admin: 08/25/19 23:43 Dose: 60 mg Metoprolol Succinate (Toprol Xl Tab*) 12.5 mg PO QAM [facility] Last Admin: 08/26/19 08:36 Dose: 12.5 mg Mometasone Furoate/Formoterol Fumar (Dulera 100/5 Mdi*) 2 puff INH BID [facility] Last Admin: 08/26/19 08:09 Dose: 2 puff Omeprazole (Prilosec Cap* (Nf)) 80 mg PO DAILY [facility] Last Admin: 08/26/19 08:36 Dose: 80 mg Ondansetron HCl (Zofran Inj*) 4 mg IV Q4H PRN PRN Reason: NAUSEA/VOMITING Oxycodone/Acetaminophen (Percocet 5/325 Tab*) 1 tab PO Q4H PRN PRN Reason: PAIN - MODERATE Sodium Chloride (Sodium Chloride 0.65% Nasal [place]*) 1 spray BOTH NARES Q8H PRN PRN Reason: DRYNESS Last Admin: 08/25/19 08:41 Dose: 1 spray Objective: [] Vital Signs Temp Pulse Resp BP Pulse Ox 97.8 F 95 18 145/77 92 08/26/19 07:15 08/26/19 08:12 08/26/19 08:12 08/26/19 07:15 08/26/19 08:12 A&Ox3, EOMI, communicating clearly and involved in plan of care HRI, A.Fib on tele with PVCs, rate controlled LS dim. without wheeze or rhonchi +BS, obese Laboratory Results - last 24 hr 08/25/19 08/25/19 08/25/19 11:10 16:30 19:40 POC Glucose (mg/dL) 307 H 234 H 305 H 08/26/19 07:21 POC Glucose (mg/dL) 248 H Echo 08/24/19 EF 55-60% Thora 08/24/19 1300 mL serosanginous fluid Assessment: []69 yo female with locally advanced NSCLC s/p definitive therapy and most recently on adjuvant immunotherapy (last Durvalumab given 07/01 and subsequently held d/t GIB and then recurrent pleural effusions with tenuous clinical condition). 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 She has improved significantly since admission, however she is still de-saturating significantly with short periods of exertion. Her effusion appears transudative with no evidence for malignancy and restaging scans appear SANJAY therefore I suspect this is all cardiac driven and will ask for a consult to weigh in on management. Plan: []- with cont.'d de-SAT, no change in abx. or steroids today - cont. ambulation to [facility] [employer] [employer] O2 with amb. to 5 L and consider oxymask, NC @ 3L while resting - consult cards re: congestion and recurrent non-malignant effusion - repeat labs and CXR today Dispo: inpt. for IV abx. and acute PT with O2 needs, hopeful for d/c home with service in next couple days
[2019-08-26] MEDS: methylPREDNISolone 125 MG* 2 ML VIAL IV SCH ×2 (11:36→21:47)
[2019-08-26] MEDS: Enoxaparin(*) 40 MG/0.4 ML SYR SUBCUT SCH (11:36)
--- NOTE | 2019-08-26 16:25 | CONS ---
CC: Dr. Giudo; Dr. Morel; Dr. Lopez CARDIOLOGY CONSULTATION: DATE OF CONSULT: 08/26/19 HISTORY OF PRESENT ILLNESS: I was asked by Heme/Onc to see this 69-year-old female patient who had r ecurrent hospitalization for progressive symptoms of shortness of breath and left-sided pleural effus ion. The patient does have known history of non- small-cell lung cancer. She had history of chemoth erapy and radiation treatment. Her cancer was diagnosed in October 2018. By January, she completed therap y and now she is on immunotherapy. Cardiac saravia, the patient does have a history of chronic atrial f ibrillation/flutter. She followed up with Dr. Lopez as an outpatient. There was some concern of holger stolic heart failure. She is off anticoagulation for concerns of GI bleed. The major concern is act ually significant progressive shortness of breath on minimal exertion and left-sided pleural effusion . At this time, she was hospitalized, she had thoracocentesis, this is the third thoracocentesis sin ce June. It was described that the first 2 were cytology came in negative and was transudative p leural fluid. It is not immediately clear, there is some concern that this could be immune-mediated pneumonitis versus infection. Cardiology consult was further requested to help in the management. Th e thoracocentesis was done on 08/24/19 . Since then, she has been feeling really better. At rest, s he had no symptoms. On minimal exertion, she had shortness of breath, but she said it improved after her thoracocentesis. She does have known history of COPD, pulmonary hypertension, systemic arterial hypertension, diabetes mellitus, sleep apnea, and bilateral lower extremity swelling and chronic Marcie b. She gives no fever, no chills, no nausea, no vomiting, no hematochezia, no orthopnea, no syncope, no palpitation, no tachycardia. There is no history of myocardial infarction, no history of coronary artery disease. PAST MEDICAL HISTORY: Her past medical history is extensive including chronic AFib, diastolic conges tive heart failure, sleep apnea, COPD, anemia, type 2 diabetes mellitus. She does have also systemic arterial hypertension. Lung cancer in October 2018, status post chemotherapy and radiation treatment. Pneumonia in March 2019. PAST SURGICAL HISTORY: Includes hysterectomy. MEDICATIONS: Medications as an outpatient include: 1. Chlorthalidone 25 mg half for 4 weeks. 2. Lasix 20 mg 5 times a week. 3. Cartia 300 mg daily. 4. Metoprolol 25 mg half daily. 5. Janumet twice a day. 6. Oxygen 2 L at night. 7. Glyburide 5 mg daily. 8. Calcium, magnesium, zinc 1 daily. 9. Vitamin B12 1000 mcg daily. 10. Magnesium 250 mg 2 of them daily. 11. Digoxin 125 mcg 5 days a week. 12. Lisinopril 20 mg half daily. Her medications as an inpatient include the followin. Tylenol 650 mg p.o. q.4 hours p.r.n. 2. DuoNeb inhaler. 3. Ceftriaxone 1 g q.24 hour. 4. Vitamin B12 1000 mcg daily. 5. Diltiazem 60 mg q.6 hours. 6. Lovenox 40 mg subcu q.24 hours. 7. Lasix 40 mg IV daily. 8. Glyburide 5 mg daily. 9. Insulin accordingly to her blood sugar. 10. Lisinopril 5 mg daily. 11. Solu-Medrol 60 mg IV q.12 hours. 12. Metoprolol 12.5 mg in the morning. 13. Omeprazole 80 mg daily. 14. Zofran as needed. ALLERGIES: She is allergic to POTASSIUM CHLORIDE. FAMILY HISTORY: No family history of premature CAD. SOCIAL HISTORY: She lives alone. She is a former smoker, she did quit many years ago. No history o f illicit drug use. No significant alcohol drinking. REVIEW OF SYSTEMS: Her review of all other systems essentially is negative. PHYSICAL EXAM: She is morbidly obese. She is out of bed, sitting on a chair, but she is not in acut e distress. Her vitals, blood pressure is 140/71, pulse 79, temperature 98.2. Head and Neck Exam: Normocephalic, atraumatic head. Ears, Nose, and Throat: Essentially benign. Neck is supple. JVP i s not elevated. No carotid bruits. No masses in the neck are appreciated. Chest: Diminished air e ntry on the left side. No rales. No wheeze. Heart: Normal. Irregularly irregular. S1, S2. No a dded sounds. No gallops. No rubs. A grade 2/6 systolic murmur at the apex. Abdomen: Benign, obes e. Positive bowel sounds. Extremities: Chronic swelling in the lower extremities. No cyanosis. No clubbing. DRAINAGE ENGINEER: No focal deficits appreciated. Skin exam is normal. Psych: Normal affect and moo d. DIAGNOSTIC STUDIES/LAB DATA: Her labs showed the following: White blood cell 9.4, hemoglobin 9.7, h ematocrit 30, platelets 225. ESR 40. BNP was only in the 200 range. Sodium 138, potassium 4.5, chl oride 95, total CO2 of 37, BUN 29, creatinine is 1.14, magnesium 1.8. Her chest x-ray from the 08/24/19, moderate left-sided pleural effusion, cardiomegaly. She had an echocardiogram this hospitalization that was done on 08/24/19, reported EF 55% to 60%, sev erely dilated left atrium, and dilated right atrium. There is trace mitral insufficiency, mild tricu spid insufficiency, bilateral pleural effusion, moderate pulmonary hypertension. Her EKG done on 08/23/19 showed the patient to be in atrial fibrillation, heart rate 82 beats per min germaine, nonspecific ST-T changes. IMPRESSION: The patient is a 69-year-old female patient with: 1. Multiple hospitalizations more recently for progressive shortness of breath and left-sided pleura l effusion of unclear etiology. 2. The patient is status post thoracocentesis x3 within 6 weeks. 3. Known history of lung cancer, [id number], stage III. 4. The patient completed chemotherapy, radiation treatment in January 2019. Now, she is on adjunct imm unotherapy. 5. Chronic atrial fibrillation with a well controlled heart rate. She is off anticoagulation for co ncerns of gastrointestinal bleed. 6. History of diastolic congestive heart failure in the past. 7. Diabetes mellitus type 2. 8. Morbid obesity. 9. Sleep apnea. 10. Chronic obstructive pulmonary disease. 11. Normal left ventricular systolic function with ejection fraction 60% to 65%. 12. Moderate pulmonary hypertension. 13. Systemic arterial hypertension. 14. Abnormal EKG as described. PLAN: It is not immediately clear the etiology for her recurrent progressive shortness of breath on exertion and recurrent left-sided pleural effusion. I doubt this is cardiac. Her presentation at th e present time, her EF is normal and her BNP was only minimally elevated. Concerns this could be imm une-mediated pneumonitis versus infection that is the possibility as indicated in the oncology notes. Diastolic dysfunction is still a possibility. Given her COPD and pulmonary hypertension that is al so possibility. At the present time, I have discussed her with Heme/Onc services. Daily weights, I' s and O's as you already doing. I recommend using Lasix only gently and with a close monitoring to a void over diuresing this patient in light of her normal left ventricular systolic function. I agree w ith Dr. Nelson for pulmonary consult as you already doing. Keep a close eye on her renal function an d electrolytes as you already doing. Antibiotic treatment as you already doing. Continue beta-block er and calcium channel janice for concerns for diastolic dysfunction and atrial fibrillation for a w ell controlled heart rate as you already doing. Any further recommendations will be pending her clin ical outcome. I answered all her concerns and questions to her satisfaction. Thank you very much for asking us to participate in the care of this patient. [id number]/[facility] #: [id number]
[2019-08-26] MEDS: Lisinopril TAB* 5 MG PO SCH (17:25)
[2019-08-26] MEDS: cefTRIAXone(*) 1 GM in NS 0.9% 50 ML* 50 ML IVPB SCH (21:47)
[2019-08-27] MEDS: Diltiazem TAB* 60 MG PO SCH ×4 (05:45→23:25)
[2019-08-27 06:10] LABS: ABS Lymphocytes 0.1 10^3/ul (1.0-4.8); ABS Monocytes 0.2 10^3/ul (0-0.8); ABS Neutrophils 5.8 10^3/ul (1.5-7.7); Hematocrit 29 % (35-47); Hemoglobin 9.8 g/dL (12.0-16.0); Lymphocyte % 1.4 %; Mean Corpuscular HGB Conc 33 g/dL (31-36); Mean Corpuscular Hemoglobin 31 pg (27-31); Mean Corpuscular Volume 93 fL (80-97); Mean Platelet Volume 7.8 fL (7.4-10.4); Platelet Count 192 10^3/uL (150-450); Red Blood Count 3.17 10^6 /uL (3.70-4.87); Red Cell Distribution Width 18 % (10-15)
[2019-08-27 06:25] LABS: Albumin 3.2 g/dL (3.2-5.2); Albumin/Globulin Ratio 1.3 (1-3); BUN/Creatinine Ratio 41.5 (8-20); Calcium 8.1 mg/dL (8.6-10.3); EGFR African American 71.4 (>60); Globulin 2.5 g/dL (2-4); Potassium 3.8 mmol/L (3.5-5.0); Total Bilirubin 0.3 mg/dL (0.2-1.0); Total Protein 5.7 g/dL (6.4-8.9)
[2019-08-27] MEDS: Mometasone/Formoter 100/5 MDI INH SCH ×2 (08:20→19:25)
[2019-08-27] MEDS: Furosemide IV* 10 MG/ML VIAL (40 MG) IV SCH (08:37)
[2019-08-27] MEDS: Insulin LISPRO* 1 UNITS UNIT SUBCUT SCH ×4 (08:37→20:53)
[2019-08-27] MEDS: glyBURIDE TAB* 5 MG PO SCH (08:38)
[2019-08-27] MEDS: Cyanocobalamin TAB* 500 MCG PO SCH (08:38)
[2019-08-27] MEDS: OMEPRAZOLE 20 MG PO SCH (08:38)
[2019-08-27] MEDS: Metoprolol Succinate XL TAB* 25 MG PO SCH (08:38)
--- NOTE | 2019-08-27 09:36 | PN ---
Progress Note - Progress Note Date of Service: 08/27/19 SOAP: Subjective: []Doing well today overall. Breathing still short, better then admission. To 5L NC with walking. No fevers. Eating well, BS high. +BM. Did not complain of pain. No fevers or chills. Acetaminophen (Tylenol Tab*) 650 mg PO Q4H PRN PRN Reason: PAIN - MILD Last Admin: 08/25/19 04:41 Dose: 650 mg Albuterol/Ipratropium (Duoneb (Albuterol 2.5 Mg/Ipratropium 0.5 Mg)) 1 neb INH [id number] AWAKE PRN PRN Reason: sob/wheexing Cyanocobalamin (Vitamin B12 Tab*) 1,000 mcg PO DAILY [facility] Last Admin: 08/27/19 08:38 Dose: 1,000 mcg Dextrose (Dextrose 50% Vial 50 Ml*) 25 ml IV PUSH .FOR FS < 60 - SS PRN PRN Reason: FS < 60 Diltiazem HCl (Cardizem Tab*) 60 mg PO Q6HR [facility] Last Admin: 08/27/19 05:45 Dose: 60 mg Enoxaparin Sodium (Lovenox(*)) 40 mg SUBCUT Q24H [facility] Last Admin: 08/26/19 11:36 Dose: 40 mg Furosemide (Lasix Tab*) 20 mg PO DAILY [facility] Glyburide (Diabeta Tab*) 5 mg PO DAILY WITH MEAL [facility] Last Admin: 08/27/19 08:38 Dose: 5 mg Heparin Sodium (Porcine) (Heparin Flush Port (Ivad)) 5 ml FLUSH BID [facility]; Protocol Last Admin: 08/27/19 08:42 Dose: Not Given Ceftriaxone Sodium 1 gm/ (Sodium Chloride) 50 mls @ 100 mls/hr IVPB Q24H [facility] Last Admin: 08/26/19 21:47 Dose: 100 mls/hr Insulin Human Lispro (Humalog*) 0 units SUBCUT ACHS [facility]; Protocol Last Admin: 08/27/19 08:37 Dose: 9 unit Lisinopril (Prinivil Tab*) 5 mg PO QPM [facility] Last Admin: 08/26/19 17:25 Dose: 5 mg Metoprolol Succinate (Toprol Xl Tab*) 12.5 mg PO QAM [facility] Last Admin: 08/27/19 08:38 Dose: 12.5 mg Mometasone Furoate/Formoterol Fumar (Dulera 100/5 Mdi*) 2 puff INH BID [facility] Last Admin: 08/27/19 08:20 Dose: 2 puff Omeprazole (Prilosec Cap* (Nf)) 80 mg PO DAILY [facility] Last Admin: 08/27/19 08:38 Dose: 80 mg Ondansetron HCl (Zofran Inj*) 4 mg IV Q4H PRN PRN Reason: NAUSEA/VOMITING Oxycodone/Acetaminophen (Percocet 5/325 Tab*) 1 tab PO Q4H PRN PRN Reason: PAIN - MODERATE Prednisone (Deltasone 50 Mg Tab) 100 mg PO DAILY [facility] Sodium Chloride (Sodium Chloride 0.65% Nasal [place]*) 1 spray BOTH NARES Q8H PRN PRN Reason: DRYNESS Last Admin: 08/25/19 08:41 Dose: 1 spray Objective: [] Vital Signs Temp Pulse Resp BP Pulse Ox 97.3 F 86 20 117/90 98 08/27/19 07:13 08/27/19 08:21 08/27/19 08:21 08/27/19 07:13 08/27/19 08:21 HEENT: pale, no thrush + scattered wheezes, no crackles, minimal to low air movment afib, S1S2, no M/R/G Obese, +BS ND Ext chronic venous changes Echo 08/24/19 EF 55-60% Assessment: []69 yo female with locally advanced NSCLC s/p definitive therapy and most recently on adjuvant immunotherapy (last Durvalumab x 5, last on 08/31 ). 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 CT with effusion and interstitial process. Plan: 1. SOB. Differential still includes CHF and immune pneumonitis but favor the latter. Cardiology input appreciated. Appears euvolemic at this time. - Prednisone 100 mg po dialy x 7 additional days and taper - Lasix to home dose of 20 mg po daliy. - Follow daily weight, I/O - Try and taper O2, walks with 5 L NC today. 2. DM. On ISS and glyburide, follow BS 3. ID. Will continue ABX to max of 14 days, cannot r/o pneumonia. 4. NSCLC. Immunotherpy to discontinue. SANJAY at this time 5. Disp home once breathing improved. continue PT.
[2019-08-27] MEDS: Enoxaparin(*) 40 MG/0.4 ML SYR SUBCUT SCH (11:26)
--- NOTE | 2019-08-27 14:13 | CONS ---
PULMONARY CONSULTATION REPORT: DATE OF CONSULT: 08/27/19 CONSULTATION REQUESTED BY: Kari Mejia NP. REASON FOR CONSULT: Evaluation of shortness of breath, hypoxemic respiratory failure, and recurrent pleural effusion. HISTORY OF PRESENT ILLNESS: The patient is a 69-year-old female with locally advanced non-small cell lung cancer, status post chemoradiation, currently on chemotherapy, known to me from prior outpatient and inpatient evaluation. The patient was brought into the emergency room for evaluation of worsening shortness of breath on 08/23/19. The patient has been having issues with recurrent pleural effusion. She has a history of congestive heart failure. She was initiated on Lasix in June. The patient continued to have worsening pleural effusion in spite of being on diuretics. She had thoracentesis in June and again in mid July. The patient had CT scan of the chest for further evaluation of the shortness of breath. I have personally reviewed CT of the chest from 08/23/19. The patient with bilateral pleural effusions, large on the left side with associated atelectasis. The patient also with ground-glass opacities in the lungs bilaterally likely secondary to the pleural effusion. The patient's lung cancer was diagnosed in October of 2018 after bronchoscopy and endobronchial ultrasound procedure, which was positive for squamous cell lung cancer. The patient subsequently underwent EBUS with evidence of no disease in the lymph nodes and endobronchial lesion on the left side positive for squamous cell carcinoma. The patient has completed radiation and chemotherapy. She has been on immunotherapy recently. She had a complicated course while on immunotherapy with prior hospitalization for GI bleed and has been having recurrent pleural effusion subsequently. Immunotherapy is being held currently. The patient reports slight improvement in shortness of breath. She is not bothered by it especially when she is at rest. She, however, gets significantly dyspneic and more hypoxemic with minimal exertion and has been requiring higher FiO2. Repeat chest x-ray performed on 08/27/19 was personally reviewed by me. The patient with slight worsening of the left pleural effusion. The patient denies cough or sputum production. The patient denies fevers or chills. The patient denies chest pain , palpitations, dizziness. PAST MEDICAL HISTORY: 1. Atrial fibrillation. 2. Congestive heart failure. 3. COPD. 4. Diabetes. 5. Hypertension. 6. Obesity. 7. Osteoarthritis. 8. History of sleep apnea. 9. Bilateral lower extremity edema. PAST SURGICAL HISTORY: Hysterectomy and lung biopsy. MEDICATIONS: 1. Acetaminophen. 2. B12. 3. Cartia. 4. Chlorthalidone. 5. Ferrex. 6. Lasix. 7. Glyburide. 8. Janumet. 9. Lisinopril. 10. Magnesium. 11. Metoprolol. 12. Omeprazole. 13. Symbicort. ALLERGIES: POTASSIUM. FAMILY HISTORY: Noncontributory. The patient with a family history of coronary artery disease. SOCIAL HISTORY: Former smoker, [id number] smoking history, stopped in 2002. No alcohol or drug abuse. REVIEW OF SYSTEMS: All 12 systems reviewed and as per HPI. The patient also reports fatigue. PHYSICAL EXAM: The patient is in chair, in no apparent distress. Vital Signs: Temperature 97.3, pulse 86 beats per minute, respiratory rate 20 per minute, O2 sat 98% on 3 L, blood pressure 117/90. HEENT: Pupils equal, reactive to light. Mucous membranes moist. Lungs: Diminished air entry in the bases bilaterally, left greater than right. Cardiovascular: S1, S2 present. Abdomen : Soft, nontender, nondistended. Bowel sounds present. Extremities: Normal range of motion. Skin: No rash or bruise. DIAGNOSTIC STUDIES/LAB DATA: WBC count 6, hemoglobin 9.8, hematocrit 29, platelet count 192. ABG from 08/24/19 showed respiratory acidosis with pH of 7.28, pCO2 of 85, pO2 of 166, bicarb of 32 while on BiPAP and 100% FiO2. The patient was also monitored in the ICU recently. Sodium 137, potassium 3.8, chloride 94, bicarb 38, BUN 39, creatinine 0.94. Glucose significantly elevated, improved today. NATHAN within normal limits. Chest x-ray and CTA of the chest as described above in HPI. IMPRESSION AND RECOMMENDATIONS: 69-year-old female with lung cancer on the left side, diagnosed in October of 2018. The patient completed chemo and radiation. The patient was started on immunotherapy, has been having issues with recurrent pleural effusions. The patient was diagnosed with heart failure in June and was initiated on diuretic. The patient continues to have significant pleural effusion requiring thoracentesis frequently. The patient reports no significant symptomatic benefit with thoracentesis. Unclear etiology of recurrent pleural effusion. Echocardiogram did not reveal significant abnormality other than evidence of pulmonary hypertension. The patient had thoracentesis on 08/24/19. Pleural fluid characteristics from the fluid drained in mid July show no evidence of malignancy or acute inflammation. The patient noted to have transudative effusion. Effusion could also be secondary to immunotherapy that she has been receiving. Immunotherapy is currently stopped. The patient with significant hypoxemia and desaturation with exertion. Will evaluate for O2 requirements with ambulatory O2 exam today. The patient if symptomatic, will schedule the patient for repeat thoracentesis prior to d/c. If the patient continues to have recurrence of the effusion, she would probably need PleurX catheter placement. She was on 40 mg of Lasix, was hanged to 20mg. Repeat chest x- ray performed today showed evidence of increasing left effusion. Might beefit from 40mg of Lasix. The patient was on Solu-Medrol, which was discontinued and she was changed to prednisone 100 mg, which would be tapered as per Oncology. Thank you for allowing me to participate in the care of your patient. Will follow up with you. [id number]/CPS #: [id number] MARIBEL
[2019-08-27] MEDS: Lisinopril TAB* 5 MG PO SCH (17:28)
[2019-08-27] MEDS: cefTRIAXone(*) 1 GM in NS 0.9% 50 ML* 50 ML IVPB SCH (20:52)
[2019-08-27] MEDS: CMCS: Omeprazole CAP (NF) 20 MG CAP.DR PO SCH (20:53)
[2019-08-27 21:00] LABS: % Iron Saturation 18 % (15-55); Iron 54 ug/dL (50-212); Total Iron Binding Capacity 307 mcg/dL (250-450); Transferrin 219 mg/dL (203-362)
[2019-08-28] MEDS: Diltiazem TAB* 60 MG PO SCH ×3 (05:31→17:51)
[2019-08-28 05:51] LABS: ABS Lymphocytes 0.2 10^3/ul (1.0-4.8); ABS Monocytes 0.4 10^3/ul (0-0.8); ABS Neutrophils 5.7 10^3/ul (1.5-7.7); Eosinophil % 0.1 %; Hematocrit 25 % (35-47); Hemoglobin 8.2 g/dL (12.0-16.0); Lymphocyte % 2.7 %; Mean Corpuscular HGB Conc 33 g/dL (31-36); Mean Corpuscular Hemoglobin 31 pg (27-31); Mean Corpuscular Volume 93 fL (80-97); Mean Platelet Volume 7.8 fL (7.4-10.4); Nucleated Red Blood Cells % 0.1; Platelet Count 159 10^3/uL (150-450); Red Blood Count 2.66 10^6 /uL (3.70-4.87); Red Cell Distribution Width 18 % (10-15); White Blood Count 6.3 10^3/uL (3.5-10.8)
[2019-08-28 06:07] LABS: Magnesium 1.6 mg/dL (1.9-2.7)
[2019-08-28] MEDS: Insulin LISPRO* 1 UNITS UNIT SUBCUT SCH ×4 (07:43→20:03)
[2019-08-28] MEDS: Mometasone/Formoter 100/5 MDI INH SCH ×2 (08:18→19:48)
[2019-08-28] MEDS: glyBURIDE TAB* 5 MG PO SCH (08:51)
[2019-08-28] MEDS: Furosemide TAB* 20 MG PO SCH (08:51)
[2019-08-28] MEDS: Cyanocobalamin TAB* 500 MCG PO SCH (08:51)
[2019-08-28] MEDS: Metoprolol Succinate XL TAB* 25 MG PO SCH (08:51)
[2019-08-28] MEDS: CMCS: Omeprazole CAP (NF) 20 MG CAP.DR PO SCH ×2 (08:51→20:03)
[2019-08-28] MEDS: Enoxaparin(*) 40 MG/0.4 ML SYR SUBCUT SCH (11:42)
--- NOTE | 2019-08-28 12:00 | PN ---
Progress Note - Progress Note Date of Service: 08/28/19 SOAP: Subjective: []Better today. She is at 4 L at rest. Saturation to 80s with movement yesterday and had to go back on face mask. Did walk with face mask. No pain. Feels breathing is getting better. Acetaminophen (Tylenol Tab*) 650 mg PO Q4H PRN PRN Reason: PAIN - MILD Last Admin: 08/25/19 04:41 Dose: 650 mg Albuterol/Ipratropium (Duoneb (Albuterol 2.5 Mg/Ipratropium 0.5 Mg)) 1 neb INH [id number] AWAKE PRN PRN Reason: sob/wheexing Cyanocobalamin (Vitamin B12 Tab*) 1,000 mcg PO DAILY [facility] Last Admin: 08/28/19 08:51 Dose: 1,000 mcg Dextrose (Dextrose 50% Vial 50 Ml*) 25 ml IV PUSH .FOR FS < 60 - SS PRN PRN Reason: FS < 60 Diltiazem HCl (Cardizem Tab*) 60 mg PO Q6HR [facility] Last Admin: 08/28/19 11:42 Dose: 60 mg Enoxaparin Sodium (Lovenox(*)) 40 mg SUBCUT Q24H [facility] Last Admin: 08/28/19 11:42 Dose: 40 mg Furosemide (Lasix Tab*) 20 mg PO DAILY [facility] Last Admin: 08/28/19 08:51 Dose: 20 mg Glyburide (Diabeta Tab*) 5 mg PO DAILY WITH MEAL [facility] Last Admin: 08/28/19 08:51 Dose: 5 mg Heparin Sodium (Porcine) (Heparin Flush Port (Ivad)) 5 ml FLUSH BID [facility]; Protocol Last Admin: 08/28/19 08:51 Dose: 5 ml Ceftriaxone Sodium 1 gm/ (Sodium Chloride) 50 mls @ 100 mls/hr IVPB Q24H [facility] Last Admin: 08/27/19 20:52 Dose: 100 mls/hr Insulin Human Lispro (Humalog*) 0 units SUBCUT ACHS [facility]; Protocol Last Admin: 08/28/19 07:43 Dose: Not Given Lisinopril (Prinivil Tab*) 5 mg PO QPM [facility] Last Admin: 08/27/19 17:28 Dose: 5 mg Metoprolol Succinate (Toprol Xl Tab*) 12.5 mg PO QAM [facility] Last Admin: 08/28/19 08:51 Dose: 12.5 mg Mometasone Furoate/Formoterol Fumar (Dulera 100/5 Mdi*) 2 puff INH BID [facility] Last Admin: 08/28/19 08:18 Dose: Not Given Omeprazole (Prilosec Cap* (Nf)) 20 mg PO BID [facility] Last Admin: 08/28/19 08:51 Dose: 20 mg Ondansetron HCl (Zofran Inj*) 4 mg IV Q4H PRN PRN Reason: NAUSEA/VOMITING Oxycodone/Acetaminophen (Percocet 5/325 Tab*) 1 tab PO Q4H PRN PRN Reason: PAIN - MODERATE Prednisone (Deltasone 50 Mg Tab) 100 mg PO DAILY [facility] Last Admin: 08/28/19 08:51 Dose: 100 mg Sodium Chloride (Sodium Chloride 0.65% Nasal [place]*) 1 spray BOTH NARES Q8H PRN PRN Reason: DRYNESS Last Admin: 08/25/19 08:41 Dose: 1 spray Objective: [] Vital Signs Temp Pulse Resp BP Pulse Ox 97.9 F 85 16 127/72 100 08/28/19 07:15 08/28/19 07:15 08/28/19 07:38 08/28/19 07:15 08/28/19 07:15 HEENT: pale, no thrush No wheezing today, decreased BL inferior, R> L afib, S1S2, no M/R/G Obese, +BS ND Ext chronic venous changes Echo 08/24/19 EF 55-60% Assessment: []69 yo female with locally advanced NSCLC s/p definitive therapy and most recently on adjuvant immunotherapy (last Durvalumab x 5, last on 08/31 ). She was admitted in respiratory failure secondary to immune mediated pneumonitis, differential including pnemonia, mild CHF, recurrent large right pleural effusion. Plan: 1. SOB. Differential still includes CHF and immune pneumonitis but favor the latter. Cardiology input appreciated. Appears euvolemic at this time. - Prednisone 100 mg po dialy x 6 additional days and taper - Lasix to home dose of 20 mg po daliy. - Weight down today, check tomorrow. - Try and taper O2, walks with 5 L NC today. 2. DM. On ISS and glyburide, follow BS 3. ID. Will continue ABX to max of 14 days, cannot r/o pneumonia. 4. NSCLC. Immunotherpy to discontinue. SANJAY at this time 5. If we have to re-tap effusion, will send cytology. 6. Hgb down today - h/o GIB - Iron studies normal - Check in am and Tx Hgb < 8.0 7. Disp home once breathing improved. continue PT.
[2019-08-28 12:26] LABS: Albumin/Globulin Ratio 1.3 (1-3); BUN/Creatinine Ratio 38.2 (8-20); Calcium 7.9 mg/dL (8.6-10.3); EGFR African American 76.1 (>60); EGFR Non-African American 62.9 (>60); Globulin 2.3 g/dL (2-4); Potassium 3.6 mmol/L (3.5-5.0); Total Bilirubin 0.3 mg/dL (0.2-1.0); Total Protein 5.3 g/dL (6.4-8.9)
[2019-08-28] MEDS: Lisinopril TAB* 5 MG PO SCH (17:51)
[2019-08-28] MEDS: cefTRIAXone(*) 1 GM in NS 0.9% 50 ML* 50 ML IVPB SCH (21:48)
[2019-08-29] MEDS: Diltiazem TAB* 60 MG PO SCH ×5 (00:25→23:58)
[2019-08-29] MEDS: Mometasone/Formoter 100/5 MDI INH SCH ×2 (07:56→20:12)
[2019-08-29] MEDS: Insulin LISPRO* 1 UNITS UNIT SUBCUT SCH ×4 (09:37→20:54)
[2019-08-29] MEDS: CMCS: Omeprazole CAP (NF) 20 MG CAP.DR PO SCH ×2 (09:39→20:54)
[2019-08-29] MEDS: Furosemide TAB* 20 MG PO SCH (09:39)
[2019-08-29] MEDS: Metoprolol Succinate XL TAB* 25 MG PO SCH (09:39)
[2019-08-29] MEDS: glyBURIDE TAB* 5 MG PO SCH (09:40)
[2019-08-29] MEDS: Cyanocobalamin TAB* 500 MCG PO SCH (09:40)
[2019-08-29] MEDS: Enoxaparin(*) 40 MG/0.4 ML SYR SUBCUT SCH (13:15)
[2019-08-29] MEDS ORDERED: Furosemide IV* 10 MG/ML VIAL (40 MG) IV ONE ×2 (17:59)
[2019-08-29] MEDS ORDERED: Magnesium Sulfate 2 GM IV* 2 GM/50 ML BAG IVPB ONE (18:01)
--- NOTE | 2019-08-29 18:02 | PN ---
Subjective Date of Service: 08/29/19 Interval History: Coverage for Onc No acute overnight events. Patient reports she's been sleeping in a recliner with her legs up because she feels too weak to transfer to her bed. Unknown if orthopnea. She feels well at rest but has CARMICHAEL. She is very motivated to keep walking. Her granddaughter has IgA deficiency and she wonders if she has it. Objective Active Medications: Acetaminophen (Tylenol Tab*) 650 mg PO Q4H PRN PRN Reason: PAIN - MILD Last Admin: 08/25/19 04:41 Dose: 650 mg Albuterol/Ipratropium (Duoneb (Albuterol 2.5 Mg/Ipratropium 0.5 Mg)) 1 neb INH [id number] AWAKE PRN PRN Reason: sob/wheexing Cyanocobalamin (Vitamin B12 Tab*) 1,000 mcg PO DAILY [facility] Last Admin: 08/29/19 09:40 Dose: 1,000 mcg Dextrose (Dextrose 50% Vial 50 Ml*) 25 ml IV PUSH .FOR FS < 60 - SS PRN PRN Reason: FS < 60 Diltiazem HCl (Cardizem Tab*) 60 mg PO Q6HR [facility] Last Admin: 08/29/19 13:14 Dose: 60 mg Enoxaparin Sodium (Lovenox(*)) 40 mg SUBCUT Q24H [facility] Last Admin: 08/29/19 13:15 Dose: 40 mg Furosemide (Lasix Tab*) 20 mg PO DAILY [facility] Last Admin: 08/29/19 09:39 Dose: 20 mg Glyburide (Diabeta Tab*) 5 mg PO DAILY WITH MEAL [facility] Last Admin: 08/29/19 09:40 Dose: 5 mg Heparin Sodium (Porcine) (Heparin Flush Port (Ivad)) 5 ml FLUSH BID [facility]; Protocol Last Admin: 08/29/19 09:41 Dose: 5 ml Ceftriaxone Sodium 1 gm/ (Sodium Chloride) 50 mls @ 100 mls/hr IVPB Q24H [facility] Last Admin: 08/28/19 21:48 Dose: 100 mls/hr Insulin Human Lispro (Humalog*) 0 units SUBCUT ACHS [facility]; Protocol Last Admin: 08/29/19 13:15 Dose: 3 unit Lisinopril (Prinivil Tab*) 5 mg PO QPM [facility] Last Admin: 08/28/19 17:51 Dose: 5 mg Metoprolol Succinate (Toprol Xl Tab*) 12.5 mg PO QAM [facility] Last Admin: 08/29/19 09:39 Dose: 12.5 mg Mometasone Furoate/Formoterol Fumar (Dulera 100/5 Mdi*) 2 puff INH BID [facility] Last Admin: 08/29/19 07:56 Dose: 2 puff Omeprazole (Prilosec Cap* (Nf)) 20 mg PO BID [facility] Last Admin: 08/29/19 09:39 Dose: 20 mg Ondansetron HCl (Zofran Inj*) 4 mg IV Q4H PRN PRN Reason: NAUSEA/VOMITING Oxycodone/Acetaminophen (Percocet 5/325 Tab*) 1 tab PO Q4H PRN PRN Reason: PAIN - MODERATE Prednisone (Deltasone 50 Mg Tab) 100 mg PO DAILY [facility] Last Admin: 08/29/19 09:39 Dose: 100 mg Sodium Chloride (Sodium Chloride 0.65% Nasal [place]*) 1 spray BOTH NARES Q8H PRN PRN Reason: DRYNESS Last Admin: 08/25/19 08:41 Dose: 1 spray Vital Signs - 8 hr 08/29/19 08/29/19 11:15 15:15 Temperature 97.8 F 96.9 F Pulse Rate 104 101 Respiratory 16 18 Rate Blood Pressure 174/93 136/95 (mmHg) O2 Sat by Pulse 100 92 Oximetry Oxygen Devices in Use Now: Nasal Cannula Appearance: very pleasant woman sitting in chair, speaking in full sentences Eyes: No Scleral Icterus Ears/Nose/Mouth/Throat: Clear Oropharnyx, Mucous Membranes Moist Neck: NL Appearance and Movements; NL JVP, Trachea Midline Respiratory: - - bibasilar crackles Cardiovascular: - - irreg irreg Abdominal: NL Sounds; No Tenderness; No Distention, No Hepatosplenomegaly Extremities: - - 2+ edema to knees, thickened dry skin over LEs Neurological: Alert and Oriented x 3 Result Diagrams: 08/28/19 05:40 08/28/19 05:40 Microbiology and Other Data: Microbiology 08/23/19 21:41 Nasal Screen MRSA (PCR) - Final Nasal Mrsa Not Detected Assess/Plan/Problems-Billing Assessment: 69W with afib, HFpEF, COPD, DM2, HTN, WANDER, and locally advanced NSCLC s/p definitive therapy and most recently on adjuvant immunotherapy (last Durvalumab x 5, last on 08/31 ). She was admitted in respiratory failure secondary to immune mediated pneumonitis, differential including pnemonia, mild CHF, recurrent large right pleural effusion. Plan: 1. SOB. Differential still includes CHF and immune pneumonitis, and is volume overloaded. Cardiology and Pulm input appreciated. Also has COPD. - Prednisone 100 mg po dialy x 6 additional days and taper - Lasix 20mg IV today, increase home dose to 40mg PO tomorrow - ensure you check BMP for renal function and electrolytes while you diurese - replete K > 4 and Mg > 2 - Try and taper O2, requiring significant O2 with ambulation 2. DM. On ISS and glyburide, follow BS 3. ID. Will continue ABX to max of 14 days, cannot r/o pneumonia. 4. NSCLC. Immunotherpy to discontinue. SANJAY at this time 5. If we have to re-tap effusion, will send cytology. 6. Hgb down today - h/o GIB - Iron studies normal - Check in am and Tx Hgb < 8.0 7. Disp home once breathing improved. continue PT. Status and Disposition: Inpatient onc.
[2019-08-29] MEDS: Lisinopril TAB* 5 MG PO SCH (18:45)
[2019-08-29] MEDS: cefTRIAXone(*) 1 GM in NS 0.9% 50 ML* 50 ML IVPB SCH (20:54)
[2019-08-30] MEDS: Diltiazem TAB* 60 MG PO SCH ×3 (05:24→17:30)
[2019-08-30] MEDS: Furosemide TAB* 20 MG PO SCH (05:24)
[2019-08-30 06:17] LABS: Hematocrit 31 % (35-47); Hemoglobin 10.4 g/dL (12.0-16.0); Mean Corpuscular HGB Conc 33 g/dL (31-36); Mean Corpuscular Hemoglobin 31 pg (27-31); Mean Corpuscular Volume 92 fL (80-97); Mean Platelet Volume 8.2 fL (7.4-10.4); Platelet Count 206 10^3/uL (150-450); Red Blood Count 3.41 10^6 /uL (3.70-4.87); Red Cell Distribution Width 17 % (10-15)
[2019-08-30 06:30] LABS: BUN/Creatinine Ratio 36.8 (8-20); Calcium 7.7 mg/dL (8.6-10.3); EGFR African American 91.3 (>60); EGFR Non-African American 75.5 (>60); Magnesium 1.9 mg/dL (1.9-2.7); Potassium 3.4 mmol/L (3.5-5.0)
[2019-08-30] MEDS: Mometasone/Formoter 100/5 MDI INH SCH ×3 (06:55→19:38)
[2019-08-30] MEDS: Insulin LISPRO* 1 UNITS UNIT SUBCUT SCH ×4 (08:20→21:09)
[2019-08-30] MEDS: Metoprolol Succinate XL TAB* 25 MG PO SCH (08:21)
[2019-08-30] MEDS: CMCS: Omeprazole CAP (NF) 20 MG CAP.DR PO SCH ×2 (08:21→21:10)
[2019-08-30] MEDS: Cyanocobalamin TAB* 500 MCG PO SCH (08:22)
[2019-08-30] MEDS: glyBURIDE TAB* 5 MG PO SCH (08:22)
--- NOTE | 2019-08-30 09:26 | PN ---
Medicine Progress Note - Date of Service Date of Service: 08/30/19 - Subjective Subjective: Feels better, less dyspnea Remains on 2 Liter via NC O2 Some deasturation with ambulation. No Chest pain nor sputum production Diuresed > 7 Liters with IV Lasix and inceased oral dose to 40 mg Hemoglobin stable at 10.4 - Objective Objective: Vital Signs 08/29/19 08/29/19 08/29/19 11:15 15:15 19:15 Temperature 97.8 F 96.9 F 97.2 F Pulse Rate 104 101 95 Respiratory 16 18 16 Rate Blood Pressure 174/93 136/95 126/71 (mmHg) O2 Sat by Pulse 100 92 96 Oximetry 08/29/19 08/29/19 08/29/19 20:00 20:14 23:15 Temperature 97.5 F Pulse Rate 102 98 Respiratory 16 18 16 Rate Blood Pressure 140/88 (mmHg) O2 Sat by Pulse 96 96 Oximetry 08/30/19 08/30/19 08/30/19 03:15 07:11 07:26 Temperature 97.3 F 96.8 F Pulse Rate 75 85 Respiratory 18 18 18 Rate Blood Pressure 134/82 137/84 (mmHg) O2 Sat by Pulse 92 96 Oximetry Current Medications Acetaminophen (Tylenol Tab*) 650 mg PO Q4H PRN PRN Reason: PAIN - MILD Last Admin: 08/25/19 04:41 Dose: 650 mg Albuterol/Ipratropium (Duoneb (Albuterol 2.5 Mg/Ipratropium 0.5 Mg)) 1 neb INH [id number] AWAKE PRN PRN Reason: sob/wheexing Cyanocobalamin (Vitamin B12 Tab*) 1,000 mcg PO DAILY [facility] Last Admin: 08/30/19 08:22 Dose: 1,000 mcg Dextrose (Dextrose 50% Vial 50 Ml*) 25 ml IV PUSH .FOR FS < 60 - SS PRN PRN Reason: FS < 60 Diltiazem HCl (Cardizem Tab*) 60 mg PO Q6HR [facility] Last Admin: 08/30/19 05:24 Dose: 60 mg Enoxaparin Sodium (Lovenox(*)) 40 mg SUBCUT Q24H [facility] Last Admin: 08/29/19 13:15 Dose: 40 mg Furosemide (Lasix Tab*) 40 mg PO DAILY@0600 [facility] Last Admin: 08/30/19 05:24 Dose: 40 mg Glyburide (Diabeta Tab*) 5 mg PO DAILY WITH MEAL [facility] Last Admin: 08/30/19 08:22 Dose: 5 mg Heparin Sodium (Porcine) (Heparin Flush Port (Ivad)) 5 ml FLUSH BID [facility]; Protocol Last Admin: 08/30/19 08:24 Dose: Not Given Ceftriaxone Sodium 1 gm/ (Sodium Chloride) 50 mls @ 100 mls/hr IVPB Q24H [facility] Last Admin: 08/29/19 20:54 Dose: 100 mls/hr Insulin Human Lispro (Humalog*) 0 units SUBCUT ACHS [facility]; Protocol Last Admin: 08/30/19 08:20 Dose: 3 unit Lisinopril (Prinivil Tab*) 5 mg PO QPM [facility] Last Admin: 08/29/19 18:45 Dose: 5 mg Metoprolol Succinate (Toprol Xl Tab*) 12.5 mg PO QAM [facility] Last Admin: 08/30/19 08:21 Dose: 12.5 mg Mometasone Furoate/Formoterol Fumar (Dulera 100/5 Mdi*) 2 puff INH BID [facility] Last Admin: 08/30/19 07:13 Dose: Not Given Omeprazole (Prilosec Cap* (Nf)) 20 mg PO BID [facility] Last Admin: 08/30/19 08:21 Dose: 20 mg Ondansetron HCl (Zofran Inj*) 4 mg IV Q4H PRN PRN Reason: NAUSEA/VOMITING Oxycodone/Acetaminophen (Percocet 5/325 Tab*) 1 tab PO Q4H PRN PRN Reason: PAIN - MODERATE Prednisone (Deltasone 50 Mg Tab) 100 mg PO DAILY [facility] Last Admin: 08/30/19 08:22 Dose: 100 mg Sodium Chloride (Sodium Chloride 0.65% Nasal [place]*) 1 spray BOTH NARES Q8H PRN PRN Reason: DRYNESS Last Admin: 08/25/19 08:41 Dose: 1 spray Intake & Output 08/28/19 08/29/19 08/30/19 08/31/19 06:59 06:59 06:59 06:59 Intake Total 1970 1320 1300 740 Output Total 2600 500 8675 500 Balance -630 820 -7370 240 Weight 234 lb 11.2 oz 235 lb 9.6 oz 235 lb 14.4 oz Intake: Oral 1970 1320 1300 740 Output: Urine 2600 500 8675 500 Other: Estimated Void Medium Date of Last Bowel 08/28/19 08/29/2019 Movement # Bowel Movements 1 Estimated Stool Amount Large Large Medium # Voids 2 ADLs: Meal Record Start: 08/23/19 12: 18 Freq: DAILY@0900,1400,1800 Status: Active Protocol: Created 08/23/19 12:18 System (Rec: 08/23/19 12:18 System TELE-M02) Document 08/23/19 14:00 [id number] (Rec: 08/23/19 14:54 ELZ6439 TELE-C01) Document 08/23/19 18:00 OAH5023 (Rec: 08/23/19 18:19 VCT8435 TELE-C01) Document 08/24/19 18:00 THO5176 (Rec: 08/24/19 20:39 QCQ7496 TELE-C13) Document 08/25/19 09:00 UNO6399 (Rec: 08/25/19 13:51 RQL3803 TELE-M03) Document 08/25/19 14:00 AGQ6901 (Rec: 08/25/19 14:10 TAB7859 TELE-C08) Document 08/25/19 18:00 HVP0031 (Rec: 08/25/19 22:54 XOL5587 MED-M02) Document 08/26/19 09:00 LEF8133 (Rec: 08/26/19 09:45 MHH5214 TELE-C08) Document 08/26/19 14:00 EHI0926 (Rec: 08/26/19 14:36 BSU6270 TELE-C08) Document 08/26/19 18:00 JBL4721 (Rec: 08/26/19 21:14 BHU1875 TELE-C13) Document 08/27/19 09:00 YOJ9644 (Rec: 08/27/19 13:34 FIV0675 TELE-C10) Document 08/27/19 13:34 FXG3787 (Rec: 08/27/19 13:35 OXJ6650 TELE-C10) Document 08/27/19 18:00 YRJ4950 (Rec: 08/27/19 22:40 BSY1963 TELE-C03) Document 08/28/19 08:39 GDP9133 (Rec: 08/28/19 08:39 UIA8562 TELE-C01) Document 08/28/19 12:52 AUF8178 (Rec: 08/28/19 12:52 HCX6449 TELE-C01) Document 08/28/19 17:47 BFI2014 (Rec: 08/28/19 17:47 IAV6190 TELE-C01) Document 08/29/19 09:00 ZZC5290 (Rec: 08/29/19 09:21 TMK2484 TELE-C01) Document 08/29/19 13:09 XEU5318 (Rec: 08/29/19 13:09 APC9381 TELE-C01) Document 08/29/19 18:00 ZIT5219 (Rec: 08/29/19 18:13 QGK5558 TELE-C01) Document 08/30/19 08:59 YCJ7706 (Rec: 08/30/19 09:00 QUT0546 TELE-C03) ADLs: Meal Record Start: 08/23/19 21: 37 Freq: 09,13,18 Status: Complete Protocol: Created 08/23/19 21:37 QAR2630 (Rec: 08/23/19 21:37 OQS2522 ICU-C25) Document 08/24/19 09:00 NHB2452 (Rec: 08/24/19 10:23 KUJ6545 ICU-C07) Document 08/24/19 13:00 AYC4345 (Rec: 08/24/19 14:45 MXN4656 ICU-C07) Intake and Output Start: 08/23/19 03: 34 Freq: Status: Complete Protocol: Created 08/23/19 03:34 System (Rec: 08/23/19 03:34 System EDRM-C11) Intake and Output Start: 08/23/19 12: 18 Freq: DAILY@0600,1400,2200 Status: Active Protocol: Created 08/23/19 12:18 System (Rec: 08/23/19 12:18 System TELE-M02) Document 08/23/19 12:56 BHF0702 (Rec: 08/23/19 12:57 EVX8770 TELE-M02) Document 08/24/19 22:00 LPQ9805 (Rec: 08/24/19 23:38 ZQV7838 TELE-C13) Document 08/25/19 03:08 RLW8738 (Rec: 08/25/19 03:08 QHF9714 TELE-C05) Document 08/25/19 06:12 UQP2069 (Rec: 08/25/19 06:12 ZHP4246 TELE-C05) Document 08/25/19 14:00 HYF7715 (Rec: 08/25/19 14:11 BUZ9333 TELE-C08) Document 08/25/19 22:00 BBS8530 (Rec: 08/25/19 23:21 TUD5136 MED-M02) Document 08/26/19 05:16 ZOT9833 (Rec: 08/26/19 05:28 ITT1114 TELE-C01) Document 08/26/19 14:00 VHY0278 (Rec: 08/26/19 14:36 HUM6034 TELE-C08) Document 08/27/19 04:22 CFM1513 (Rec: 08/27/19 04:22 FCE4195 TELE-C05) Document 08/27/19 13:35 USR8740 (Rec: 08/27/19 13:36 AEL5860 TELE-C10) Document 08/28/19 05:54 IUX8872 (Rec: 08/28/19 05:55 RWP5224 TELE-C03) Document 08/28/19 13:35 BVG9464 (Rec: 08/28/19 13:36 CPR6517 TELE-C01) Document 08/28/19 22:00 YWU8481 (Rec: 08/29/19 01:15 PUT3906 TELE-C13) Document 08/29/19 06:00 ACG4286 (Rec: 08/29/19 06:28 ZOW3930 TELE-C13) Document 08/29/19 14:00 WFQ8320 (Rec: 08/29/19 14:27 ZMN9854 TELE-C01) Document 08/29/19 22:00 AKO2379 (Rec: 08/30/19 00:26 WHA5541 TELE-C09) Document 08/30/19 06:00 UPT3771 (Rec: 08/30/19 07:08 BZZ7138 TELE-C10) Intake and Output Start: 08/23/19 21: 37 Freq: Q1HR Status: Complete Protocol: Created 08/23/19 21:37 MEG7606 (Rec: 08/23/19 21:37 HFG4088 ICU-C25) Document 08/23/19 22:00 QZU0635 (Rec: 08/24/19 00:52 KAJ9174 ICU-M34) Document 08/23/19 23:00 DSJ4928 (Rec: 08/24/19 00:53 PDK7683 ICU-M34) Document 08/24/19 00:00 PTU5195 (Rec: 08/24/19 01:10 HIZ6324 ICU-M34) Document 08/24/19 01:00 SQU9743 (Rec: 08/24/19 01:17 MAQ0245 ICU-M34) Document 08/24/19 02:00 FIS6435 (Rec: 08/24/19 02:09 WIT0553 ICU-M34) Document 08/24/19 03:00 ESQ6995 (Rec: 08/24/19 03:11 ZLY3976 ICU-M34) Document 08/24/19 03:52 WIH7901 (Rec: 08/24/19 04:06 KUA6592 ICU-M34) Document 08/24/19 04:32 WPB8630 (Rec: 08/24/19 04:32 TOQ7504 ICU-M31) Document 08/24/19 04:57 MUI1455 (Rec: 08/24/19 04:58 MNV6367 ICU-C06) Document 08/24/19 06:00 JEO1902 (Rec: 08/24/19 06:29 XLE8799 ICU-M31) Document 08/24/19 06:52 NSC1402 (Rec: 08/24/19 06:52 HPB8124 ICU-C06) Document 08/24/19 10:00 SXJ0769 (Rec: 08/24/19 10:22 PXY4444 ICU-C07) Document 08/24/19 13:00 TNH2454 (Rec: 08/24/19 13:14 ERN6035 ICU-M18) Document 08/24/19 14:00 RKI9080 (Rec: 08/24/19 14:34 UPA0152 ICU-C07) Last Finger Stick Glucose Documented by Nursing: General:In no acute distress, appears comfortable Lungs:Decreased breath sounds left base, no wheeze Cardiovascular:Irregularly irregular no no murmur Abdomen:soft and nontender Extremities:2+ edema, chronic venous stasis changes Neuro:Nonfocal - Labs Labs: Laboratory Results - last 24 hr 08/29/19 08/29/19 08/29/19 12:08 16:40 16:47 WBC RBC Hgb Hct MCV MCH MCHC RDW Plt Count MPV Sodium Potassium Chloride Carbon Dioxide Anion Gap BUN Creatinine Est GFR ( Amer) Est GFR (Non-Af Amer) BUN/Creatinine Ratio Glucose POC Glucose (mg/dL) 183 H > 444 H* > 444 H* Glucose Meter Confirm Calcium Magnesium 08/29/19 08/29/19 08/30/19 17:25 20:17 05:40 WBC RBC Hgb Hct MCV MCH MCHC RDW Plt Count MPV Sodium 137 Potassium 3.4 L Chloride 94 L Carbon Dioxide 40 H Anion Gap 3 BUN 28 H Creatinine 0.76 Est GFR ( Amer) 91.3 Est GFR (Non-Af Amer) 75.5 BUN/Creatinine Ratio 36.8 H Glucose 192 H POC Glucose (mg/dL) 381 H Glucose Meter Confirm 432 H Calcium 7.7 L Magnesium 1.9 08/30/19 08/30/19 05:40 07:02 WBC 9.0 RBC 3.41 L Hgb 10.4 L Hct 31 L MCV 92 MCH 31 MCHC 33 RDW 17 H Plt Count 206 MPV 8.2 Sodium Potassium Chloride Carbon Dioxide Anion Gap BUN Creatinine Est GFR ( Amer) Est GFR (Non-Af Amer) BUN/Creatinine Ratio Glucose POC Glucose (mg/dL) 178 H Glucose Meter Confirm Calcium Magnesium - Assessment Assessment: Assessment/Plan Dyspnea likely multifactorial including Likely pneumonitis secondary to Durvalumab, anemia, underlying COPD. Pneumonia, infection not excluded Multifactorial anemia with prior GI Bleed reported Diabetes with imprpoved blood glucose Atrial fibrillation rate controlled Continue O2 via nasal canula, Bronchodilators PRN. On prednisone 100 mg PO Daily with Taper planned Lasix 40 mg Po Daily Day + 7 Antibiotics with 14 days planned Hemoglobin stable Glyburide plus sliding scale Insulin Possible discharge today pending home arrangements - Plan Plan: See Above
[2019-08-30] MEDS: Enoxaparin(*) 40 MG/0.4 ML SYR SUBCUT SCH (12:01)
[2019-08-30] MEDS: Calcium Carbonate TAB* 1250 MG (CALCIUM 500 MG) PO SCH (17:30)
[2019-08-30] MEDS: Lisinopril TAB* 5 MG PO SCH (17:30)
[2019-08-30] MEDS: cefTRIAXone(*) 1 GM in NS 0.9% 50 ML* 50 ML IVPB SCH (21:12)
[2019-08-31] MEDS: Diltiazem TAB* 60 MG PO SCH ×3 (00:19→12:46)
[2019-08-31] MEDS: Furosemide TAB* 20 MG PO SCH (05:30)
[2019-08-31 05:57] LABS: ABS Lymphocytes 0.3 10^3/ul (1.0-4.8); ABS Monocytes 0.6 10^3/ul (0-0.8); ABS Neutrophils 10.1 10^3/ul (1.5-7.7); Eosinophil % 0.3 %; Hematocrit 31 % (35-47); Hemoglobin 10.3 g/dL (12.0-16.0); Lymphocyte % 2.4 %; Mean Corpuscular HGB Conc 33 g/dL (31-36); Mean Corpuscular Hemoglobin 31 pg (27-31); Mean Corpuscular Volume 93 fL (80-97); Mean Platelet Volume 7.7 fL (7.4-10.4); Platelet Count 210 10^3/uL (150-450); Red Blood Count 3.31 10^6 /uL (3.70-4.87); Red Cell Distribution Width 18 % (10-15)
[2019-08-31 06:07] LABS: Calcium 7.9 mg/dL (8.6-10.3); EGFR African American 76.1 (>60); EGFR Non-African American 62.9 (>60); Potassium 3.4 mmol/L (3.5-5.0)
[2019-08-31] MEDS: Mometasone/Formoter 100/5 MDI INH SCH (08:19)
[2019-08-31] MEDS: Insulin LISPRO* 1 UNITS UNIT SUBCUT SCH ×2 (08:21→12:46)
[2019-08-31] MEDS: glyBURIDE TAB* 5 MG PO SCH (08:21)
[2019-08-31] MEDS: Cyanocobalamin TAB* 500 MCG PO SCH (08:22)
[2019-08-31] MEDS: CMCS: Omeprazole CAP (NF) 20 MG CAP.DR PO SCH (08:22)
[2019-08-31] MEDS: Calcium Carbonate TAB* 1250 MG (CALCIUM 500 MG) PO SCH (08:22)
[2019-08-31] MEDS: Metoprolol Succinate XL TAB* 25 MG PO SCH (08:23)
--- NOTE | 2019-08-31 10:47 | PN ---
Progress Note - Progress Note Date of Service: 08/31/19 SOAP: Subjective: [] Objective: [] Assessment: []69 yo female with locally advanced NSCLC s/p definitive therapy and most recently on adjuvant immunotherapy (last Durvalumab x 5, last on 08/31). She was admitted in respiratory failure secondary to immune mediated pneumonitis, differential including pnemonia, mild CHF, recurrent large right pleural effusion. Plan: []1. SOB. Differential still includes CHF and immune pneumonitis but favor the latter. Cardiology input appreciated. Appears euvolemic at this time. - Prednisone 100 mg po dialy x 6 additional days and taper - Lasix to home dose of 20 mg po daliy. - Weight down today, check tomorrow. - Try and taper O2, walks with 5 L NC today. 2. DM. On ISS and glyburide, follow BS 3. ID. Will continue ABX to max of 14 days, cannot r/o pneumonia. 4. NSCLC. Immunotherpy to discontinue. SANJAY at this time 5. If we have to re-tap effusion, will send cytology. 6. Hgb down today - h/o GIB - Iron studies normal - Check in am and Tx Hgb < 8.0 7. Disp home once breathing improved. continue PT.
--- NOTE | 2019-08-31 11:01 | DS ---
- Discharge Summary Admission Date: 08/23/19 Discharge Date: 08/31/19 Discharge Diagnosis: 1. Respiratory failure: complex presentation, however now resolved - Differential for recurrent respiratory distress includes immune mediated pneumonitis, pneumonia, diastolic CHF, and recurrent large right pleural effusion - d/c with steroid taper, complete full 14 day abx., and follow-up cardiology 2. Diastolic CHF: cont. diuretics, f/u cardiology 3. NSCLC: SANJAY, off therapy in active surveillance, no further immunotherapy planned 4. DM: resume home meds 5. A.Fib: cont. beta janice and calcium channel janice as per cardiology Discharge Medications: Medication Instructions Recorded Confirmed Type Sitaglipt/Metform (NF) 1 tab PO BID 11/14/13 08/23/19 History [Janumet (NF)] Metoprolol Succinate XL TAB* 12.5 mg PO QAM 10/19/18 08/23/19 History [Toprol XL TAB*] Budesonide/Formote 80/4.5(NF) 2 puff INH BID PRN 04/23/19 08/23/19 History [Symbicort 80/4.5 (NF)] glyBURIDE TAB* [Diabeta TAB*] 5 mg PO DAILY 04/23/19 08/23/19 History Cyanocobalamin (Vitamin B-12) 1,000 mcg PO DAILY 30 Days #30 05/03/19 08/23/19 Rx [B-12] tablet Albuterol 2.5MG/3ML (0.083%)* 2.5 mg INH Q4H PRN 08/23/19 08/23/19 History [Ventolin 2.5 MG/3 ML NEB.ADIA*] Furosemide TAB* [Lasix TAB*] 40 mg PO DAILY 08/23/19 08/23/19 History Acetaminophen TAB* [Tylenol TAB*] 650 mg PO Q4H PRN tab 08/31/19 Rx Calcium Carbonate TAB* 1,250 mg PO DAILY #30 tab 08/31/19 Rx Cefdinir cap* [Cefdinir 300 MG cap 300 mg PO BID #12 cap 08/31/19 Rx (NF)] Diltiazem TAB* [Cardizem 60 MG 60 mg PO Q6HR #120 tab 08/31/19 Rx Tab*] Lisinopril TAB* [Prinivil TAB 5 5 mg PO QPM #30 tab 08/31/19 Rx MG*] Omeprazole CAP (NF) [Prilosec CAP* 20 mg PO BID #60 cap. 08/31/19 Rx 20 MG] Saline NASAL SPRAY 0.65%* [Sodium 1 spray BOTH NARES Q8H PRN btl 08/31/19 Rx Chloride 0.65% Nasal [place]*] predniSONE 20 mg TAB [Deltasone 20 20 mg PO QAM #314 tab 08/31/19 Rx MG TAB*] 100 mg x2 days then decrease @ 10 mg q7days starting 09/03/19 Disposition: Home Condition: Stable Activity: Ambulate with walker, fall precautions Diet: Heart healthy, consistent carbs Hospital Course: Mrs. Del Real is well knwon to our service due to her diagnosis of locally advanced NSCLC s/p definitive therapy. She initiated adjuvant immunothearpy with Durvalumab in March 2019 complicated by 2 admissions for Pneumonia and then GI bleed with last dose given 07/01/19 (5th dose) and subsequently held d/t development of a left pleural effusion. She has had two outpatient thoracentesis, both without evidence for malignancy. Mrs. Del Real presented to the ER on 08/23 with progressive SOB and was found to be in acute hypoxic respiratory failure. She was admitted for management with differential including immune mediated pneumonitis, pneumonia, and CHF. She was started on antibiotics, stress dose steroids, and an echocardiogram was obtained. Plan for thoracentesis of recurrent pleural effusion was made. Overnight Mrs. Del Real declined and she required transfer to the ICU for respiratory support with vapotherm. She had a thoracentesis on 08/24 with 1300 mLs removed. She was transferred out of the unit on 08/25/19. She has slowly improved with decreased oxygen demand. A cardiology consult was obtained on 08/26/19 confirming diastolic heart failure with recommendation for cautious diuresis. A pulmonary consult was obtained on 08/27/19 who agreed with current management and close monitoring for recurrent pleural effusion. She has continued to improve with increased mobility and stable O2 needs @ 2L/min via NC (which she already has in place at home). She has declined home PT. Mrs. Del Real will be discharged home with a steroid taper and weekly follow-up for now. She has been instructed to monitor daily weights and call with any increase in SOB. Follow-up: Oncology 09/07/19 @ [id number] Call Primary for follow-up in approx. 1 mo. Call Cardiology for follow-up >40 min spent with >50% face to face counseling
[2019-08-31] MEDS: Enoxaparin(*) 40 MG/0.4 ML SYR SUBCUT SCH (12:24)
[2019-08-31 13:37] VITALS: BP 135/85
== END 2019-08-31 13:28 | disposition home or self-care (01) | DRG 291 ==
LOC: ED 03:27 → MEDTELE 10:42 → ICU 21:15 → MEDTELE 08-24 18:06
PROVIDERS: ADMIT Internal Medicine Hematology & Oncology; ATTEND Internal Medicine Hematology & Oncology
PROC: 5A09357 Assistance with Respiratory Ventilation, Less than 24 Consecutive Hours, Continuous Positive Airway Pressure (ICD-10-PCS; principal; 2019-08-23)
PROC: 0W9B3ZZ Drainage of Left Pleural Cavity, Percutaneous Approach (ICD-10-PCS; 2019-08-24)
DX: I11.0 Hypertensive heart disease with heart failure (principal); J96.21 Acute and chronic respiratory failure with hypoxia; J96.22 Acute and chronic respiratory failure with hypercapnia; J90 Pleural effusion, not elsewhere classified; Z68.42 Body mass index [BMI] 45.0-49.9, adult; C34.92 Malignant neoplasm of unspecified part of left bronchus or lung; I48.20 Chronic atrial fibrillation, unspecified; I50.32 Chronic diastolic (congestive) heart failure; E11.9 Type 2 diabetes mellitus without complications; E78.00 Pure hypercholesterolemia, unspecified; J44.9 Chronic obstructive pulmonary disease, unspecified; G47.30 Sleep apnea, unspecified; M17.0 Bilateral primary osteoarthritis of knee; F40.240 Claustrophobia; D64.9 Anemia, unspecified; I27.20 Pulmonary hypertension, unspecified; E66.01 Morbid (severe) obesity due to excess calories; I08.1 Rheumatic disorders of both mitral and tricuspid valves; Z87.891 Personal history of nicotine dependence; Z88.8 Allergy status to other drugs, medicaments and biological substances; Z91.040 Latex allergy status; Z92.21 Personal history of antineoplastic chemotherapy; Z92.3 Personal history of irradiation; Z79.51 Long term (current) use of inhaled steroids; Z79.52 Long term (current) use of systemic steroids
CPT/HCPCS: 32555; 36415; 36600; 71045; 71046; 71275; 80048; 80053; 81003; 81015; 82728; 82803; 82947; 83540; 83550; 83605; 83735; 83880; 84100; 84484; 85025; 85027; 85652; 86038; 86140; 87040; 87077; 87086; 87186; 87641; 93005; 93306; 94640; 94660; 94667; 99223; 99232; 99233; 99239; 99285; A9270-GY; J0696; J1642; J1650; J1940; J2930; J3475; J7512; Q9967

== ENCOUNTER 2019-11-08 05:50 | Emergency (ER) | payer MEDICARE ==
--- NOTE | 2019-11-08 05:59 | ED ---
Shortness of Breath - HPI Summary HPI Summary: 69-year-old female with a significant past medical history of atrial fibrillation(not on anticoagulation), type 2 diabetes mellitus, congestive heart failure, hypertension, hyperlipidemia, asthma, COPD, renal disease, recently seen pneumonia on chest CT done 4 days ago, lung carcinoma (receiving treatment by Dr. Keen) presents to the emergency department today complaining of shortness of breath. Patient states she has felt short of breath the last 3 months however today this is much worse. Patient states her home oxygen levels have been low even with her 4 L of oxygen which she wears normally. Upon arrival to the emergency department she is in no acute distress on 6 L of oxygen via nasal cannula placed by EMS. There is no audible stridor and patient is able to speak in full and broken sentences. Patient otherwise feels well and denies recent travel, fever, exposure to known COVID virus, chest pain , abdominal pain, nausea, vomiting and diarrhea. - History of Current Complaint Time Seen by Provider: 11/08/19 05:57 Hx Obtained From: Patient Onset/Duration: Gradual Onset Timing: Constant Current Severity: Moderate Dyspnea At: Rest Alleviating Factors: Oxygen Associated Signs & Symptoms: Cough (Nonproductive) - Allergy/Home Medications Allergies/Adverse Reactions: Allergies Allergy/AdvReac Type Severity Reaction Status Date / Time potassium Allergy Severe Rash And Verified 11/05/19 16:21 Itching latex Allergy Mild Rash And Verified 11/05/19 16:21 Itching scallops Allergy Unknown Verified 11/08/19 06:11 Reaction Details Home Medications: Home Medications Sitaglipt/Metform (NF) [Janumet (NF)] 1 tab PO BID 11/14/13 [ History Confirmed 11/08/19] Metoprolol Succinate XL TAB* [Toprol XL TAB*] 12.5 mg PO DAILY 10/19/18 [ History Confirmed 11/08/19] glyBURIDE TAB* [Diabeta TAB*] 5 mg PO DAILY 04/23/19 [History Confirmed 11/08/19 ] Cyanocobalamin (Vitamin B-12) [B-12] 1,000 mcg PO DAILY 30 Days #30 tablet 05/03 [Rx Confirmed 11/08/19] Furosemide TAB* [Lasix TAB*] 20 mg PO DAILY 08/23/19 [History Confirmed 11/08/19 ] Digoxin TAB* [Lanoxin TAB*] 0.125 mg PO EVERY OTHER DAY 10/18/19 [History Confirmed 11/08/19] Exenatide Microspheres [Bydureon] 2 mg SC . DIRECTED 10/18/19 [History Confirmed 11/08/19] LORazepam [Lorazepam] 0.5 mg PO DAILY PRN 10/18/19 [History Confirmed 11/08/19] Magnesium [Magnesium Elemental] 400 mg PO DAILY 10/18/19 [History Confirmed ] Sulfamethoxazole/Trimethoprim [Sulfamethoxazole-Tmp Ss Tablet] 1 each PO MOWEFR 10/18/19 [History Confirmed 11/08/19] Calcium Carbonate/Vitamin D3 [Oyster Shell Calcium 250+] 500 mg PO DAILY [History Confirmed 11/08/19] Diltiazem TAB* [Cardizem 60 MG Tab*] 300 mg PO DAILY 11/08/19 [History Confirmed 11/08/19] Lisinopril TAB* [Prinivil TAB 5 MG*] 5 mg PO DAILY 11/08/19 [History Confirmed 11/08/19] Omeprazole CAP (NF) [Prilosec CAP* 20 MG] 40 mg PO DAILY 11/08/19 [History Confirmed 11/08/19] predniSONE 20 mg TAB [Deltasone 20 MG TAB*] 20 mg PO . DIRECTED 11/08/19 [ History Confirmed 11/08/19] PMH/Surg Hx/FS Hx/Imm Hx Endocrine/Hematology History: Reports: Hx Anticoagulant Therapy, Hx Diabetes, Hx Anemia, Hx Unexplained Bleeding Denies: Hx Thyroid Disease Cardiovascular History: Reports: Hx Atrial Fibrillation, Hx Congestive Heart Failure, Hx Hypercholesterolemia, Hx Hypertension, Other Cardiovascular Problems /Disorders - Atrial fibrillation, elevated cholesterol Denies: Hx Aneurysm, Hx Angina, Hx Coronary Artery Disease, Hx Deep Vein Thrombosis, Hx Myocardial Infarction, Hx Pacemaker/ICD Respiratory History: Reports: Hx Asthma, Hx Chronic Obstructive Pulmonary Disease (COPD), Hx Lung Cancer, Hx Pneumonia, Hx Sleep Apnea - not tested but told she drops her oxygen levels at night Comment Only: Other Respiratory Problems/Disorders - HX LUNG CANCER CHEMO DONE - GI History: Denies: Other GI Disorders History: Reports: Hx Renal Disease - abnormal gfr Denies: Hx Dialysis, Other Problems/Disorders Musculoskeletal History: Reports: Hx Arthritis - Achey knees with walking. Has a walker, Other Musculoskeletal History - Poor balance, uses a walker to walk, or wheelchair when out Sensory History: Reports: Hx Contacts or Glasses - not with patient at this time , Hx Vision Problem Denies: Hx Eye Injury, Hx Eye Prosthesis, Hx Glaucoma, Hx Legally Blind, Hx Macular Degeneration, Hx Deafness, Hx Hearing Aid, Hx Hearing Problem, Other Sensory Impairments Opthamlomology History: Reports: Hx Contacts or Glasses - not with patient at this time, Hx Vision Problem Denies: Hx Eye Injury, Hx Eye Prosthesis, Hx Glaucoma, Hx Legally Blind, Hx Macular Degeneration, Other Sensory Impairments Neurological History: Reports: Other Neuro Impairments/Disorders - Claustrophobia Denies: Hx Dementia, Hx Headaches, Hx Migraine, Hx Seizures, Hx Transient Ischemic Attacks (TIA) Psychiatric History: Denies: Hx Panic Disorder - Cancer History Cancer Type, Location and Year: lung dx 2019 Hx Chemotherapy: No - Malignant tumor left bronchus - Surgical History Surgery Procedure, Year, and Place: HYSTERECTOMY [facility]. [facility] 2019. POWER PORT Hx Anesthesia Reactions: No - Immunization History Date of Tetanus Vaccine: utd Date of Influenza Vaccine: utd - Family History Known Family History: Positive: Cardiac Disease Negative: Blood Disorder - no FMHx of blood clots - Social History Alcohol Use: None Hx Substance Use: No Substance Use Type: Reports: None Hx Tobacco Use: Yes Smoking Status (MU): Former Smoker Type: Cigarettes Amount Used/How Often: 1.5 PPD for 40 years Have You Smoked in the Last Year: No Review of Systems Positive: Fatigue. Negative: Fever, Chills Eyes: Negative ENT: Negative Cardiovascular: Negative Positive: Shortness Of Breath, Cough Gastrointestinal: Negative Genitourinary: Negative Musculoskeletal: Negative Skin: Negative Neurological/Mental Status: Negative Psychological: Normal All Other Systems Reviewed And Are Negative: Yes Physical Exam - Summary Physical Exam Summary: Patient is in no acute distress. Patient speaks in full unbroken sentences. Auscultation of the lungs reveals diminished lung sounds throughout with rales noted at the lung bases. Patient is acyanotic. Triage Information Reviewed: Yes Vital Signs Reviewed: Yes Appearance: Positive: Well-Appearing, No Pain Distress, Well-Nourished Skin: Positive: Warm, Skin Color Reflects Adequate Perfusion Eyes: Positive: EOMI, HILARY ENT: Positive: Hearing grossly normal Respiratory/Lung Sounds: Positive: Breath Sounds Present, Decreased Breath Sounds, Rales, Wheezes. Negative: Unable to speak in full sentences Cardiovascular: Positive: IRR, S1, S2 Abdomen Description: Positive: Nontender, Soft. Negative: Distended, Guarding Bowel Sounds: Positive: Present Musculoskeletal: Positive: Strength/ROM Intact Neurological: Positive: Sensory/Motor Intact, Alert, Oriented to Person Place, Time, Normal Gait, Facial Symmetry, Speech Normal Psychiatric: Positive: Normal, Affect/Mood Appropriate AVPU Assessment: Alert Procedures - Sedation Patient Received Moderate/Deep Sedation with Procedure: No Diagnostics - Laboratory Result Diagrams: 11/08/19 06:57 11/08/19 06:58 Lab Statement: Any lab studies that have been ordered have been reviewed, and results considered in the medical decision making process. Course/Dx - Course Course Of Treatment: Patient was evaluated in the emergency department today for shortness of breath. Vitals noted. EKG was done promptly which shows no evidence of STEMI. Atrial fibrillation at a rate of 89 bpm. Normal axis. QT interval unremarkable. T wave flattening and inversions are noted in multiple leads. There are mild ST segment changes in leads V5 and V6 when compared to prior EKG done on 09/27/2019. Patient continues to have no complaints of chest pain. Laboratory studies returned showing no significant leukocytosis with white blood count of 7.5 CRP elevated at 60.76. There is noted anemia with an H &H of 9.4 and 28; This is consistent with the patients baseline. Patient has fully compensated respiratory acidosis. There are no significant electrolyte abnormalities. Her troponin returned elevated at 0.03; this is likely demand mediated ischemia. Lactic acid returned at 0.8 with no evidence of sepsis. BNP 216, which is her baseline. Chest x-ray was done which showed pleural effusion in the left lung compared to prior chest CT done approximately 4 days ago. Oncology, Dr. Keen was consulted who came and examined the patient. She believed the patient was well for discharge but wants to start her on steroids. Patient was given 125 mg solumedrol in the emergency department as well as 40mg lasix. Serial troponin returned at 0.03 showing no evidence of possible STEMI. Dr. Keen sent prescription for steroids as an outpatient to her pharmacy. Patient is to follow-up with Dr. Keen in his office as an outpatient. Patient discharged for outpatient follow-up. - Diagnoses Differential Diagnosis/HQI/PQRI: Positive: Airway Obstruction, Asthma, CHF, COPD Exacerbation, NM, Pneumonia Provider Diagnoses: Dyspnea, Elevated troponin I level, Anemia, Atrial fibrillation Discharge ED - Sign-Out/Discharge Documenting (check all that apply): Patient Departure - Discharge Plan Condition: Stable Disposition: HOME Patient Education Materials: Dyspnea (ED) Referrals: Cristiano Choi MD [Primary Care Provider] - Nikita Keen MD [Medical Doctor] - 3 Days Additional Instructions: You were seen in the emergency department today due to shortness of breath. I have talked to your oncologist, Dr. Keen who believed you should be placed on steroids. Please follow-up with him in his office for further evaluation and management. Please return to this emergency department immediately if you develop any new or worsening symptoms. - Billing Disposition and Condition Condition: STABLE Disposition: Home
[2019-11-08] MEDS ORDERED: Albuterol/Ipratropium NEB.SOL* Albuterol 2.5 MG/Ipratropium 0.5 MG 3 ML INH ONE (06:05)
--- OUTSIDE RECORDS SUMMARY | 2019-11-08 06:09 | XMS REPORT | Continuity of Care Document ---
:1950 External Reference #:[id number] Author Name Natalie Nelson MD (transmitted by agent of provider Margot Monaco) Address [address], [address] [place] [address] Care Team Providers Name Role Phone Cristiano Choi MD - Family Medicine Care Team Information Entrepreneurial Finance Professor Nikita Keen MD - Hematology Care Team Information Entrepreneurial Finance Professor [phone] Problems Active Problems Provider Date Atrial fibrillation Aamir Lopez M.D. Onset: 09/16/2013 Left heart failure Aamir Lopez M.D. Onset: 09/16/2013 Dyspnea Aamir Lopez M.D. Onset: 09/16/2013 Type 2 diabetes mellitus Aamir Lopez M.D. Onset: 09/16/2013 Congestive heart failure BRITTANY Diaz Onset: 11/25/2013 Malignant essential hypertension BRITTANY Diaz Onset: 12/30/2013 Palpitations BRITTANY Diaz Onset: 12/30/2013 Essential hypertension Aaimr Lopez M.D. Onset: 2014 Obstructive sleep apnea syndrome Aamir Lopez M.D. Onset: 06/01/2014 Anemia Aamir Lopez M.D. Onset: 06/01/2014 Chronic atrial fibrillation BRITTANY Diaz Onset: 01/24/2016 Social History Type Date Description Comments Sex Unknown Tobacco Use Start: Unknown End: Former Cigarette Smoker Unknown ETOH Use Denies alcohol use Tobacco Use Start: Unknown End: Patient is a former Unknown smoker Recreational Drug Use Denies Drug Use Tobacco Use Start: Unknown quit 1981 2PPD Smoking Status Reviewed: 09/20/19 quit 1982 2PPD Exercise Type/Frequency Exercises sporadically PT in the home started summer Allergies, Adverse Reactions, Alerts Active Allergies Reaction Severity Comments Date Potassium Chloride rash Moderate 11/25/2013 Inactive Allergies NKDA 09/10/2013 Medications Active Medications SIG Qnty Indications Ordering Date Provider Cartia XT 1 cap by mouth 90caps I48.20 Hayley PritchardCarine Tigre, 09/20/2019 300mg Caps daily N.P. ER 24HR Lisinopril 1 by mouth every 90tabs R06.02 Hayley MachoCarine Landeros, 07/29/2019 5mg day N.P. Tablets Furosemide 2 tabs po qd 90tabs R06.02 Aamir Truong 02/01/2014 20mg Ayush Lopez Tablets Metoprolol Succinate 1/2 by mouth every 45tabs Aamir Truong 09/27/2013 ER day Ayush Lopez 25mg Tablets ER 24HR Janumet XR 1 po bid 60tabs Other Ordering 09/01/2013 50-1000mg Provider Tablets ER 24HR Oxygen 2 l nc at hs or as 1units Unknown Misc needed Albuterol Sulfate 1 vial q 4hrs prn Unknown for wheezing (rare (2.5mg/3ML) 0.083% use) Nebulizer Glyburide 1 tablet daily Unknown 5mg Symbicort 2 puff twice a day Unknown 80-4.5mcg/Act Aerosol Vitamin B12 1 by mouth every Unknown 1000mcg day Tablets ER Omeprazole 2 by mouth every Unknown 20mg day Capsules DR Prednisone Take 5 tabs x 2 Unknown 20mg days then decrease Tablets by 10mg every 7 days (09/03 started) Bydureon Inject 2 Milligrams Unknown 2mg Pen Once A Week Oyster Shell Calcium Take 1 T By Mouth Unknown Once Daily 500mg Tablets Sulfamethoxazole/Tri Unknown methoprim DS 800-160mg Tablets Lorazepam TK 1 T PO Q 8 H prn Unknown 0.5mg Tablets Medications Administered in Office Medication SIG Qnty Indications Ordering Provider Date Inj, Regadenoson, 0.1 MG Jose D. Brand, M.D. 09/16/2013 Injection Technetium TC 99M Tetrofosmin, Jose Sultana M.D. 09/16/2013 Per Unit Dose Up To 40 Millicuries Injection Immunizations Description No Information Available Vital Signs Date Vital Result Comment 09/22/2019 11:13am Heart Rate 98 /min BP Systolic Sitting 104 mmHg BP Diastolic Sitting 78 mmHg O2 % BldC Oximetry 93 % 2 liters 09/20/2019 9:46am Height 60 inches 5'0" Weight 238.00 lb per pt, W/C Heart Rate 96 /min apical BP Systolic Sitting 108 mmHg Rue, reg cuff BP Diastolic Sitting 68 mmHg Rue, reg cuff O2 % BldC Oximetry 97 % 2L NC BMI (Body Mass Index) 46.5 kg/m2 Ejection Fraction 55%-60% echocardiogram 08/24/19 Results Test Acquired Date Facility Test Result H/L Range Note Order 09/20/2019 [facility] Holter <pending> [address] [place] [address] [phone] Laboratory test 08/11/2019 [facility] Gram Stain SEE RESULT [address] [place] [address] [phone] Body Fluid Cell 08/11/2019 [facility] Body Fluid Pleural Fluid Count [address] Source [place], [place] [id number] [phone] Body Fluid Appearance Clear Body Fluid Color Yellow Body Fluid Volume 3 mL Body Fluid WBC 368 /mcL Normal 2 Body Fluid RBC 1125 /mcL Body Fluid Neutrophils 19 % Body Fluid Lymph 66 % Body Fluid Taylor 15 % Body Fluid Total Cells Counted 100 Body Fluid Comment (SEE NOTE) 3 Fluid Reviewed By MD (SEE NOTE) 4 Laboratory test 08/11/2019 [facility] Body Fluid SEE RESULT [address] [place] [address] (Rpuvyon) [phone] Lactate 08/11/2019 [facility] Lactate 49 U/L 6 Dehydrogenase,BF [address] Dehydrogenase, [place] [address] BF [phone] Fluid Source PLEURAL 7 Body Fluid Total 08/11/2019 [facility] Total Protein, BF 2.5 g/ dL [address] [place], [place] [id number] [phone] Fluid Type, Protein, Total PLEURAL 9 Platelet 08/11/2019 [facility] Platelet 255 10^3/uL Normal 150 -450 Count [address] [place] [address] [phone] Mean Platelet Volume 7.3 fL Low 7.4-10.4 Inr/Protime 08/11/2019 [facility] Inr 1.13 High 0.82-1.[address] [place] [address] [phone] Laboratory test 08/11/2019 [facility] Partial 34.5 Normal 26.0 -38.0 finding [address] [place] [address] Time PTT [phone] Laboratory test 05/12/2019 [facility] Ferritin 72.0 ng/mL Normal 11-[address] [place] [address] [phone] Vitamin B12 > 1450 pg/mL High 180-914 11 Iron & Iron Binding 05/12/2019 [facility] Iron 62 g/dL Normal 50-212 [address] [place] [address] [phone] Unsaturated Iron Binding < 341 g/dL Total Iron Binding Capacity 356 g/dL Normal 250-450 Transferrin 254 mg/dL Normal 203-362 % Iron Saturation 17 % Normal 15-55 Comp Metabolic 05/12/2019 [facility] Sodium 138 mmol/L Normal 135-[address] [place] [address] [phone] Potassium 3.7 mmol/L Normal 3.5-5.0 Chloride 101 [...] Egfr Non- 54.3 >60 Egfr 65.8 >60 12 CBC Auto 05/12/2019 [facility] White Blood 13.3 10^3/uL High 3.5-10.[address] [place] [address] [phone] Red Blood Count 2.83 10^6/uL Low 3.70-4.87 [...] % Nucleated Red Blood Cells % 0.1 Laboratory test 05/12/2019 [facility] Creatine 34 U/L Normal 10-[address] Kinase(CK) [place] [address] [phone] Digoxin 1.2 ng/ml Normal 0.8-2.0 Lipid Profile 05/12/2019 [facility] Triglycerides 141 mg/dL 13 (Trig/Chol/HDL) [address] [place] [address] [phone] Cholesterol 135 mg/dL 14 HDL Cholesterol 67.9 mg/dL 15 LDL Cholesterol 39 mg/dL 16 Vitamin B12 And 05/12/2019 [facility] Folic Acid 10.36 ng/mL >3.[address] (Folate) [place] [address] [phone] 1 SEE RESULT BELOW Name: RYAN CARO : [address]: Nikita Keen MD Acct: [id number] Unit: [id number] AGE: 69 Location: Re08/11/19 SEX: F Status: REG REF SPEC: [id number] ALEXA: 08/11/[address]: Nikita Keen MD REQ: [id number] RECD: 08/11/19 STATUS: KRISTI SARAVIA DR: Aamir Choi MD _ SOURCE: BODY FLUID SPDESC:PLEURA ORDERED: Gram Stain Procedure Result Reported Site Gram Stain Final 08/11/19- 1257 ML 4+ Neutrophils 4+ Nucleated Cells No Organisms Seen BY CYTOSPIN SMEAR * ML - Main Lab . END OF REPORT DEPARTMENT OF PATHOLOGY, [address] [place] [address] Rey Villagomez M.D. Director [facility] # [id number] 2 -- REFERENCE VALUE -- Synovial: <150/mcL Peritoneal: <500/mcL Pleural: <500/mcL Pericardial: <500/mcL 3 Differential performed on concentrated smear. 4 No evidence of an acute inflammatory process. No evidence of malignancy. Reviewed by Tiny Gee MD 5 SEE RESULT BELOW Name: RYAN CARO : [address]: Nikita Keen MD Acct: [id number] Unit: [id number] AGE: 69 Location: SP Re08/11/19 SEX: F Status: REG REF SPEC: [id number] ALEXA: 08/11/19-1099 [facility] DR: Nikita Keen MD REQ: [id number] RECD: 08/11/19 STATUS: COMP LIA DR: Aamir Choi MD _ SOURCE: PLEURAL FL SPDESC: ORDERED: BF Cult Bottles Procedure Result Reported Site BF Aerobic Culture Bottle Final 08/16/19- 1118 ML No Growth Day 5 BF Anaerobic Culture Bottle Final 08/16/19- 1118 ML No Growth Day 5 * ML - Main Lab . END OF REPORT DEPARTMENT OF PATHOLOGY, [address] [place] [address] Rey Villagomez M.D. Director [facility] # [id number] 6 REFERENCE VALUE See Comment ADDITIONAL INFORMATION Pleural fluid lactate dehydrogenase (LDH) to serum LDH ratio >0.6 are most consistent with exudative effusions. Peritoneal fluid LDH > 220 U/L suggest secondary rather than spontaneous bacterial peritonitis in conjunction with other laboratory, imaging, and clinical findings. Synovial fluid lactate dehydrogenase (LDH) may be elevated greater than plasma or serum LDH due to inflammatory causes. Values should be interpreted in conjunction with other clinical findings. All other fluids refer to [email or web address].MarginLeft for further interpretive information. This test has been modified from the corn detasseler machine operator's instructions. Its performance characteristics were determined by [facility] in a manner consistent with CLIA requirements. This test has not been cleared or approved by the U.S. Food and Drug Administration. 7 Test Performed by: [place] [address] Director Of Placement: Reynaldo Phan M.D. Ph.D.; CLIA# [id number] 8 REFERENCE VALUE See Comment ADDITIONAL INFORMATION A pleural fluid total protein to serum total protein ratio >0.5 is most consistent with exudative effusion. A peritoneal fluid total protein > 2.5 g/dL in patients with a high serum ascites albumin gradient can be caused by heart failure. A peritoneal fluid total protein > 1.0 g/dL helps to differentiate secondary from spontaneous bacterial peritonitis in conjunction with other laboratory, imaging, and clinical findings. All other fluids refer to [email or web address] for further interpretive information. This test has been modified from the corn detasseler machine operator's instructions. Its performance characteristics were determined by [facility] in a manner consistent with CLIA requirements. This test has not been cleared or approved by the U.S. Food and Drug Administration. 9 Test Performed by: [place] [address] Director Of Placement: Reynaldo Phan M.D. Ph.D.; CLIA# [id number] 10 Standard intensity warfarin therapeutic range: 2.0-3.0 High intensity warfarin therapeutic range: 2.5-3.5 11 Normal Range 180 to 914 Indeterminate Range 145 to 180 Deficient Range <145 12 Because ethnic data is not always readily [...] 15-29 5 Kidney failure <15 (or dialysis) 13 Desirable: <150 Borderline High: 150-199 High: 200-499 Very High: >500 14 Desirable: <200 Borderline High: 200-239 High: >239 15 Low: <40 Desirable: 40-60 High: >60 16 Desirable: <100 Near Optimal: 100-129 Borderline High: 130-159 High: 160-189 Very High: >189 Procedures Date Code Description Status 09/20/2019 79068 Holter Monitor Review (24 hr)dr review & interp only Completed 09/20/2019 70904 ECG Monitor/Recording W/Visual Superimposition Scanning Completed 08/24/2019 54615 ECHO Transthorasic Realtime 2D W Doppler & Color Flow Hosp Completed 08/16/2019 37993 Spirometry Incl Graphic Record Completed 08/05/2019 79635 ECHO Transthoracic, Real-Time 2D With Doppler And Color Completed Flow 08/05/2019 05957 ECHO Transthoracic, Real-Time 2D With Doppler And Color Completed Flow 08/05/2019 87493 EKG Tracing & Interpretation Completed 07/29/2019 19622 EKG Tracing & Interpretation Completed 05/11/2019 78984 EKG Tracing & Interpretation Completed 04/16/2019 88700 ECHO Transthoracic, Real-Time 2D With Doppler And Color Completed Flow 04/16/2019 64974 ECHO Transthoracic, Real-Time 2D With Doppler And Color Completed Flow Medical Devices Description No Information Available Encounters Type Date Location Provider Dx Diagnosis Office Visit 08/27/2019 Pulmonology And Natalie Nelson, J90 Pleural effusion, 11:02a Sleep Services Of not elsewhere Physician Assistant Psychiatry classified C34.92 Malignant neoplasm of unsp part of left bronchus or lung R09.02 Hypoxemia Office Visit 08/26/2019 12:53p [facility] Lizbeth Hanna R06.02 Duc of Ayush Morel breath J90 Pleural effusion, not elsewhere classified C34.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 breath E78.5 Hyperlipidemia, unspecified I34.0 Nonrheumatic mitral (valve) insufficiency J90 Pleural effusion, not elsewhere classified I48.91 Unspecified atrial fibrillation Office Visit 05/25/2019 [facility] Mil Stahl, K92.2 Gastrointestinal 8:31a M.DCarine hemorrhage, unspecified C34.90 Malignant neoplasm of unsp part of unsp bronchus or lung I48.91 Unspecified atrial fibrillation Office 05/25/2019 [facility] Ibrahima Bansal K92.2 Gastrointestinal Visit 7:00a MD Jerson hemorrhage, unspecified Office 05/24/2019 [facility] Mil K92.2 Gastrointestinal Visit 8:31a saul Stahl M.D. unspecified N17.9 Acute kidney failure, unspecified C34.90 Malignant neoplasm of unsp part of unsp bronchus or lung I48.91 Unspecified atrial fibrillation Office Visit 05/11/2019 8:40a [facility] Amair Truong N18.3 Chronic kidney Ayush Lopez disease, stage 3 (moderate) E11.9 Type 2 diabetes mellitus without complications I34.0 Nonrheumatic mitral (valve) insufficiency E78.5 Hyperlipidemia, unspecified I48.2 Chronic atrial fibrillation R09.02 Hypoxemia D64.9 Anemia, unspecified Office Visit 05/03/2019 [facility] Vielka Avalos J18.1 Lobar pneumonia, 9:33a For Infectious Lowe, LOOPER OPERATOR unspecified Diseases organism C34.92 Malignant neoplasm of unsp part of left bronchus or lung N17.9 Acute kidney failure, unspecified N18.9 Chronic kidney disease, unspecified Office Visit 05/02/2019 9:54a [facility] Kathryn Rinaldi, J96.01 Acute respiratory Assoc,pc N.P. failure with Hospitalists hypoxia J18.9 Pneumonia, unspecified organism D64.9 Anemia, unspecified E11.9 Type 2 diabetes mellitus without complications Office Visit 04/30/2019 [facility] Vielka Avalos J18.1 Lobar pneumonia, 12:49p For Infectious Chrissy, LOOPER OPERATOR unspecified Diseases organism C34.90 Malignant neoplasm of unsp part of unsp bronchus or lung E87.5 Hyperkalemia E11.22 Type 2 diabetes mellitus w diabetic chronic kidney disease N18.3 Chronic kidney disease, stage 3 (moderate) N17.9 Acute kidney failure, unspecified Office Visit 04/29/2019 12:47p [facility] Hermelindo Walter J18.9 Pneumonia, Infectious Ayush Mak unspecified Diseases organism C34.90 Malignant neoplasm of unsp part of unsp bronchus or lung E87.5 Hyperkalemia Office Visit 04/28/2019 [facility] Vielka Avalos J18.1 Lobar pneumonia, 12:46p For Infectious Chrissy, LOOPER OPERATOR unspecified Diseases organism C34.90 Malignant neoplasm of unsp part of unsp bronchus or lung E11.22 Type 2 diabetes mellitus w diabetic chronic kidney disease N18.3 Chronic kidney disease, stage 3 (moderate) N17.9 Acute kidney failure, unspecified Office Visit 04/27/2019 12:44p [facility] Vielka Avalos R06.02 Shortness of For Infectious Chrissy LOOPER OPERATOR breath Diseases R09.02 Hypoxemia R91.8 Other nonspecific abnormal finding of lung field D72.829 Elevated white blood cell count, unspecified C34.90 Malignant neoplasm of unsp part of unsp bronchus or lung Office Visit 04/24/2019 12:31p Pulmonology And Natalie J18.1 Lobar pneumonia, Sleep Services Of MD Leslie unspecified Physician Assistant Psychiatry organism C34.90 Malignant neoplasm of unsp part of unsp bronchus or lung J96.91 Respiratory failure, unspecified with hypoxia Assessments Date Code Description Provider 09/22/2019 J90 Pleural effusion, not elsewhere Natalie Nelson MD classified 09/22/2019 C34.90 Malignant neoplasm of unspecified Natalie Nelson MD part of unspecified bronchus or lung 09/21/2019 J90 Pleural effusion, not elsewhere Nurse Visit cc classified 09/20/2019 R06.02 Shortness of breath Nurse Visit cc 09/20/2019 R06.02 Shortness of breath Hayley Landeros, N.P. 09/20/2019 I48.20 Chronic atrial fibrillation, Hayley Landeros N.P. unspecified 09/20/2019 J90 Pleural effusion, not elsewhere Hayley Landeros N.P. classified 09/20/2019 R94.31 Abnormal electrocardiogram [ECG] Hayley Landeros N.P. [EKG] 09/20/2019 I50.30 Unspecified diastolic (congestive) Hayley Landeros N.P. heart failure 08/27/2019 J90 Pleural effusion, not elsewhere Natalie Nelson MD classified 08/27/2019 C34.92 Malignant neoplasm of unspecified Natalie Nelson MD part of left bronchus or lung 08/27/2019 R09.02 Hypoxemia Natalie Nelson MD 08/26/2019 R06.02 Shortness of breath Lizbeth Morel M.D. 08/26/2019 J90 Pleural effusion, not elsewhere Lizbeth Morel M.D. classified 08/26/2019 C34.92 Malignant neoplasm of unspecified Lizbeth Morel M.D. part of left bronchus or lung 08/26/2019 I48.20 Chronic atrial fibrillation, Lizbeth Morel M.D. unspecified 08/26/2019 I50.30 Unspecified diastolic (congestive) Lizbeth Morel M.D. heart failure 08/26/2019 R94.31 Abnormal electrocardiogram [ECG] Lizbeth Morel M.D. [EKG] 08/24/2019 I50.9 Heart failure, unspecified Lizbeth Morel M.D. 08/16/2019 C34.90 Malignant neoplasm of unspecified Natalie Nelson MD part of unspecified bronchus or lung 08/05/2019 R06.02 Shortness of breath Aamir Lopez M.D. 08/05/2019 R06.02 Shortness of breath Nurse Visit IC 08/05/2019 R94.31 Abnormal electrocardiogram [ECG] Nurse Visit IC [EKG] 08/05/2019 R06.02 Shortness of breath [facility] 2 08/05/2019 I50.1 Left ventricular failure, unspecified Traveling ECHO 2 07/29/2019 I48.91 Unspecified atrial fibrillation Lizbeth Morel M.D. 07/29/2019 R06.02 Shortness of breath Hayley Landeros, N.P. 07/29/2019 E78.5 Hyperlipidemia Hayley Landeros, N.P. 07/29/2019 I34.0 Nonrheumatic mitral (valve) Hayley Landeros, N.P. insufficiency 07/29/2019 J90 Pleural effusion, not elsewhere Hayley Landeros, N.P. classified 07/29/2019 I48.91 Unspecified atrial fibrillation Hayley Landeros, N.P. 05/25/2019 K92.2 Gastrointestinal hemorrhage, Ibrahima Arthur MD [...] M.D. 05/05/2019 J18.1 Lobar pneumonia, unspecified organism [place], [place] 05/05/2019 C34.90 Malignant neoplasm of unspecified [place], [place] part of unspecified bronchus or lung 05/05/2019 E11.22 Type 2 diabetes mellitus with [place], [place] diabetic chronic kidney disease 05/05/2019 N18.3 Chronic kidney disease, stage 3 [place], [place] (moderate) 05/05/2019 R06.02 Shortness of breath Mag[place]ena [place] PA 05/03/2019 J18.1 Lobar pneumonia, unspecified organism Vielka Javonebdakota Lowe, LOOPER OPERATOR 05/03/2019 C34.92 Malignant neoplasm of unspecified Vielka Wingeraeblack Lowe , LOOPER OPERATOR part of left bronchus or lung 05/03/2019 N17.9 Acute kidney failure, unspecified Vielka Wingeraeblack Lowe , LOOPER OPERATOR 05/03/2019 N18.9 Chronic kidney disease, unspecified Vielka Winkleblack Lowe, LOOPER OPERATOR 05/02/2019 J96.01 Acute respiratory failure with Kathryn Gentry, N.P. hypoxia 05/02/2019 J18.9 Pneumonia, unspecified organism Kathryn Gentry, N.P. 05/02/2019 D64.9 Anemia, unspecified Kathryn Gentry, N.P. 05/02/2019 E11.9 Type 2 diabetes mellitus without Kathryn Rinaldi, N.P. complications 04/30/2019 J18.1 Lobar pneumonia, unspecified organism Vielka Javonebandreack Lowe, LOOPER OPERATOR 04/30/2019 C34.90 Malignant neoplasm of unspecified Vielka Winkleblack Lowe , LOOPER OPERATOR part of unspecified bronchus or lung 04/30/2019 E87.5 Hyperkalemia Vielkaramandeep Lowe, LOOPER OPERATOR 04/30/2019 E11.22 Type 2 diabetes mellitus with Vielkaramandeep Lowe, LOOPER OPERATOR diabetic chronic kidney disease 04/30/2019 N18.3 Chronic kidney disease, stage 3 Vielka Robbie Lowe, LOOPER OPERATOR (moderate) 04/30/2019 N17.9 Acute kidney failure, unspecified Vielka Winkleblack Lowe , LOOPER OPERATOR 04/29/2019 J18.9 Pneumonia, unspecified organism Gilson Mak M.D. 04/29/2019 C34.90 Malignant neoplasm of unspecified Gilson Mak M.D. part of unspecified bronchus or lung 04/29/2019 E87.5 Hyperkalemia Gilson Mak M.D. 04/28/2019 J18.1 Lobar pneumonia, unspecified organism Vielka Lowe, LOOPER OPERATOR 04/28/2019 C34.90 Malignant neoplasm of unspecified Vielka Lowe , LOOPER OPERATOR part of unspecified bronchus or lung 04/28/2019 E11.22 Type 2 diabetes mellitus with Vielka Lowe, LOOPER OPERATOR diabetic chronic kidney disease 04/28/2019 N18.3 Chronic kidney disease, stage 3 Vielka Lowe, LOOPER OPERATOR (moderate) 04/28/2019 N17.9 Acute kidney failure, unspecified Vielka Lowe , LOOPER OPERATOR 04/27/2019 R06.02 Shortness of breath Vielka Lowe, LOOPER OPERATOR 04/27/2019 R09.02 Hypoxemia Vielka Lowe, LOOPER OPERATOR 04/27/2019 R91.8 Other nonspecific abnormal finding of Vielka Lowe, LOOPER OPERATOR lung field 04/27/2019 D72.829 Elevated white blood cell count, Vielka Lowe , LOOPER OPERATOR unspecified 04/27/2019 C34.90 Malignant neoplasm of unspecified Vielka Lowe , LOOPER OPERATOR part of unspecified bronchus or lung 04/24/2019 J18.1 Lobar pneumonia, unspecified organism Natalie Nelson MD 04/24/2019 C34.90 Malignant neoplasm of unspecified Natalie Nelson MD part of unspecified bronchus or lung 04/24/2019 J96.91 Respiratory failure, unspecified with Natalie Nelson MD hypoxia 04/16/2019 I34.0 Nonrheumatic mitral (valve) Aamir Lopez M.D. insufficiency 04/16/2019 I34.0 Nonrheumatic mitral (valve) [place] [facility] insufficiency 04/16/2019 J44.9 Chronic obstructive pulmonary [place] [facility] Schedule disease, unspecified 04/16/2019 I27.20 Pulmonary hypertension [place] [facility] Schedule Plan of Treatment Future Appointment(s):11/08/2019 9:30 am - Hayley Landeros N.P. at [facility]09/22/2019 - NAYA Mota90 Pleural effusion, not elsewhere classifiedFollow up:PRNC34.90 Malignant neoplasm of unspecified part of unspecified bronchus or lung Functional Status Description No Information Available Mental Status Description No Information Available Referrals Description No Information Available
--- OUTSIDE RECORDS SUMMARY | 2019-11-08 06:09 | XMS REPORT | Continuity of Care Document ---
:1950 External Reference #:[id number] Author Name Hayley Landeros N.P. (transmitted by agent of provider Margo Murrell) Address [facility] [place] [address] Care Team Providers Name Role Phone Cristiano Choi MD - Family Medicine Care Team Information Bag Builder Nikita Keen MD - Hematology Care Team Information Bag Builder [phone] Problems Active Problems Provider Date Atrial fibrillation [...] Drug Use Tobacco Use Start: Unknown quit 1982 2PPD Smoking Status Reviewed: 09/20/19 quit 1982 2PPD Exercise Type/Frequency Exercises sporadically PT in the home started summer Allergies, Adverse Reactions, Alerts Active Allergies Reaction Severity Comments Date Potassium Chloride rash Moderate 11/25/2013 Inactive Allergies NKDA 09/10/2013 Medications Active Medications SIG Qnty Indications Ordering Provider Date Cartia XT 1 cap by mouth 90caps I48.20 Hayley PritchardCarine Landeros, 09/20/2019 300mg Caps ER daily N.P. 24HR Lisinopril 1 by mouth every 90tabs R06.02 Hayley SCarine Landeros, 07/29/2019 5mg Tablets day N.P. Furosemide 2 tabs po qd 90tabs R06.02 Aamir Truong 02/01/2014 20mg Tablets Ayush Lopez Metoprolol Succinate 1/2 by mouth 45tabs Aamir Truong 09/27/2013 ER every day Ayush Lopez 25mg Tablets ER 24HR Janumet XR 1 po bid 60tabs Other Ordering 09/01/2013 50-1000mg Provider Tablets ER 24HR Oxygen 2 l nc at hs or 1units Unknown Misc as needed Albuterol Sulfate 1 vial q 4hrs prn Unknown for wheezing (2.5mg/3ML) 0.083% (rare use) Nebulizer Glyburide 1 tablet daily Unknown 5mg Symbicort 2 puff twice a Unknown 80-4.5mcg/Act day Aerosol Vitamin B12 1 by mouth every Unknown 1000mcg day Tablets ER Omeprazole 2 by mouth every Unknown 20mg day Capsules DR Prednisone Take 5 tabs x 2 Unknown 20mg Tablets days then decrease by 10mg every 7 days (09/03 started) Medications Administered in Office Medication SIG Qnty Indications Ordering Provider Date Inj, Regadenoson, 0.1 MG Jose Sultana M.D. 09/16/2013 Injection Technetium TC 99M Tetrofosmin, Jose Sultana M.D. 09/16/2013 Per Unit Dose Up To 40 Millicuries Injection Immunizations Description No Information Available Vital Signs Date Vital Result Comment 09/20/2019 9:46am Height 60 inches 5'0" Weight 238.00 lb per pt, W/C Heart Rate 96 /min apical BP Systolic Sitting 108 mmHg Rue, reg cuff BP Diastolic Sitting 68 mmHg Rue, reg cuff O2 % BldC Oximetry 97 % 2L NC BMI (Body Mass Index) 46.5 kg/m2 Ejection Fraction 55%-60% echocardiogram 08/24/19 08/05/2019 11:40am Height 60 inches 5'0" Heart Rate 63 /min R radial BP Systolic 100 mmHg R arm, large cuff BP Diastolic 68 mmHg R arm, large cuff BP Systolic Sitting 100 mmHg L arm, large cuff BP Diastolic Sitting 70 mmHg L arm, large cuff Respiratory Rate 16 /min O2 % BldC Oximetry 84 % Ra Results Test Acquired Date Facility Test Result H/L Range Note Laboratory test 08/11/2019 [facility] Gram Stain SEE RESULT [address] [place] [address] [phone] Body Fluid Cell 08/11/2019 [facility] Body Fluid Pleural Fluid Count [address] [place] [address] [phone] Body Fluid Appearance Clear Body Fluid Color Yellow Body Fluid Volume 3 mL Body Fluid WBC 368 /mcL Normal 2 Body Fluid RBC 1125 /mcL Body Fluid Neutrophils 19 % Body Fluid Lymph 66 % Body Fluid [place] 15 % Body Fluid Total Cells Counted 100 Body Fluid Comment (SEE NOTE) 3 Fluid Reviewed By MD (SEE NOTE) 4 Laboratory test 08/11/2019 [facility] Body Fluid SEE RESULT [address] [place] [address] (Qcuupdd) [phone] Lactate 08/11/2019 [facility] Lactate 49 U/L 6 Dehydrogenase,BF [address] Dehydrogenase, [place] [address] BF [phone] Fluid Source PLEURAL 7 Body Fluid Total 08/11/2019 [facility] Total Protein, BF 2.5 g/ dL [address] [place], [place] [id number] [phone] Fluid Type, Protein, Total PLEURAL 9 Platelet 08/11/2019 [facility] Platelet 255 10^3/uL Normal 150 -[address] [place] [address] [phone] Mean Platelet Volume 7.3 fL Low 7.4-10.4 Inr/Protime 08/11/2019 [facility] Inr 1.13 High 0.82-1.[address] [place] [address] [phone] Laboratory test 08/11/2019 [facility] Partial 34.5 Normal 26.0 -38.0 finding [address] [facility] [place] [address] Time PTT [phone] Laboratory test 05/12/2019 [facility] Ferritin 72.0 ng/mL Normal 11-307 finding [address] [place] [address] [phone] Vitamin B12 > 1450 pg/mL High 180-914 11 Iron & Iron Binding 05/12/2019 [facility] Iron 62 g/dL Normal 50-212 Capacity [address] [place], [place] [id number] [phone] Unsaturated Iron Binding < 341 g/dL Total Iron Binding Capacity 356 g/dL Normal 250-450 Transferrin 254 mg/dL Normal 203-362 % Iron Saturation 17 % Normal 15-55 Comp Metabolic 05/12/2019 [facility] Sodium 138 mmol/L Normal 135-145 Panel [address] [place], [place] [id number] [phone] Potassium 3.7 mmol/L Normal 3.5-5.0 Chloride 101 [...] Egfr 65.8 >60 12 CBC Auto 05/12/2019 [facility] White Blood 13.3 10^3/uL High 3.5-10.[address] [place] [address] [phone] Red Blood Count 2.83 10^6/uL Low 3.70-4.87 [...] Blood Cells % 0.1 Laboratory test 05/12/2019 [facility] Creatine 34 U/L Normal 10-[address] Kinase(CK) [place] [address] [phone] Digoxin 1.2 ng/ml Normal 0.8-2.0 Lipid Profile 05/12/2019 [facility] Triglycerides 141 mg/dL 13 (Trig/Chol/HDL) [address] [place] [address] [phone] Cholesterol 135 mg/dL 14 HDL Cholesterol 67.9 mg/dL 15 LDL Cholesterol 39 mg/dL 16 Vitamin B12 And 05/12/2019 [facility] Folic Acid 10.36 ng/mL >3.[address] (Folate) [place] [address] [phone] 1 SEE RESULT BELOW Name: RYAN CARO : [address]: Nikita Keen MD Acct: [id number] Unit: [id number] AGE: 69 Location: Re08/11/19 SEX: F Status: REG REF SPEC: [id number] ALEXA: 08/11/19-[address] [facility] [address]: Nikita Keen MD REQ: [id number] RECD: 08/11/19 STATUS: COMP LIAHR DR: Aamir Choi MD _ SOURCE: BODY FLUID SPDESC:PLEURA ORDERED: Gram Stain Procedure Result Reported Site Gram Stain Final 08/11/19- 1257 ML 4+ Neutrophils 4+ Nucleated Cells No Organisms Seen BY CYTOSPIN SMEAR * ML - Main Lab . END OF REPORT DEPARTMENT OF PATHOLOGY, [address] [place] [address] Rey Villagomez M.D. Director [facility] # [id number] 2 -- REFERENCE VALUE -- Synovial: <150/mcL Peritoneal: <500/mcL Pleural: <500/mcL Pericardial: <500/mcL 3 Differential performed on concentrated smear. 4 No evidence of an acute inflammatory process. No evidence of malignancy. Reviewed by Tiny Gee MD 5 SEE RESULT BELOW Name: RYAN CARO : [address]: Nikita Keen MD Acct: [id number] Unit: [id number] AGE: 69 Location: SP Re08/11/19 SEX: F Status: REG REF SPEC: [id number] ALEXA: 08/11/19-[address]: Nikita Keen MD REQ: [id number] RECD: 08/11/19 STATUS: KRISTI SARAVIA DR: Aamir Choi MD _ SOURCE: PLEURAL FL SPDESC: ORDERED: BF Cult Bottles Procedure Result Reported Site BF Aerobic Culture Bottle Final 08/16/19- 1118 ML No Growth Day 5 BF Anaerobic Culture Bottle Final 08/16/19- 1118 ML No Growth Day 5 * - [facility] . END OF REPORT DEPARTMENT OF PATHOLOGY, [address] [place] [address] Rey Villagomez M.D. Director [facility] # [id number] 6 REFERENCE VALUE See Comment ADDITIONAL INFORMATION [...] clinical findings. All other fluids refer to [email or web address].excentos for further interpretive information. This test has been modified from the supervisor body assembly's instructions. Its performance characteristics were determined by [facility] in a manner consistent with CLIA requirements. This test has not been cleared or approved by the U.S. Food and Drug Administration. 7 Test Performed by: [address] [address] Db2 Developer: Reynaldo Phan M.D. Ph.D.; CLIA# [id number] REFERENCE VALUE See Comment ADDITIONAL INFORMATION [...] clinical findings. All other fluids refer to www.Taggstr.excentos for further interpretive information. This test has been modified from the supervisor body assembly's instructions. Its performance characteristics were determined by [facility] in a manner consistent with CLIA requirements. This test has not been cleared or approved by the U.S. Food and Drug Administration. 9 Test Performed by: [place] [address] Db2 Developer: Reynaldo Phan M.D. Ph.D.; CLIA# [id number] 10 Standard intensity warfarin therapeutic range: 2.0-3.0 [...] >189 Procedures Date Code Description Status 09/20/2019 47122 Holter Monitor Review (24 hr)dr review & interp only Completed 09/20/2019 97845 ECG Monitor/Recording W/Visual Superimposition Scanning Completed 08/24/2019 41050 ECHO Transthorasic Realtime 2D W Doppler & Color Flow Hosp Completed 08/16/2019 23243 Spirometry Incl Graphic Record Completed 08/05/2019 79632 ECHO Transthoracic, Real-Time 2D With Doppler And Color Completed Flow 08/05/2019 08133 ECHO Transthoracic, Real-Time 2D With Doppler And Color Completed Flow 08/05/2019 98256 EKG Tracing & Interpretation Completed 07/29/2019 26803 EKG Tracing & Interpretation Completed 05/11/2019 13602 EKG Tracing & Interpretation Completed 04/16/2019 76365 ECHO Transthoracic, Real-Time 2D With Doppler And Color Completed Flow 04/16/2019 00242 ECHO Transthoracic, Real-Time 2D With Doppler And Color Completed Flow Medical Devices Description No Information Available Encounters Type Date Location Provider Dx Diagnosis Office Visit 08/27/2019 Pulmonology And Natalie Nelson, J90 Pleural effusion, 11:02a Sleep Services Of not elsewhere Casino Controller classified 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 breath E78.5 Hyperlipidemia, unspecified I34.0 Nonrheumatic mitral (valve) insufficiency J90 Pleural effusion, not elsewhere classified I48.91 Unspecified atrial fibrillation Office Visit 05/25/2019 [facility] Mil Stahl, Dora92.2 Gastrointestinal 8:31a M.D. hemorrhage, unspecified C34.90 Malignant neoplasm of unsp part of unsp bronchus or lung I48.91 Unspecified atrial fibrillation Office 05/25/2019 [facility] Ibrahima John92.2 Gastrointestinal Visit 7:00a MD Jerson hemorrhage, unspecified Office 05/24/2019 [facility] Mil K92.2 Gastrointestinal Visit 8:31a saul Stahl M.D. unspecified N17.9 Acute kidney failure, unspecified C34.90 Malignant neoplasm of unsp part of unsp bronchus or lung I48.91 Unspecified atrial fibrillation Office Visit 05/11/2019 8:40a [facility] Aamir Truong N18.3 Chronic kidney Ayush Lopez disease, stage 3 (moderate) E11.9 Type 2 diabetes mellitus without complications I34.0 Nonrheumatic mitral (valve) insufficiency E78.5 Hyperlipidemia, unspecified I48.2 Chronic atrial fibrillation R09.02 Hypoxemia D64.9 Anemia, unspecified Office Visit 05/03/2019 [facility] Vielka Avalos J18.1 Lobar pneumonia, 9:33a For Infectious Chrissy GRILL [employer]P COOK unspecified Diseases organism C34.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 failure with Hospitalists hypoxia J18.9 Pneumonia, unspecified organism D64.9 Anemia, unspecified E11.9 Type 2 diabetes mellitus without complications Office Visit 04/30/2019 [facility] Vielka Avalos J18.1 Lobar pneumonia, 12:49p For Infectious Chrissy [employer]RILL [employer]OOK unspecified Diseases organism C34.90 Malignant neoplasm of unsp part of unsp bronchus or lung E87.5 Hyperkalemia E11.22 Type 2 diabetes mellitus w diabetic chronic kidney disease N18.3 Chronic kidney disease, stage 3 (moderate) N17.9 Acute kidney failure, unspecified Office Visit 04/29/2019 12:47p [facility] Hermelindo Walter J18.9 Pneumonia, Infectious Ayush Mak unspecified Diseases organism C34.90 Malignant neoplasm of unsp part of unsp bronchus or lung E87.5 Hyperkalemia Office Visit 04/28/2019 [facility] Vileka Robbie J18.1 Lobar pneumonia, 12:46p For Infectious Chrissy, G[employer]LL [employer]OOK unspecified Diseases organism C34.90 Malignant neoplasm of unsp part of unsp bronchus or lung E11.22 Type 2 diabetes mellitus w diabetic chronic kidney disease N18.3 Chronic kidney disease, stage 3 (moderate) N17.9 Acute kidney failure, unspecified [facility].02 Shortness of For Infectious Chrissy, GRILL [employer]OOK breath Diseases R09.02 Hypoxemia R91.8 Other nonspecific abnormal finding of lung field D72.829 Elevated white blood cell count, unspecified C34.90 Malignant neoplasm of unsp part of unsp bronchus or lung Office Visit 04/24/2019 12:31p Pulmonology And Natalie J18.1 Lobar pneumonia, Sleep Services Of MD Leslie unspecified Casino Controller organism C34.90 Malignant neoplasm of unsp part of unsp bronchus or lung J96.91 Respiratory failure, unspecified with hypoxia Assessments Date Code Description Provider 09/20/2019 R06.02 Shortness of breath Nurse Visit cc 09/20/2019 R06.02 Shortness of breath Hayley Landeros, N.P. 09/20/2019 I48.20 Chronic atrial fibrillation, Hayley Landeros, N.P. unspecified 09/20/2019 J90 Pleural effusion, not [...] J18.1 Lobar pneumonia, unspecified organism Vielka Lowe, PIERCE 05/03/2019 C34.92 Malignant neoplasm of unspecified Vielka Lowe NP part of left bronchus or lung 05/03/2019 N17.9 Acute kidney failure, unspecified Vielka Lowe NP 05/03/2019 N18.9 Chronic kidney disease, unspecified Vielka Winquitalack Lowe, G[employer]OOK 05/02/2019 J96.01 Acute respiratory failure with Kathryn Gentry, N.P. hypoxia 05/02/2019 J18.9 Pneumonia, unspecified organism Kathryn Gentry, N.P. 05/02/2019 D64.9 Anemia, unspecified Kathryn Gentry, N.P. 05/02/2019 E11.9 Type 2 diabetes mellitus without Kathryn Rinaldi, N.P. complications 04/30/2019 J18.1 Lobar pneumonia, unspecified organism Vielka Makaylack Lowe, G[employer] 04/30/2019 C34.90 Malignant neoplasm of unspecified Vielka Leilanilack Lowe , [employer] part of unspecified bronchus or lung 04/30/2019 E87.5 Hyperkalemia Vielka Robbie Lowe, G[employer] 04/30/2019 E11.22 Type 2 diabetes mellitus with Vielka Robbie Lowe, G[employer] diabetic chronic kidney disease 04/30/2019 N18.3 Chronic kidney disease, stage 3 Vielka Robbie Lowe, G[employer] (moderate) 04/30/2019 N17.9 Acute kidney failure, unspecified Vielka Makaylack Lowe , [employer] 04/29/2019 J18.9 Pneumonia, unspecified organism Gilson Mak M.D. 04/29/2019 C34.90 Malignant neoplasm of unspecified Gilson Mak M.D. part of unspecified bronchus or lung 04/29/2019 E87.5 Hyperkalemia Gilson Mak M.D. 04/28/2019 J18.1 Lobar pneumonia, unspecified organism Vielka Robbie Lowe, G[employer] 04/28/2019 C34.90 Malignant neoplasm of unspecified Vielka Javoneblack Lowe , [employer] part of unspecified bronchus or lung 04/28/2019 E11.22 Type 2 diabetes mellitus with Vielka Robbie Lowe, [employer] diabetic chronic kidney disease 04/28/2019 N18.3 Chronic kidney disease, stage 3 Vielka Robbie Lowe, G[employer] (moderate) 04/28/2019 N17.9 Acute kidney failure, unspecified Vielka Winklkeenan Lowe , [employer] 04/27/2019 R06.02 Shortness of breath Vielka Lowe, [employer] 04/27/2019 R09.02 Hypoxemia Vielka Lowe, G[employer] 04/27/2019 R91.8 Other nonspecific abnormal finding of Vielka Lowe, G[employer] lung field 04/27/2019 D72.829 Elevated white blood cell count, Vielka Lowe , [employer] unspecified 04/27/2019 C34.90 Malignant neoplasm of unspecified Vielka Lowe , [employer] part of unspecified bronchus or lung 04/24/2019 J18.1 Lobar pneumonia, unspecified organism Natalie Nelson MD 04/24/2019 C34.90 Malignant neoplasm of unspecified Natalie Nelson MD part of unspecified bronchus or lung 04/24/2019 J96.91 Respiratory failure, unspecified with Natalie Nelson MD hypoxia 04/16/2019 I34.0 Nonrheumatic mitral (valve) Aamir Lopez M.D. insufficiency 04/16/2019 I34.0 Nonrheumatic mitral (valve) [facility] insufficiency 04/16/2019 J44.9 Chronic obstructive pulmonary [facility] Schedule disease, unspecified 04/16/2019 I27.20 Pulmonary hypertension [facility] Schedule Plan of Treatment Future Appointment(s):09/21/2019 8:30 am - Nurse Visit cc at [facility]10/15/2019 9:00 am - Hayley Landeros, N.P. at [facility]2019 - Hayley Landeros, N.P.R06.02 Shortness of afonihE79.20 Chronic atrial fibrillation, unspecifiedNew Medication:Cartia XT 300 mg - 1 cap by mouth dailyFollow up:OV Hayley 09/2019 (pt needs to move out) OV 02/2020 JFMRecommendations:After endoscopy, let us know we can go back on OAC STOP 60mg cartia and START long active cartia tomorrow AMJ90 Pleural effusion, not elsewhere [id number] Abnormal electrocardiogram [ECG] [EKG]I50.30 Unspecified diastolic (congestive) heart failureRecommendations:Echo shows normal pump function. Functional Status Description No Information Available Mental Status Description No Information Available Referrals Description No Information Available
--- OUTSIDE RECORDS SUMMARY | 2019-11-08 06:09 | XMS REPORT | Continuity of Care Document ---
:1950 External Reference #:[id number] Author Name Aamir Lopez M.D. (transmitted by agent of provider Tiny Mcneil) Address [address] [place] [id number] Care Team Providers Name Role Phone Cristiano Choi MD - Family Medicine Care Team Information [facility] [phone] Nikita Keen MD - Hematology Care Team Information [facility] Problems Active Problems Provider Date Atrial fibrillation [...] Medications SIG Qnty Indications Ordering Date Provider Digoxin 1 by mouth every 90tabs Hayley SCarine Tigre, 09/24/2019 125mcg other day N.P. Tablets Cartia XT 1 cap by mouth 90caps I48.20 Hayley SCarine Tigre, 09/20/2019 300mg Caps daily N.P. ER 24HR Lisinopril 1 by mouth every 90tabs R06.02 Hayley MachoCarine Tigre, 07/29/2019 5mg day N.P. Tablets Furosemide 2 tabs po qd 90tabs R06.02 Aamir Truong 02/01/2014 20mg Ayush Lopez Tablets Metoprolol Succinate 1/2 by mouth every 45tabs Aamir Truong 09/27/2013 ER day Ayush Lopez 25mg Tablets ER 24HR Janumet XR 1 po bid 60tabs Other Ordering 09/01/2013 50-1000mg Provider Tablets ER 24HR Ventolin HFA Inhale 2 Puffs By Unknown Mouth 1 To 4 Times 108(90Base) mcg/Act A Day Aerosol Lorazepam TK 1 T PO Q 8 H prn Unknown 0.5mg Tablets Sulfamethoxazole/Tri Unknown methoprim DS 800-160mg Tablets Oyster Shell Calcium Take 1 T By Mouth Unknown Once Daily 500mg Tablets Bydureon Inject 2 Milligrams Unknown 2mg Pen Once A Week Prednisone Take 5 tabs x 2 Unknown 20mg days then decrease Tablets by 10mg every 7 days (09/03 started) Omeprazole 2 by mouth every Unknown 20mg day Capsules DR Vitamin B12 1 by mouth every Unknown 1000mcg day Tablets ER Symbicort 2 puff twice a day Unknown 80-4.5mcg/Act Aerosol Glyburide 1 tablet daily Unknown 5mg Albuterol Sulfate 1 vial every 4 180ml Natalie Leslie, hours as needed for MD (2.5mg/3ML) 0.083% wheezing Nebulizer Oxygen 2 l nc at hs or as 1units Unknown Misc needed Medications Administered in Office Medication SIG Qnty [...] Facility Test Result H/L Range Note Order 10/26/2019 [facility] Holter <pending> [address] [place] [address] [phone] Laboratory test 10/12/2019 [facility] Digoxin 0.6 ng/ml Low 0.8-2.[address] [place], [place] [id number] [phone] Body Fluid C&S 09/22/2019 [facility] Body Fluid SEE RESULT [address] [place] [address] Stain [phone] Body Fluid Cell 09/22/2019 [facility] Body Fluid Pleural Count [address] Source Fluid [place], [place] [id number] [phone] Body Fluid Appearance Clear Body Fluid Color Yellow Body Fluid Volume 8 mL Body Fluid WBC 97 /mcL Normal 2 Body Fluid RBC 155 /mcL Body Fluid Neutrophils 38 % Body Fluid Lymph 53 % Body Fluid Grundy 9 % Body Fluid Total Cells Counted 100 Body Fluid Comment (SEE NOTE) 3 Fluid Reviewed By MD (SEE NOTE) 4 Body Fluid Glucose 09/22/2019 [facility] Glucose, BF 260 mg/dL [address] [place] [address] [phone] Fluid Type, Glucose PLEURAL 6 Body Fluid Total 09/22/2019 [facility] Total Protein, BF 1.8 g/ dL [address] [place] [address] [phone] Fluid Type, Protein, Total PLEURAL 8 Lactate 09/22/2019 [facility] Lactate 56 U/L 9 Dehydrogenase,BF [address] Dehydrogenase, [place] [address] [phone] Fluid Source PLEURAL 10 Laboratory test 09/22/2019 [facility] Miscellaneous Test 8.[address] [place] [address] [phone] Cytology Non-Horticultural Specialty Grower Inside 09/22/2019 [facility] Cytology Nongyn SEE RESULT [address] [place] [address] [phone] PDFReport SEE IMAGE Laboratory 08/11/2019 [facility] Partial 34.5 Normal 26.0- 38.[address] [address] PTT [phone] Inr/Protime 08/11/2019 [facility] Inr 1.13 High 0.82-1.[address] [place] [address] [phone] Platelet Count 08/11/2019 [facility] Platelet 255 Normal 150- [address] DR[address] Count 10^3/[place] [address] [phone] Mean Platelet Volume 7.3 fL Low 7.4-10.4 Body Fluid Total 08/11/2019 [facility] Total Protein, BF 2.5 g/ dL [address] [place] [address] [phone] Fluid Type, Protein, Total PLEURAL 15 Lactate 08/11/2019 [facility] Lactate 49 U/L 16 Dehydrogenase,BF [address] Dehydrogenase, [place] [address] [phone] Fluid Source PLEURAL 17 Laboratory test 08/11/2019 [facility] Body Fluid SEE RESULT [address] [place] [address] (Ckzqtoe) [phone] Body Fluid Cell 08/11/2019 [facility] Body Fluid Pleural Fluid Count [address] [place] [address] [phone] Body Fluid Appearance Clear Body Fluid Color Yellow Body Fluid Volume 3 mL Body Fluid WBC 368 /mcL Normal 19 Body Fluid RBC 1125 /mcL Body Fluid Neutrophils 19 % Body Fluid Lymph 66 % Body Fluid Grundy 15 % Body Fluid Total Cells Counted 100 Body Fluid Comment (SEE NOTE) 20 Fluid Reviewed By MD (SEE NOTE) 21 Laboratory test 08/11/2019 [facility] Gram Stain SEE RESULT [address] [place] [address] [phone] Laboratory test 05/12/2019 [facility] Ferritin 72.0 ng/mL Normal 11-[address] [place] [address] [phone] Vitamin B12 > 1450 pg/mL High 180-914 23 Iron & Iron Binding 05/12/2019 [facility] Iron 62 g/dL Normal 50-[address] [place] [address] [phone] Unsaturated Iron Binding < 341 g/dL Total Iron Binding Capacity 356 g/dL Normal 250-450 Transferrin 254 mg/dL Normal 203-362 % Iron Saturation 17 % Normal 15-55 Comp Metabolic 05/12/2019 [facility] Sodium 138 mmol/L Normal 135-[address] [place] [address] [phone] Potassium 3.7 mmol/L Normal 3.5-5.0 Chloride 101 [...] Egfr Non- 54.3 >60 Egfr 65.8 >60 24 CBC Auto 05/12/2019 [facility] White Blood 13.3 10^3/uL High 3.5-10.[address] [place] [address] [phone] Red Blood Count 2.83 10^6/uL Low 3.70-4.87 [...] Blood Cells % 0.1 Laboratory test 05/12/2019 [facility] Creatine 34 U/L Normal 10-[address] Kinase(CK) [place] [address] [phone] Digoxin 1.2 ng/ml Normal 0.8-2.0 Lipid Profile 05/12/2019 [facility] Triglycerides 141 mg/dL 25 (Trig/Chol/HDL) [address] [place] [address] [phone] Cholesterol 135 mg/dL 26 HDL Cholesterol 67.9 mg/dL 27 LDL Cholesterol 39 mg/dL 28 Vitamin B12 And 05/12/2019 [facility] Folic Acid 10.36 ng/mL >3.99 Folate Serum 101 (Folate) [place] [address] [phone] 1 SEE RESULT BELOW Name: RYAN CARO : [address]: Natalie Nelson MD Acct: [id number] Unit: [id number] AGE: 69 Location: OR Re09/22/19 SEX: F Status: REG SDC SPEC: [id number] ALEXA: 09/22/19-[address]: Natalie Nelson MD REQ: [id number] RECD: 09/22/19 STATUS: COMP OTHR DR: Cristiano Choi MD _ SOURCE: PLEURAL FL SPDESC: ORDERED: BF Cult/GS Procedure Result Reported Site Body Fluid Gram Stain Final 09/22/19- 1556 ML 4+ Nucleated Cells No Neutrophils Observed No Organisms Seen Preparation By Cytospin Smear Body Fluid Culture Final 09/26/19- 0831 ML No Growth Day 4 * ML - Main Lab . END OF REPORT DEPARTMENT OF PATHOLOGY, [address] [place] [address] Rey Villagomez M.D. Director [facility] # [id number] 2 -- REFERENCE VALUE -- Synovial: <150/mcL Peritoneal: <500/mcL Pleural: <500/mcL Pericardial: <500/mcL 3 Differential performed on concentrated smear. 4 Mixed acute and chronic inflammation. Reviewed by Tiny Gee MD 5 REFERENCE VALUE See Comment ADDITIONAL INFORMATION Body fluid glucose concentrations may be decreased due to increased cellular metabolism and should be interpreted in the context of blood glucose concentrations and in conjunction with other laboratory and clinical findings. Pleural, Peritoneal, and Pericardial fluid and serum glucose concentrations are similar in the absence of infection. Synovial fluid glucose concentrations are similar to fasting blood glucose concentrations or approximately 50% of the non-fasting serum glucose concentration under normal conditions. Values below this can be seen with infection. Amniotic fluid glucose <16 mg/dL is suggestive of infection. All other fluids refer to www.[employer]labs.com for further interpretive information. This test has been modified from the unix systems administrator's instructions. Its performance characteristics were determined by [facility] in a manner consistent with CLIA requirements. This test has not been cleared or approved by the U.S. Food and Drug Administration. 6 Test Performed by: [facility] - [address] [address] Shipping & Receiving Lead: Reynaldo Phan M.D. Ph.D.; CLIA# [id number] 7 REFERENCE VALUE See Comment ADDITIONAL INFORMATION A [...] clinical findings. All other fluids refer to www.[employer] for further interpretive information. This test has been modified from the unix systems administrator's instructions. Its performance characteristics were determined by [facility] in a manner consistent with CLIA requirements. This test has not been cleared or approved by the U.S. Food and Drug Administration. 8 Test Performed by: [address] [address] Shipping [employer] Receiving Lead: Reynaldo Phan M.D. Ph.D.; CLIA# [id number] 9 REFERENCE VALUE See Comment ADDITIONAL INFORMATION Pleural [...] clinical findings. All other fluids refer to www.[employer] for further interpretive information. This test has been modified from the unix systems administrator's instructions. Its performance characteristics were determined by [facility] in a manner consistent with CLIA requirements. This test has not been cleared or approved by the U.S. Food and Drug Administration. 10 Test Performed by: [address] [address] Shipping [employer] Receiving Lead: Reynaldo Phan M.D. Ph.D.; CLIA# [id number] 11 Test Name Result Test Reported Date/Time: 09/24/2019 1805 ET pH, Body Fluid 8.0 Ref Range Not Established This reference interval(s) and other method performance specifications have not been established for this body fluid. The test must be integrated into the clinical context for interpretation. Comments; This test was developed and its performance characteristics determined by [employer]. It has not been cleared or approved by the Food and Drug Administration. Test Performed: [facility] [address] [id number] Dir: Kelin [place] MD 12 SEE RESULT BELOW Name: RYAN CARO : [address]: Natalie Nelson MD Acct: [id number] Unit: [id number] AGE: 69 Location: OR Re09/22/19 SEX: F Status: [place] [facility] [place] SPEC: [id number] ALEXA: 09/22/19-[address]: Natalie Nelson MD REQ: [id number] RECD: 09/23/19-1419 STATUS: SOUT _ ORDERED: LEVEL 4, NG THIN LAYER FINAL DIAGNOSIS Pleural effusion, left, thoracentesis: --Negative for malignant cells. --Inflammation. A cell block was prepared in the evaluation of this specimen. Smears and cell block reveal similar findings. SPECIMEN(S) RECEIVED 1. PLEURAL - LEFT PLEURAL FLUID CLINICAL HISTORY Left pleural effusion. Lung cancer. Squamous cell. CONTINUED ON NEXT PAGE DEPARTMENT OF PATHOLOGY, [facility] [employer] [place] [address] Rey Villagomez M.D. Director [facility] # [id number] GROSS DESCRIPTION 800 ml of clear yellow fluid. Signed by and Reported on: Rey Villagomez MD 1227 END OF REPORT DEPARTMENT OF PATHOLOGY, [facility] [employer] [place], [place] [address] Rey Villagomez M.D. Director [facility] # [id number] 13 Standard intensity warfarin therapeutic range: 2.0-3.0 High intensity warfarin therapeutic range: 2.5-3.5 14 REFERENCE VALUE See Comment ADDITIONAL INFORMATION A [...] clinical findings. All other fluids refer to www.[employer] for further interpretive information. This test has been modified from the unix systems administrator's instructions. Its performance characteristics were determined by [facility] in a manner consistent with CLIA requirements. This test has not been cleared or approved by the U.S. Food and Drug Administration. 15 Test Performed by: [facility] [place] [address] Shipping [employer] Receiving Lead: Reynaldo Phan M.D. Ph.D.; CLIA# [id number] 16 REFERENCE VALUE See Comment ADDITIONAL INFORMATION Pleural [...] clinical findings. All other fluids refer to www.[employer] for further interpretive information. This test has been modified from the unix systems administrator's instructions. Its performance characteristics were determined by [facility] in a manner consistent with CLIA requirements. This test has not been cleared or approved by the U.S. Food and Drug Administration. 17 Test Performed by: [address] [address] [employer] Receiving Lead: Reynaldo Phan M.D. Ph.D.; CLIA# [id number] 18 SEE RESULT BELOW Name: RYAN CARO : [address]: Nikita Keen MD Acct: [id number] Unit: [id number] AGE: 69 Location: SP Re08/11/19 SEX: F Status: REG REF SPEC: [id number] ALEXA: 08/11/[address]: Nikita Keen MD REQ: [id number] RECD: 08/11/19 STATUS: KRISTI SARAVIA DR: Aamir Choi MD _ SOURCE: PLEURAL FL SPDESC: ORDERED: BF Cult Bottles Procedure Result Reported Site BF Aerobic Culture Bottle Final 08/16/19- 1118 ML No Growth Day 5 BF Anaerobic Culture Bottle Final 08/16/19- 1118 ML No Growth Day 5 * ML - Main Lab . END OF REPORT DEPARTMENT OF PATHOLOGY, [address] [place] [address] Rey Villagomez M.D. Director [facility] # [id number] 19 -- REFERENCE VALUE -- Synovial: <150/mcL Peritoneal: <500/mcL Pleural: <500/mcL Pericardial: <500/mcL 20 Differential performed on concentrated smear. 21 No evidence of an acute inflammatory process. No evidence of malignancy. Reviewed by Tiny Gee MD 22 SEE RESULT BELOW Name: RYAN CARO : [address]: Nikita Keen MD Acct: [id number] Unit: [id number] AGE: 69 Location: Re08/11/19 SEX: F Status: REG REF SPEC: [id number] ALEXA: 08/11/19-[address]: Nikita Keen MD REQ: [id number] RECD: 08/11/19 STATUS: KRISTI SARAVIA DR: Aamir Choi MD _ SOURCE: BODY FLUID SPDESC:PLEURA ORDERED: Gram Stain Procedure Result Reported Site Gram Stain Final 08/11/19- 1257 ML 4+ Neutrophils 4+ Nucleated Cells No Organisms Seen BY CYTOSPIN SMEAR * ML - Main Lab . END OF REPORT DEPARTMENT OF PATHOLOGY, [address] [place] [address] Rey Villagomez M.D. Director [facility] # [id number] 23 Normal Range 180 to 914 Indeterminate Range 145 to 180 Deficient Range <145 24 Because ethnic data is not always readily [...] 15-29 5 Kidney failure <15 (or dialysis) 25 Desirable: <150 Borderline High: 150-199 High: 200-499 Very High: >500 26 Desirable: <200 Borderline High: 200-239 High: >239 27 Low: <40 Desirable: 40-60 High: >60 28 Desirable: <100 Near Optimal: 100-129 Borderline High: 130-159 High: 160-189 Very High: >189 Procedures Date Code Description Status 10/27/2019 44276 Holter Monitor Review (24 hr)dr review & interp only Completed 10/26/2019 02946 ECG Monitor/Recording W/Visual Superimposition Scanning Completed 10/26/2019 04523 ECG Monitor/Recording W/Visual Superimposition Scanning Completed 09/27/2019 90003 EKG, Interpretation Only Completed 09/22/2019 64269 Thoracentesis W/ Img Guidance Completed 09/22/2019 50592 Holter Monitor Review (24 hr)dr review & interp only Completed 09/20/2019 51031 ECG Monitor/Recording W/Visual Superimposition Scanning Completed 09/20/2019 33001 ECG Monitor/Recording W/Visual Superimposition Scanning Completed 08/24/2019 00108 ECHO Transthorasic Realtime 2D W Doppler & Color Flow Hosp Completed 08/16/2019 84605 Spirometry Incl Graphic Record Completed 08/05/2019 91125 ECHO Transthoracic, Real-Time 2D With Doppler And Color Completed Flow 08/05/2019 62280 ECHO Transthoracic, Real-Time 2D With Doppler And Color Completed Flow 08/05/2019 03409 EKG Tracing & Interpretation Completed 07/29/2019 83241 EKG Tracing & Interpretation Completed 05/11/2019 43253 EKG Tracing & Interpretation Completed Medical Devices Description No Information Available Encounters Type Date Location Provider Dx Diagnosis Office Visit 09/22/2019 Pulmonology And Natalie Leslie, J90 Pleural effusion, 11:30a [facility] Of not elsewhere Sprinkling System Installer classified C34.90 Malignant neoplasm of unsp part of unsp bronchus or lung Office Visit 09/20/2019 10:00a [facility] Hayley Hanna R06.02 Shortness of Foster, N.P. breath I48.20 Chronic atrial fibrillation, unspecified J90 Pleural effusion, not elsewhere classified R94.31 Abnormal electrocardiogram [ECG] [EKG] I50.30 Unspecified diastolic (congestive) heart failure Office Visit 08/29/2019 9:13a [facility] Missy Bedoya, J90 Pleural effusion, Assoc,pc MD not elsewhere Hospitalists classified R06.02 Shortness of breath Office Visit 08/27/2019 11:02a Pulmonology And Natalie J90 Pleural effusion, Sleep Services Of MD Leslie not elsewhere [facility] classified C34.92 Malignant neoplasm of unsp part of left bronchus or lung R09.02 Hypoxemia Office Visit 08/26/2019 12:53p [facility] Qutaybeh S. R06.02 Shortness of Erin MorelDCarine breath J90 Pleural effusion, not elsewhere classified C34.92 Malignant neoplasm of unsp part of left bronchus or lung I48.20 Chronic atrial fibrillation, unspecified I50.30 Unspecified diastolic (congestive) heart failure R94.31 Abnormal electrocardiogram [ECG] [EKG] Office Visit 08/24/2019 [facility] J96.02 Acute respiratory 10:34a Assoc,lalit Hobbs MD failure with Hospitalists hypercapnia J90 Pleural effusion, not elsewhere classified E11.9 Type 2 diabetes mellitus without complications Office Visit 07/29/2019 2:00p [facility] Hayley S. R06.02 Shortness of Of Sprinkling System Installer Foster, N.P. breath E78.5 Hyperlipidemia, unspecified I34.0 Nonrheumatic mitral (valve) insufficiency J90 Pleural effusion, not elsewhere classified I48.91 Unspecified atrial fibrillation Office Visit 05/25/2019 [facility] Mil Stahl K92.2 Gastrointestinal 8:31a M.DCarine hemorrhage, unspecified C34.90 Malignant neoplasm of unsp part of unsp bronchus or lung I48.91 Unspecified atrial fibrillation Office 05/25/2019 [facility]astroenterology Ibrahima Bansal K92.2 Gastrointestinal Visit 7:00a MD Jerson hemorrhage, unspecified Office 05/24/2019 [facility] Mil John92.2 Gastrointestinal Visit 8:31a saul Stahl M.D. unspecified N17.9 Acute kidney failure, unspecified C34.90 Malignant neoplasm of unsp part of unsp bronchus or lung I48.91 Unspecified atrial fibrillation Office Visit 05/11/2019 8:40a [facility] Aamir Truong N18.3 Chronic kidney Ayush Lopez disease, stage 3 (moderate) E11.9 Type 2 diabetes mellitus without complications I34.0 Nonrheumatic mitral (valve) insufficiency E78.5 Hyperlipidemia, unspecified I48.2 Chronic atrial fibrillation R09.02 Hypoxemia D64.9 Anemia, unspecified Assessments Date Code Description Provider 10/27/2019 I48.91 Unspecified atrial fibrillation Aamir Lopez M.D. 10/27/2019 I48.20 Chronic atrial fibrillation, Aamir Lopez M.D. unspecified 10/26/2019 I48.20 Chronic atrial fibrillation, Aamir Lopez M.D. unspecified 10/26/2019 I48.20 Chronic atrial fibrillation, Nurse Visit cc unspecified 10/26/2019 I48.91 Unspecified atrial fibrillation Aamir Lopez M.D. 10/26/2019 I48.91 Unspecified atrial fibrillation Nurse Visit cc 10/25/2019 J90 Pleural effusion, not elsewhere Natalie Nelson MD classified 09/27/2019 R94.31 Abnormal electrocardiogram [ECG] [EKG] Xiomara Bynum MD, [facility] 09/22/2019 J90 Pleural effusion, not elsewhere Natalie Nelson MD classified 09/22/2019 R06.02 Shortness of breath Aamir Lopez M.D. 09/22/2019 I48.91 Unspecified atrial fibrillation Aamir Lopez M.D. 09/22/2019 J90 Pleural effusion, not elsewhere Natalie Nelson MD classified 09/22/2019 C34.90 Malignant neoplasm of unspecified part Natalie Nelson MD of unspecified bronchus or lung 09/21/2019 J90 Pleural effusion, not elsewhere Nurse Visit classified 09/20/2019 R06.02 Shortness of breath Nurse Visit cc 09/20/2019 I48.91 Unspecified atrial fibrillation Aamir Lopez M.D. 09/20/2019 R06.02 Shortness of breath Hayley Landeros, N.P. 09/20/2019 I48.91 Unspecified atrial fibrillation Nurse Visit cc 09/20/2019 I48.20 Chronic atrial fibrillation, Hayley Landeros, N.P. unspecified 09/20/2019 J90 Pleural effusion, not elsewhere Hayley Landeros, N.P. classified 09/20/2019 R94.31 Abnormal electrocardiogram [ECG] [EKG] Hayley Landeros, N.P. 09/20/2019 I50.30 Unspecified diastolic (congestive) Hayley Landeros, N.P. heart failure 08/29/2019 J90 Pleural effusion, not elsewhere Missy Bedoya MD classified 08/29/2019 R06.02 Shortness of breath Missy Bedoya MD 08/27/2019 J90 Pleural effusion, not elsewhere Natalie Nelson MD classified 08/27/2019 C34.92 Malignant neoplasm of unspecified part Natalie Nelson MD of left bronchus or lung 08/27/2019 R09.02 Hypoxemia Natalie Nelson MD 08/26/2019 R06.02 Shortness of breath Lizbeth Morel M.D. 08/26/2019 J90 Pleural effusion, not elsewhere Lizbeth Morel M.D. classified 08/26/2019 C34.92 Malignant neoplasm of unspecified part Lizbeth Morel M.D. of left bronchus or lung 08/26/2019 I48.20 Chronic atrial fibrillation, Lizbeth Morel M.D. unspecified 08/26/2019 I50.30 Unspecified diastolic (congestive) Lizbeth Morel M.D. heart failure 08/26/2019 R94.31 Abnormal electrocardiogram [ECG] [EKG] Lizbeth Morel M.D. 08/24/2019 J96.02 Acute respiratory failure with Darcy Hobbs MD hypercapnia 08/24/2019 I50.9 Heart failure, unspecified Lizbeth Morel M.D. 08/24/2019 J90 Pleural effusion, not elsewhere Darcy Hobbs MD classified 08/24/2019 E11.9 Type 2 diabetes mellitus without Darcy Hobbs MD complications 08/16/2019 C34.90 Malignant neoplasm of unspecified part Natalie Nelson MD of unspecified bronchus or lung 08/05/2019 R06.02 Shortness of breath Aamir Lopez M.D. 08/05/2019 R06.02 Shortness of breath Nurse Visit IC 08/05/2019 R94.31 Abnormal electrocardiogram [ECG] [EKG] Nurse Visit IC 08/05/2019 R06.02 Shortness of breath Traveling ECHO [...] unspecified 05/25/2019 C34.90 Malignant neoplasm of unspecified part Mil Stahl M.D. of unspecified bronchus or lung 05/25/2019 I48.91 Unspecified atrial fibrillation Mil Stahl M.D. 05/24/2019 K92.2 Gastrointestinal hemorrhage, Mil Stahl M.D. unspecified 05/24/2019 N17.9 Acute kidney failure, unspecified Mil Stahl M.D. 05/24/2019 C34.90 Malignant neoplasm of unspecified part Mil Stahl M.D. of unspecified bronchus or lung 05/24/2019 I48.91 [...] Recinos 05/05/2019 C34.90 Malignant neoplasm of unspecified part BRITTANY Recinos of unspecified bronchus or lung 05/05/2019 E11.22 Type 2 diabetes mellitus with diabetic BRITTANY Recinos chronic kidney disease 05/05/2019 N18.3 Chronic kidney disease, stage 3 BRITTANY Recinos (moderate) 05/05/2019 R06.02 Shortness of breath BRITTANY Recinos Plan of Treatment 09/22/2019 - Natalie Nelson MDJ90 Pleural effusion, not elsewhere classifiedFollow up:PRNC34.90 Malignant neoplasm of unspecified part of unspecified bronchus or lung Functional Status Description No Information Available Mental Status Description No Information Available Referrals Description No Information Available
--- OUTSIDE RECORDS SUMMARY | 2019-11-08 06:09 | XMS REPORT | Continuity of Care Document ---
:1950 External Reference #:[id number] Author Name Xiomara Bynum MD, [facility], [facility] (transmitted by agent of provider Chana Kirk) Address [address] [place] [id number] Care Team Providers Name Role Phone Cristiano Choi MD - Family Medicine Care Team Information Territory Representative [phone] Nikita Keen MD - Hematology Care Team Information Territory Representative [phone] Problems Active Problems Provider Date Atrial fibrillation [...] Digoxin 1 by mouth every 90tabs Hayley MachoCarine Tigre, 09/24/2019 125mcg other day N.P. Tablets Cartia XT 1 cap by mouth 90caps I48.20 Hayley Landeros, 09/20/2019 300mg Caps daily N.P. ER 24HR [...] Ordering 09/01/2013 50-1000mg Provider Tablets ER 24HR Lorazepam TK 1 T PO Q 8 [...] daily Unknown 5mg Albuterol Sulfate 1 vial q 4hrs prn Unknown for wheezing (rare (2.5mg/3ML) 0.083% use) Nebulizer Oxygen 2 l nc at hs [...] Date Facility Test Result H/L Range Note Body Fluid 09/22/2019 [facility] Body Fluid SEE RESULT 1 C&S [address] [place] [address] Stain [phone] Body Fluid 09/22/2019 [facility] Body Fluid Pleural Fluid Cell Count [address] Source [place], [place] [id number] [phone] Body Fluid Appearance Clear Body Fluid Color Yellow Body Fluid Volume 8 mL Body Fluid WBC 97 /mcL Normal 2 Body Fluid RBC 155 /mcL Body Fluid Neutrophils 38 % Body Fluid Lymph 53 % Body Fluid [place] 9 % Body Fluid Total Cells Counted 100 Body Fluid Comment (SEE NOTE) 3 Fluid Reviewed By MD (SEE NOTE) 4 Body Fluid Glucose 09/22/2019 [facility] Glucose, BF 260 mg/dL [address] [place], [place] [address] [phone] Fluid Type, Glucose PLEURAL 6 Body Fluid Total 09/22/2019 [facility] Total Protein, BF 1.8 g/ dL [address] [place], [place] [phone] Fluid Type, Protein, Total PLEURAL 8 Lactate 09/22/2019 [facility] Lactate 56 U/L 9 Dehydrogenase,BF [address] Dehydrogenase, [place] [address] [phone] Fluid Source PLEURAL 10 Laboratory test 09/22/2019 [facility] Miscellaneous Test 8.0 [address] [place] [address] [phone] Cytology Non-Folder Machine 09/22/2019 [facility] Cytology Nongyn SEE RESULT [address] [place] [address] [phone] PDFReport SEE IMAGE Order 09/20/2019 [facility] Holter <pending> [address] [place] [address] [phone] Laboratory test 08/11/2019 [facility] Partial 34.5 seconds Normal 26.[address] Thrombo Time -38. [place] [address] PTT 0 [phone] Inr/Protime 08/11/2019 [facility] Inr 1.13 High 0.[address] -1.0 [place] [address] 9 [phone] Platelet Count 08/11/2019 [facility] Platelet 255 10^3/uL Normal 150- [address] Count 450 [place] [address] [phone] Mean Platelet Volume 7.3 fL Low 7.4-10.4 Body Fluid Total 08/11/2019 [facility] Total Protein, BF 2.5 g/ dL [address] [place] [address] [phone] Fluid Type, Protein, Total PLEURAL 15 Lactate 08/11/2019 [facility] Lactate 49 U/L 16 Dehydrogenase,BF [address] Dehydrogenase, [place] [address] [phone] Fluid Source PLEURAL 17 Laboratory test 08/11/2019 [facility] Body Fluid SEE RESULT [address] [place] [address] (Rhhaooo) [phone] Body Fluid Cell 08/11/2019 [facility] Body Fluid Pleural Fluid Count [address] [place] [address] [phone] Body Fluid Appearance Clear Body Fluid Color Yellow Body Fluid Volume 3 mL Body Fluid WBC 368 /mcL Normal 19 Body Fluid RBC 1125 /mcL Body Fluid Neutrophils 19 % Body Fluid Lymph 66 % Body Fluid [place] 15 % Body Fluid Total Cells Counted 100 Body Fluid Comment (SEE NOTE) 20 Fluid Reviewed By MD (SEE NOTE) 21 Laboratory test 08/11/2019 [facility] Gram Stain SEE RESULT [address] [place] [address] [phone] Laboratory test 05/12/2019 [facility] Ferritin 72.0 ng/mL Normal 11-[address] 7 [place] [address] [phone] Vitamin B12 > 1450 pg/mL High 180-914 23 Iron & Iron Binding 05/12/2019 [facility] Iron 62 g/dL Normal 50-[address] [place] [address] [phone] Unsaturated Iron Binding < 341 g/dL Total Iron Binding Capacity 356 g/dL Normal 250-450 Transferrin 254 mg/dL Normal 203-362 % Iron Saturation 17 % Normal 15-55 Comp Metabolic 05/12/2019 [facility] Sodium 138 mmol/L Normal 135-[address] [place] [address] [phone] Potassium 3.7 mmol/L Normal 3.5-5.0 Chloride 101 [...] Egfr 65.8 >60 24 CBC Auto 05/12/2019 [facility] White Blood 13.3 10^3/uL High 3.5-10.[address] [place] [address] [phone] Red Blood Count 2.83 10^6/uL Low 3.70-4.87 [...] Blood Cells % 0.1 Laboratory test 05/12/2019 [facility] Creatine 34 U/L Normal 10-[address] Kinase(CK) [place] [address] [phone] Digoxin 1.2 ng/ml Normal 0.8-2.0 Lipid Profile 05/12/2019 [facility] Triglycerides 141 mg/dL 25 (Trig/Chol/HDL) [address] [place] [address] [phone] Cholesterol 135 mg/dL 26 HDL Cholesterol 67.9 mg/dL 27 LDL Cholesterol 39 mg/dL 28 Vitamin B12 And 05/12/2019 [facility] Folic Acid 10.36 ng/mL >3.[address] (Folate) [place] [address] [phone] 1 SEE RESULT BELOW Name: RYAN CARO : [address]: Natalie Nelson MD Acct: [id number] Unit: [id number] AGE: 69 Location: OR Re09/22/19 SEX: F Status: REG CTC SPEC: [id number] ALEXA: 09/22/19 [facility] DR: Natalie Nelson MD REQ: [id number] RECD: 09/22/19 STATUS: COMP HR DR: Cristiano Choi MD _ SOURCE: PLEURAL FL SPDESC: ORDERED: BF Cult/GS Procedure Result Reported Site Body Fluid Gram Stain Final 09/22/19- 1556 ML 4+ Nucleated Cells No Neutrophils Observed No Organisms Seen Preparation By Cytospin Smear Body Fluid Culture Final 09/26/19- 0831 ML No Growth Day 4 * ML - Main Lab . END OF REPORT DEPARTMENT OF PATHOLOGY, [address] [place] [address] Rey Villagomez M.D. Director [facility] # [id number] 2 -- REFERENCE VALUE -- Synovial: <150/mcL [...] of infection. All other fluids refer to [email or web address].com for further interpretive information. This test has been modified from the acoustical engineer's instructions. Its performance characteristics were determined by [facility] in a manner consistent with CLIA requirements. This test has not been cleared or approved by the U.S. Food and Drug Administration. 6 Test Performed by: [facility] - [address] [address] Pattern Lease Inspector: Reynaldo Phan M.D. Ph.D.; CLIA# [id number] 7 REFERENCE VALUE See Comment ADDITIONAL INFORMATION [...] clinical findings. All other fluids refer to www.[employer]icarro for further interpretive information. This test has been modified from the acoustical engineer's instructions. Its performance characteristics were determined by [facility] in a manner consistent with CLIA requirements. This test has not been cleared or approved by the U.S. Food and Drug Administration. 8 Test Performed by: [facility] [place] [address] Pattern Lease Inspector: Reynaldo Phan M.D. Ph.D.; CLIA# [id number] 9 REFERENCE VALUE See Comment ADDITIONAL INFORMATION [...] clinical findings. All other fluids refer to www.[employer] for further interpretive information. This test has been modified from the acoustical engineer's instructions. Its performance characteristics were determined by [facility] in a manner consistent with CLIA requirements. This test has not been cleared or approved by the U.S. Food and Drug Administration. 10 Test Performed by: [address] [address] Pattern Lease Inspector: Reynaldo Phan M.D. Ph.D.; CLIA# [id number] 11 Test Name Result Test Reported Date/Time: 09/24/2019 1805 ET pH, Body Fluid 8.0 Ref Range Not Established This reference interval(s) and other method performance specifications have not been established for this body fluid. The test must be integrated into the clinical context for interpretation. Comments; This test was developed and its performance characteristics determined by [employer]. It has not been cleared or approved by the Food and Drug Administration. Test Performed: [employer] [id number] Dir: Kelin Easton MD 12 SEE RESULT BELOW Name: RYAN CARO : [address]: Natalie Nelson MD Acct: [id number] Unit: [id number] AGE: 69 Location: OR Re09/22/19 SEX: F Status: REG [facility] SPEC: [id number] ALEXA: 09/22/19-1222 [facility] DR: Natalie Nelson MD REQ: [id number] RECD: 09/23/19-1419 STATUS: SOUT _ ORDERED: LEVEL [...] CONTINUED ON NEXT PAGE DEPARTMENT OF PATHOLOGY, [address] [place] [address] Rey Villagomez M.D. Director [facility] # [id number] GROSS DESCRIPTION 800 ml of clear yellow fluid. Signed by and Reported on: Rey Villagomez MD 1227 END OF REPORT DEPARTMENT OF PATHOLOGY, [address] [place] [address] Rey Villagomez M.D. Director [facility] # [id number] 13 Standard intensity warfarin therapeutic range: 2.0-3.0 [...] clinical findings. All other fluids refer to www.[employer]Picarro for further interpretive information. This test has been modified from the acoustical engineer's instructions. Its performance characteristics were determined by [facility] in a manner consistent with CLIA requirements. This test has not been cleared or approved by the U.S. Food and Drug Administration. 15 Test Performed by: [address] [address] Pattern Lease Inspector: Reynaldo Phan M.D. Ph.D.; CLIA# [id number] 16 REFERENCE VALUE See Comment ADDITIONAL INFORMATION [...] clinical findings. All other fluids refer to www.[employer]icarro for further interpretive information. This test has been modified from the acoustical engineer's instructions. Its performance characteristics were determined by [facility] in a manner consistent with CLIA requirements. This test has not been cleared or approved by the U.S. Food and Drug Administration. 17 Test Performed by: [address] [address] Pattern Lease Inspector: Reynaldo Phan M.D. Ph.D.; CLIA# [id number] 18 SEE RESULT BELOW Name: RYAN CARO : [address]: Nikita Keen MD Acct: [id number] Unit: [id number] AGE: 69 Location: Re08/11/19 SEX: F Status: REG REF SPEC: [id number] ALEXA: 08/11/19 DR: Nikita Keen MD REQ: [id number] RECD: 08/11/19 STATUS: KRISTI SARAVIA DR: Aamir Choi MD _ SOURCE: PLEURAL FL SPDESC: ORDERED: BF Cult Bottles Procedure Result Reported Site BF Aerobic Culture Bottle Final 08/16/19- 8 ML No Growth Day 5 BF Anaerobic Culture Bottle Final 08/16/19- 1118 ML No Growth Day 5 * ML - Main Lab . END OF REPORT DEPARTMENT OF PATHOLOGY, [address] [place] [address] Rey Villagomez M.D. Director [facility] # [id number] 19 -- REFERENCE VALUE -- Synovial: <150/mcL Peritoneal: <500/mcL Pleural: <500/mcL Pericardial: <500/mcL 20 Differential performed on concentrated smear. 21 No evidence of an acute inflammatory process. No evidence of malignancy. Reviewed by Tiny Gee MD 22 SEE RESULT BELOW Name: RYAN CARO : [address]: Nikita Keen MD Acct: [id number] Unit: [id number] AGE: 69 Location: SP Re08/11/19 SEX: F Status: REG REF SPEC: [id number] ALEXA: 08/11/19-[address]: Nikita Keen MD REQ: [id number] RECD: 08/11/19 STATUS: KRISTI SARAVIA DR: Aamir Choi MD _ SOURCE: BODY FLUID SPDESC:PLEURA ORDERED: Gram Stain Procedure Result Reported Site Gram Stain Final 12/18/19- 1257 ML 4+ Neutrophils 4+ Nucleated Cells No Organisms Seen BY CYTOSPIN SMEAR * ML - Main Lab . END OF REPORT DEPARTMENT OF PATHOLOGY, [address] [place] [address] Rey Villagomez M.D. Director [facility] # [id number] 23 Normal Range 180 to 914 Indeterminate [...] High: >189 Procedures Date Code Description Status 09/22/2019 85022 Holter Monitor Review (24 hr)dr cruz & zaynabp only Completed 09/20/2019 67320 ECG Monitor/Recording W/Visual Superimposition Scanning Completed 09/20/2019 18572 ECG Monitor/Recording W/Visual Superimposition Scanning Completed 08/24/2019 69305 ECHO Transthorasic Realtime 2D W Doppler & Color Flow Hosp Completed 08/16/2019 62442 Spirometry Incl Graphic Record Completed 08/05/2019 74315 ECHO Transthoracic, Real-Time 2D With Doppler And Color Completed Flow 08/05/2019 81521 ECHO Transthoracic, Real-Time 2D With Doppler And Color Completed Flow 08/05/2019 90095 EKG Tracing & Interpretation Completed 07/29/2019 99020 EKG Tracing & Interpretation Completed 05/11/2019 67708 EKG Tracing & Interpretation Completed 04/16/2019 97584 ECHO Transthoracic, Real-Time 2D With Doppler And Color Completed Flow 04/16/2019 18502 ECHO Transthoracic, Real-Time 2D With Doppler And Color Completed Flow Medical Devices Description No Information Available Encounters Type Date Location Provider Dx Diagnosis Office Visit 09/20/2019 [facility] Hayley Landeros, R06.02 Shortness of 10:00a N.P. breath I48.20 Chronic atrial fibrillation, unspecified J90 Pleural effusion, not elsewhere classified R94.31 Abnormal electrocardiogram [ECG] [EKG] I50.30 Unspecified diastolic (congestive) heart failure Office Visit 08/29/2019 9:13a [facility] Missy Bedoya, J90 Pleural effusion, lalit Hopson MD not elsewhere Hospitalists classified R06.02 Shortness of breath Office Visit 08/27/2019 11:02a Pulmonology And Natalie J90 Pleural effusion, [facility] MD Leslie not elsewhere Server Engineer classified C34.92 Malignant neoplasm of unsp part of left bronchus or lung R09.02 Hypoxemia Office Visit 08/26/2019 12:53p [facility] Qutaybeh SCarine R06.02 Shortness of Ayush Morel breath J90 Pleural effusion, not elsewhere classified C34.92 Malignant neoplasm of unsp part of left bronchus or lung I48.20 Chronic atrial fibrillation, unspecified I50.30 Unspecified diastolic (congestive) heart failure R94.31 Abnormal electrocardiogram [ECG] [EKG] Office Visit 08/24/2019 [facility] Darcy J96.02 Acute respiratory 10:34a Assoc,lalit Hobbs MD failure with Hospitalists hypercapnia J90 Pleural effusion, not elsewhere classified E11.9 Type 2 diabetes mellitus without complications Office Visit 07/29/2019 2:00p [facility] Hayley Hanna R06.02 Shortness of Of [facility] Foster, N.P. breath E78.5 Hyperlipidemia, unspecified I34.0 Nonrheumatic mitral (valve) insufficiency J90 Pleural effusion, not elsewhere classified I48.91 Unspecified atrial fibrillation Office 05/25/2019 [facility] Gastroenterology Ibrahima Bansal K92.2 Gastrointestinal Visit 7:00a MD Jerson hemorrhage, unspecified Office 05/25/2019 [facility] Mil K92.2 Gastrointestinal Visit 8:31a saul Stahl M.DCarine unspecified C34.90 Malignant neoplasm of unsp part of unsp bronchus or lung I48.91 Unspecified atrial fibrillation Office Visit 05/24/2019 [facility] Mil Stahl K92.2 Gastrointestinal 8:31a M.DCarine hemorrhage, unspecified N17.9 Acute kidney failure, unspecified C34.90 Malignant neoplasm of unsp part of unsp bronchus or lung I48.91 Unspecified atrial fibrillation Office Visit 05/11/2019 8:40a [facility] Aamir Truong N18.3 Chronic kidney Ayush Lopez disease, stage 3 (moderate) E11.9 Type 2 diabetes mellitus without complications I34.0 Nonrheumatic mitral (valve) insufficiency E78.5 Hyperlipidemia, unspecified I48.2 Chronic atrial fibrillation R09.02 Hypoxemia D64.9 Anemia, unspecified Office Visit 05/03/2019 [facility] Vielka Avalos J18.1 Lobar pneumonia, 9:33a For Infectious Chrissy, TACTICAL [employer] DEFENSE CONTROLLER unspecified Diseases organism C34.92 Malignant neoplasm of unsp part of left bronchus or lung N17.9 Acute kidney failure, unspecified N18.9 Chronic kidney disease, unspecified Office Visit 05/02/2019 9:54a [facility] Gabbie Campos96.01 Acute respiratory Assoc,pc N.P. failure with Hospitalists hypoxia J18.9 Pneumonia, unspecified organism D64.9 Anemia, unspecified E11.9 Type 2 diabetes mellitus without complications Office Visit 04/30/2019 [facility] Vielka Avalos J18.1 Lobar pneumonia, 12:49p For Infectious Lowe, [employer] DEF[employer]OLLER unspecified Diseases organism C34.90 Malignant neoplasm of unsp part of unsp bronchus or lung E87.5 Hyperkalemia E11.22 Type 2 diabetes mellitus w diabetic chronic kidney disease N18.3 Chronic kidney disease, stage 3 (moderate) N17.9 Acute kidney failure, unspecified Office Visit 04/29/2019 12:47p [facility] Hermelindo Walter J18.9 Pneumonia, Infectious Ayush Mak unspecified Diseases organism C34.90 Malignant neoplasm of unsp part of unsp bronchus or lung E87.5 Hyperkalemia Office Visit 04/28/2019 [facility] Vielka Avalos J18.1 Lobar pneumonia, 12:46p For Infectious Chrissy [employer] DEF[employer] CONTROLLER unspecified Diseases organism C34.90 Malignant neoplasm of unsp part of unsp bronchus or lung E11.22 Type 2 diabetes mellitus w diabetic chronic kidney disease N18.3 Chronic kidney disease, stage 3 (moderate) N17.9 Acute kidney failure, unspecified Office Visit 04/27/2019 12:44p [facility] Vielka Avalos R06.02 Shortness of For Corine Lowe NP breath Diseases R09.02 Hypoxemia R91.8 Other nonspecific abnormal finding of lung field D72.829 Elevated white blood cell count, unspecified C34.90 Malignant neoplasm of unsp part of unsp bronchus or lung Office Visit 04/24/2019 12:31p Pulmonology And Natalie J18.1 Lobar pneumonia, Sleep Services Of MD Leslie unspecified Server Engineer organism C34.90 Malignant neoplasm of unsp part of unsp bronchus or lung J96.91 Respiratory failure, unspecified with hypoxia Assessments Date Code Description Provider 09/22/2019 R06.02 Shortness of breath Aamir Lopez [...] M.D. 09/20/2019 R06.02 Shortness of breath Hayley Landeros N.P. 09/20/2019 I48.91 Unspecified atrial fibrillation Nurse Visit cc 09/20/2019 I48.20 Chronic atrial fibrillation, Hayley Landeros N.P. unspecified 09/20/2019 J90 Pleural effusion, not elsewhere Hayley Landeros N.P. classified 09/20/2019 R94.31 Abnormal electrocardiogram [ECG] Hayley Landeros N.P. [EKG] 09/20/2019 I50.30 Unspecified diastolic (congestive) Hayley Landeros N.P. heart failure 08/29/2019 J90 Pleural effusion, [...] electrocardiogram [ECG] Lizbeth Morel M.D. [EKG] 08/24/2019 J96.02 Acute respiratory failure with Darcy Hobbs MD hypercapnia 08/24/2019 I50.9 Heart failure, unspecified Lizbeth Morel M.D. 08/24/2019 J90 Pleural effusion, not elsewhere Darcy Hobbs MD classified 08/24/2019 E11.9 Type 2 diabetes mellitus without Darcy Hobbs MD complications 08/16/2019 C34.90 Malignant neoplasm of unspecified Natalie [...] breath Hayley Landeros, N.P. 07/29/2019 E78.5 Hyperlipidemia Hayleysharron Landeros, N.P. 07/29/2019 I34.0 Nonrheumatic mitral (valve) [...] J18.1 Lobar pneumonia, unspecified organism Vielka Lowe, [employer] DEFENSE CONTROLLER 05/03/2019 C34.92 Malignant neoplasm of unspecified Vielka Lowe , [employer] DEF[employer] CONTROLLER part of left bronchus or lung 05/03/2019 N17.9 Acute kidney failure, unspecified Vielka Robbie Lowe , [employer] DEF[employer]OLLER 05/03/2019 N18.9 Chronic kidney disease, unspecified Vielka Lowe, [employer] DEF[employer] CONTROLLER 05/02/2019 J96.01 Acute respiratory failure with Kathryn Rinaldi, N.P. hypoxia 05/02/2019 J18.9 Pneumonia, unspecified organism Kathryn Rinaldi, N.P. 05/02/2019 D64.9 Anemia, unspecified Kathryn Rinaldi, N.P. 05/02/2019 E11.9 Type 2 diabetes mellitus without Kathryn Rinaldi, N.P. complications 04/30/2019 J18.1 Lobar pneumonia, unspecified organism Vielka Lowe, [employer] DEFENSE CONTROLLER 04/30/2019 C34.90 Malignant neoplasm of unspecified Vielka Robbie Lowe , [employer] AIR DEFENSE CONTROLLER part of unspecified bronchus or lung 04/30/2019 E87.5 Hyperkalemia Vielka Lowe, [employer] DEF[employer]OLLER 04/30/2019 E11.22 Type 2 diabetes mellitus with Vielkaramandeep Lowe, [employer] DEFENSE CONTROLLER diabetic chronic kidney disease 04/30/2019 N18.3 Chronic kidney disease, stage 3 Vielka Lowe, [employer] DEF[employer] CONTROLLER (moderate) 04/30/2019 N17.9 Acute kidney failure, unspecified Vielka Lowe , [employer] DEF[employer]OLLER 04/29/2019 J18.9 Pneumonia, unspecified organism Gilson Mak M.D. 04/29/2019 C34.90 Malignant neoplasm of unspecified Gilson Mak M.D. part of unspecified bronchus or lung 04/29/2019 E87.5 Hyperkalemia Gilson Mak M.D. 04/28/2019 J18.1 Lobar pneumonia, unspecified organism Vielka Lowe, [employer]ACT[employer] AIR DEFENSE CONTROLLER 04/28/2019 C34.90 Malignant neoplasm of unspecified Vielka Robbie Lowe , TACTICAL AIR DEFENSE CONTROLLER part of unspecified bronchus or lung 04/28/2019 E11.22 Type 2 diabetes mellitus with Vielkaramandeep Lowe, [employer]ACT[employer] DEFENSE CONTROLLER diabetic chronic kidney disease 04/28/2019 N18.3 Chronic kidney disease, stage 3 Vielka Lowe, [employer]ACT[employer] AIR DEFENSE CONTROLLER (moderate) 04/28/2019 N17.9 Acute kidney failure, unspecified Vielka Lowe , [employer] DEF[employer]OLLER 04/27/2019 R06.02 Shortness of breath Vielka Lowe, [employer] AIR DEFENSE CONTROLLER 04/27/2019 R09.02 Hypoxemia Vielka Lowe, [employer] DEF[employer]OLLER 04/27/2019 R91.8 Other nonspecific abnormal finding of Vielka Lowe, [employer] DEFENSE CONTROLLER lung field 04/27/2019 D72.829 Elevated white blood cell count, Vielka Lowe , [employer] DEFENSE CONTROLLER unspecified 04/27/2019 C34.90 Malignant neoplasm of unspecified Vielka Makaylacarrol PIERCE Lowe part of unspecified bronchus or lung 04/24/2019 J18.1 Lobar pneumonia, unspecified organism Natalie Nelson MD 04/24/2019 C34.90 Malignant neoplasm of unspecified Natalie Nelson MD part of unspecified bronchus or lung 04/24/2019 J96.91 Respiratory failure, unspecified with Natalie Nelson MD hypoxia 04/16/2019 I34.0 Nonrheumatic mitral (valve) Aamir Lopez M.D. insufficiency 04/16/2019 I34.0 Nonrheumatic mitral (valve) [facility] insufficiency 04/16/2019 J44.9 Chronic obstructive pulmonary [facility] Schedule disease, unspecified 04/16/2019 I27.20 Pulmonary hypertension [facility] Schedule Plan of Treatment Future Appointment(s):10/27/2019 8:30 am - Nurse Visit cc at [facility]10/26/2019 10:00 am - Nurse Visit cc at [facility]11/08/2019 9 :30 am - Hayley Landeros, N.P. at [facility]09/22/2019 - Natalie Nelson MDJ90 Pleural effusion, not elsewhere classifiedFollow up:PRNC34.90 Malignant neoplasm of unspecified part of unspecified bronchus or lung Functional Status Description No Information Available Mental Status Description No Information Available Referrals Description No Information Available
--- OUTSIDE RECORDS SUMMARY | 2019-11-08 06:09 | XMS REPORT | Continuity of Care Document ---
:1950 External Reference #:[id number] Author Name Nurse Visit cc (transmitted by agent of provider Tiny Mcneil) Address [address] [place] [id number] Care Team Providers Name Role Phone Cristiano Choi MD - Family Medicine Care Team Information Prospecting Driller Helper Nikita Keen MD - Hematology Care Team Information Prospecting Driller Helper [phone] Problems Active Problems Provider Date Atrial fibrillation [...] cap by mouth 90caps I48.20 Hayley SCarine Landeros, 09/20/2019 300mg Caps daily N.P. ER [...] Test Result H/L Range Note Order 10/26/2019 [facility] Holter <pending> [address] [place] [address] [phone] Laboratory test 10/12/2019 [facility] Digoxin 0.6 ng/ml Low 0.8-2.[address] [place], [place] [id number] [phone] Body Fluid C&S 09/22/2019 [facility] Body Fluid SEE RESULT [address] [place] [address] Stain [phone] Body Fluid Cell 09/22/2019 [facility] Body Fluid Pleural Count [address] Source Fluid [place], [place] [id number] [phone] Body Fluid Appearance Clear Body Fluid Color Yellow Body Fluid Volume 8 mL Body Fluid WBC 97 /mcL Normal 2 Body Fluid RBC 155 /mcL Body Fluid Neutrophils 38 % Body Fluid Lymph 53 % Body Fluid Hand 9 % Body Fluid Total Cells Counted 100 Body Fluid Comment (SEE NOTE) 3 Fluid Reviewed By MD (SEE NOTE) 4 Body Fluid Glucose 09/22/2019 [facility] Glucose, BF 260 mg/dL [address] [place] [address] [phone] Fluid Type, Glucose PLEURAL 6 Body Fluid Total 09/22/2019 [facility] Total Protein, BF 1.8 g/ dL [address] [place] [address] [phone] Fluid Type, Protein, Total PLEURAL 8 Lactate 09/22/2019 [facility] Lactate 56 U/L 9 Dehydrogenase,BF [address] Dehydrogenase, [place] [address] [phone] Fluid Source PLEURAL 10 Laboratory test 09/22/2019 [facility] Miscellaneous Test 8.0 [address] [place] [address] [phone] Cytology Non-Supervisor Cell Operation 09/22/2019 [facility] Cytology Nongyn SEE RESULT [address] [place] [address] [phone] PDFReport SEE IMAGE Laboratory 08/11/2019 [facility] Partial 34.5 Normal 26.0- 38.[address] [place] [address] PTT [phone] Inr/Protime 08/11/2019 [facility] Inr 1.13 High 0.82-1.[address] [place] [address] [phone] Platelet Count 08/11/2019 [facility] Platelet 255 Normal 150- [address] DR[address] Count 10^3/[place] [address] [phone] Mean Platelet Volume 7.3 fL Low 7.4-10.4 Body Fluid Total 08/11/2019 [facility] Total Protein, BF 2.5 g/ dL [address] [place] [address] [phone] Fluid Type, Protein, Total PLEURAL 15 Lactate 08/11/2019 [facility] Lactate 49 U/L 16 Dehydrogenase,BF [address] Dehydrogenase, [place] [address] [phone] Fluid Source PLEURAL 17 Laboratory test 08/11/2019 [facility] Body Fluid SEE RESULT [address] [place] [address] (Zcztgyv) [phone] Body Fluid Cell 08/11/2019 [facility] Body Fluid Pleural Fluid Count [address] [place] [address] [phone] Body Fluid Appearance Clear Body Fluid Color Yellow Body Fluid Volume 3 mL Body Fluid WBC 368 /mcL Normal 19 Body Fluid RBC 1125 /mcL Body Fluid Neutrophils 19 % Body Fluid Lymph 66 % Body Fluid Hand 15 % Body Fluid Total Cells Counted 100 Body Fluid Comment (SEE NOTE) 20 Fluid Reviewed By MD (SEE NOTE) 21 Laboratory test 08/11/2019 [facility] Gram Stain SEE RESULT [address] [place] [address] [phone] Laboratory test 05/12/2019 [facility] Ferritin 72.0 ng/mL Normal 11-[address] [place] [address] [phone] Vitamin B12 > 1450 pg/mL High 180-914 23 Iron & Iron Binding 05/12/2019 [facility] Iron 62 g/dL Normal 50-[address] [place] [address] [phone] Unsaturated Iron Binding < 341 g/dL Total Iron Binding Capacity 356 g/dL Normal 250-450 Transferrin 254 mg/dL Normal 203-362 % Iron Saturation 17 % Normal 15-55 Comp Metabolic 05/12/2019 [facility] Sodium 138 mmol/L Normal 135-[address] [place] [address] [phone] Potassium 3.7 mmol/L Normal 3.5-5.0 Chloride 101 [...] Egfr 65.8 >60 24 CBC Auto 05/12/2019 [facility] White Blood 13.3 10^3/uL High 3.5-10.[address] [place] [address] [phone] Red Blood Count 2.83 10^6/uL Low 3.70-4.87 [...] Blood Cells % 0.1 Laboratory test 05/12/2019 [facility] Creatine 34 U/L Normal 10-[address] Kinase(CK) [place] [address] [phone] Digoxin 1.2 ng/ml Normal 0.8-2.0 Lipid Profile 05/12/2019 [facility] Triglycerides 141 mg/dL 25 (Trig/Chol/HDL) [address] [place] [address] [phone] Cholesterol 135 mg/dL 26 HDL Cholesterol 67.9 mg/dL 27 LDL Cholesterol 39 mg/dL 28 Vitamin B12 And 05/12/2019 [facility] Folic Acid 10.36 ng/mL >3.[address] Folate Serum [address] (Folate) [place] [address] [phone] 1 SEE RESULT BELOW Name: RYAN CARO : [address]: Natalie Nelson MD Acct: [id number] Unit: [id number] AGE: 69 Location: OR Re09/22/19 SEX: F Status: REG SDC SPEC: [id number] AELXA: 09/22/19-[address]: Natalie Nelson MD REQ: [id number] RECD: 09/22/19-1432 STATUS: COMP OTHR DR: Cristiano Choi MD _ SOURCE: PLEURAL FL SPDESC: ORDERED: BF Cult/GS Procedure Result Reported Site Body Fluid Gram Stain Final 09/22/19- 1556 ML 4+ Nucleated Cells No Neutrophils Observed No Organisms Seen Preparation By Cytospin Smear Body Fluid Culture Final 09/26/19- 0831 ML No Growth Day 4 * - Main Lab . END OF REPORT DEPARTMENT OF PATHOLOGY, [address] [place] [address] Rey Villagomez M.D. Director [facility] # [id number] 2 -- REFERENCE VALUE -- Synovial: <150/mcL [...] of infection. All other fluids refer to [email or web address].com for further interpretive information. This test has been modified from the stamping operator's instructions. Its performance characteristics were determined by [facility] in a manner consistent with CLIA requirements. This test has not been cleared or approved by the U.S. Food and Drug Administration. 6 Test Performed by: [address] [address] Oil Field Operator: Reynaldo Phan M.D. Ph.D.; CLIA# [id number] REFERENCE VALUE See Comment ADDITIONAL INFORMATION [...] clinical findings. All other fluids refer to www.[employer].com for further interpretive information. This test has been modified from the stamping operator's instructions. Its performance characteristics were determined by [facility] in a manner consistent with CLIA requirements. This test has not been cleared or approved by the U.S. Food and Drug Administration. 8 Test Performed by: [place] [address] Oil Field Operator: Reynaldo Phan M.D. Ph.D.; CLIA# [id number] 9 REFERENCE VALUE See Comment ADDITIONAL INFORMATION [...] clinical findings. All other fluids refer to www.[employer].com for further interpretive information. This test has been modified from the stamping operator's instructions. Its performance characteristics were determined by [facility] in a manner consistent with CLIA requirements. This test has not been cleared or approved by the U.S. Food and Drug Administration. 10 Test Performed by: [address] [address] [employer] Field Operator: Reynaldo Phan M.D. Ph.D.; CLIA# [id number] 11 Test Name Result Test Reported Date/Time: 09/24/2019 1805 ET pH, Body Fluid 8.0 Ref Range Not Established This reference interval(s) and other method performance specifications have not been established for this body fluid. The test must be integrated into the clinical context for interpretation. Comments; This test was developed and its performance characteristics determined by [employer]. It has not been cleared or approved by the Food and Drug Administration. Test Performed: [employer] [id number] Dir: Kelin Easton MD 12 SEE RESULT BELOW Name: RYAN CARO : [address]: Natalie Nelson MD Acct: [id number] Unit: [id number] AGE: 69 Location: OR Re09/22/19 SEX: F Status: [place] [facility] [place]C: [id number] ALEXA: 09/22/19-[address]: Natalie Nelson MD REQ: [id number] RECD: 09/23/19-1419 STATUS: SOUT _ ORDERED: LEVEL [...] CONTINUED ON NEXT PAGE DEPARTMENT OF PATHOLOGY, [facility] [place] [employer] [place] [address] Rey Villagomez M.D. Director [facility] # [id number] GROSS DESCRIPTION 800 ml of clear yellow fluid. Signed by and Reported on: Rey Villagomez MD 1227 END OF REPORT DEPARTMENT OF PATHOLOGY, [facility] [place] [employer] [place], [place] [address] Rey Villagomez M.D. Director [facility] # [id number] 13 Standard intensity warfarin therapeutic range: 2.0-3.0 [...] clinical findings. All other fluids refer to www.[employer].com for further interpretive information. This test has been modified from the stamping operator's instructions. Its performance characteristics were determined by [facility] in a manner consistent with CLIA requirements. This test has not been cleared or approved by the U.S. Food and Drug Administration. 15 Test Performed by: [facility] [place] [address] Oil Field Operator: Reynaldo Phan M.D. Ph.D.; CLIA# [id number] 16 REFERENCE VALUE See Comment ADDITIONAL INFORMATION [...] clinical findings. All other fluids refer to www.[employer].com for further interpretive information. This test has been modified from the stamping operator's instructions. Its performance characteristics were determined by [facility] in a manner consistent with CLIA requirements. This test has not been cleared or approved by the U.S. Food and Drug Administration. 17 Test Performed by: [place] [address] [employer] Field Operator: Reynaldo Phan M.D. Ph.D.; CLIA# [id number] 18 SEE RESULT BELOW Name: RYAN CARO : [address]: Nikita Keen MD Acct: [id number] Unit: [id number] AGE: 69 Location: SP Re08/11/19 SEX: F Status: REG REF SPEC: [id number] ALEXA: 08/11/[address] [facility] [address]: Nikita Keen MD REQ: [id number] RECD: 08/11/19 STATUS: KRISTI SARAVIA DR: Aamir Choi MD _ SOURCE: PLEURAL FL SPDESC: ORDERED: BF Cult Bottles Procedure Result Reported Site BF Aerobic Culture Bottle Final 08/16/19- 8 ML No Growth Day 5 BF Anaerobic Culture Bottle Final 08/16/19- 1118 ML No Growth Day 5 * ML - Main Lab . END OF REPORT DEPARTMENT OF PATHOLOGY, [address] [place] [address] Rey Villagomez M.D. Director [facility] # [id number] 19 -- REFERENCE VALUE -- Synovial: <150/mcL Peritoneal: <500/mcL Pleural: <500/mcL Pericardial: <500/mcL 20 Differential performed on concentrated smear. 21 No evidence of an acute inflammatory process. No evidence of malignancy. Reviewed by Tiny Gee MD 22 SEE RESULT BELOW Name: RYAN CARO Denise : [address]: Nikita Keen MD Acct: [id number] Unit: [id number] AGE: 69 Location: Re08/11/19 SEX: F Status: REG REF SPEC: [id number] ALEXA: 08/11/19-[address]: Nikita Keen MD REQ: [id number] RECD: 08/11/19 STATUS: KRISTI SARAVIA DR: Aamir Choi MD _ SOURCE: BODY FLUID SPDESC:PLEURA ORDERED: Gram Stain Procedure Result Reported Site Gram Stain Final 08/11/19- 1257 ML 4+ Neutrophils 4+ Nucleated Cells No Organisms Seen BY CYTOSPIN SMEAR * ML - Main Lab . END OF REPORT DEPARTMENT OF PATHOLOGY, [address] [place] [address] Rey Villagomez M.D. Director [facility] # [id number] 23 Normal Range 180 to 914 Indeterminate [...] >189 Procedures Date Code Description Status 10/27/2019 89358 Holter Monitor Review (24 hr)dr review & interp only Completed 10/26/2019 66408 ECG Monitor/Recording W/Visual Superimposition Scanning Completed 10/26/2019 19973 ECG Monitor/Recording W/Visual Superimposition Scanning Completed 09/27/2019 06020 EKG, Interpretation Only Completed 09/22/2019 60930 Thoracentesis W/ Img Guidance Completed 09/22/2019 97017 Holter Monitor Review (24 hr)dr review & interp only Completed 09/20/2019 88799 ECG Monitor/Recording W/Visual Superimposition Scanning Completed 09/20/2019 04960 ECG Monitor/Recording W/Visual Superimposition Scanning Completed 08/24/2019 79217 ECHO Transthorasic Realtime 2D W Doppler & Color Flow Hosp Completed 08/16/2019 22852 Spirometry Incl Graphic Record Completed 08/05/2019 92040 ECHO Transthoracic, Real-Time 2D With Doppler And Color Completed Flow 08/05/2019 48242 ECHO Transthoracic, Real-Time 2D With Doppler And Color Completed Flow 08/05/2019 07003 EKG Tracing & Interpretation Completed 07/29/2019 57381 EKG Tracing & Interpretation Completed 05/11/2019 66481 EKG Tracing & Interpretation Completed Medical Devices Description No Information Available Encounters Type Date Location Provider Dx Diagnosis Office Visit 09/22/2019 Pulmonology And Natalie Leslie, J90 Pleural effusion, 11:30a [facility] Of not elsewhere Mechanical Engineering Lecturer classified C34.90 Malignant neoplasm of unsp part of unsp bronchus or lung Office Visit 09/20/2019 10:00a [facility] Hayley Hanna R06.02 Shortness of Foster, N.P. 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 R06.02 Shortness of Maria Teresa M.DCarine breath J90 Pleural effusion, not elsewhere classified C34.92 Malignant neoplasm of unsp part of left bronchus or lung I48.20 Chronic atrial fibrillation, unspecified I50.30 Unspecified diastolic (congestive) heart failure R94.31 Abnormal electrocardiogram [ECG] [EKG] Office Visit 08/24/2019 [facility] J96.02 Acute respiratory 10:34a Assoc,pc MD Anjel failure with Hospitalists hypercapnia J90 Pleural effusion, not elsewhere classified E11.9 Type 2 diabetes mellitus without complications Office Visit 07/29/2019 2:00p [facility] Hyaley S. R06.02 Shortness of Of Mechanical Engineering Lecturer Foster, N.P. breath E78.5 Hyperlipidemia, unspecified I34.0 Nonrheumatic mitral (valve) insufficiency J90 Pleural effusion, not elsewhere classified I48.91 Unspecified atrial fibrillation Office Visit 05/25/2019 [facility] Mil Stahl K92.2 Gastrointestinal 8:31a M.D. hemorrhage, unspecified C34.90 Malignant neoplasm of unsp part of unsp bronchus or lung I48.91 Unspecified atrial fibrillation Office 05/25/2019 [facility] Ibrahima Bansal K92.2 Gastrointestinal Visit 7:00a MD Jerson hemorrhage, unspecified Office 05/24/2019 [facility] Mil K92.2 Gastrointestinal Visit 8:31a saul Stahl M.D. unspecified N17.9 Acute kidney failure, unspecified C34.90 Malignant neoplasm of unsp part of unsp bronchus or lung I48.91 Unspecified atrial fibrillation Office Visit 05/11/2019 8:40a [facility] Aamir Truong N18.3 Chronic kidney Ayush [...] Abnormal electrocardiogram [ECG] [EKG] Xiomara Bynum MD, [facility], [facility] 09/22/2019 J90 Pleural effusion, not elsewhere [...] 08/26/2019 C34.92 Malignant neoplasm of unspecified part Lizbeht Morel M.D. of left bronchus or lung [...] BRITTANY Recinos Plan of Treatment 09/22/2019 - NAYA Mota90 Pleural effusion, not elsewhere classifiedFollow up:PRNC34.90 Malignant neoplasm of unspecified part of unspecified bronchus or lung Functional Status Description No Information Available Mental Status Description No Information Available Referrals Description No Information Available
--- OUTSIDE RECORDS SUMMARY | 2019-11-08 06:09 | XMS REPORT | Continuity of Care Document ---
:1950 External Reference #:[id number] Author Name Taz Osborne Care Team Providers Name Role Phone Cristiano Choi MD - Family Medicine Care Team Information Pipeline Dispatcher Nikita Kene MD - Hematology Care Team Information Pipeline Dispatcher Problems Active Problems Provider Date Atrial fibrillation Aamri Lopez M.D. Onset: 09/16/2013 Left heart failure [...] 1 by mouth every 90tabs R06.02 Hayley Landeros, 07/29/2019 5mg Tablets day N.P. Chlorthalidone [...] needed Albuterol Sulfate 1 vial q 4hrs Unknown [...] Sultana M.D. 09/16/2013 Injection Technetium TC 99M TetrofosminJose M.D. 09/16/2013 Per Unit Dose Up To 40 Millicuries Injection Immunizations Description No Information Available Vital Signs Date Vital Result Comment 08/05/2019 11:40am Height 60 inches 5'0" Heart Rate 63 /min R radial BP Systolic 100 mmHg R arm, large cuff BP Diastolic 68 mmHg R arm, large cuff BP Systolic Sitting 100 mmHg L arm, large cuff BP Diastolic Sitting 70 mmHg L arm, large cuff Respiratory Rate 16 /min O2 % BldC Oximetry 84 % Ra 07/29/2019 1:49pm Height 60 inches 5'0" Heart Rate 64 /min BP Systolic Sitting 110 mmHg lue large cuff BP Diastolic Sitting 64 mmHg lue large cuff Respiratory Rate 22 /min Ejection Fraction scheduled9 Results Test Acquired Date Facility Test Result H/L Range Note Laboratory test 08/11/2019 [facility] Gram Stain SEE RESULT [address] [place] [address] [phone] Body Fluid Cell 08/11/2019 [facility] Body Fluid Pleural Fluid Count [address] [place] [address] [phone] Body Fluid Appearance Clear Body Fluid Color Yellow Body Fluid Volume 3 mL Body Fluid WBC 368 /mcL Normal 2 Body Fluid RBC 1125 /mcL Body Fluid Neutrophils 19 % Body Fluid Lymph 66 % Body Fluid [place] 15 % Body Fluid Total Cells Counted 100 Body Fluid Comment (SEE NOTE) 3 Fluid Reviewed By MD (SEE NOTE) 4 Laboratory test 08/11/2019 [facility] Body Fluid SEE RESULT [address] [place] [address] ([id number]) [phone] Lactate 08/11/2019 [facility] Lactate 49 U/L 6 Dehydrogenase,BF [address] Dehydrogenase, [place] [address] BF [phone] Fluid Source PLEURAL 7 Body Fluid Total 08/11/2019 [facility] Total Protein, BF 2.5 g/ dL [address] [place], [place] [id number] [phone] Fluid Type, Protein, Total PLEURAL 9 Platelet 08/11/2019 [facility] Platelet 255 10^3/uL Normal 150 -[address] Count [place], [place] [id number] [phone] Mean Platelet Volume 7.3 fL Low 7.4-10.4 Inr/Protime 08/11/2019 [facility] Inr 1.13 High 0.82-1.[address] [place] [address] [phone] Laboratory test 08/11/2019 [facility] Partial 34.5 Normal 26.0 -38.[address] [address] Time PTT [phone] Laboratory test 05/12/2019 [facility] Ferritin 72.0 ng/mL Normal 11-[address] [place] [address] [phone] Vitamin B12 > 1450 pg/mL High 180-914 11 Iron & Iron Binding 05/12/2019 [facility] Iron 62 g/dL Normal 50-212 [address]acity [address] [place] [address] [phone] Unsaturated Iron Binding < 341 g/dL Total Iron Binding Capacity 356 g/dL Normal 250-450 Transferrin 254 mg/dL Normal 203-362 % Iron Saturation 17 % Normal 15-55 Comp Metabolic 05/12/2019 [facility] Sodium 138 mmol/L Normal 135-145 Panel [address] [place] [address] [phone] Potassium 3.7 mmol/L Normal 3.5-5.0 Chloride 101 [...] Egfr 65.8 >60 12 CBC Auto 05/12/2019 [facility] White Blood 13.3 10^3/uL High 3.5-10.[address] [place] [address] [phone] Red Blood Count 2.83 10^6/uL Low 3.70-4.87 [...] Blood Cells % 0.1 Laboratory test 05/12/2019 [facility] Creatine 34 U/L Normal 10-[address] Kinase(CK) [place] [address] [phone] Digoxin 1.2 ng/ml Normal 0.8-2.0 Lipid Profile 05/12/2019 [facility] Triglycerides 141 mg/dL 13 (Trig/Chol/HDL) [address] [place] [address] [phone] Cholesterol 135 mg/dL 14 HDL Cholesterol 67.9 mg/dL 15 LDL Cholesterol 39 mg/dL 16 Vitamin B12 And 05/12/2019 [facility] Folic Acid 10.36 ng/mL >3.[address] (Folate) [place] [address] [phone] 1 SEE RESULT BELOW Name: RYAN CARO : [address]: Nikita Keen MD Acct: [id number] Unit: [id number] AGE: 69 Location: Re08/11/19 SEX: F Status: REG REF SPEC: [id number] ALEXA: 08/11/[address]: Nikita Keen MD REQ: [id number] RECD: 08/11/19 STATUS: COMP [facility] DR: Aamir Choi MD _ SOURCE: BODY FLUID SPDESC:PLEURA ORDERED: Gram Stain Procedure Result Reported Site Gram Stain Final 08/11/19- 1257 ML 4+ Neutrophils 4+ Nucleated Cells No Organisms Seen BY CYTOSPIN SMEAR * ML - Main Lab . END OF REPORT DEPARTMENT OF PATHOLOGY, [address] [place] [address] Rey Villagomez M.D. Director [facility] # [id number] 2 -- REFERENCE VALUE -- Synovial: <150/mcL Peritoneal: <500/mcL Pleural: <500/mcL Pericardial: <500/mcL 3 Differential performed on concentrated smear. 4 No evidence of an acute inflammatory process. No evidence of malignancy. Reviewed by Tiny Gee MD 5 SEE RESULT BELOW Name: RYAN CARO : [address]: Nikita Keen MD Acct: [id number] Unit: [id number] AGE: 69 Location: SP Re08/11/19 SEX: F Status: REG REF SPEC: [id number] ALEXA: 08/11/19-[address] [facility] DR: Nikita Keen MD REQ: [id number] RECD: 08/11/19 STATUS: KRISTI SARAVIA DR: Aamir Choi MD _ SOURCE: PLEURAL FL SPDESC: ORDERED: BF Cult Bottles Procedure Result Reported Site BF Aerobic Culture Bottle Final 08/16/19- 1118 ML No Growth Day 5 BF Anaerobic Culture Bottle Final 08/16/19- 1118 ML No Growth Day 5 * ML - [facility] . END OF REPORT DEPARTMENT OF PATHOLOGY, [address] [place] [address] Rey Villagomez M.D. Director [facility] # [id number] 6 REFERENCE VALUE See Comment ADDITIONAL INFORMATION [...] clinical findings. All other fluids refer to [email or web address] for further interpretive information. This test has been modified from the oyster bed worker's instructions. Its performance characteristics were determined by [facility] in a manner consistent with CLIA requirements. This test has not been cleared or approved by the U.S. Food and Drug Administration. 7 Test Performed by: [address] [address] Ladle Repairer: Reynaldo Phan M.D. Ph.D.; CLIA# [id number] 8 REFERENCE VALUE See Comment ADDITIONAL INFORMATION [...] clinical findings. All other fluids refer to [email or web address] for further interpretive information. This test has been modified from the oyster bed worker's instructions. Its performance characteristics were determined by [facility] in a manner consistent with CLIA requirements. This test has not been cleared or approved by the U.S. Food and Drug Administration. 9 Test Performed by: [place] [address] Ladle Repairer: Reynaldo Phan M.D. Ph.D.; CLIA# [id number] 10 Standard intensity warfarin therapeutic range: 2.0-3.0 [...] High: >189 Procedures Date Code Description Status 08/24/2019 36629 ECHO Transthorasic Realtime 2D W Doppler & Color Flow Hosp Completed 08/16/2019 12461 Spirometry Incl Graphic Record Completed 08/05/2019 26161 ECHO Transthoracic, Real-Time 2D With Doppler And Color Completed Flow 08/05/2019 88105 ECHO Transthoracic, Real-Time 2D With Doppler And Color Completed Flow 08/05/2019 43489 EKG Tracing & Interpretation Completed 07/29/2019 22365 EKG Tracing & Interpretation Completed 05/11/2019 54167 EKG Tracing & Interpretation Completed 04/16/2019 05915 ECHO Transthoracic, Real-Time 2D With Doppler And Color Completed Flow 04/16/2019 57390 ECHO Transthoracic, Real-Time 2D With Doppler And Color Completed Flow Medical Devices Description No Information Available Encounters Type Date Location Provider Dx Diagnosis Office Visit 08/27/2019 Pulmonology And Natalie Leslie, J90 Pleural effusion, 11:02a Sleep Services Of not elsewhere [facility] classified C34.92 Malignant neoplasm of unsp part of left bronchus or lung R09.02 Hypoxemia Office Visit 07/29/2019 2:00p [facility] Hayley Hanna R06.02 Shortness of Of [facility] Foster, N.P. breath E78.5 Hyperlipidemia, unspecified I34.0 Nonrheumatic mitral (valve) insufficiency J90 Pleural effusion, not elsewhere classified I48.91 Unspecified atrial fibrillation Office Visit 05/25/2019 [facility] Mil Stahl K92.2 Gastrointestinal 8:31a MCarineDCarine hemorrhage, unspecified C34.90 Malignant neoplasm of unsp part of unsp bronchus or lung I48.91 Unspecified atrial fibrillation Office 05/25/2019 [facility] Gastroenterology Ibrahima Bansal K92.2 Gastrointestinal Visit 7:00a MD Jerson hemorrhage, unspecified Office 05/24/2019 [facility] Mil K92.2 Gastrointestinal Visit 8:31a saul Stahl M.D. unspecified N17.9 Acute kidney failure, unspecified C34.90 Malignant neoplasm of unsp part of unsp bronchus or lung I48.91 Unspecified atrial fibrillation Office Visit 05/11/2019 8:40a [facility] Aamir Turong N18.3 Chronic kidney Ayush Lopez disease, stage 3 (moderate) E11.9 Type 2 diabetes mellitus without complications I34.0 Nonrheumatic mitral (valve) insufficiency E78.5 Hyperlipidemia, unspecified I48.2 Chronic atrial fibrillation R09.02 Hypoxemia D64.9 Anemia, unspecified Office Visit 05/03/2019 [facility] Vielka Avalos J18.1 Lobar pneumonia, 9:33a For Infectious Chrissy, COMMERCIAL PHOTOGRAPHER unspecified Diseases organism C34.92 Malignant neoplasm of unsp part of left bronchus or lung N17.9 Acute kidney failure, unspecified N18.9 Chronic kidney disease, unspecified Office Visit 05/02/2019 9:54a [facility] Kathryn Rinaldi, J96.01 Acute respiratory Assoc,pc N.P. failure with Hospitalists hypoxia J18.9 Pneumonia, unspecified organism D64.9 Anemia, unspecified E11.9 Type 2 diabetes mellitus without complications Office Visit 04/30/2019 [facility] Vielka Avalos J18.1 Lobar pneumonia, 12:49p For Infectious Chrissy, COMMERCIAL PHOTOGRAPHER unspecified Diseases organism C34.90 Malignant neoplasm of unsp part of unsp bronchus or lung E87.5 Hyperkalemia E11.22 Type 2 diabetes mellitus w diabetic chronic kidney disease N18.3 Chronic kidney disease, stage 3 (moderate) N17.9 Acute kidney failure, unspecified Office Visit 04/29/2019 12:47p [facility] Hermelindo Walter J18.9 Pneumonia, Infectious Ayush Mak unspecified Diseases organism C34.90 Malignant neoplasm of unsp part of unsp bronchus or lung E87.5 Hyperkalemia Office Visit 04/28/2019 [facility] Vielka Avalos J18.1 Lobar pneumonia, 12:46p For Infectious Chrissy COMMERCIAL PHOTOGRAPHER unspecified Diseases organism C34.90 Malignant neoplasm of unsp part of unsp bronchus or lung E11.22 Type 2 diabetes mellitus w diabetic chronic kidney disease N18.3 Chronic kidney disease, stage 3 (moderate) N17.9 Acute kidney failure, unspecified Office Visit 04/27/2019 12:44p [facility] Vielka Avalos R06.02 Shortness of For Infectious Lowe, COMMERCIAL PHOTOGRAPHER breath Diseases R09.02 Hypoxemia R91.8 Other nonspecific abnormal finding of lung field D72.829 Elevated white blood cell count, unspecified C34.90 Malignant neoplasm of unsp part of unsp bronchus or lung Office Visit 04/24/2019 12:31p Pulmonology And Natalie J18.1 Lobar pneumonia, Sleep Services Of MD Leslie unspecified Pollution Control Technician organism C34.90 Malignant neoplasm of unsp part of unsp bronchus or lung J96.91 Respiratory failure, unspecified with hypoxia Assessments Date Code Description Provider 08/27/2019 J90 Pleural effusion, not elsewhere Natalie Nelson MD classified 08/27/2019 C34.92 Malignant neoplasm of unspecified Natalie Nelson MD part of left bronchus or lung 08/27/2019 R09.02 Hypoxemia Natalie Nelson MD 08/24/2019 I50.9 Heart failure, unspecified Lizbeth Morel [...] 05/03/2019 J18.1 Lobar pneumonia, unspecified organism Vielka Winkleblack Lowe, COMMERCIAL PHOTOGRAPHER 05/03/2019 C34.92 Malignant neoplasm of unspecified Vielka Avalos Lowe , COMMERCIAL PHOTOGRAPHER part of left bronchus or lung 05/03/2019 N17.9 Acute kidney failure, unspecified Vielka Robbie Lowe , COMMERCIAL PHOTOGRAPHER 05/03/2019 N18.9 Chronic kidney disease, unspecified Vielka Robbie Lowe, COMMERCIAL PHOTOGRAPHER 05/02/2019 J96.01 Acute respiratory failure with Kathryn Gentry, N.P. hypoxia 05/02/2019 J18.9 Pneumonia, unspecified organism Kathryn Gentry, N.P. 05/02/2019 D64.9 Anemia, unspecified Kathryn Gentry, N.P. 05/02/2019 E11.9 Type 2 diabetes mellitus without Kathryn Gentry, N.P. complications 04/30/2019 J18.1 Lobar pneumonia, unspecified organism Vielka Lowe, COMMERCIAL PHOTOGRAPHER 04/30/2019 C34.90 Malignant neoplasm of unspecified Vielka Leilaniandreacarrol Lowe , COMMERCIAL PHOTOGRAPHER part of unspecified bronchus or lung 04/30/2019 E87.5 Hyperkalemia Vielka Leilaniandreacarrol Lowe, COMMERCIAL PHOTOGRAPHER 04/30/2019 E11.22 Type 2 diabetes mellitus with Vielka Lowe, COMMERCIAL PHOTOGRAPHER diabetic chronic kidney disease 04/30/2019 N18.3 Chronic kidney disease, stage 3 Vielkaramandeep [place] Lowe, COMMERCIAL PHOTOGRAPHER (moderate) 04/30/2019 N17.9 Acute kidney failure, unspecified Vielka Robbie Lowe , COMMERCIAL PHOTOGRAPHER 04/29/2019 J18.9 Pneumonia, unspecified organism Gilson Mak M.D. 04/29/2019 C34.90 Malignant neoplasm of unspecified Gilson Mak M.D. part of unspecified bronchus or lung 04/29/2019 E87.5 Hyperkalemia Gilson Mak M.D. 04/28/2019 J18.1 Lobar pneumonia, unspecified organism Vielka Jimenesquitaandreacarrol Lowe, COMMERCIAL PHOTOGRAPHER 04/28/2019 C34.90 Malignant neoplasm of unspecified Vielka Jalilgerakeenan Lowe , COMMERCIAL PHOTOGRAPHER part of unspecified bronchus or lung 04/28/2019 E11.22 Type 2 diabetes mellitus with Vielkaramandeep Benavidesck Lowe, PIERCE diabetic chronic kidney disease 04/28/2019 N18.3 Chronic kidney disease, stage 3 Vielka Lowe, COMMERCIAL PHOTOGRAPHER (moderate) 04/28/2019 N17.9 Acute kidney failure, unspecified Vielka Lowe , COMMERCIAL PHOTOGRAPHER 04/27/2019 R06.02 Shortness of breath Vielka Benavidescarrol Lowe, COMMERCIAL PHOTOGRAPHER 04/27/2019 R09.02 Hypoxemia Vielka Lowe, COMMERCIAL PHOTOGRAPHER 04/27/2019 R91.8 Other nonspecific abnormal finding of Vielka Lowe, COMMERCIAL PHOTOGRAPHER lung field 04/27/2019 D72.829 Elevated white blood cell count, Vielka Lowe , COMMERCIAL PHOTOGRAPHER unspecified 04/27/2019 C34.90 Malignant neoplasm of unspecified Vielka Lowe , COMMERCIAL PHOTOGRAPHER part of unspecified bronchus or lung 04/24/2019 J18.1 Lobar pneumonia, unspecified organism Natalie Nelson MD 04/24/2019 C34.90 Malignant neoplasm of unspecified Natalie Nelson MD part of unspecified bronchus or lung 04/24/2019 J96.91 Respiratory failure, unspecified with Natalie Nelson MD hypoxia 04/16/2019 I34.0 Nonrheumatic mitral (valve) Aamir Lopez M.D. insufficiency 04/16/2019 I34.0 Nonrheumatic mitral (valve) [facility] Schedule insufficiency 04/16/2019 J44.9 Chronic obstructive pulmonary [facility] Schedule disease, unspecified 04/16/2019 I27.20 Pulmonary hypertension [facility] Schedule Plan of Treatment Future Appointment(s):09/20/2019 10:00 am - Hayley Landeros, N.P. at [facility]09/22/2019 8:30 am - Nurse Visit cc at [facility]09/21/2019 10 :00 am - Nurse Visit cc at [facility]10/15/2019 9:00 am - Hayley Landeros , N.P. at [facility]08/05/2019 - Nurse Visit ICR06.02 Shortness of nphnkyK65.31 Abnormal electrocardiogram [ECG] [EKG] Functional Status Description No Information Available Mental Status Description No Information Available Referrals Description No Information Available
[2019-11-08 07:11] LABS: ABS Basophils 0.1 10^3/ul (0-0.2); ABS Eosinophils 0.1 10^3/ul (0-0.6); ABS Lymphocytes 0.2 10^3/ul (1.0-4.8); ABS Monocytes 0.4 10^3/ul (0-0.8); ABS Neutrophils 6.8 10^3/ul (1.5-7.7); Hematocrit 28 % (35-47); Hemoglobin 9.4 g/dL (12.0-16.0); Lymphocyte % 2.3 %; Mean Corpuscular HGB Conc 33 g/dL (31-36); Mean Corpuscular Hemoglobin 33 pg (27-31); Mean Corpuscular Volume 99 fL (80-97); Mean Platelet Volume 7.3 fL (7.4-10.4); Nucleated Red Blood Cells % 0.4; Platelet Count 220 10^3/uL (150-450); Red Blood Count 2.84 10^6 /uL (3.70-4.87); Red Cell Distribution Width 19 % (10-15); White Blood Count 7.5 10^3/uL (3.5-10.8)
[2019-11-08 07:25] LABS: ALT 26 U/L (7-52); AST 18 U/L (13-39); Albumin 3.3 g/dL (3.2-5.2); Albumin/Globulin Ratio 1.3 (1-3); Alkaline Phosphatase 76 U/L (34-104); Anion Gap 5 mmol/L (2-11); BUN/Creatinine Ratio 19.5 (8-20); Blood Urea Nitrogen 22 mg/dL (6-24); C Reactive Protein 60.76 mg/L (<8.01); CO2 Carbon Dioxide 35 mmol/L (22-32); Calcium 8.7 mg/dL (8.6-10.3); Chloride 103 mmol/L (101-111); EGFR African American 57.8 (>60); EGFR Non-African American 47.7 (>60); Globulin 2.5 g/dL (2-4); Glucose 150 mg/dL (70-100); Potassium 4.2 mmol/L (3.5-5.0); Sodium 143 mmol/L (135-145); Total Protein 5.8 g/dL (6.4-8.9)
[2019-11-08 07:33] LABS: Troponin I 0.03 ng/mL (<0.03)
[2019-11-08] MEDS ORDERED: Furosemide IV* 10 MG/ML VIAL (40 MG) IV ONE (09:02)
[2019-11-08 09:03] LABS: Urine Appearance Clear; Urine Bacteria Absent (Absent); Urine Bilirubin Negative (Negative); Urine Blood Negative (Negative); Urine Color Yellow; Urine Glucose Negative (Negative); Urine Ketones Negative (Negative); Urine Nitrite Negative (Negative); Urine Protein 1+(30 mg/dL) (Negative); Urine Red Blood Cell Trace(0-2/hpf) (Absent); Urine Specific Gravity 1.015 (1.010-1.030); Urine Urobilinogen Negative (Negative); Urine White Blood Cell 2+(11-20/hpf) (Absent)
[2019-11-08] MEDS ORDERED: Furosemide IV* 10 MG/ML VIAL (40 MG) IV SLOW PU ONE (09:11)
[2019-11-08 09:54] LABS: Influenza A Molecular Negative (Negative); Influenza B Molecular Negative (Negative)
[2019-11-08] MEDS ORDERED: Alteplase (CATHFLO)* 2 MG VIAL IV ONE (10:18)
--- NOTE | 2019-11-08 10:30 | PN ---
Progress Note - Progress Note Date of Service: 11/08/19 SOAP: Subjective: []Has become more SOB and this am had difficulty walking around house to bathroom. Had fluid drained last Friday but did not help much. Was scheduled to see surgery today but came to ER. Objective: [] Vital Signs Temp Pulse Resp BP Pulse Ox 98.4 F 85 19 95/49 100 11/08/19 06:09 11/08/19 09:41 11/08/19 09:41 11/08/19 09:41 11/08/19 09:41 HEENT: OM moist. decreased BS, no wheezing, some crackles. RRR S1S2 +BS NT ND obese +1 RICHARD Laboratory Results - last 24 hr 11/08/19 11/08/19 11/08/19 06:57 06:58 06:58 WBC 7.5 RBC 2.84 L Hgb 9.4 L Hct 28 L MCV 99 H MCH 33 H MCHC 33 RDW 19 H Plt Count 220 MPV 7.3 L Neut % (Auto) 90.5 Lymph % (Auto) 2.3 [place] % (Auto) 5.5 Eos % (Auto) 1.0 Baso % (Auto) 0.7 Absolute Neuts (auto) 6.8 Absolute Lymphs (auto) 0.2 L Absolute Monos (auto) 0.4 Absolute Eos (auto) 0.1 Absolute Basos (auto) 0.1 Absolute Nucleated RBC 0.0 Nucleated RBC % 0.4 VBG pH VBG pCO2 VBG pO2 VBG HCO3 VBG O2 Saturation VBG Base Excess Sodium 143 Potassium 4.2 Chloride 103 Carbon Dioxide 35 H Anion Gap 5 BUN 22 Creatinine 1.13 H Est GFR ( Amer) 57.8 Est GFR (Non-Af Amer) 47.7 BUN/Creatinine Ratio 19.5 Glucose 150 H Lactic Acid 0.8 Calcium 8.7 Total Bilirubin 0.50 AST 18 ALT 26 Alkaline Phosphatase 76 Troponin I 0.03 H* C-Reactive Protein 60.76 H B-Natriuretic Peptide Total Protein 5.8 L Albumin 3.3 Globulin 2.5 Albumin/Globulin Ratio 1.3 Urine Color Urine Appearance Urine pH Ur Specific [place] Urine Protein Urine Ketones Urine Blood Urine Nitrate Urine Bilirubin Urine Urobilinogen Ur Leukocyte Esterase Urine WBC (Auto) Urine RBC (Auto) Urine Bacteria Urine Glucose Influenza A (Rapid) Influenza B (Rapid) 11/08/19 11/08/19 11/08/19 06:58 06:58 08:40 WBC RBC Hgb Hct MCV MCH MCHC RDW Plt Count MPV Neut % (Auto) Lymph % (Auto) [place] % (Auto) Eos % (Auto) Baso % (Auto) Absolute Neuts (auto) Absolute Lymphs (auto) Absolute Monos (auto) Absolute Eos (auto) Absolute Basos (auto) Absolute Nucleated RBC Nucleated RBC % VBG pH 7.39 VBG pCO2 53 H VBG pO2 71.0 H VBG HCO3 29.2 H VBG O2 Saturation 95.0 H VBG Base Excess 5.7 H Sodium Potassium Chloride Carbon Dioxide Anion Gap BUN Creatinine Est GFR ( Amer) Est GFR (Non-Af Amer) BUN/Creatinine Ratio Glucose Lactic Acid Calcium Total Bilirubin AST ALT Alkaline Phosphatase Troponin I C-Reactive Protein B-Natriuretic Peptide 216 H Total Protein Albumin Globulin Albumin/Globulin Ratio Urine Color Yellow Urine Appearance Clear Urine pH 6.0 Ur Specific [place] 1.015 Urine Protein 1+(30 mg/dl) A Urine Ketones Negative Urine Blood Negative Urine Nitrate Negative Urine Bilirubin Negative Urine Urobilinogen Negative Ur Leukocyte Esterase 1+ A Urine WBC (Auto) 2+(11-20/hpf) A Urine RBC (Auto) Trace(0-2/hpf) Urine Bacteria Absent Urine Glucose Negative Influenza A (Rapid) Influenza B (Rapid) 11/08/19 09:30 WBC RBC Hgb Hct MCV MCH MCHC RDW Plt Count MPV Neut % (Auto) Lymph % (Auto) [place] % (Auto) Eos % (Auto) Baso % (Auto) Absolute Neuts (auto) Absolute Lymphs (auto) Absolute Monos (auto) Absolute Eos (auto) Absolute Basos (auto) Absolute Nucleated RBC Nucleated RBC % VBG pH VBG pCO2 VBG pO2 VBG HCO3 VBG O2 Saturation VBG Base Excess Sodium Potassium Chloride Carbon Dioxide Anion Gap BUN Creatinine Est GFR ( Amer) Est GFR (Non-Af Amer) BUN/Creatinine Ratio Glucose Lactic Acid Calcium Total Bilirubin AST ALT Alkaline Phosphatase Troponin I C-Reactive Protein B-Natriuretic Peptide Total Protein Albumin Globulin Albumin/Globulin Ratio Urine Color Urine Appearance Urine pH Ur Specific [place] Urine Protein Urine Ketones Urine Blood Urine Nitrate Urine Bilirubin Urine Urobilinogen Ur Leukocyte Esterase Urine WBC (Auto) Urine RBC (Auto) Urine Bacteria Urine Glucose Influenza A (Rapid) Negative Influenza B (Rapid) Negative CT chest 11/03. There is a right effusion and R volume loss. BL interstitial changes and scattered ground glass opacity. 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 Little benefit from thoracentesis and I suspect SOB if from interstitial disease. Would like to avoid hospitalization. Plan: []1. Somumedrol 125 mg IV x 1 now 2. Prednisone 40 mg po daily 3. Social isolation as much as possible for time being.
[2019-11-08] MEDS ORDERED: methylPREDNISolone 125 MG* 2 ML VIAL IV ONE (10:33)
[2019-11-08] MEDS ORDERED: Sterile Water for Inj* 0 ML ONE (10:40)
[2019-11-08 10:58] LABS: Troponin I 0.03 ng/mL (<0.03)
[2019-11-08 11:34] VITALS: BP 145/89
== END 2019-11-08 11:34 | disposition home or self-care (01) ==
LOC: ED 05:50
DX: R06.00 Dyspnea, unspecified (principal); R79.89 Other specified abnormal findings of blood chemistry; D64.9 Anemia, unspecified; I48.91 Unspecified atrial fibrillation; J90 Pleural effusion, not elsewhere classified; E11.9 Type 2 diabetes mellitus without complications; I11.0 Hypertensive heart disease with heart failure; I50.9 Heart failure, unspecified; E78.5 Hyperlipidemia, unspecified; J44.9 Chronic obstructive pulmonary disease, unspecified; Z99.81 Dependence on supplemental oxygen; Z79.84 Long term (current) use of oral hypoglycemic drugs; Z79.899 Other long term (current) drug therapy; Z91.040 Latex allergy status
CPT/HCPCS: 36415; 71045; 80053; 81003; 81015; 82803; 83605; 83880; 84484; 85025; 86140; 87077; 87086; 87186; 93005; 96374; 96375; 99283; 99285; A9270-GY; J1642; J1940; J2930; J2997

== ENCOUNTER 2019-12-14 08:42 | Day surgery (SDC) | payer MEDICARE ==
[~2019-12-14 08:42] MED LIST changes: -Acetaminophen IV 1GM/100ML * 1,000 MG/100 ML VIAL IVPB ONE; -Dexamethasone IV* 4 MG/ML 1 ML (4 MG) ONE; -Famotidine IV* 10 MG/ML 2 ML (20 mg) ONE; -KETAMINE HCL* 50 MG/ML 10 ML VIAL ONE; -Ketorolac INJ* 30 MG/ML 1 ML VIAL IV PRN; -Levalbuterol 0.63MG/3ML NEB* UNIT OF USE INH ONE; -Levalbuterol 0.63MG/3ML NEB* UNIT OF USE INH PRN; -Lidocain 1% EPI 1:100,000 * 30 ML MDV ONE; -Lidocaine 1% INJ* 10 MG/ML 30 ML SDV ONE; -Lidocaine 2% PF * 5 ML VIAL ONE; -Midazolam* 1 MG/ML 5 ML VIAL (5 MG) ONE; -Naloxone* 0.4 MG/ML 1 ML VIAL IV PRN; -Ondansetron INJ* 2 MG/ML VIAL IV PRN; -Ondansetron INJ* 2 MG/ML VIAL ONE; -Propofol* 10 MG/ML 20 ML BTL ONE; -ceFAZolin 2 GM PREMIX in ORs 2 GM/50 ML BAG IVPB ONE; -fentaNYL* 50 MCG/ML 2 ML VIAL (100 MCG VIAL) IV PRN; -fentaNYL* 50 MCG/ML 2 ML VIAL (100 MCG VIAL) ONE
[2019-12-14] MEDS ORDERED: Buffered Lidocaine 1% SYRIN* 1 ML/SYRINGE INTRADERM ONE ×2 (09:18→10:01)
[2019-12-14] MEDS ORDERED: Famotidine IV* 10 MG/ML 2 ML (20 mg) ONE (09:19)
[2019-12-14] MEDS ORDERED: Metoprolol Tartrate IV* 1 MG/ML 5 ML VIAL ONE ×3 (09:36→10:22)
[2019-12-14] MEDS ORDERED: hydrALAZINE IV* 20 MG/ML VIAL ONE ×2 (09:36→10:21)
[2019-12-14] MEDS ORDERED: Insulin LISPRO* 1 UNITS UNIT SUBCUT ONE (09:40)
[2019-12-14] MEDS ORDERED: ceFAZolin 2 GM PREMIX in ORs 2 GM/50 ML BAG ONE (10:07)
[2019-12-14] MEDS ORDERED: fentaNYL* 50 MCG/ML 2 ML VIAL (100 MCG VIAL) ONE (10:18)
[2019-12-14] MEDS ORDERED: KETAMINE HCL* 50 MG/ML 10 ML VIAL ONE (10:18)
[2019-12-14] MEDS ORDERED: Midazolam* 1 MG/ML 5 ML VIAL (5 MG) ONE (10:18)
[2019-12-14] MEDS ORDERED: oxyCODONE TAB* 5 MG TAB PO PRN (10:20)
[2019-12-14] MEDS ORDERED: Ondansetron INJ* 2 MG/ML VIAL IV PRN (10:20)
[2019-12-14] MEDS ORDERED: Acetaminophen TAB* 325 MG PO PRN (10:20)
[2019-12-14] MEDS ORDERED: fentaNYL* 50 MCG/ML 2 ML VIAL (100 MCG VIAL) IV PRN (10:20)
[2019-12-14] MEDS ORDERED: HYDROcodone/ACETAMIN 5-325 MG* 1 TAB PO PRN (10:20)
[2019-12-14] MEDS ORDERED: Naloxone* 0.4 MG/ML 1 ML VIAL IV PRN (10:20)
[2019-12-14] MEDS ORDERED: Lidocaine 1% INJ* 10 MG/ML 30 ML SDV ONE (10:33)
[2019-12-14 12:43] VITALS: BP 143/87
--- NOTE | 2019-12-14 13:42 | OP ---
CC: Dr. Nikita Keen; Primary Care Physician; [facility] OPERATIVE REPORT: DATE OF OPERATION: 12/14/19 DATE OF : 50 SURGEON: Benito Bautista MD TANK CAR REPAIRER: None. ANESTHESIOLOGIST: Dr. Carolina. ANESTHESIA: Local MAC. PRE-OP DIAGNOSIS: Lung cancer and recurrent left malignant pleural effusion. POST-OP DIAGNOSIS: Lung cancer and recurrent left malignant pleural effusion. OPERATIVE PROCEDURE: Left PleurX catheter placement. ESTIMATED BLOOD LOSS: Minimal. FLUIDS: No crystalloid fluid given. SPECIMEN: None. PleurX catheter placed and 700 cc of straw-colored material removed, none sent for specimen. DESCRIPTION OF PROCEDURE: The patient was identified in the preoperative area. A brief H and P was performed as I only saw the patient via telemedicine visit yesterday. Lungs were auscultated and cer tainly had decreased breath sounds bilaterally, worse on the left. Obtained consent for a placement of PleurX catheter, the patient knowingly signed and she was marked accordingly. She was brought to the operating room and placed on the operating table in the supine position. Preoperative antibiotic s were given. Gentle sedation was then given and she was gently rolled to a modified right lateral d ecubitus. The left midclavicular line and right upper abdomen and chest were prepped and draped in s tandard surgical fashion and time-out was performed. After injection of lidocaine, the finder needle was placed through the fourth intercostal space and a t the midaxillary line, and entered into the pleural space where straw-colored fluid was drawn out. Wire was inserted with ease and then we incised at the wire. A dilator was inserted and fluid was re adily removed through this. Next, we turned our attention to the upper abdomen on the left. A counterincision was made and we in jected along the tunnel. The PleurX catheter tubing was then tunneled in the appropriate fashion rig ht up to the wire. Additional dilation was carried out until the split-away catheter inserted. We t hen placed the catheter into the split-away tubing. There was a gush of air entered into the chest i ntermittently with fluid exiting. There was a good amount of fluid came out on its own just with the split-away catheter and I knew we were in a good positioning. Once the catheter inserted, this fluid flow stopped and we were able to remove the split-away catheter. We assured that the tunneling did not lead to any kinking in the tubing and then closed the initial incision with a 4-0 Monocryl subcut icular suture. At the tunneled area, we sutured the tubing to the skin with the given silk suture. We then placed an evac container at the site and had ready flow and approximately 700 cc was removed along with air. This was then removed and dressing applied. The patient tolerated the procedure well, was transferred to the PACU in stable condition. [id number]/[facility] #: [id number]
== END 2019-12-14 12:43 | disposition home or self-care (01) ==
LOC: OR 08:42
PROVIDERS: ATTEND Surgery
DX: C34.92 Malignant neoplasm of unspecified part of left bronchus or lung (principal); J91.0 Malignant pleural effusion; J44.9 Chronic obstructive pulmonary disease, unspecified; I48.91 Unspecified atrial fibrillation; E11.9 Type 2 diabetes mellitus without complications
CPT/HCPCS: J0360; J0690; J1815; J2250; J3010; J3490

== ENCOUNTER 2020-02-25 03:18 | Inpatient (IN) ==
[2020-02-25] MEDS ORDERED: Furosemide 40 mg/4 ml IV VIAL IV ONE ×2 (03:40→08:26)
[2020-02-25 04:27] LABS: ABS Basophils 0.1 10^3/ul (0-0.2); ABS Eosinophils 0.2 10^3/ul (0-0.6); ABS Lymphocytes 0.3 10^3/ul (1.0-4.8); ABS Monocytes 0.6 10^3/ul (0-0.8); Eosinophil % 1.4 %; Hematocrit 26 % (35-47); Hemoglobin 8.4 g/dL (12.0-16.0); Lymphocyte % 1.9 %; Mean Corpuscular HGB Conc 32 g/dL (31-36); Mean Corpuscular Hemoglobin 30 pg (27-31); Mean Corpuscular Volume 92 fL (80-97); Mean Platelet Volume 7.5 fL (7.4-10.4); Nucleated Red Blood Cells % 0.2; Platelet Count 376 10^3/uL (150-450); Red Blood Count 2.82 10^6 /uL (3.70-4.87); Red Cell Distribution Width 19 % (10-15); White Blood Count 13.6 10^3/uL (3.5-10.8)
[2020-02-25 04:40] LABS: Albumin 2.9 g/dL (3.2-5.2); Calcium 7.9 mg/dL (8.6-10.3); Total Bilirubin 0.6 mg/dL (0.2-1.0)
[2020-02-25 04:41] LABS: Potassium 5.2 mmol/L (3.5-5.0)
[2020-02-25 04:46] LABS: Albumin/Globulin Ratio 1.1 (1-3); BUN/Creatinine Ratio 26.8 (8-20); C Reactive Protein 109.2 mg/L (<8.01); EGFR African American 52.2 (>60); EGFR Non-African American 43.2 (>60); Globulin 2.6 g/dL (2-4); Total Protein 5.5 g/dL (6.4-8.9)
[2020-02-25] MEDS ORDERED: cefTRIAXone 1 gm/50 mL NS BAG 1 GM/50 ML BAG IV ONE (04:47)
[2020-02-25 04:48] LABS: Troponin I 0.01 ng/mL (<0.03)
[2020-02-25 04:49] LABS: Digoxin 1.1 ng/ml (0.8-2.0)
[2020-02-25] MEDS ORDERED: Dextrose 50% Syringe 50 ml 25 GM/50 ML SYRINGE IV PUSH ONE (04:49)
[2020-02-25] MEDS ORDERED: Iodixanol (CONTRAST) 320 MG/ML 100 ML SDV IV ONE (05:42)
[2020-02-25 06:16] LABS: Urine Appearance Clear; Urine Bilirubin Negative (Negative); Urine Blood 1+ (Negative); Urine Color Straw; Urine Glucose Negative (Negative); Urine Ketones Negative (Negative); Urine Nitrite Negative (Negative); Urine Protein Negative (Negative); Urine Specific Gravity 1.006 (1.010-1.030); Urine Urobilinogen Negative (Negative)
[2020-02-25 06:28] LABS: Urine Bacteria 3+ (Absent); Urine Red Blood Cell Trace(0-2/hpf) (Absent); Urine Squamous Epithelial Cell Present (Absent); Urine White Blood Cell 1+(6-10/hpf) (Absent)
[2020-02-25] MEDS ORDERED: Piperacillin/Tazobac ADVAN(*) 3.375 GM in NS 0.9% 100 ml BAG 100 ML IVPB ONE (08:14)
[2020-02-25] MEDS ORDERED: Zosyn per Pharmacy NOTE FOLLOW UP SCH (09:00)
[2020-02-25] MEDS: Mometasone/Formoter 200/5 MDI INH SCH ×2 (12:55→19:27)
[2020-02-25] MEDS: ZOSYN 3.375 GM Q8H per EXTENDED INFUSION IV SCH ×2 (14:13→20:28)
[2020-02-25] MEDS: Nystatin TOP POWDER 15 GM BTL TOPICAL SCH ×2 (14:14→20:28)
[2020-02-25 14:44] LABS: BUN/Creatinine Ratio 27.4 (8-20); EGFR African American 55.3 (>60); EGFR Non-African American 45.7 (>60); Potassium 4.9 mmol/L (3.5-5.0)
[2020-02-26] MEDS ORDERED: HYDROcodone/ACETAMIN 5/325 mg TAB PO ONE (03:38)
[2020-02-26] MEDS: ZOSYN 3.375 GM Q8H per EXTENDED INFUSION IV SCH ×3 (04:32→20:04)
[2020-02-26 04:48] LABS: ABS Basophils 0.1 10^3/ul (0-0.2); ABS Eosinophils 0.1 10^3/ul (0-0.6); ABS Lymphocytes 0.2 10^3/ul (1.0-4.8); ABS Monocytes 0.6 10^3/ul (0-0.8); Eosinophil % 1.2 %; Hematocrit 23 % (35-47); Hemoglobin 7.4 g/dL (12.0-16.0); Lymphocyte % 1.8 %; Mean Corpuscular HGB Conc 32 g/dL (31-36); Mean Corpuscular Hemoglobin 30 pg (27-31); Mean Corpuscular Volume 93 fL (80-97); Mean Platelet Volume 7.4 fL (7.4-10.4); Nucleated Red Blood Cells % 0.2; Platelet Count 287 10^3/uL (150-450); Red Blood Count 2.48 10^6 /uL (3.70-4.87); Red Cell Distribution Width 19 % (10-15)
[2020-02-26] MEDS ORDERED: cefTRIAXone 1 gm/50 mL NS BAG 1 GM/50 ML BAG IVPB SCH (05:00)
[2020-02-26 05:03] LABS: BUN/Creatinine Ratio 28.2 (8-20); Calcium 7.7 mg/dL (8.6-10.3); EGFR African American 59.4 (>60); EGFR Non-African American 49.1 (>60); Potassium 4.5 mmol/L (3.5-5.0)
[2020-02-26] MEDS: Mometasone/Formoter 200/5 MDI INH SCH ×2 (07:28→19:21)
[2020-02-26] MEDS: Nystatin TOP POWDER 15 GM BTL TOPICAL SCH ×3 (08:55→20:03)
[2020-02-26] MEDS ORDERED: LORazepam 0.5 mg TAB (*) PO ONE (19:26)
[2020-02-27] MEDS: ZOSYN 3.375 GM Q8H per EXTENDED INFUSION IV SCH ×3 (04:58→21:55)
[2020-02-27] MEDS: Mometasone/Formoter 200/5 MDI INH SCH ×2 (07:34→19:23)
[2020-02-27] MEDS: Nystatin TOP POWDER 15 GM BTL TOPICAL SCH ×3 (07:55→21:58)
[2020-02-27] MEDS ORDERED: Furosemide 20 mg/2 ml IV VIAL IV SLOW PU ONE (09:06)
[2020-02-27 09:15] LABS: ABS Basophils 0.1 10^3/ul (0-0.2); ABS Eosinophils 0.1 10^3/ul (0-0.6); ABS Lymphocytes 0.3 10^3/ul (1.0-4.8); ABS Monocytes 0.6 10^3/ul (0-0.8); Hematocrit 24 % (35-47); Hemoglobin 7.5 g/dL (12.0-16.0); Lymphocyte % 2.4 %; Mean Corpuscular HGB Conc 32 g/dL (31-36); Mean Corpuscular Hemoglobin 29 pg (27-31); Mean Corpuscular Volume 92 fL (80-97); Nucleated Red Blood Cells % 0.1; Platelet Count 306 10^3/uL (150-450); Red Blood Count 2.55 10^6 /uL (3.70-4.87); Red Cell Distribution Width 19 % (10-15); White Blood Count 11.2 10^3/uL (3.5-10.8)
[2020-02-27] MEDS ORDERED: Furosemide 40 mg/4 ml IV VIAL ONE (09:16)
[2020-02-27 09:34] LABS: BUN/Creatinine Ratio 27.4 (8-20); Calcium 7.6 mg/dL (8.6-10.3); EGFR Non-African American 51.2 (>60); Magnesium 1.2 mg/dL (1.9-2.7); Potassium 4.4 mmol/L (3.5-5.0)
[2020-02-27] MEDS ORDERED: Magnesium Sulfate 2 gm BAG 2 GM/50 ML BAG IVPB ONE (09:41)
[2020-02-27] MEDS ORDERED: LORazepam 2 mg VIAL 1 ml IV PUSH ONE (12:42)
[2020-02-27] MEDS ORDERED: Lorazepam PYXIS KEY PRN (12:42)
[2020-02-27] MEDS ORDERED: SULFAMETHOXAZOLE IVPB SCH (13:00)
[2020-02-27] MEDS ORDERED: D5W IVPB SCH (13:00)
[2020-02-27] MEDS ORDERED: TRIMETH IVPB SCH (13:00)
[2020-02-27] MEDS ORDERED: Morphine 2 MG/ML SYRINGE IV ONE (18:39)
[2020-02-27] MEDS: SULFAMETHOXAZOLE IVPB SCH (21:55)
[2020-02-27] MEDS: D5W IVPB SCH (21:55)
[2020-02-27] MEDS: TRIMETH IVPB SCH (21:55)
[2020-02-28] MEDS ORDERED: NS 0.9% 500 ml BAG 500 ML IV ONE (01:04)
[2020-02-28] MEDS ORDERED: Haloperidol 5 mg/ml SDV IV/IM 5 MG/ML AMP IV SLOW PU PRN (04:05)
[2020-02-28] MEDS: ZOSYN 3.375 GM Q8H per EXTENDED INFUSION IV SCH (05:12)
[2020-02-28 05:22] LABS: ABS Basophils 0.1 10^3/ul (0-0.2); ABS Eosinophils 0.2 10^3/ul (0-0.6); ABS Lymphocytes 0.2 10^3/ul (1.0-4.8); ABS Monocytes 0.4 10^3/ul (0-0.8); Eosinophil % 2.1 %; Hematocrit 22 % (35-47); Hemoglobin 7.1 g/dL (12.0-16.0); Lymphocyte % 1.8 %; Mean Corpuscular HGB Conc 33 g/dL (31-36); Mean Corpuscular Hemoglobin 30 pg (27-31); Mean Corpuscular Volume 92 fL (80-97); Mean Platelet Volume 7.3 fL (7.4-10.4); Nucleated Red Blood Cells % 0.2; Platelet Count 260 10^3/uL (150-450); Red Blood Count 2.38 10^6 /uL (3.70-4.87); Red Cell Distribution Width 18 % (10-15); White Blood Count 8.3 10^3/uL (3.5-10.8)
[2020-02-28 05:41] LABS: BUN/Creatinine Ratio 24.6 (8-20); Calcium 7.6 mg/dL (8.6-10.3); EGFR Non-African American 47.1 (>60); Magnesium 1.6 mg/dL (1.9-2.7)
[2020-02-28] MEDS: D5W IVPB SCH ×2 (06:16→13:55)
[2020-02-28] MEDS: SULFAMETHOXAZOLE IVPB SCH ×2 (06:16→13:55)
[2020-02-28] MEDS: TRIMETH IVPB SCH ×2 (06:16→13:55)
[2020-02-28] MEDS: Mometasone/Formoter 200/5 MDI INH SCH ×3 (07:34→19:19)
[2020-02-28] MEDS: Nystatin TOP POWDER 15 GM BTL TOPICAL SCH ×3 (08:44→20:48)
[2020-02-28] MEDS: Morphine 2 MG/ML SYRINGE IV PRN (09:54)
[2020-02-28] MEDS ORDERED: Magnesium Sulfate IV 3 GM in NS 0.9% 100 ml BAG 100 ML IVPB ONE (10:15)
[2020-02-28] MEDS: Meropenem 1 GM PREMIX(*) 1 GM/50 ML BAG IV SCH ×2 (11:19→20:04)
[2020-02-29] MEDS: Meropenem 1 GM PREMIX(*) 1 GM/50 ML BAG IV SCH ×2 (02:35→10:59)
[2020-02-29] MEDS: Morphine 2 MG/ML SYRINGE IV PRN ×5 (04:04→15:18)
[2020-02-29] MEDS ORDERED: Dextrose 50% Syringe 50 ml 25 GM/50 ML SYRINGE IV PUSH PRN (05:57)
[2020-02-29] MEDS: Mometasone/Formoter 200/5 MDI INH SCH (07:36)
[2020-02-29] MEDS: Nystatin TOP POWDER 15 GM BTL TOPICAL SCH ×2 (08:34→13:42)
[2020-02-29] MEDS ORDERED: Morphine PCA ADULT 5 MG/ML 30 ML PCA SCH ×2 (11:00→15:16)
[2020-02-29] MEDS ORDERED: Lorazepam PYXIS KEY PRN (11:39)
[2020-02-29] MEDS: LORazepam 2 mg VIAL 1 ml IV PUSH PRN ×3 (11:55→15:18)
[2020-02-29 12:01] VITALS: BP 120/88
== END 2020-02-29 15:27 | disposition expired | DRG 189 ==
LOC: ED 03:18 → ICU 07:20
PROVIDERS: ADMIT Emergency Medicine; ATTEND Internal Medicine